=== PATIENT | female | born 1940 | race Caucasian/White ===

== ENCOUNTER 2016-06-29 11:00 | Inpatient (IN) | payer BC, MEDICARE ==
[2016-06-29] MEDS ORDERED: SODIUM CHLORIDE 0.9% 1,000 ML IV ONE (11:44)
[2016-06-29] MEDS ORDERED: ONDANSETRON 4 MG/2 ML VIAL IVP STA (11:45)
--- NOTE | 2016-06-29 11:49 | ED ---
Nausea/Vomiting/Diarrhea HPI <Kyler Edwards J - Last Filed: 06/29/16 15:20> - General Source: patient, EMS, RN notes reviewed Mode of arrival: EMS Limitations: no limitations <Juana Aburto - Last Filed: 06/29/16 19:55> - General Chief complaint: Nausea/Vomiting/Diarrhea Stated complaint: N/V/D Time Seen by Provider: 06/29/16 11:22 - History of Present Illness Initial comments: Patient is a 76-year-old female presents to the emergency room for evaluation of nausea, vomiting diarrhea. Patient states yesterday around 6 PM she began having lower abdominal pain. Patient states she has also been nauseous. Patient states throughout the night she is having on and off lower abdominal pain. Patient states this morning when she woke up, she had coffee and began experiencing lower abdominal pain. Patient states she went to the bathroom had an episode of diarrhea and vomited once. Patient states after the episode she felt very weak. Patient states her helped to the couch and EMS was called. Patient states she feels very shaky. Patient states she feels very cold. Patient's states that he took her temperature last night around 10 PM and it was 100.6F and Tylenol was given. Patient's denies any fever since. Patient states she has a history of cholecystectomy, appendectomy and total hysterectomy. Patient denies any history of bowel obstructions. Patient states she is no longer feeling nauseous or his abdominal pain but the nausea and pain are intermittent. Patient denies headache, dizziness, chest pain, shortness of breath. Patient denies any pain or burning during urination , blood in urine or trouble urinating. (uJana Aburto) - Related Data Home Medications Medication Instructions Recorded Confirmed Atorvastatin [Lipitor] 40 mg PO DAILY 09/18/14 06/29/16 Esomeprazole Magnesium [NexIUM] 40 mg PO DAILY 09/18/14 06/29/16 Ipratropium/Albuterol Sulfate 1 puff INHALATION RT-QID 09/18/14 06/29/16 [Combivent Respimat Inhaler] Pregabalin [Lyrica] 50 mg PO BID PRN 09/18/14 06/29/16 Sertraline [Zoloft] 100 mg PO DAILY 09/18/14 06/29/16 Albuterol Nebulized [Ventolin 2.5 mg INHALATION RT-QID 06/29/16 06/29/16 Nebulized] LORazepam [Ativan] 0.5 mg PO DAILY PRN 06/29/16 06/29/16 Allergies Allergy/AdvReac Type Severity Reaction Status Date / Time aspirin Allergy Nausea & Verified 06/29/16 11:39 Vomiting codeine Allergy Unknown Verified 06/29/16 11:39 meperidine HCl [From Demerol] AdvReac Rapid Verified 06/29/16 11:39 Heart Rate Review of Systems ROS Other: All systems not noted in ROS Statement are negative. <Kyler Edwards - Last Filed: 06/29/16 15:20> ROS Other: All systems not noted in ROS Statement are negative. <Juana Aburto - Last Filed: 06/29/16 19:55> ROS Statement: Those systems with pertinent positive or pertinent negative responses have been documented in the HPI. Past Medical History Past Medical History: Pneumonia Additional Past Medical History / Comment(s): high cholesterol History of Any Multi-Drug Resistant Organisms: None Reported Past Surgical History: Appendectomy, Cholecystectomy, Hysterectomy Additional Past Surgical History / Comment(s): emphesema Past Anesthesia/Blood Transfusion Reactions: No Reported Reaction Past Psychological History: Depression Smoking Status: Current every day smoker Past Alcohol Use History: None Reported Additional Past Alcohol Use History / Comment(s): quit 09/16/2014 Past Drug Use History: None Reported - Past Family History Sister(s) Family Medical History: Cancer Brother(s) Family Medical History: Cancer Mother Additional Family Medical History / Comment(s): " AFTER GALLBLADDER TONY" <Juana Aburto - Last Filed: 06/29/16 19:55> General Exam <Kyler Edwards - Last Filed: 06/29/16 15:20> Limitations: no limitations General appearance: alert, in no apparent distress Head exam: Present: atraumatic, normocephalic, normal inspection Eye exam: Present: normal appearance ENT exam: Present: normal exam Neck exam: Present: normal inspection Respiratory exam: Present: normal lung sounds bilaterally. Absent: respiratory distress Cardiovascular Exam: Present: regular rate, normal rhythm, normal heart sounds GI/Abdominal exam: Present: soft, normal bowel sounds. Absent: distended, tenderness, guarding, rebound, rigid Extremities exam: Present: normal inspection Back exam: Present: normal inspection Neurological exam: Present: alert, oriented X3, CN II-XII intact, normal gait Psychiatric exam: Present: normal affect, normal mood Skin exam: Present: warm, dry, intact, normal color. Absent: rash <Juana Aburto - Last Filed: 06/29/16 19:55> - General Exam Comments Initial Comments: Laying in exam room, no acute distress. (Juana Aburto) Medical Decision Making - Lab Data Result diagrams: 06/29/16 12:19 06/29/16 12:19 <Kyler Edwards - Last Filed: 06/29/16 15:20> - Lab Data Result diagrams: 06/29/16 12:19 06/29/16 12:19 - Radiology Data Radiology results: report reviewed, image reviewed <Juana Aburto - Last Filed: 06/29/16 19:55> - Medical Decision Making The patient was seen and examined. All diagnostics were reviewed. Case was discussed with Dr. Ryan and he is agreeable to admission with IV fluids, a.m. labs, Flagyl, Cipro, and symptomatic control. The patient is quite agreeable to this as well. The case is discussed with the PA and I agree with the findings as documented. (Kyler Edwards) Patient is a 76-year-old female presents to the emergency room for evaluation nausea, vomiting and diarrhea. Patient has an elevated white count. Abdomen/ pelvis CT significant for possible colitis versus gastroenteritis. Case discussed with Dr. Edwards. Dr. Edwards spoke with Dr. Ryan who agreed to admit patient. Patient will be admitted with IV fluids and Cipro/Flagyl. Plan discussed with patient. (Juana Aburto) - Lab Data Lab Results 06/29/16 06/29/16 06/29/16 Range/Units 12:19 12:19 12:19 WBC 16.9 H (3.8-10.6) k/uL RBC 4.37 (3.80-5.40) m/uL Hgb 12.9 (11.4-16.0) gm/dL Hct 39.2 (34.0-46.0) % MCV 89.6 (80.0-100.0) fL MCH 29.6 (25.0-35.0) pg MCHC 33.0 (31.0-37.0) g/dL RDW 13.5 (11.5-15.5) % Plt Count 211 (150-450) k/uL Neutrophils % 86 % Lymphocytes % 6 % Monocytes % 7 % Eosinophils % 1 % Basophils % 0 % Neutrophils # 14.5 H (1.3-7.7) k/uL Lymphocytes # 1.0 (1.0-4.8) k/uL Monocytes # 1.1 H (0-1.0) k/uL Eosinophils # 0.1 (0-0.7) k/uL Basophils # 0.0 (0-0.2) k/uL Sodium 142 (137-145) mmol/L Potassium 4.3 (3.5-5.1) mmol/L Chloride 108 H (98-107) mmol/L Carbon Dioxide 23 (22-30) mmol/L Anion Gap 11 mmol/L BUN 13 (7-17) mg/dL Creatinine 0.88 (0.52-1.04) mg/dL Est GFR (MDRD) Af Amer >60 (>60 ml/min/1.73 sqM) Est GFR (MDRD) Non-Af >60 (>60 ml/min/1.73 sqM) Glucose 100 H (74-99) mg/dL Calcium 9.2 (8.4-10.2) mg/dL Magnesium 1.8 (1.6-2.3) mg/dL Total Bilirubin 0.8 (0.2-1.3) mg/dL AST 19 (14-36) U/L ALT 25 (9-52) U/L Alkaline Phosphatase 80 (38-126) U/L Total Protein 6.7 (6.3-8.2) g/dL Albumin 4.0 (3.5-5.0) g/dL Amylase 45 (30-110) U/L Lipase 51 (23-300) U/L Urine Color Urine Appearance (Clear) Urine pH (5.0-8.0) Ur Specific [place] (1.001-1.035) Urine Protein (Negative) Urine Glucose (UA) (Negative) Urine Ketones (Negative) Urine Blood (Negative) Urine Nitrate (Negative) Urine Bilirubin (Negative) Urine Urobilinogen (<2.0) mg/dL Ur Leukocyte Esterase (Negative) Urine RBC (0-5) /hpf Ur Squamous Epith Cells (0-4) /hpf Hyaline Casts (0-2) /lpf Urine Mucus (None) /hpf 06/29/16 Range/Units 13:28 WBC (3.8-10.6) k/uL RBC (3.80-5.40) m/uL Hgb (11.4-16.0) gm/dL Hct (34.0-46.0) % MCV (80.0-100.0) fL MCH (25.0-35.0) pg MCHC (31.0-37.0) g/dL RDW (11.5-15.5) % Plt Count (150-450) k/uL Neutrophils % % Lymphocytes % % Monocytes % % Eosinophils % % Basophils % % Neutrophils # (1.3-7.7) k/uL Lymphocytes # (1.0-4.8) k/uL Monocytes # (0-1.0) k/uL Eosinophils # (0-0.7) k/uL Basophils # (0-0.2) k/uL Sodium (137-145) mmol/L Potassium (3.5-5.1) mmol/L Chloride (98-107) mmol/L Carbon Dioxide (22-30) mmol/L Anion Gap mmol/L BUN (7-17) mg/dL Creatinine (0.52-1.04) mg/dL Est GFR (MDRD) Af Amer (>60 ml/min/1.73 sqM) Est GFR (MDRD) Non-Af (>60 ml/min/1.73 sqM) Glucose (74-99) mg/dL Calcium (8.4-10.2) mg/dL Magnesium (1.6-2.3) mg/dL Total Bilirubin (0.2-1.3) mg/dL AST (14-36) U/L ALT (9-52) U/L Alkaline Phosphatase (38-126) U/L Total Protein (6.3-8.2) g/dL Albumin (3.5-5.0) g/dL Amylase (30-110) U/L Lipase (23-300) U/L Urine Color Yellow Urine Appearance Clear (Clear) Urine pH 5.5 (5.0-8.0) Ur Specific [place] 1.014 (1.001-1.035) Urine Protein Negative (Negative) Urine Glucose (UA) Negative (Negative) Urine Ketones Negative (Negative) Urine Blood Negative (Negative) Urine Nitrate Negative (Negative) Urine Bilirubin Negative (Negative) Urine Urobilinogen <2.0 (<2.0) mg/dL Ur Leukocyte Esterase Small H (Negative) Urine RBC 2 (0-5) /hpf Ur Squamous Epith Cells 5 H (0-4) /hpf Hyaline Casts 3 H (0-2) /lpf Urine Mucus Occasional H (None) /hpf Disposition <Kyler Edwards - Last Filed: 06/29/16 15:20> Decision Date: 06/29/16 <Juana Aburto - Last Filed: 06/29/16 19:55> Clinical Impression: Colitis Disposition: ADMITTED IP TO THIS [facility] Condition: Stable
--- NOTE | 2016-06-29 12:38 | XR ---
EXAMINATION TYPE: XR KUB DATE OF EXAM: 06/29/2016 12:35 PM COMPARISON: NONE HISTORY: Abdominal pain, vomiting and diarrhea FINDINGS: The osseous structures are intact. The bowel gas pattern is nonspecific. Surgical clips in right upp er quadrant seen. Subsegmental changes at the right lung base. Air-fluid level seen with prominent john wel loops in the mid abdomen. IMPRESSION: 1. Nonspecific abdomen. Air-fluid levels with prominent small bowel loops in the mid abdomen. Differ ential diagnosis would include an ileus, enteritis or partial obstruction.
[2016-06-29 12:51] LABS: Basophils % (A) 0 %; CH 29.2; CHCM 32.7; Eosinophils # (A) 0.1 k/uL (0-0.7); Eosinophils % (A) 1 %; HCT 39.2 % (34.0-46.0); HDW 2.35; HGB 12.9 gm/dL (11.4-16.0); Luc # (Auto) 0.12; Luc % (Auto) 1; Lymphocytes % (A) 6 %; MCH 29.6 pg (25.0-35.0); MCV 89.6 fL (80.0-100.0); Monocytes # (A) 1.1 k/uL (0-1.0); Monocytes % (A) 7 %; Neutrophils # (A) 14.5 k/uL (1.3-7.7); Neutrophils % (A) 86 %; RBC 4.37 m/uL (3.80-5.40); RDW 13.5 % (11.5-15.5); WBC 16.9 k/uL (3.8-10.6); WBC (Perox) 17.07
[2016-06-29 13:47] LABS: ALT 25 U/L (9-52); AST 19 U/L (14-36); Alkaline Phosphatase 80 U/L (38-126); Amylase 45 U/L (30-110); Anion Gap 11 mmol/L; Blood Urea Nitrogen 13 mg/dL (7-17); Calcium 9.2 mg/dL (8.4-10.2); Carbon Dioxide 23 mmol/L (22-30); Chloride 108 mmol/L (98-107); Glucose 100 mg/dL (74-99); Magnesium 1.8 mg/dL (1.6-2.3); Non-African American GFR(MDRD) >60 (>60 ml/min/1.73 sqM); Potassium 4.3 mmol/L (3.5-5.1); Sodium 142 mmol/L (137-145); Total Bilirubin 0.8 mg/dL (0.2-1.3); Total Protein 6.7 g/dL (6.3-8.2)
[2016-06-29] MEDS ORDERED: RX INFO: IV CONTRAST WAS GIVEN 1 EACH MISC MISCELLANE PRN (13:49)
[2016-06-29 14:01] LABS: Appearance,Urine Clear (Clear); Bilirubin,Urine Negative (Negative); Glucose,Urine (UA) Negative (Negative); Ketones,Urine Negative (Negative); Leukocyte Esterase,Urine Small (Negative); Mucus,Urine Occasional /hpf; Nitrite,Urine Negative (Negative); PH, Urine 5.5 (5.0-8.0); Particle Count 5915; Protein,Urine Negative (Negative); RBC,Urine 2 /hpf (0-5); Specific Gravity,Urine 1.014 (1.001-1.035); Squamous Epithelial Cell,Urine 5 /hpf (0-4); UA Billing (MACRO vs. MICRO) MICRO; Urobilinogen,Urine <2.0 mg/dL (<2.0)
--- NOTE | 2016-06-29 14:48 | CT ---
EXAMINATION TYPE: CT abdomen pelvis w con DATE OF EXAM: 06/29/2016 2:32 PM COMPARISON: Abdomen same date HISTORY: Generalized pain with nausea and vomiting CT DLP: 1169 mGycm Automated exposure control for dose reduction was used. TECHNIQUE: Helical acquisition of images from the lung bases through the pelvis have been completed. CONTRAST: Performed without Oral Contrast and with IV Contrast, patient injected with 100 mL of Omnipaque 300. FINDINGS: LUNG BASES: Bronchiectasis noted in the right middle lobe and lingula is noted, posterior diaphragmat ic hernias containing fat. No pleural or pericardial effusion. AORTA: No significant abnormality is appreciated. LIVER/GB: The liver shows low attenuation possibly due to fatty infiltration. Prominence of the intra hepatic biliary ducts is likely due to postcholecystectomy change. There is a small hiatal hernia. PANCREAS: No significant abnormality is seen. SPLEEN: No significant abnormality is seen. ADRENALS: No significant abnormality is seen. KIDNEYS: The left kidney is somewhat atrophic. Focal area of low attenuation, scarring with cortical thinning is present at the posterior midpole. Some caliectasis is present at this level. REPRODUCTIVE ORGANS: Uterus and adnexal structures is not seen. BOWEL: Diverticular changes associated with the sigmoid colon. There is retained fecal debris presen t, the occipital transverse colon shows wall thickening and possible edematous change. Fluid-filled l oops of small bowel are noted. No evident bowel obstruction. FREE AIR: No Free Air visible ASCITES: None visible. PELVIC ADENOPATHY: None visualized. RETROPERITONEAL ADENOPATHY: No Retroperitoneal Adenopathy visible. URINARY BLADDER: No significant abnormality is seen. OSSEOUS STRUCTURES: No significant abnormality is seen. IMPRESSION: CORRELATE TO EXCLUDE COLITIS, ENTERITIS. DIVERTICULOSIS. THERE MAY BE A COMPONENT OF FECAL STASIS. PO STOP CHANGES. BRONCHIECTASIS. HIATAL HERNIA. 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 Additional findings above.
[2016-06-29] MEDS ORDERED: NALOXONE 0.4 MG/ML 1 ML VIAL IV PRN (15:22)
[2016-06-29] MEDS ORDERED: ONDANSETRON 4 MG/2 ML VIAL IVP PRN (15:22)
[2016-06-29] MEDS ORDERED: metroNIDAZOLE-NS PMX 500 MG in SALINE 1 100ML.BAG IVPB STA (15:26)
[2016-06-29] MEDS ORDERED: LEVOFLOXACIN 500MG-D5W PMX 500 MG in DEXTROSE/WATER 1 100ML.BAG IVPB STA (15:26)
[2016-06-29 16:45] VITALS: RESP 16
[2016-06-29] MEDS: SODIUM CHLORIDE 0.9% 1,000 ML IV SCH (17:34)
[2016-06-29] MEDS ORDERED: LORazepam 0.5 MG TAB PO PRN (19:53)
[2016-06-29] MEDS ORDERED: PREGABALIN 50 MG CAP PO PRN (19:53)
[2016-06-29] MEDS: ALBUTEROL NEBULIZED 2.5 MG/3 ML INHALATION PRN (22:06)
[2016-06-29] MEDS: ATORVASTATIN 40 MG TAB PO SCH (22:29)
[2016-06-29] MEDS ORDERED: SODIUM CHLORIDE 0.9% 250 ML IV ONE (23:58)
[2016-06-30] MEDS: METOCLOPRAMIDE 5 MG/ML 2 ML VIAL IVP SCH ×3 (00:31→17:42)
[2016-06-30] MEDS: metroNIDAZOLE-NS PMX 500 MG in SALINE 1 100ML.BAG IVPB SCH ×3 (01:09→16:55)
[2016-06-30] MEDS: ALBUTEROL NEBULIZED 2.5 MG/3 ML INHALATION PRN ×3 (03:38→15:50)
[2016-06-30] MEDS: SODIUM CHLORIDE 0.9% 1,000 ML IV SCH ×3 (04:00→22:00)
[2016-06-30 07:33] LABS: Basophils % (A) 0 %; CH 29.4; Eosinophils % (A) 0 %; HCT 37.1 % (34.0-46.0); HDW 2.42; HGB 11.8 gm/dL (11.4-16.0); Luc # (Auto) 0.12; Luc % (Auto) 1; Lymphocytes # (A) 1.1 k/uL (1.0-4.8); Lymphocytes % (A) 12 %; MCH 28.5 pg (25.0-35.0); MCHC 31.8 g/dL (31.0-37.0); MCV 89.5 fL (80.0-100.0); Monocytes # (A) 0.6 k/uL (0-1.0); Monocytes % (A) 7 %; Neutrophils # (A) 7.4 k/uL (1.3-7.7); Neutrophils % (A) 80 %; RBC 4.14 m/uL (3.80-5.40); RDW 13.5 % (11.5-15.5); WBC 9.3 k/uL (3.8-10.6); WBC (Perox) 10.09
[2016-06-30 07:58] LABS: ALT 29 U/L (9-52); AST 18 U/L (14-36); Alkaline Phosphatase 69 U/L (38-126); Anion Gap 10 mmol/L; Blood Urea Nitrogen 8 mg/dL (7-17); Calcium 8.6 mg/dL (8.4-10.2); Carbon Dioxide 23 mmol/L (22-30); Chloride 109 mmol/L (98-107); Glucose 103 mg/dL (74-99); Non-African American GFR(MDRD) >60 (>60 ml/min/1.73 sqM); Potassium 3.7 mmol/L (3.5-5.1); Sodium 142 mmol/L (137-145); Total Bilirubin 0.5 mg/dL (0.2-1.3); Total Protein 6.1 g/dL (6.3-8.2)
[2016-06-30] MEDS: NICOTINE 21MG/24HR PATCH TRANSDERM SCH (09:06)
[2016-06-30] MEDS: ACETAMINOPHEN TAB 500 MG TAB PO PRN ×2 (09:06→16:54)
[2016-06-30] MEDS: PANTOPRAZOLE 40 MG TABLET PO SCH (09:08)
[2016-06-30 11:46] VITALS: BMI 21.7
[2016-06-30] MEDS ORDERED: LEVOFLOXACIN 500MG-D5W PMX 500 MG in DEXTROSE/WATER 1 100ML.BAG IVPB SCH (16:00)
--- NOTE | 2016-06-30 16:11 | P.HPIM ---
History of Present Illness H&P Date: 06/30/16 Chief Complaint: Abdominal pain Patient is a 76-year-old female with medical history significant for pneumonia, hyperlipidemia, emphysema, and GERD admitted to the hospital with complaints of left lower quadrant abdominal pain 2 days associated with nausea, vomiting, and diarrhea. CT of abdomen and pelvis with diverticular changes associated with the sigmoid colon; retained fecal debris is present; occipital transverse colon shows wall thickening and possible edematous changes; fluid-filled loops of small bowel are noted; no evident bowel obstruction; hiatal hernia; bronchiectasis. Admission labs: WBC 16.9. Patient was admitted to the medical floor for IV antibiotics, IV fluids, and pain management. Consult requested for surgical service. Upon examination, patient is feeling better. Denies nausea, vomiting, chills, fevers, shortness of breath, chest pain, or abdominal pain. Patient reports mild dysuria. Denies constipation or diarrhea. Patient is tolerating a clear liquid diet. T-max the last 24 hours 99.9. No evidence of leukocytosis. Past Medical History Past Medical History: GERD/Reflux, Hyperlipidemia, Pneumonia, Respiratory Disorder Additional Past Medical History / Comment(s): Emphysema, shingles in right ear History of Any Multi-Drug Resistant Organisms: None Reported Past Surgical History: Appendectomy, Cholecystectomy, Hysterectomy Additional Past Surgical History / Comment(s): emphesema Past Anesthesia/Blood Transfusion Reactions: No Reported Reaction Past Psychological History: Depression Additional Psychological History / Comment(s): AT TIME OF THIS ADMIT PT STATED NO FEELINGS OF DEPRESSION OR THOGUTHS OF WANTING TO HARM SELF. Smoking Status: Current every day smoker Past Alcohol Use History: None Reported Additional Past Alcohol Use History / Comment(s): quit 09/16/2014 Past Drug Use History: None Reported - Past Family History Mother Additional Family Medical History / Comment(s): " AFTER GALLBLADDER TONY" Sister(s) Family Medical History: Cancer Brother(s) Family Medical History: Cancer Medications and Allergies Home Medications Medication Instructions Recorded Confirmed Type Atorvastatin [Lipitor] 40 mg PO DAILY 09/18/14 06/29/16 History Esomeprazole Magnesium [NexIUM] 40 mg PO DAILY 09/18/14 06/29/16 History Ipratropium/Albuterol Sulfate 1 puff INHALATION RT-QID 09/18/14 06/29/16 History [Combivent Respimat Inhaler] Pregabalin [Lyrica] 50 mg PO BID PRN 09/18/14 06/29/16 History Sertraline [Zoloft] 100 mg PO DAILY 09/18/14 06/29/16 History Albuterol Nebulized [Ventolin 2.5 mg INHALATION RT-QID 06/29/16 06/29/16 History Nebulized] LORazepam [Ativan] 0.5 mg PO DAILY PRN 06/29/16 06/29/16 History Allergies Allergy/AdvReac Type Severity Reaction Status Date / Time aspirin Allergy Nausea & Verified 06/29/16 11:39 Vomiting codeine Allergy Unknown Verified 06/29/16 11:39 meperidine HCl [From Demerol] AdvReac Rapid Verified 06/29/16 11:39 Heart Rate Physical Exam Vitals: Vital Signs Temp Pulse Pulse Pulse Resp BP Pulse Ox 06/30/16 08:16 92 06/30/16 08:06 88 06/30/16 08:00 16 06/30/16 07:00 98.5 F 83 16 107/58 92 L 06/30/16 03:49 92 06/30/16 03:38 90 06/30/16 01:00 114/51 06/30/16 00:05 107/48 06/29/16 22:39 98.3 F 87 16 92/50 90 L 06/29/16 22:14 92 06/29/16 22:08 92 06/29/16 17:08 16 06/29/16 16:44 99.9 F H 86 16 109/64 93 L Intake and Output 06/30/16 06/30/16 06/30/16 06:59 14:59 22:59 Intake Total 800 Balance 800 Intake: IV 700 Sodium Chloride 0.9% 1, 700 000 ml @ 100 mls/hr IV . Q10H MARC Rx#:[id number] Intake, IV Titration 100 Amount Levofloxacin 500Mg-D5w 100 Pmx 500 mg In Dextrose/ Water 1 100ml.bag @ 100 mls/hr IVPB ONCE STA Rx#: [id number] Other: Voiding Method Toilet Toilet # Voids 2 2 Weight 61.235 kg Patient Weight 07/01/16 06:59 Weight 61.235 kg GENERAL: Pt awake and alert, well-appearing, well-nourished, and in no acute distress. HEAD: Atraumatic, normocephalic. EYES: Pupils equal, round, and reactive to light, extraocular movements intact, sclera anicteric, conjunctiva are normal. ENT: Moist mucous membranes. NECK:Normal range of motion, supple without lymphadenopathy or JVD. No carotid bruits. Thyroid midline, small and firm without palpable masses. LUNGS: Breath sounds diminished to auscultation bilaterally. No wheezes, rales , or rhonchi. HEART: Heart S1, S2, no S3 or S4. Regular rate and rhythm. No murmurs, rubs or gallops. ABDOMEN: Soft, nontender, nondistended, normoactive bowel sounds. No guarding, no rebound. No masses or organomegaly appreciated. EXTREMITIES: 2+ peripheral pulses. No edema. No calf tenderness. NEUROLOGICAL: Pt oriented x 3. Cranial nerves II through XII grossly intact. Strength and sensation grossly intact. PSYCH: Normal mood, normal affect. SKIN: Warm, dry, intact. Normal turgor. No rashes or lesions. Results CBC & Chem 7: 06/30/16 07:14 06/30/16 07:14 Labs: Abnormal Lab Results - Last 24 Hours (Table) 06/30/16 Range/Units 07:14 Chloride 109 H (98-107) mmol/L Glucose 103 H (74-99) mg/dL Total Protein 6.1 L (6.3-8.2) g/dL Abdominal x-ray: report reviewed CT scan - abdomen: report reviewed CT scan - pelvis: report reviewed Thrombosis Risk Factor Assmnt - DVT/VTE Prophylaxis DVT/VTE Prophylaxis: Pharmacologic Prophylaxis ordered, Mechanical Prophylaxis ordered - Choose All That Apply Any of the Below Risk Factors Present?: Yes Each Factor Represents 1 point: Hx of IBD Other Risk Factors: Yes Each Risk Factor Represents 3 Points: Age 75 years or older Other congenital or acquired thrombophilia - If yes, enter type in comment: No Thrombosis Risk Factor Assessment Total Risk Factor Score: 4 Thrombosis Risk Factor Assessment Level: Moderate Risk Assessment and Plan Plan: Impression and plan: 1. Left lower quadrant abdominal pain associated with nausea and vomiting, present on admission, suspect secondary to mild transverse colitis and enteritis. Surgical consult has been requested, recommendations pending. Continue IV antibiotics in the form of Levaquin and Flagyl. Continue supportive treatment and pain management. Continue diet per surgical management. 2. Diverticulosis. 3. Hiatal hernia. 4. Bronchiectasis. Continue albuterol Rawl updrafts as needed., 5. History of hyperlipidemia. Continue Lipitor. 6. History of depression, stable. 7. Nicotine dependence. Continue nicotine patch. Smoking cessation encouraged. 8. History of appendectomy. 9. History of cholecystectomy. 10. History of hysterectomy. 11. GERD. Continue Protonix. 12. History of shingles with neuropathy. Continue Lyrica. 13. GI prophylaxis. Continue Protonix. 14. DVT prophylaxis. Continue subcu heparin. 15. Repeat CBC and BMP in a.m. The above impression and plan have been discussed and directed by Dr. Ryan. Arya MICHEL acting as scribe for Dr. Ryan.
--- NOTE | 2016-06-30 16:53 | P.GSCN ---
History of Present Illness Consult date: 06/30/16 Reason for Consult: Abdominal pain Requesting physician: Matthieu Ryan History of present illness: Patient is a 76-year-old female with medical history significant for GERD, appendectomy, cholecystectomy, and hysterectomy admitted to the hospital with complaints of left lower quadrant abdominal pain 2 days associated with nausea , vomiting, and diarrhea. CT of abdomen and pelvis with diverticular changes associated with the sigmoid colon; retained fecal debris; occipital transverse colon shows wall thickening and possible edematous changes; fluid-filled loops of small bowel are noted; no evident bowel obstruction; hiatal hernia. Admission labs: WBC 16.9. No fevers. Upon examination, patient is feeling better. Denies nausea, vomiting, chills, fevers, shortness of breath, chest pain, or abdominal pain. Denies constipation or diarrhea. Patient is tolerating a clear liquid diet. T-max the last 24 hours 99.9. No evidence of leukocytosis. No history of hematemesis, melena, or hematochezia. Patient denies ever having having an EGD or colonoscopy. Past Medical History Past Medical History: GERD/Reflux, Hyperlipidemia, Pneumonia, Respiratory Disorder Additional Past Medical History / Comment(s): Emphysema, shingles in right ear History of Any Multi-Drug Resistant Organisms: None Reported Past Surgical History: Appendectomy, Cholecystectomy, Hysterectomy Additional Past Surgical History / Comment(s): emphesema Past Anesthesia/Blood Transfusion Reactions: No Reported Reaction Past Psychological History: Depression Additional Psychological History / Comment(s): AT TIME OF THIS ADMIT PT STATED NO FEELINGS OF DEPRESSION OR THOGUTHS OF WANTING TO HARM SELF. Smoking Status: Current every day smoker Past Alcohol Use History: None Reported Additional Past Alcohol Use History / Comment(s): quit 09/16/2014 Past Drug Use History: None Reported - Past Family History Mother Additional Family Medical History / Comment(s): " AFTER GALLBLADDER TONY" Sister(s) Family Medical History: Cancer Brother(s) Family Medical History: Cancer Medications and Allergies Home Medications Medication Instructions Recorded Confirmed Type Atorvastatin [Lipitor] 40 mg PO DAILY 09/18/14 06/29/16 History Esomeprazole Magnesium [NexIUM] 40 mg PO DAILY 09/18/14 06/29/16 History Ipratropium/Albuterol Sulfate 1 puff INHALATION RT-QID 09/18/14 06/29/16 History [Combivent Respimat Inhaler] Pregabalin [Lyrica] 50 mg PO BID PRN 09/18/14 06/29/16 History Sertraline [Zoloft] 100 mg PO DAILY 09/18/14 06/29/16 History Albuterol Nebulized [Ventolin 2.5 mg INHALATION RT-QID 06/29/16 06/29/16 History Nebulized] LORazepam [Ativan] 0.5 mg PO DAILY PRN 06/29/16 06/29/16 History Allergies Allergy/AdvReac Type Severity Reaction Status Date / Time aspirin Allergy Nausea & Verified 06/29/16 11:39 Vomiting codeine Allergy Unknown Verified 06/29/16 11:39 meperidine HCl [From Demerol] AdvReac Rapid Verified 06/29/16 11:39 Heart Rate Surgical - Exam Vital Signs Temp Pulse Resp BP Pulse Ox 96.3 F L 82 16 155/66 97 06/29/16 11:03 06/29/16 11:03 06/29/16 11:03 06/29/16 11:03 06/29/16 11:03 GENERAL: Pt awake and alert, well-appearing, well-nourished, and in no acute distress. HEAD: Atraumatic, normocephalic. EYES: Pupils equal, round, and reactive to light, extraocular movements intact, sclera anicteric, conjunctiva are normal. ENT: Moist mucous membranes. NECK:Normal range of motion, supple without lymphadenopathy or JVD. No carotid bruits. Thyroid midline, small and firm without palpable masses. LUNGS: Breath sounds diminished to auscultation bilaterally. No wheezes, rales , or rhonchi. HEART: Heart S1, S2, no S3 or S4. Regular rate and rhythm. No murmurs, rubs or gallops. ABDOMEN: Soft, nontender, nondistended, normoactive bowel sounds. No guarding, no rebound. No masses or organomegaly appreciated. EXTREMITIES: 2+ peripheral pulses. No edema. No calf tenderness. NEUROLOGICAL: Pt oriented x 3. Cranial nerves II through XII grossly intact. Strength and sensation grossly intact. PSYCH: Normal mood, normal affect. SKIN: Warm, dry, intact. Normal turgor. No rashes or lesions. Results - Labs 06/30/16 07:14 06/30/16 07:14 Abnormal Lab Results - Last 24 Hours (Table) 06/30/16 Range/Units 07:14 Chloride 109 H (98-107) mmol/L Glucose 103 H (74-99) mg/dL Total Protein 6.1 L (6.3-8.2) g/dL Diabetes panel 06/30/16 Range/Units 07:14 Sodium 142 (137-145) mmol/L Potassium 3.7 (3.5-5.1) mmol/L Chloride 109 H (98-107) mmol/L Carbon Dioxide 23 (22-30) mmol/L BUN 8 (7-17) mg/dL Creatinine 0.80 (0.52-1.04) mg/dL Glucose 103 H (74-99) mg/dL Calcium 8.6 (8.4-10.2) mg/dL AST 18 (14-36) U/L ALT 29 (9-52) U/L Alkaline Phosphatase 69 (38-126) U/L Total Protein 6.1 L (6.3-8.2) g/dL Albumin 3.6 (3.5-5.0) g/dL Calcium panel 06/30/16 Range/Units 07:14 Calcium 8.6 (8.4-10.2) mg/dL Albumin 3.6 (3.5-5.0) g/dL Pituitary panel 06/30/16 Range/Units 07:14 Sodium 142 (137-145) mmol/L Potassium 3.7 (3.5-5.1) mmol/L Chloride 109 H (98-107) mmol/L Carbon Dioxide 23 (22-30) mmol/L BUN 8 (7-17) mg/dL Creatinine 0.80 (0.52-1.04) mg/dL Glucose 103 H (74-99) mg/dL Calcium 8.6 (8.4-10.2) mg/dL Adrenal panel 06/30/16 Range/Units 07:14 Sodium 142 (137-145) mmol/L Potassium 3.7 (3.5-5.1) mmol/L Chloride 109 H (98-107) mmol/L Carbon Dioxide 23 (22-30) mmol/L BUN 8 (7-17) mg/dL Creatinine 0.80 (0.52-1.04) mg/dL Glucose 103 H (74-99) mg/dL Calcium 8.6 (8.4-10.2) mg/dL Total Bilirubin 0.5 (0.2-1.3) mg/dL AST 18 (14-36) U/L ALT 29 (9-52) U/L Alkaline Phosphatase 69 (38-126) U/L Total Protein 6.1 L (6.3-8.2) g/dL Albumin 3.6 (3.5-5.0) g/dL - Imaging Abdominal x-ray: report reviewed CT scan - abdomen: report reviewed CT scan - pelvis: report reviewed Assessment and Plan Plan: Impression and plan: 1. Left lower quadrant abdominal pain associated with nausea and vomiting, present on admission, suspect secondary to mild transverse colitis. Continue IV antibiotics in the form of Levaquin and Flagyl. Continue supportive treatment and pain management. Continue clear liquid diet. 2. Diverticulosis. 3. Hiatal hernia. 4. History of appendectomy. 5. History of cholecystectomy. 6. History of hysterectomy. 7. GERD. Continue Protonix. The above impression and plan have been discussed and directed by Dr. Reese. Arya MICHEL acting as scribe for Dr. Reese.
[2016-06-30] MEDS: ATORVASTATIN 40 MG TAB PO SCH (22:00)
[2016-06-30] MEDS: HEPARIN SODIUM,PORCINE 5,000 UNIT/ML 1 ML VIAL SQ SCH (22:00)
[2016-06-30 22:33] VITALS: TEMP 97.9
[2016-07-01] MEDS: ALBUTEROL NEBULIZED 2.5 MG/3 ML INHALATION PRN ×2 (07:42→11:40)
[2016-07-01] MEDS: ACETAMINOPHEN TAB 500 MG TAB PO PRN ×2 (07:43)
[2016-07-01] MEDS: PANTOPRAZOLE 40 MG TABLET PO SCH (07:44)
[2016-07-01] MEDS: SODIUM CHLORIDE 0.9% 1,000 ML IV SCH (07:44)
[2016-07-01] MEDS: HEPARIN SODIUM,PORCINE 5,000 UNIT/ML 1 ML VIAL SQ SCH (07:45)
[2016-07-01] MEDS: NICOTINE 21MG/24HR PATCH TRANSDERM SCH (07:45)
[2016-07-01 07:47] LABS: Basophils % (A) 0 %; CH 29.4; CHCM 32.6; Eosinophils # (A) 0.2 k/uL (0-0.7); Eosinophils % (A) 3 %; HCT 34.6 % (34.0-46.0); HDW 2.53; HGB 11.1 gm/dL (11.4-16.0); Luc # (Auto) 0.15; Luc % (Auto) 3; Lymphocytes # (A) 1.3 k/uL (1.0-4.8); Lymphocytes % (A) 22 %; MCH 28.9 pg (25.0-35.0); MCV 90.5 fL (80.0-100.0); Mean Platelet Volume 8.9; Monocytes # (A) 0.6 k/uL (0-1.0); Monocytes % (A) 10 %; Neutrophils # (A) 3.7 k/uL (1.3-7.7); Neutrophils % (A) 63 %; RBC 3.82 m/uL (3.80-5.40); RDW 13.6 % (11.5-15.5); WBC 5.9 k/uL (3.8-10.6); WBC (Perox) 6.57
[2016-07-01] MEDS: metroNIDAZOLE-NS PMX 500 MG in SALINE 1 100ML.BAG IVPB SCH ×2 (07:49)
[2016-07-01] MEDS: METOCLOPRAMIDE 5 MG/ML 2 ML VIAL IVP SCH ×2 (07:49)
[2016-07-01 07:59] LABS: Anion Gap 11 mmol/L; Blood Urea Nitrogen 7 mg/dL (7-17); Calcium 8.5 mg/dL (8.4-10.2); Carbon Dioxide 23 mmol/L (22-30); Chloride 111 mmol/L (98-107); Glucose 90 mg/dL (74-99); Non-African American GFR(MDRD) >60 (>60 ml/min/1.73 sqM); Potassium 3.4 mmol/L (3.5-5.1); Sodium 145 mmol/L (137-145)
[2016-07-01] MEDS ORDERED: Potassium Replacement Protocol 1 EACH MISC MISCELLANE PRN (09:02)
[2016-07-01 09:11] VITALS: BP 123/57
[2016-07-01] MEDS ORDERED: POTASSIUM CHLORIDE ER 20 MEQ TAB.ER PO SCH (10:00)
[2016-07-01 11:50] VITALS: PULSE 92
--- NOTE | 2016-07-01 13:58 | P.DS ---
Providers Date of admission: 06/29/16 15:26 Expected date of discharge: 07/01/16 Attending physician: Matthieu Ryan Consults: 06/30/16 09:48 Consult Physician Urgent Consulting Provider: Kashmir Reese Consult Reason/Comments: COLITIS Do you want consulting provider notified?: Already Contacted Primary care physician: Matthieu Ryan [facility] Course: Patient is a 76-year-old female with medical history significant for pneumonia, hyperlipidemia, emphysema, and GERD admitted to the hospital with complaints of left lower quadrant abdominal pain 2 days associated with nausea, vomiting, and diarrhea. CT of abdomen and pelvis with diverticular changes associated with the sigmoid colon; retained fecal debris is present; occipital transverse colon shows wall thickening and possible edematous changes; fluid-filled loops of small bowel are noted; no evident bowel obstruction; hiatal hernia; bronchiectasis. Admission labs: WBC 16.9. Patient was admitted to the medical floor for IV antibiotics, IV fluids, and pain management. Consult requested for surgical service. Patient improved significantly during her hospital stay and her abdominal pain resolved. Patient was deemed stable for discharge from both a surgical and medical standpoint. Patient to continue Levaquin and Flagyl for another week upon discharge. Discharge diagnoses: 1. Left lower quadrant abdominal pain associated with nausea and vomiting, present on admission, suspect secondary to mild transverse colitis and enteritis. 2. Diverticulosis. 3. Hiatal hernia. 4. Bronchiectasis. 5. History of hyperlipidemia. 6. History of depression, stable. 7. Nicotine dependence. 8. History of appendectomy. 9. History of cholecystectomy. 10. History of hysterectomy. 11. GERD. Continue Protonix. 12. History of shingles with neuropathy. The above impression and plan have been discussed and directed by Dr. Ryan. Arya GRIGGS-Anjelica acting as scribe for Dr. Ryan. Pertinent Studies: KUB x-ray; abdomen/pelvis CT Patient Condition at Discharge: Good Plan - Discharge Summary New Discharge Prescriptions: Levofloxacin [Levaquin] 500 mg PO DAILY #7 tab metroNIDAZOLE [Flagyl] 500 mg PO TID #21 tab Discharge Medication List Atorvastatin [Lipitor] 40 mg PO DAILY 09/18/14 [History] Esomeprazole Magnesium [NexIUM] 40 mg PO DAILY 09/18/14 [History] Ipratropium/Albuterol Sulfate [Combivent Respimat Inhaler] 1 puff INHALATION RT- QID 09/18/14 [History] Pregabalin [Lyrica] 50 mg PO BID PRN 09/18/14 [History] Sertraline [Zoloft] 100 mg PO DAILY 09/18/14 [History] Albuterol Nebulized [Ventolin Nebulized] 2.5 mg INHALATION RT-QID 06/29/16 [ History] LORazepam [Ativan] 0.5 mg PO DAILY PRN 06/29/16 [History] Levofloxacin [Levaquin] 500 mg PO DAILY #7 tab 07/01/16 [Rx] metroNIDAZOLE [Flagyl] 500 mg PO TID #21 tab 07/01/16 [Rx] Follow up Appointment(s)/Referral(s): Matthieu Ryan DO [Primary Care Provider] - 1-2 days Kashmir Reese MD [STAFF PHYSICIAN] - 1 Week Patient Instructions/Handouts: Soft Diet (DC), Infectious Colitis (GEN) Activity/Diet/Wound Care/Special Instructions: Full liquid diet, advance to soft diet as tolerated. Discharge Disposition: HOME SELF-CARE
--- NOTE | 2016-07-01 14:47 | P.PN ---
Subjective Principal diagnosis: Colitis Patient is a 76-year-old female admitted with nausea, vomiting, and diarrhea and evidence of transverse colitis. Upon examination, patient is feeling better. Denies nausea, vomiting, chills, fevers, shortness of breath, chest pain, or abdominal pain. Denies constipation or diarrhea. Patient is tolerating a clear liquid diet. Afebrile. Objective - Vital Signs Vital signs: Vital Signs Temp 97.9 F 07/01/16 07:00 Pulse 92 07/01/16 11:50 Resp 16 07/01/16 08:00 BP 123/57 07/01/16 07:00 Pulse Ox 99 07/01/16 07:00 Intake & Output 06/30/16 07/01/16 07/01/16 18:59 06:59 18:59 Intake Total 2150 Balance 2150 Weight 61.235 kg 61.235 kg Intake: IV 1000 Sodium Chloride 0.9% 1, 1000 000 ml @ 100 mls/hr IV . Q10H [facility] Rx#:[id number] Intake, IV Titration 100 Amount metroNIDAZOLE-NS PMX 500 100 mg In Saline 1 100ml.bag @ 100 mls/hr IVPB Q8HR M[facility] Rx#:[id number] Oral 1050 Other: Voiding Method Toilet Toilet Toilet # Voids 2 2 - Exam GENERAL: Pt awake and alert, well-appearing, well-nourished, and in no acute distress. HEAD: Atraumatic, normocephalic. EYES: Pupils equal, round, and reactive to light, extraocular movements intact, sclera anicteric, conjunctiva are normal. ENT: Moist mucous membranes. NECK:Normal range of motion, supple without lymphadenopathy or JVD. No carotid bruits. Thyroid midline, small and firm without palpable masses. LUNGS: Breath sounds diminished to auscultation bilaterally. No wheezes, rales , or rhonchi. HEART: Heart S1, S2, no S3 or S4. Regular rate and rhythm. No murmurs, rubs or gallops. ABDOMEN: Soft, nontender, nondistended, normoactive bowel sounds. No guarding, no rebound. No masses or organomegaly appreciated. EXTREMITIES: 2+ peripheral pulses. No edema. No calf tenderness. NEUROLOGICAL: Pt oriented x 3. Cranial nerves II through XII grossly intact. Strength and sensation grossly intact. PSYCH: Normal mood, normal affect. SKIN: Warm, dry, intact. Normal turgor. No rashes or lesions. - Labs CBC & Chem 7: 07/01/16 07:32 07/01/16 07:32 Labs: Abnormal Lab Results - Last 24 Hours (Table) 07/01/16 07/01/16 Range/Units 07:32 07:32 Hgb 11.1 L (11.4-16.0) gm/dL Potassium 3.4 L (3.5-5.1) mmol/L Chloride 111 H (98-107) mmol/L Assessment and Plan Plan: Impression and plan: 1. Left lower quadrant abdominal pain associated with nausea and vomiting, present on admission, suspect secondary to mild transverse colitis. Continue IV antibiotics in the form of Levaquin and Flagyl. Continue supportive treatment and pain management. Advance diet to full liquids. 2. Diverticulosis. 3. Hiatal hernia. 4. History of appendectomy. 5. History of cholecystectomy. 6. History of hysterectomy. 7. GERD. Continue Protonix. From a surgical standpoint, patient is stable for discharge to home with follow- up in office in 1 week. Continue follow medical service. The above impression and plan have been discussed and directed by Dr. Reese. Arya MICHEL acting as scribe for Dr. Reese.
== END 2016-07-01 15:20 | disposition home or self-care (01) | DRG 392 ==
LOC: EC 11:00 → 5MS5E 15:26
PROVIDERS: ADMIT Family Medicine; ATTEND Family Medicine
DX: K52.9 Noninfective gastroenteritis and colitis, unspecified (principal); B02.29 Other postherpetic nervous system involvement; J43.9 Emphysema, unspecified; F32.9 Major depressive disorder, single episode, unspecified; E78.5 Hyperlipidemia, unspecified; K44.9 Diaphragmatic hernia without obstruction or gangrene; K57.90 Diverticulosis of intestine, part unspecified, without perforation or abscess without bleeding; K21.9 Gastro-esophageal reflux disease without esophagitis; F17.200 Nicotine dependence, unspecified, uncomplicated; E78.00 Pure hypercholesterolemia, unspecified; Z86.19 Personal history of other infectious and parasitic diseases; J47.9 Bronchiectasis, uncomplicated; Z90.49 Acquired absence of other specified parts of digestive tract; Z90.710 Acquired absence of both cervix and uterus; Z79.899 Other long term (current) drug therapy
CPT/HCPCS: 36415; 74000; 74177; 80048; 80053; 81001; 82150; 83690; 83735; 85025; 94640; 96361; 96375; 99285

== ENCOUNTER 2016-08-24 13:07 | Emergency (ER) | payer BC, MEDICARE ==
[2016-08-24] MEDS ORDERED: SODIUM CHLORIDE 0.9% 500 ML IV STA (13:32)
[2016-08-24] MEDS ORDERED: SODIUM CHLORIDE 0.9% 1,000 ML IV STA (13:32)
--- NOTE | 2016-08-24 13:35 | ED ---
General Adult HPI - General Chief complaint: Weakness Stated complaint: Bowel problems Time Seen by Provider: 08/24/16 13:17 Source: patient, family, RN notes reviewed Mode of arrival: EMS Limitations: no limitations - History of Present Illness Initial comments: Patient is a pleasant 76-year-old female presenting to the emergency Department with fatigue. Symptoms have been mild for day or 2 however more significant today. Patient denies true weakness. No isolated area of weakness. Patient is able to ambulate. Patient was in the hospital several weeks ago and diagnosed with colitis. Patient had normalization of bowel movements. The past few days patient has had several small bowel is followed by mucus. No abdominal pain. Patient did have some cramping several days ago. No fevers. No nausea or vomiting. No history of chronic bowel problems. - Related Data Home Medications Medication Instructions Recorded Confirmed Atorvastatin [Lipitor] 40 mg PO DAILY 09/18/14 08/24/16 Esomeprazole Magnesium [NexIUM] 40 mg PO DAILY 09/18/14 08/24/16 Ipratropium/Albuterol Sulfate 1 puff INHALATION RT-QID 09/18/14 08/24/16 [Combivent Respimat Inhaler] LORazepam [Ativan] 0.5 mg PO DAILY PRN 06/29/16 08/24/16 Ipratropium-Albuterol Nebulize 3 ml INHALATION QID 08/24/16 08/24/16 [Duoneb 0.5 mg-3 mg/3 ml Soln] Previous Rx's Medication Instructions Recorded metroNIDAZOLE [Flagyl] 500 mg PO QID #56 tab 08/24/16 Allergies Allergy/AdvReac Type Severity Reaction Status Date / Time aspirin Allergy Nausea & Verified 08/24/16 14:05 Vomiting codeine Allergy Unknown Verified 08/24/16 14:05 meperidine HCl [From Demerol] AdvReac Rapid Verified 08/24/16 14:05 Heart Rate Review of Systems ROS Statement: Those systems with pertinent positive or pertinent negative responses have been documented in the HPI. ROS Other: All systems not noted in ROS Statement are negative. Constitutional: Denies: fever, chills Eyes: Denies: eye pain ENT: Denies: ear pain Respiratory: Denies: cough, dyspnea Cardiovascular: Denies: chest pain Endocrine: Reports: fatigue Gastrointestinal: Denies: abdominal pain Genitourinary: Denies: dysuria Musculoskeletal: Denies: back pain Skin: Denies: lesions Neurological: Denies: headache, paresthesias, confusion Past Medical History Past Medical History: GERD/Reflux, Hyperlipidemia, Pneumonia, Respiratory Disorder Additional Past Medical History / Comment(s): Emphysema, shingles in right ear History of Any Multi-Drug Resistant Organisms: None Reported Past Surgical History: Appendectomy, Cholecystectomy, Hysterectomy Additional Past Surgical History / Comment(s): emphesema Past Anesthesia/Blood Transfusion Reactions: No Reported Reaction Past Psychological History: Depression Additional Psychological History / Comment(s): AT TIME OF THIS ADMIT PT STATED NO FEELINGS OF DEPRESSION OR THOGUTHS OF WANTING TO HARM SELF. Smoking Status: Current every day smoker Past Alcohol Use History: None Reported Additional Past Alcohol Use History / Comment(s): quit 09/16/2014 Past Drug Use History: None Reported - Past Family History Mother Additional Family Medical History / Comment(s): " AFTER GALLBLADDER TONY" Sister(s) Family Medical History: Cancer Brother(s) Family Medical History: Cancer General Exam Limitations: no limitations General appearance: alert, in no apparent distress Head exam: Present: atraumatic Eye exam: Present: normal appearance, PERRL, EOMI. Absent: nystagmus ENT exam: Present: normal oropharynx Neck exam: Present: normal inspection Respiratory exam: Present: normal lung sounds bilaterally Cardiovascular Exam: Present: regular rate, normal rhythm GI/Abdominal exam: Present: soft, normal bowel sounds. Absent: distended, tenderness, guarding, rebound, rigid, pulsatile mass Extremities exam: Present: normal inspection. Absent: pedal edema, calf tenderness Neurological exam: Present: alert, CN II-XII intact. Absent: motor sensory deficit Expanded Speech: Present: fluid speech Cranial nerves: EOM's Intact: Normal, Facial Sensation: Normal Sensory exam: Upper Extremity Light Touch: Normal, Lower Extremity Light Touch: Normal Motor strength exam: RUE: 5, LUE: 5, RLE: 5, LLE: 5 Eye Response: (4) open spontaneously Motor Response: (6) obeys commands Verbal Response: (5) oriented Psychiatric exam: Present: normal affect, normal mood Skin exam: Absent: rash Course Vital Signs 08/24/16 08/24/16 08/24/16 13:16 14:04 15:42 Temperature 99.3 F Pulse Rate 81 69 70 Respiratory 18 18 16 Rate Blood Pressure 174/71 144/72 134/60 O2 Sat by Pulse 98 95 95 Oximetry Medical Decision Making - Medical Decision Making Patient reevaluated and updated. Patient is comfortable with discharge home. Case was discussed in detail with Dr. Ryan who is in agreement with plan. - Lab Data Result diagrams: 08/24/16 13:15 08/24/16 13:15 Lab Results 08/24/16 08/24/16 08/24/16 Range/Units 13:15 13:15 13:43 WBC 8.1 (3.8-10.6) k/uL RBC 4.33 (3.80-5.40) m/uL Hgb 13.1 (11.4-16.0) gm/dL Hct 38.3 (34.0-46.0) % MCV 88.5 (80.0-100.0) fL MCH 30.3 (25.0-35.0) pg MCHC 34.3 (31.0-37.0) g/dL RDW 13.8 (11.5-15.5) % Plt Count 224 (150-450) k/uL Neutrophils % 59 % Lymphocytes % 27 % Monocytes % 8 % Eosinophils % 3 % Basophils % 1 % Neutrophils # 4.8 (1.3-7.7) k/uL Lymphocytes # 2.2 (1.0-4.8) k/uL Monocytes # 0.6 (0-1.0) k/uL Eosinophils # 0.3 (0-0.7) k/uL Basophils # 0.1 (0-0.2) k/uL Sodium 145 (137-145) mmol/L Potassium 3.9 (3.5-5.1) mmol/L Chloride 110 H (98-107) mmol/L Carbon Dioxide 24 (22-30) mmol/L Anion Gap 11 mmol/L BUN 11 (7-17) mg/dL Creatinine 0.75 (0.52-1.04) mg/dL Est GFR (MDRD) Af Amer >60 (>60 ml/min/1.73 sqM) Est GFR (MDRD) Non-Af >60 (>60 ml/min/1.73 sqM) Glucose 111 H (74-99) mg/dL Calcium 9.8 (8.4-10.2) mg/dL Total Bilirubin 0.8 (0.2-1.3) mg/dL AST 19 (14-36) U/L ALT 19 (9-52) U/L Alkaline Phosphatase 76 (38-126) U/L Total Protein 7.2 (6.3-8.2) g/dL Albumin 4.4 (3.5-5.0) g/dL Amylase 48 (30-110) U/L Lipase 42 (23-300) U/L Urine Color Light Yellow Urine Appearance Clear (Clear) Urine pH 7.0 (5.0-8.0) Ur Specific Nerinx 1.004 (1.001-1.035) Urine Protein Negative (Negative) Urine Glucose (UA) Negative (Negative) Urine Ketones Negative (Negative) Urine Blood Negative (Negative) Urine Nitrate Negative (Negative) Urine Bilirubin Negative (Negative) Urine Urobilinogen <2.0 (<2.0) mg/dL Ur Leukocyte Esterase Negative (Negative) C. difficile Tox (PCR) (Not Detectd) 08/24/16 Range/Units 14:14 WBC (3.8-10.6) k/uL RBC (3.80-5.40) m/uL Hgb (11.4-16.0) gm/dL Hct (34.0-46.0) % MCV (80.0-100.0) fL MCH (25.0-35.0) pg MCHC (31.0-37.0) g/dL RDW (11.5-15.5) % Plt Count (150-450) k/uL Neutrophils % % Lymphocytes % % Monocytes % % Eosinophils % % Basophils % % Neutrophils # (1.3-7.7) k/uL Lymphocytes # (1.0-4.8) k/uL Monocytes # (0-1.0) k/uL Eosinophils # (0-0.7) k/uL Basophils # (0-0.2) k/uL Sodium (137-145) mmol/L Potassium (3.5-5.1) mmol/L Chloride (98-107) mmol/L Carbon Dioxide (22-30) mmol/L Anion Gap mmol/L BUN (7-17) mg/dL Creatinine (0.52-1.04) mg/dL Est GFR (MDRD) Af Amer (>60 ml/min/1.73 sqM) Est GFR (MDRD) Non-Af (>60 ml/min/1.73 sqM) Glucose (74-99) mg/dL Calcium (8.4-10.2) mg/dL Total Bilirubin (0.2-1.3) mg/dL AST (14-36) U/L ALT (9-52) U/L Alkaline Phosphatase (38-126) U/L Total Protein (6.3-8.2) g/dL Albumin (3.5-5.0) g/dL Amylase (30-110) U/L Lipase (23-300) U/L Urine Color Urine Appearance (Clear) Urine pH (5.0-8.0) Ur Specific Nerinx (1.001-1.035) Urine Protein (Negative) Urine Glucose (UA) (Negative) Urine Ketones (Negative) Urine Blood (Negative) Urine Nitrate (Negative) Urine Bilirubin (Negative) Urine Urobilinogen (<2.0) mg/dL Ur Leukocyte Esterase (Negative) C. difficile Tox (PCR) Detected (Not Detectd) - Radiology Data Radiology results: image reviewed (Abdominal x-ray shows nonobstructive bowel gas pattern.) Disposition Clinical Impression: Clostridium difficile diarrhea Disposition: HOME SELF-CARE Condition: Stable Instructions: Clostridium Difficile Infection (ED) Additional Instructions: Please follow-up with Dr. Ryan in the next few days for recheck. Return for fevers, not tolerating fluids, uncontrolled diarrhea, uncontrolled pain, worsening symptoms or other concerns. Prescriptions: metroNIDAZOLE [Flagyl] 500 mg PO QID #56 tab Referrals: Matthieu Ryan DO [Primary Care Provider] - 1-2 days
[2016-08-24 13:54] LABS: Basophils # (A) 0.1 k/uL (0-0.2); Basophils % (A) 1 %; CH 29.4; CHCM 33.4; Eosinophils # (A) 0.3 k/uL (0-0.7); Eosinophils % (A) 3 %; HCT 38.3 % (34.0-46.0); HDW 2.65; HGB 13.1 gm/dL (11.4-16.0); Luc # (Auto) 0.17; Luc % (Auto) 2; Lymphocytes # (A) 2.2 k/uL (1.0-4.8); Lymphocytes % (A) 27 %; MCH 30.3 pg (25.0-35.0); MCHC 34.3 g/dL (31.0-37.0); MCV 88.5 fL (80.0-100.0); Mean Platelet Volume 8.9; Monocytes # (A) 0.6 k/uL (0-1.0); Monocytes % (A) 8 %; Neutrophils # (A) 4.8 k/uL (1.3-7.7); Neutrophils % (A) 59 %; RBC 4.33 m/uL (3.80-5.40); RDW 13.8 % (11.5-15.5); WBC 8.1 k/uL (3.8-10.6); WBC (Perox) 8.02
[2016-08-24 13:56] LABS: Appearance,Urine Clear (Clear); Bilirubin,Urine Negative (Negative); Glucose,Urine (UA) Negative (Negative); Ketones,Urine Negative (Negative); Leukocyte Esterase,Urine Negative (Negative); Nitrite,Urine Negative (Negative); Protein,Urine Negative (Negative); Specific Gravity,Urine 1.004 (1.001-1.035); UA Billing (MACRO vs. MICRO) CHEM; Urobilinogen,Urine <2.0 mg/dL (<2.0)
--- NOTE | 2016-08-24 14:03 | XR ---
EXAMINATION TYPE: XR KUB DATE OF EXAM: 08/24/2016 1:52 PM CLINICAL HISTORY: Abdominal pain with mucous in stools for several days TECHNIQUE: 2 upright KUB images of the abdomen are obtained. COMPARISON: CT abdomen and pelvis June 29, 2016 FINDINGS: Scattered gas is seen in non-distended small bowel loops. Gas and fecal material is seen in non-distended colon. Cholecystectomy clips are redemonstrated. Lung bases are clear. No pneumoperi toneum is identified. No suspicious calcifications are seen. Occasional pelvic phlebolith is noted. O verlying soft tissue is unremarkable. IMPRESSION: Overall nonobstructive bowel gas pattern.
[2016-08-24 14:22] LABS: ALT 19 U/L (9-52); AST 19 U/L (14-36); Alkaline Phosphatase 76 U/L (38-126); Amylase 48 U/L (30-110); Anion Gap 11 mmol/L; Blood Urea Nitrogen 11 mg/dL (7-17); Calcium 9.8 mg/dL (8.4-10.2); Carbon Dioxide 24 mmol/L (22-30); Chloride 110 mmol/L (98-107); Glucose 111 mg/dL (74-99); Non-African American GFR(MDRD) >60 (>60 ml/min/1.73 sqM); Potassium 3.9 mmol/L (3.5-5.1); Sodium 145 mmol/L (137-145); Total Bilirubin 0.8 mg/dL (0.2-1.3); Total Protein 7.2 g/dL (6.3-8.2)
[2016-08-24 15:44] VITALS: RESP 16
[2016-08-24] MEDS ORDERED: metroNIDAZOLE 500 MG TAB PO STA (16:39)
[2016-08-24 17:04] VITALS: BP 150/68; PULSE 69; TEMP 96.8
== END 2016-08-24 17:10 | disposition home or self-care (01) ==
LOC: EC 13:07
DX: A04.7 Enterocolitis due to Clostridium difficile (principal); J43.9 Emphysema, unspecified; E78.5 Hyperlipidemia, unspecified; K21.9 Gastro-esophageal reflux disease without esophagitis; F17.200 Nicotine dependence, unspecified, uncomplicated; Z79.899 Other long term (current) drug therapy; Z88.5 Allergy status to narcotic agent; Z88.6 Allergy status to analgesic agent
CPT/HCPCS: 36415; 74000; 80053; 81003; 82150; 83690; 85025; 87045; 87046; 87493; 89055; 96360; 96361; 99285

== ENCOUNTER → 2016-09-14 | Outpatient (CLI) | payer MEDICARE, BC | END | disposition home or self-care (01) | LOC: LABWHC1 09:24 | PROVIDERS: ATTEND Family Medicine | DX: R19.7 Diarrhea, unspecified (principal) | CPT/HCPCS: 87324; 87328; 87329 ==

== ENCOUNTER 2019-03-28 08:25 | Inpatient (IN) | payer MEDICARE ==
[2019-03-28] MEDS ORDERED: IPRATROPIUM-ALBUTEROL 3 ML NEB INHALATION STA ×2 (09:01→11:08)
[2019-03-28] MEDS ORDERED: SODIUM CHLORIDE 0.9% 500 ML 500 ML IV STA (09:01)
--- NOTE | 2019-03-28 09:10 | ED ---
SOB HPI - General Chief Complaint: Shortness of Breath Stated Complaint: SOB Time Seen by Provider: 03/28/19 08:35 Source: patient, family Mode of arrival: wheelchair Limitations: no limitations - History of Present Illness Initial Comments: The patient is a 78-year-old female with past medical history of COPD who presents emergency room with reported shortness of breath. is at bedside and helps provide the story. He states that the patient has had worsening shortness of breath and productive cough over the past 2 days. They deny any sick contacts or recent travel. The patient has been using her nebulizer every 4 hours as needed however hasn't been helping her symptoms. She has had thick sputum production which is cream colored. Denies any fevers or chills. reports exertional shortness of breath. No lower extremity swelling. No history of CHF. No calf pain or swelling. No history of DVT or PE. She is denying any chest pain. Patient continues to smoke a pack a day. No ripping or tearing sensation to her back. Denies any additional symptoms include headache, nausea, vomiting, abdominal pain. There are no alleviating, precipitating or modifying factors - Related Data Home Medications Medication Instructions Recorded Confirmed Atorvastatin [Lipitor] 40 mg PO DAILY 09/18/14 03/28/19 Esomeprazole Magnesium [NexIUM] 40 mg PO DAILY 09/18/14 03/28/19 Ipratropium/Albuterol Sulfate 1 puff INHALATION RT-QID 09/18/14 03/28/19 [Combivent Respimat Inhaler] LORazepam [Ativan] 0.25 - 0.5 mg PO DAILY PRN 06/29/16 03/28/19 Ipratropium-Albuterol Nebulize 3 ml INHALATION RT-QID 08/24/16 03/28/19 [Duoneb 0.5 mg-3 mg/3 ml Soln] Allergies Allergy/AdvReac Type Severity Reaction Status Date / Time aspirin Allergy Nausea & Verified 03/28/19 08:41 Vomiting codeine Allergy Unknown Verified 03/28/19 08:41 meperidine HCl [From Demerol] AdvReac Rapid Verified 03/28/19 08:41 Heart Rate Review of Systems ROS Statement: Those systems with pertinent positive or pertinent negative responses have been documented in the HPI. ROS Other: All systems not noted in ROS Statement are negative. Past Medical History Past Medical History: GERD/Reflux, Hyperlipidemia, Pneumonia, Respiratory Disorder Additional Past Medical History / Comment(s): Emphysema, shingles in right ear History of Any Multi-Drug Resistant Organisms: None Reported Past Surgical History: Appendectomy, Cholecystectomy, Hysterectomy Additional Past Surgical History / Comment(s): emphesema Past Anesthesia/Blood Transfusion Reactions: No Reported Reaction Past Psychological History: Depression Smoking Status: Current every day smoker Past Alcohol Use History: None Reported Past Drug Use History: None Reported - Past Family History Mother Additional Family Medical History / Comment(s): " AFTER GALLBLADDER TONY" Sister(s) Family Medical History: Cancer Brother(s) Family Medical History: Cancer General Exam Limitations: no limitations General appearance: alert, in no apparent distress Head exam: Present: atraumatic, normocephalic, normal inspection Eye exam: Present: normal appearance, PERRL, EOMI. Absent: scleral icterus, conjunctival injection, periorbital swelling ENT exam: Present: normal exam, mucous membranes moist Neck exam: Present: normal inspection. Absent: tenderness, meningismus, lymphadenopathy Respiratory exam: Present: wheezes, accessory muscle use, decreased breath sounds, other (tripod positioning, tachypnia). Absent: respiratory distress, rales, rhonchi, stridor Cardiovascular Exam: Present: regular rate, normal rhythm, normal heart sounds. Absent: systolic murmur, diastolic murmur, rubs, gallop, clicks GI/Abdominal exam: Present: soft, normal bowel sounds. Absent: distended, tenderness, guarding, rebound, rigid Extremities exam: Present: normal inspection, full ROM, normal capillary refill. Absent: tenderness, pedal edema, joint swelling, calf tenderness Back exam: Present: normal inspection Neurological exam: Present: alert, oriented X3, CN II-XII intact Psychiatric exam: Present: normal affect, normal mood Skin exam: Present: warm, dry, intact, normal color. Absent: rash Course Vital Signs 03/28/19 03/28/19 03/28/19 08:32 08:36 09:13 Temperature 97.7 F Pulse Rate 86 Respiratory 24 28 H Rate Blood Pressure 141/84 O2 Sat by Pulse 90 L 97 Oximetry 03/28/19 03/28/19 03/28/19 09:32 09:42 09:56 Temperature Pulse Rate 80 80 Respiratory Rate Blood Pressure 153/66 O2 Sat by Pulse Oximetry 03/28/19 03/28/19 03/28/19 11:32 11:42 12:00 Temperature Pulse Rate 83 84 91 Respiratory 22 Rate Blood Pressure 127/66 O2 Sat by Pulse 95 Oximetry 03/28/19 12:57 Temperature Pulse Rate 81 Respiratory 20 Rate Blood Pressure 131/72 O2 Sat by Pulse 97 Oximetry Medical Decision Making - Medical Decision Making Upon arrival the patient is placed into room 4. A thorough history and physical exam was performed. The patient is diffusely wheezy and therefore she is provided with a DuoNeb breathing treatment. Peripheral IV is established. Patient was given 125 mg of Solu-Medrol and 1 g of magnesium. Laboratory studies were conducted the patient was sent for a chest x-ray. Laboratory studies are essentially unremarkable. Influenza A and B are negative. Chest x- ray demonstrates advanced COPD with peribronchial cuffing. I did discuss results with the patient. She continues to move minimal air. Because this I did recommend hospital admission. I did call discuss case with Dr. Ryan who accepted admission. He does request that I consult Dr. Pickens. The patient remained on steroids and breathing treatments. I will cover her with azithromycin because of her productive sputum. The patient remained in stable condition and was transported to the floor - Lab Data Result diagrams: 03/29/19 08:32 03/29/19 08:32 Lab Results 03/28/19 03/28/19 03/28/19 Range/Units 09:02 09:02 09:02 WBC 7.3 (3.8-10.6) k/uL RBC 4.43 (3.80-5.40) m/uL Hgb 13.5 (11.4-16.0) gm/dL Hct 43.0 (34.0-46.0) % MCV 97.0 (80.0-100.0) fL MCH 30.4 (25.0-35.0) pg MCHC 31.4 (31.0-37.0) g/dL RDW 12.6 (11.5-15.5) % Plt Count 223 (150-450) k/uL Neutrophils % 72 % Lymphocytes % 13 % Monocytes % 7 % Eosinophils % 6 % Basophils % 2 % Neutrophils # 5.2 (1.3-7.7) k/uL Lymphocytes # 0.9 L (1.0-4.8) k/uL Monocytes # 0.5 (0-1.0) k/uL Eosinophils # 0.4 (0-0.7) k/uL Basophils # 0.1 (0-0.2) k/uL PT 9.8 (9.0-12.0) sec INR 0.9 (<1.2) APTT 28.1 (22.0-30.0) sec Sodium 143 (137-145) mmol/L Potassium 4.4 (3.5-5.1) mmol/L Chloride 107 (98-107) mmol/L Carbon Dioxide 27 (22-30) mmol/L Anion Gap 9 mmol/L BUN 12 (7-17) mg/dL Creatinine 0.76 (0.52-1.04) mg/dL Est GFR (CKD-EPI)AfAm 88 (>60 ml/min/1.73 sqM) Est GFR (CKD-EPI)NonAf 76 (>60 ml/min/1.73 sqM) Glucose 93 (74-99) mg/dL Plasma Lactic Acid Fareed (0.7-2.0) mmol/L Calcium 9.9 (8.4-10.2) mg/dL Magnesium 1.9 (1.6-2.3) mg/dL Total Bilirubin 0.6 (0.2-1.3) mg/dL AST 22 (14-36) U/L ALT 16 (9-52) U/L Alkaline Phosphatase 63 (38-126) U/L NT-Pro-B Natriuret Pep pg/mL Total Protein 7.4 (6.3-8.2) g/dL Albumin 4.5 (3.5-5.0) g/dL Influenza Type A RNA (Not Detectd) Influenza Type B (PCR) (Not Detectd) 03/28/19 03/28/19 03/28/19 Range/Units 09:02 09:02 09:02 WBC (3.8-10.6) k/uL RBC (3.80-5.40) m/uL Hgb (11.4-16.0) gm/dL Hct (34.0-46.0) % MCV (80.0-100.0) fL MCH (25.0-35.0) pg MCHC (31.0-37.0) g/dL RDW (11.5-15.5) % Plt Count (150-450) k/uL Neutrophils % % Lymphocytes % % Monocytes % % Eosinophils % % Basophils % % Neutrophils # (1.3-7.7) k/uL Lymphocytes # (1.0-4.8) k/uL Monocytes # (0-1.0) k/uL Eosinophils # (0-0.7) k/uL Basophils # (0-0.2) k/uL PT (9.0-12.0) sec INR (<1.2) APTT (22.0-30.0) sec Sodium (137-145) mmol/L Potassium (3.5-5.1) mmol/L Chloride (98-107) mmol/L Carbon Dioxide (22-30) mmol/L Anion Gap mmol/L BUN (7-17) mg/dL Creatinine (0.52-1.04) mg/dL Est GFR (CKD-EPI)AfAm (>60 ml/min/1.73 sqM) Est GFR (CKD-EPI)NonAf (>60 ml/min/1.73 sqM) Glucose (74-99) mg/dL Plasma Lactic Acid Fareed 1.2 (0.7-2.0) mmol/L Calcium (8.4-10.2) mg/dL Magnesium (1.6-2.3) mg/dL Total Bilirubin (0.2-1.3) mg/dL AST (14-36) U/L ALT (9-52) U/L Alkaline Phosphatase (38-126) U/L NT-Pro-B Natriuret Pep 103 pg/mL Total Protein (6.3-8.2) g/dL Albumin (3.5-5.0) g/dL Influenza Type A RNA Not Detected (Not Detectd) Influenza Type B (PCR) Not Detected (Not Detectd) - EKG Data EKG Comments: EKG demonstrates a normal sinus rhythm with a ventricular rate of 74. CT interval 130. QRS 66. QTC 428. No acute ST segment elevations or depressions concerning for ischemic changes Disposition Clinical Impression: Cough, COPD with acute exacerbation, Acute tracheobronchitis Disposition: ADMITTED IP TO THIS HOSP Condition: Stable Is patient prescribed a controlled substance at d/c from ED?: No Decision to Admit Reason: Admit from EC Decision Date: 03/28/19 Decision Time: 12:29
[2019-03-28 09:26] LABS: Basophils # (A) 0.1 k/uL (0-0.2); Basophils % (A) 2 %; Eosinophils # (A) 0.4 k/uL (0-0.7); Eosinophils % (A) 6 %; HGB 13.5 gm/dL (11.4-16.0); Lymphocytes # (A) 0.9 k/uL (1.0-4.8); Lymphocytes % (A) 13 %; MCH 30.4 pg (25.0-35.0); MCHC 31.4 g/dL (31.0-37.0); Mean Platelet Volume 7.4; Monocytes # (A) 0.5 k/uL (0-1.0); Monocytes % (A) 7 %; Neutrophils # (A) 5.2 k/uL (1.3-7.7); Neutrophils % (A) 72 %; Platelet Count 223 k/uL (150-450); RBC 4.43 m/uL (3.80-5.40); RDW 12.6 % (11.5-15.5); WBC 7.3 k/uL (3.8-10.6)
[2019-03-28 09:34] LABS: Albumin 4.5 g/dL (3.5-5.0); Calcium 9.9 mg/dL (8.4-10.2); Magnesium 1.9 mg/dL (1.6-2.3); Potassium 4.4 mmol/L (3.5-5.1); Total Bilirubin 0.6 mg/dL (0.2-1.3); Total Protein 7.4 g/dL (6.3-8.2)
[2019-03-28 09:37] LABS: INR 0.9 (<1.2); Partial Thromboplastin Time 28.1 sec (22.0-30.0); Prothrombin Time 9.8 sec (9.0-12.0)
--- NOTE | 2019-03-28 10:10 | XR ---
EXAMINATION TYPE: XR chest 2V DATE OF EXAM: 03/28/2019 COMPARISON: 09/25/2014 HISTORY: Cough, congestion, and shortness of breath for one day TECHNIQUE: Frontal and lateral views of the chest are obtained. FINDINGS: COPD as seen with biapical pleural parenchymal scarring. Chronic peribronchial cuffing mos t pronounced on the lateral view. Chronic bibasilar opacities. COPD is advanced. Cardiomediastinal si lhouette is within normal limits. Minimal degenerative changes of the spine. Surgical clips in the up per abdomen. IMPRESSION: Advanced COPD with peribronchial cuffing. Although peribronchial cuffing is chronic acut e on chronic reactive or infectious airway disease is possible.
[2019-03-28] MEDS ORDERED: AZITHROMYCIN 500 MG in SODIUM CHLORIDE 0.9% 250 ML IVPB STA (11:07)
[2019-03-28] MEDS ORDERED: MAGNESIUM SULFATE-D5W PMX 1 GM in DEXTROSE/WATER 1 100ML.BAG IVPB ONE (11:07)
[2019-03-28] MEDS ORDERED: methylPREDNISolone SOD SUCCI 125 MG/2 ML VIAL IV STA (11:07)
[2019-03-28] MEDS ORDERED: NALOXONE 0.4 MG/ML 1 ML VIAL IV PRN (12:22)
[2019-03-28] MEDS ORDERED: cefTRIAXone IN SWFI 1,000 MG/10 ML SYRINGE IVP STA (12:25)
[2019-03-28] MEDS: methylPREDNISolone SOD SUCCI 40 MG/ML 1 ML VIAL IV SCH (15:38)
[2019-03-28] MEDS: IPRATROPIUM-ALBUTEROL 3 ML NEB INHALATION SCH ×3 (16:51→23:19)
[2019-03-28] MEDS: ACETAMINOPHEN TAB 325 MG TAB PO PRN (20:19)
[2019-03-29] MEDS: LORazepam 0.5 MG TAB PO PRN ×2 (00:19→21:40)
[2019-03-29] MEDS: methylPREDNISolone SOD SUCCI 40 MG/ML 1 ML VIAL IV SCH ×2 (00:19→08:55)
[2019-03-29] MEDS: IPRATROPIUM-ALBUTEROL 3 ML NEB INHALATION SCH ×5 (03:44→19:53)
[2019-03-29] MEDS ORDERED: IPRATROPIUM-ALBUTEROL 3 ML NEB INHALATION PRN (08:31)
[2019-03-29] MEDS: PANTOPRAZOLE 40 MG TABLET PO SCH (08:54)
[2019-03-29] MEDS: ATORVASTATIN 40 MG TAB PO SCH (08:54)
[2019-03-29] MEDS: AMOXIC-POT CLAV 875-125MG 1 EACH TAB PO SCH ×2 (08:54→21:40)
[2019-03-29 09:02] LABS: Basophils % (A) 0 %; Eosinophils % (A) 0 %; HCT 42.1 % (34.0-46.0); HGB 13.1 gm/dL (11.4-16.0); Lymphocytes # (A) 0.7 k/uL (1.0-4.8); Lymphocytes % (A) 9 %; MCH 29.8 pg (25.0-35.0); MCHC 31.1 g/dL (31.0-37.0); Mean Platelet Volume 7.5; Monocytes # (A) 0.2 k/uL (0-1.0); Monocytes % (A) 3 %; Neutrophils # (A) 6.7 k/uL (1.3-7.7); Neutrophils % (A) 87 %; Platelet Count 212 k/uL (150-450); RBC 4.39 m/uL (3.80-5.40); RDW 12.9 % (11.5-15.5); WBC 7.8 k/uL (3.8-10.6)
[2019-03-29 09:17] LABS: African American GFR (CKD) >90 (>60 ml/min/1.73 sqM); Anion Gap 9 mmol/L; Blood Urea Nitrogen 16 mg/dL (7-17); Calcium 9.8 mg/dL (8.4-10.2); Carbon Dioxide 26 mmol/L (22-30); Chloride 107 mmol/L (98-107); Glucose 139 mg/dL (74-99); Sodium 142 mmol/L (137-145)
[2019-03-29 09:20] LABS: Potassium 4.3 mmol/L (3.5-5.1)
[2019-03-29] MEDS: ONDANSETRON 4 MG/2 ML VIAL IVP PRN ×2 (11:04→21:40)
[2019-03-29] MEDS: ACETAMINOPHEN TAB 325 MG TAB PO PRN (11:05)
--- NOTE | 2019-03-29 11:20 | CONS ---
CONSULTATION This is a patient who typically sees Dr. Ryan. PULMONARY/CRITICAL CARE CONSULTATION: DATE OF CONSULTATION: March 29, 2019 REASON FOR CONSULTATION: COPD exacerbation. This is a 78-year-old female who has been smoking up until the time of her admission. She has probably smoked for 60 years. She apparently has a history of COPD, although has never seen a manager land recently. She may have seen somebody more than 5 years ago. Anyway, the patient comes in with increasing shortness of breath. It has been going on for more than 2 days. Over the last 24 hours, it has gotten much worse. In addition, she is coughing and producing phlegm. The phlegm is slightly yellow in color. There is no fever or chills. No chest pain or chest discomfort. The patient based on her chest x-ray, likely has pretty severe COPD. The patient denies a history of heart disease or heart failure. Denies DVT or pulmonary embolism. The patient does have a history of hyperlipidemia, acid reflux disease and COPD. She also suffers from some depression and anxiety. Again, she has not seen anybody recently and has not been to our office. She was smoking up until the time she came into the hospital. HOME MEDICATIONS: Her home medications include Lipitor, Nexium, Combivent inhaler, Ativan and DuoNeb. ALLERGIES: Allergies are ASPIRIN, MEPERIDINE and CODEINE. MEDICAL HISTORY: Her medical history includes gastroesophageal reflux disease, hyperlipidemia, previous episode of pneumonia and emphysema/COPD. She has also had shingles. SURGICAL HISTORY: Surgical history includes appendectomy, cholecystectomy, and hysterectomy. SOCIAL HISTORY: Social history is positive for ongoing tobacco use. She has smoked about a pack a day. She has been smoking for at 60 years, maybe longer. She was smoking up until the time she came into the hospital. Denies alcohol use or illicit drug use. FAMILY HISTORY: Family history is positive for a mother who from a ruptured gallbladder and a sister who has cancer. She has a brother with cancer as well. REVIEW OF SYSTEMS: CONSTITUTIONAL: Negative. NEUROLOGIC: Negative. HEENT: Negative. CARDIOVASCULAR: Negative. PULMONARY: Shortness of breath, cough, wheezing, phlegm production, chest tightness. GI: Negative. : Negative. RHEUMATOLOGIC: Negative. IMMUNOLOGIC: Negative. ENDOCRINOLOGIC: Negative. DERMATOLOGIC: Negative. PHYSICAL EXAMINATION: VITAL SIGNS: Current vital signs include a temperature 98.4, heart rate 80, respiratory rate 24, blood pressure 115/67, mean 83 and 2 L saturation 98%. GENERAL: She does feel better today than she did yesterday. She has mild conversational dyspnea. There is not use of any accessory muscles of breathing or any audible wheezing. HEENT: Examination is grossly unremarkable. Nasal O2 in place. NECK: Supple. Full range of motion. No adenopathy or thyromegaly. Neck veins are flat. CARDIOVASCULAR: Examination reveals regular rhythm and rate. Heart rate about 80 beats per minute. S1, S2 normal. No S3, S4, or murmur. LUNGS: Reveal some expiratory wheezes and rhonchi. Breath sounds are equal bilaterally but diminished throughout. There is prolongation on forced maneuver. Adventitious lung sounds are more prominent on forced maneuver. ABDOMEN: Soft. Bowel sounds are heard. EXTREMITIES: Are intact. No cyanosis, clubbing, or edema. SKIN: Without rash. NEUROLOGIC: Examination is brief but nonfocal. LABS: Labs are reviewed. White count 7.8, hemoglobin 13.1, hematocrit 42.1, platelet count 212,000. PT, INR, PTT all normal. Electrolytes look normal including the a comprehensive metabolic profile. Influenza studies are negative. Chest x-ray shows changes of COPD. MEDICATIONS: Medications are appropriately adjusted. We gave her some Augmentin. She had a dose of Zithromax and Rocephin in the emergency room. We will put her on Pulmicort 1 mg and Perforomist 20 mcg twice a day. She is getting Solu-Medrol 60 mg q.6 and albuterol and Atrovent updrafts q.4. I asked her whether not she is craving nicotine and she says no. ASSESSMENT: 1. Chronic obstructive pulmonary disease exacerbation complicated by purulent tracheobronchitis. 2. Ongoing tobacco use and nicotine addiction. 3. History of hyperlipidemia. 4. Gastroesophageal reflux disease. 5. History of anxiety/depression. 6. Previous history of pneumonia. PLAN: The patient's medications are adjusted accordingly. She is on appropriate doses of Solu-Medrol. She is getting albuterol and Atrovent updrafts q.i.d. and p.r.n. as well as Pulmicort and Perforomist twice a day. She is on Augmentin 875 twice a day. Additional recommendations and suggestions are forthcoming. I did litigation counsel her about the importance of smoking cessation. Once she is discharged, we will get her back in the office for complete pulmonary function testing. JUANITA / UNIQUEN: [id number] /
--- NOTE | 2019-03-29 11:46 | P.HPIM ---
History of Present Illness H&P Date: 03/29/19 Chief Complaint: Dyspnea This is a 78-year-old female who is history of gastroesophageal reflux disease, hyperlipidemia, COPD, emphysema, shingles, depression, ongoing extensive nicotine dependence of 1 pack per day and multiple other medical issues, presented to the ER with complaints of worsening shortness of breath with productive cough of palliative oralpale yellow sputum 2 days, unrelieved by nebulizer treatments every 4 hours prn. Denies any fever or chills. Denies any lightheadedness dizziness or focal deficits. Denies any chest pain, palpitations.Denies back pain. Denies nausea vomiting or diarrhea. Denies abdominal pain. Denies history of CHF. Afebrile,VSS, maintaining O2 sats of 90% on room air and high 90s on 2 L nasal cannula. Preliminary blood cultures reporting no growth at 24 hours. Chest x-ray reporting advanced COPD with peribronchial cuffing, possible acute on chronic reactive or infectious airway disease. EKG reporting normal sinus rhythm. Negative for influenza. Hemoglobin 13.1, platelets 212. PT INR within normal limits. A letter lites within normal limits. Review of Systems Constitutional: Denied any fatigue denied any fever. Cardio vascular: denied any chest pain, palpitations Gastrointestinal denied any nausea vomiting Pulmonary: Denied any shortness of breath, positive productive cough Neurologic denied any new focal deficits ROS Statement: Those systems with pertinent positive or pertinent negative responses have been documented in the HPI. ROS Other: All systems not noted in ROS Statement are negative. Past Medical History Past Medical History: GERD/Reflux, Hyperlipidemia, Pneumonia, Respiratory Disorder Additional Past Medical History / Comment(s): Emphysema, shingles in right ear History of Any Multi-Drug Resistant Organisms: None Reported Past Surgical History: Appendectomy, Cholecystectomy, Hysterectomy Additional Past Surgical History / Comment(s): emphesema Past Anesthesia/Blood Transfusion Reactions: No Reported Reaction Past Psychological History: Depression Smoking Status: Current every day smoker Past Alcohol Use History: None Reported Past Drug Use History: None Reported - Past Family History Mother Additional Family Medical History / Comment(s): " AFTER GALLBLADDER TONY" Sister(s) Family Medical History: Cancer Additional Family Medical History / Comment(s): One sister with brain cancer, another with throat cancer. Brother(s) Family Medical History: Cancer Additional Family Medical History / Comment(s): lung cancer Medications and Allergies Home Medications Medication Instructions Recorded Confirmed Type Atorvastatin [Lipitor] 40 mg PO DAILY 09/18/14 03/28/19 History Esomeprazole Magnesium [NexIUM] 40 mg PO DAILY 09/18/14 03/28/19 History Ipratropium/Albuterol Sulfate 1 puff INHALATION RT-QID 09/18/14 03/28/19 History [Combivent Respimat Inhaler] LORazepam [Ativan] 0.25 - 0.5 mg PO DAILY PRN 06/29/16 03/28/19 History Ipratropium-Albuterol Nebulize 3 ml INHALATION RT-QID 08/24/16 03/28/19 History [Duoneb 0.5 mg-3 mg/3 ml Soln] Allergies Allergy/AdvReac Type Severity Reaction Status Date / Time aspirin Allergy Nausea & Verified 03/28/19 08:41 Vomiting codeine Allergy Unknown Verified 03/28/19 08:41 meperidine HCl [From Demerol] AdvReac Rapid Verified 03/28/19 08:41 Heart Rate Physical Exam Vitals: Vital Signs Temp Pulse Pulse Resp BP BP Pulse Ox 03/29/19 11:11 88 03/29/19 10:59 84 03/29/19 07:05 80 03/29/19 06:50 84 03/29/19 05:05 98.4 F 78 26 H 115/67 98 03/28/19 23:29 80 03/28/19 23:20 78 03/28/19 21:00 97.7 F 83 18 115/63 94 L 03/28/19 19:48 80 03/28/19 19:40 76 03/28/19 17:04 78 03/28/19 16:51 80 97 03/28/19 16:00 22 03/28/19 15:00 98.0 F 84 16 128/71 98 03/28/19 12:57 81 20 131/72 97 03/28/19 12:00 91 22 127/66 95 03/28/19 11:42 84 03/28/19 11:32 83 Intake and Output 03/28/19 03/29/19 03/29/19 22:59 06:59 14:59 Intake Total 400 Balance 400 Intake: Oral 400 Other: Voiding Method Toilet # Voids 1 1 PHYSICAL EXAM: VITAL SIGNS: As above GENERAL: Sitting up in bed, respiratory effort mildly increased HEENT: Conjunctivae normal. eyes normal. NECK: No JVD. No thyroid enlargement. No LNs CARDIOVASCULAR: S1, S2 regular. No murmur RESPIRATION: Breath sounds diminished in the bases. Positive rhonchi, no crackles. Prolonged Expiratory wheezing. ABDOMEN: Soft, nontender . No guarding. no masses palpable. No ascites, No hepatosplenomegaly.Bowel sounds heard. LEGS: No edema. no swelling. No cyanosis, no clubbing. PSYCHIATRY: Alert and oriented X3, mood and affect normal. NERVOUS SYSTEM: Cranial N 2-12 grossly normal. Moves all 4 limbs. Diffuse weakness No focal deficits. Strength and sensation grossly intact.. Skin: no rash Lymphatic system. No LN neck axilla or groin. Results CBC & Chem 7: 03/29/19 08:32 03/29/19 08:32 Labs: Abnormal Lab Results - Last 24 Hours (Table) 03/29/19 03/29/19 Range/Units 08:32 08:32 Lymphocytes # 0.7 L (1.0-4.8) k/uL Glucose 139 H (74-99) mg/dL Microbiology - Last 24 Hours (Table) 03/28/19 09:02 Blood Culture - Preliminary Blood No Growth after 24 hours Thrombosis Risk Factor Assmnt - Choose All That Apply Any of the Below Risk Factors Present?: Yes Each Factor Represents 1 point: Abnormal pulmonary function (COPD) Other Risk Factors: Yes Each Risk Factor Represents 3 Points: Age 75 years or older Other congenital or acquired thrombophilia - If yes, enter type in comment: No Thrombosis Risk Factor Assessment Total Risk Factor Score: 4 Thrombosis Risk Factor Assessment Level: Moderate Risk Assessment and Plan Assessment: -Acute on chronic COPD exacerbation with purulent tracheobronchitis, and patient with history of emphysema -Ongoing nicotine dependence -Gastroesophageal reflux disease -History of pneumonia -History of shingles -Depression, anxiety Plan: Continue her medication regime ,monitoring and symptomatic treatment. Maintain nebulized bronchodilators, systemic steroids, antibiotics. Evaluated by pulmonary with recommendations noted and appreciated. Smoking cessation readdressed. Home meds have been reviewed and resumed accordingly. GI and DVT prophylaxis in place. The impression and plan of care has been dictated as directed. : I performed a history and examination of this patient, discussed the same with the dictator. I agree with the dictator's note ,documented as a scribe. Any additional findings or plans will be noted. Time taken: 35 minutes
[2019-03-29 11:57] LABS: Glucose,Whole Blood 114 mg/dL (75-99)
[2019-03-29] MEDS: INSULIN ASPART (NovoLOG) 100 UNIT/ML VIAL SQ SCH ×3 (12:15→21:40)
[2019-03-29] MEDS: methylPREDNISolone SOD SUCCI 125 MG/2 ML VIAL IV SCH ×2 (12:34→18:01)
[2019-03-29 17:05] LABS: Glucose,Whole Blood 134 mg/dL (75-99)
[2019-03-29] MEDS: BUDESONIDE 1 MG/2 ML NEBU INHALATION SCH (19:53)
[2019-03-29] MEDS: FORMOTEROL FUMARATE 20 MCG/2 ML NEBU INHALATION SCH (19:53)
[2019-03-29 21:27] LABS: Glucose,Whole Blood 167 mg/dL (75-99)
[2019-03-30] MEDS: methylPREDNISolone SOD SUCCI 125 MG/2 ML VIAL IV SCH ×4 (00:58→17:39)
[2019-03-30] MEDS: IPRATROPIUM-ALBUTEROL 3 ML NEB INHALATION SCH ×4 (07:03→19:32)
[2019-03-30] MEDS: FORMOTEROL FUMARATE 20 MCG/2 ML NEBU INHALATION SCH ×2 (07:03→19:32)
[2019-03-30] MEDS: BUDESONIDE 1 MG/2 ML NEBU INHALATION SCH ×2 (07:03→19:32)
[2019-03-30 07:15] LABS: Glucose,Whole Blood 131 mg/dL (75-99)
[2019-03-30] MEDS: AMOXIC-POT CLAV 875-125MG 1 EACH TAB PO SCH ×2 (07:53→22:07)
[2019-03-30] MEDS: ONDANSETRON 4 MG/2 ML VIAL IVP PRN ×2 (07:53→22:07)
[2019-03-30] MEDS: ATORVASTATIN 40 MG TAB PO SCH (07:53)
[2019-03-30] MEDS: PANTOPRAZOLE 40 MG TABLET PO SCH (07:54)
[2019-03-30] MEDS: INSULIN ASPART (NovoLOG) 100 UNIT/ML VIAL SQ SCH ×4 (07:54→22:07)
[2019-03-30 09:21] LABS: Basophils % (A) 0 %; Eosinophils % (A) 0 %; HCT 41.8 % (34.0-46.0); HGB 12.8 gm/dL (11.4-16.0); Lymphocytes # (A) 0.8 k/uL (1.0-4.8); Lymphocytes % (A) 7 %; MCH 29.7 pg (25.0-35.0); MCHC 30.7 g/dL (31.0-37.0); MCV 96.8 fL (80.0-100.0); Mean Platelet Volume 7.5; Monocytes # (A) 0.1 k/uL (0-1.0); Monocytes % (A) 1 %; Neutrophils # (A) 9.3 k/uL (1.3-7.7); Neutrophils % (A) 91 %; Platelet Count 226 k/uL (150-450); RBC 4.31 m/uL (3.80-5.40); RDW 13.1 % (11.5-15.5); WBC 10.2 k/uL (3.8-10.6)
[2019-03-30 09:34] LABS: Calcium 9.8 mg/dL (8.4-10.2); Potassium 4.3 mmol/L (3.5-5.1)
[2019-03-30 11:43] LABS: Glucose,Whole Blood 122 mg/dL (75-99)
--- NOTE | 2019-03-30 13:01 | P.PN ---
Subjective Progress Note Date: 03/30/19 This is a 78-year-old female who is history of gastroesophageal reflux disease, hyperlipidemia, COPD, emphysema, shingles, depression, ongoing extensive nicotine dependence of 1 pack per day and multiple other medical issues, presented to the ER with complaints of worsening shortness of breath with produc tive cough of palliative oralpale yellow sputum 2 days, unrelieved by nebulizer treatments every 4 hours prn. Denies any fever or chills. Denies any lightheadedness dizziness or focal deficits. Denies any chest pain, palpitations.Denies back pain. Denies nausea vomiting or diarrhea. Denies ab dominal pain. Denies history of CHF. Afebrile,VSS, maintaining O2 sats of 90% on room air and high 90s on 2 L nasal cannula. Preliminary blood cultures reporting no growth at 24 hours. Chest x-ray reporting advanced COPD with peribronchial cuffing, possible acute on chronic reactive or infectious airway disease. EKG reporting normal sinus rhythm. Negative for influenza. Hemoglobin 13.1, platelets 212. PT INR within normal limits. A letter lites within normal limits. Maintained on nebulized bronchodilators, Pulmicort, IV steroids, Augmentin with significant clinical improvement. Oxygen weaned down to 2 L nasal cannula. Afebrile, normal WBC. Productive cough, culture ordered. Objective - Vital Signs Vital signs: Vital Signs Temp 98.1 F 03/30/19 05:39 Pulse 80 03/30/19 07:03 Resp 22 03/30/19 05:39 BP 118/69 03/30/19 05:39 Pulse Ox 96 03/30/19 05:39 Intake & Output 03/29/19 03/30/19 03/30/19 18:59 06:59 18:59 Intake Total 200 Output Total 1800 Balance -1600 Intake: Oral 200 Output: Urine 1800 Other: Voiding Method Toilet Toilet # Voids 1 1 # Bowel Movements 1 - Exam VITAL SIGNS: As above GENERAL: Sitting up in bed, respiratory effort mildly increased HEENT: Conjunctivae normal. eyes normal. NECK: No JVD. No thyroid enlargement. No LNs CARDIOVASCULAR: S1, S2 regular. No murmur RESPIRATION: Breath sounds diminished in the bases. Air entry improving, no rhonchi, no crackles. Prolonged Expiratory wheezing R greater L ABDOMEN: Soft, nontender . No guarding. no masses palpable. No ascites, No hepatosplenomegaly.Positive Bowel sounds. LEGS: No edema. no swelling. No cyanosis, no clubbing. PSYCHIATRY: Alert and oriented X3, mood and affect normal. NERVOUS SYSTEM: Cranial N 2-12 grossly normal. Moves all 4 limbs. Diffuse weakness, No focal deficits. Strength and sensation grossly intact.. Skin: no rash - Labs CBC & Chem 7: 03/30/19 08:32 03/30/19 08:32 Labs: Abnormal Lab Results - Last 24 Hours (Table) 03/29/19 03/29/19 03/29/19 Range/Units 08:32 08:32 11:54 Lymphocytes # 0.7 L (1.0-4.8) k/uL Glucose 139 H (74-99) mg/dL POC Glucose (mg/dL) 114 H (75-99) mg/dL 03/29/19 03/29/19 03/30/19 Range/Units 17:03 21:25 07:13 Lymphocytes # (1.0-4.8) k/uL Glucose (74-99) mg/dL POC Glucose (mg/dL) 134 H 167 H 131 H (75-99) mg/dL Microbiology - Last 24 Hours (Table) 03/28/19 09:02 Blood Culture - Preliminary Blood No Growth after 24 hours Assessment and Plan Assessment: -Acute on chronic COPD exacerbation with purulent tracheobronchitis, and patient with history of emphysema -Ongoing nicotine dependence -Gastroesophageal reflux disease -History of pneumonia -History of shingles -Depression, anxiety Plan: Continue her medication regime ,monitoring and symptomatic treatment. Sputum culture ordered. Increase ambulation in hallway. Check O2 sat on room air after ambulation. Continue on nebulized bronchodilators, systemic steroids, antibiotics. Discussed addition of LABA at [facility]. Discharge planning in progress for this weekend, pending pulmonary clearance. The impression and plan of care has been dictated as directed. : I performed a history and examination of this patient, discussed the same with the dictator. I agree with the dictator's note ,documented as a scribe. Any additional findings or plans will be noted. Time taken: 35 minutes
[2019-03-30 17:20] LABS: Glucose,Whole Blood 142 mg/dL (75-99)
--- NOTE | 2019-03-30 17:32 | PN ---
PROGRESS NOTE PULMONARY/CRITICAL CARE PROGRESS NOTE: DATE OF SERVICE: 03/30/2019 This is a 78-year-old chronic smoker who was admitted with a diagnosis of COPD exacerbation/emphysema complicated by purulent tracheobronchitis. I spoke again today with her and her about the importance of smoking cessation. She has a history of hyperlipidemia, gastroesophageal reflux disease, anxiety/depression and prior history of pneumonia. She is on appropriate medications. She does feel better today. She is much less short of breath. She is coughing less. Much less phlegm production. Her promises me that he will go home and get rid of all her smoking paraphernalia, including cigarettes, matches, ashtrays, etc. PHYSICAL EXAMINATION: VITAL SIGNS: Current vital signs are reviewed. Temperature is 98.1, heart rate 80, respiratory rate 22. Blood pressure is 118/69 with a mean of 85. Two-liter saturation 96%. GENERAL: She appears in no acute distress. No conversational dyspnea. No use of accessory muscles. No audible wheezing. HEENT: HEENT examination is grossly unremarkable. Mucous membranes are moist. No oral lesions. NECK: Supple. Full range of motion. No adenopathy. Neck veins are flat. CARDIOVASCULAR: Cardiovascular examination reveals regular rhythm and rate. Heart rate 80. S1, S2 normal. No S3, S4 or murmur. LUNGS: Lungs reveal some residual wheezes and rhonchi. Breath sounds are improved. Breath sounds are diminished throughout. There is prolongation on forced maneuver. No crackles. ABDOMEN: Soft. Bowel sounds are heard. No masses or tenderness. EXTREMITIES: Intact. No cyanosis, clubbing or edema. SKIN: Without rash. NEUROLOGIC: Neurologic examination is brief but nonfocal. LABS/IMAGING: Reviewed. White count 10.2, hemoglobin 12.8, hematocrit 41.8, platelet count 226,000. Sodium 142, potassium 4.3, chloride 104, CO2 29. Anion gap was 9. BUN and creatinine were 24 and 0.75. No recent chest x-ray to report. Microbiology is thus far negative. Medications are reviewed. They were adjusted yesterday. ASSESSMENT: 1. Chronic obstructive pulmonary disease exacerbation complicated by purulent tracheobronchitis. 2. Ongoing tobacco use and nicotine addiction. 3. History of hyperlipidemia. 4. History of gastroesophageal reflux disease. 5. History of anxiety/depression. 6. Previous history of pneumonia. PLAN: It is absolutely imperative that the patient stop smoking. She has severe COPD. She will follow up in the office after hospital discharge for pulmonary function testing with 6-minute walk distance. Today I talked to her and her about the importance of smoking cessation. Her medications are reviewed. Hopeful discharge or discharge planning within the next couple of days. Additional recommendations and suggestions are forthcoming. JUANITA / UNIQUEN: [id number] / MTDD
[2019-03-30 21:45] LABS: Glucose,Whole Blood 141 mg/dL (75-99)
[2019-03-31] MEDS: methylPREDNISolone SOD SUCCI 125 MG/2 ML VIAL IV SCH ×4 (00:24→17:44)
[2019-03-31 07:04] LABS: Glucose,Whole Blood 127 mg/dL (75-99)
[2019-03-31] MEDS: IPRATROPIUM-ALBUTEROL 3 ML NEB INHALATION SCH ×4 (07:33→19:50)
[2019-03-31] MEDS: BUDESONIDE 1 MG/2 ML NEBU INHALATION SCH ×2 (07:34→19:50)
[2019-03-31] MEDS: FORMOTEROL FUMARATE 20 MCG/2 ML NEBU INHALATION SCH ×2 (07:34→19:50)
[2019-03-31] MEDS: INSULIN ASPART (NovoLOG) 100 UNIT/ML VIAL SQ SCH ×4 (07:49→21:08)
[2019-03-31] MEDS: AMOXIC-POT CLAV 875-125MG 1 EACH TAB PO SCH ×2 (08:08→21:09)
[2019-03-31] MEDS: ONDANSETRON 4 MG/2 ML VIAL IVP PRN ×2 (08:08→21:08)
[2019-03-31] MEDS: PANTOPRAZOLE 40 MG TABLET PO SCH (08:08)
[2019-03-31] MEDS: ATORVASTATIN 40 MG TAB PO SCH (08:08)
[2019-03-31 12:01] LABS: Glucose,Whole Blood 117 mg/dL (75-99)
--- NOTE | 2019-03-31 12:17 | P.PN ---
Subjective Progress Note Date: 03/31/19 Principal diagnosis: Acute COPD exacerbation Mrs. Bonds is a 78-year-old female with a past medical history of hypertension, COPD, depression, GERD, ongoing nicotine dependence coming in to the hospital with a chief complaint of difficulty in breathing. She is currently being treated for COPD exacerbation. On 03/31/2019- patient is trying to walk in the hallway. She complains of mild difficulty in breathing and cough. She still wheezing. Patient denies having any fevers chills or rigors. No chest pain or palpitations. No bowel pain nausea vomiting or diarrhea. No dysuria or hematuria. Patient's labs and medications have been reviewed. Objective - Vital Signs Vital signs: Vital Signs Temp 97.6 F 03/31/19 07:00 Pulse 77 03/31/19 11:29 Resp 20 03/31/19 07:00 BP 137/65 03/31/19 07:00 Pulse Ox 98 03/31/19 07:34 Intake & Output 03/30/19 03/31/19 03/31/19 18:59 06:59 18:59 Other: Voiding Method Toilet Toilet Toilet # Voids 3 2 - Exam GENERAL: Alert awake, no acute distress HEENT: Conjunctivae normal. eyes normal. NECK: No JVD. No thyroid enlargement. No LNs CARDIOVASCULAR: S1, S2 regular. No murmur RESPIRATION: Breath sounds diminished in the bases. Prolonged Expiratory wheezing bilaterally. ABDOMEN: Soft, nontender . No guarding. no masses palpable.Bowel sounds heard. LEGS: No edema. no swelling. No cyanosis, no clubbing. PSYCHIATRY: Alert and oriented X3, mood and affect normal. NERVOUS SYSTEM: No focal neurological deficits - Labs CBC & Chem 7: 03/30/19 08:32 03/30/19 08:32 Labs: Abnormal Lab Results - Last 24 Hours (Table) 03/30/19 03/30/19 03/31/19 Range/Units 17:18 21:44 07:01 POC Glucose (mg/dL) 142 H 141 H 127 H (75-99) mg/dL 03/31/19 Range/Units 11:59 POC Glucose (mg/dL) 117 H (75-99) mg/dL Microbiology - Last 24 Hours (Table) 03/28/19 09:02 Blood Culture - Preliminary Blood No Growth after 72 hours 03/30/19 17:20 Gram Stain - Preliminary Sputum Sputum Culture - Preliminary Assessment and Plan Assessment: Assessment: -Acute on chronic COPD exacerbation with purulent tracheobronchitis, and patient with history of emphysema -Ongoing nicotine dependence -Gastroesophageal reflux disease -History of pneumonia -History of shingles -Depression, anxiety PLAN: Continue the patient on antibiotics, breathing treatments and IV steroids. Pulmonary on board and following the patient. Continue the current medication regimen. Further recommendations to follow depending on the progress of the patient.
--- NOTE | 2019-03-31 13:04 | P.PN ---
Subjective Progress Note Date: 03/31/19 Principal diagnosis: Acute exacerbation chronic obstructive pulmonary disease, complicated by purulent tracheobronchitis. The patient is seen today 03/31/2019 in follow-up on the regular medical floor. She is currently sitting up at the bedside. Awake and alert in no acute dis tress. Breathing a bit easier today as compared to yesterday. Not quite back to her baseline. Still somewhat bronchospastic and wheezy. She is maintaining O2 saturations in the low 90s on 2 L/m per nasal cannula. She's afebrile. Hemodynamically stable. Sputum culture pending. Blood cultures reveal no growth to date. He is maintained on DuoNeb inhalations, Pulmicort and Perforomist inhalations, IV Solu-Medrol. Antibiotics in the form of Augmentin. Objective - Vital Signs Vital signs: Vital Signs Temp 97.8 F 03/31/19 12:14 Pulse 79 03/31/19 12:14 Resp 20 03/31/19 12:14 BP 111/57 03/31/19 12:14 Pulse Ox 92 L 03/31/19 12:14 Intake & Output 03/30/19 03/31/19 03/31/19 18:59 06:59 18:59 Other: Voiding Method Toilet Toilet Toilet # Voids 3 2 2 - Exam GENERAL EXAM: Alert, pleasant 78-year-old female patient, comfortable in no apparent distress. On 2 L nasal cannula. HEAD: Normocephalic. EYES: Normal reaction of pupils, equal size. NOSE: Clear with pink turbinates. THROAT: No erythema or exudates. NECK: No masses, no JVD. CHEST: No chest wall deformity. LUNGS: Equal air entry with bilateral end expiratory wheeze, diminished. CVS: S1 and S2 normal with no audible murmur, regular rhythm. ABDOMEN: No hepatosplenomegaly, normal bowel sounds, no guarding or rigidity. SPINE: No scoliosis or deformity SKIN: No rashes CENTRAL NERVOUS SYSTEM: No focal deficits, tone is normal in all 4 extremities. EXTREMITIES: There is no peripheral edema. No clubbing, no cyanosis. Peripheral pulses are intact. - Labs CBC & Chem 7: 03/30/19 08:32 03/30/19 08:32 Labs: Abnormal Lab Results - Last 24 Hours (Table) 03/30/19 03/30/19 03/31/19 Range/Units 17:18 21:44 07:01 POC Glucose (mg/dL) 142 H 141 H 127 H (75-99) mg/dL 03/31/19 Range/Units 11:59 POC Glucose (mg/dL) 117 H (75-99) mg/dL Microbiology - Last 24 Hours (Table) 03/28/19 09:02 Blood Culture - Preliminary Blood No Growth after 72 hours 03/30/19 17:20 Gram Stain - Preliminary Sputum Sputum Culture - Preliminary Assessment and Plan Assessment: Impression: #1 Acute exacerbation of chronic obstructive pulmonary sees completed complicated by paratracheal bronchitis. #2 Chronic and ongoing tobacco dependence. #3 Hyperlipidemia. #4 Esophageal reflux disease. #5 History of anxiety/depression. Plan: The patient was seen and evaluated by Dr. Davies. She is improved today as compared to yesterday. Not quite back to her baseline. Continue with the current treatment plan. Evaluate for possible home oxygen. Increase her activity as tolerated. She is again educated regarding importance of complete smoking cessation. We'll continue to follow. I, the cosigning physician, performed a history & physical examination of the patient. Lungs sounds with bilateral end expiratory wheeze, diminished. Maintaining good O2 saturations in the 90s on 2 L/m per nasal cannula. I di scussed the assessment and plan of care with my nurse practitioner, Sofía Ramos. I attest to the above note as dictated by her.
[2019-03-31 17:06] LABS: Glucose,Whole Blood 182 mg/dL (75-99)
[2019-03-31 21:05] LABS: Glucose,Whole Blood 164 mg/dL (75-99)
[2019-04-01] MEDS: methylPREDNISolone SOD SUCCI 125 MG/2 ML VIAL IV SCH ×2 (01:03→05:44)
[2019-04-01 07:10] LABS: Glucose,Whole Blood 129 mg/dL (75-99)
[2019-04-01] MEDS: INSULIN ASPART (NovoLOG) 100 UNIT/ML VIAL SQ SCH ×4 (07:13→21:25)
[2019-04-01] MEDS: ATORVASTATIN 40 MG TAB PO SCH (07:36)
[2019-04-01] MEDS: PANTOPRAZOLE 40 MG TABLET PO SCH (07:36)
[2019-04-01] MEDS: ENOXAPARIN 40 MG/0.4 ML SYRINGE SQ SCH (07:36)
[2019-04-01] MEDS: ONDANSETRON 4 MG/2 ML VIAL IVP PRN ×2 (07:36→21:25)
[2019-04-01] MEDS: AMOXIC-POT CLAV 875-125MG 1 EACH TAB PO SCH ×2 (07:36→21:25)
[2019-04-01 07:49] LABS: Basophils % (A) 0 %; Eosinophils % (A) 0 %; HCT 44.1 % (34.0-46.0); HGB 13.5 gm/dL (11.4-16.0); Lymphocytes # (A) 0.8 k/uL (1.0-4.8); Lymphocytes % (A) 8 %; MCH 29.9 pg (25.0-35.0); MCHC 30.6 g/dL (31.0-37.0); MCV 97.8 fL (80.0-100.0); Mean Platelet Volume 7.7; Monocytes # (A) 0.3 k/uL (0-1.0); Monocytes % (A) 3 %; Neutrophils # (A) 9.2 k/uL (1.3-7.7); Neutrophils % (A) 89 %; Platelet Count 247 k/uL (150-450); RBC 4.51 m/uL (3.80-5.40); RDW 12.9 % (11.5-15.5); WBC 10.3 k/uL (3.8-10.6)
[2019-04-01 07:57] LABS: Calcium 9.6 mg/dL (8.4-10.2); Potassium 4.4 mmol/L (3.5-5.1)
[2019-04-01] MEDS: BUDESONIDE 1 MG/2 ML NEBU INHALATION SCH ×2 (09:45→20:38)
[2019-04-01] MEDS: FORMOTEROL FUMARATE 20 MCG/2 ML NEBU INHALATION SCH ×2 (09:45→20:38)
[2019-04-01] MEDS: IPRATROPIUM-ALBUTEROL 3 ML NEB INHALATION SCH ×4 (09:45→20:38)
[2019-04-01] MEDS: predniSONE 20 MG TAB PO SCH (11:42)
[2019-04-01 11:57] LABS: Glucose,Whole Blood 134 mg/dL (75-99)
--- NOTE | 2019-04-01 12:10 | P.PN ---
Subjective Progress Note Date: 04/01/19 Principal diagnosis: Acute COPD exacerbation Mrs. Bonds is a 78-year-old female with a past medical history of hypertension, COPD, depression, GERD, ongoing nicotine dependence coming in to the hospital with a chief complaint of difficulty in breathing. She is currently being treated for COPD exacerbation. On 03/31/2019- patient is trying to walk in the hallway. She complains of mild difficulty in breathing and cough. She still wheezing. Patient denies having any fevers chills or rigors. No chest pain or palpitations. No bowel pain nausea vomiting or diarrhea. No dysuria or hematuria. On 04/01/2019 - patient is lying in the bed comfortably. Her is at the bedside. No acute events reported by the nursing staff overnight . Patient states her difficulty in breathing is much better and her cough as well. She denies having any chest pain or palpitations. No abdominal pain, nausea, vomiting or diarrhea. No dysuria or hematuria. Patient's labs and medications have been reviewed. Active Medications Acetaminophen (Tylenol Tab) 650 mg PO Q6HR PRN PRN Reason: Fever and/ or Pain Last Admin: 03/29/19 11:05 Dose: 650 mg Documented by: Albuterol/Ipratropium (Duoneb 0.5 Mg-3 Mg/3 Ml Soln) 3 ml INHALATION RT-Q2H PRN PRN Reason: Shortness Of Breath Or Wheezing Albuterol/Ipratropium (Duoneb 0.5 Mg-3 Mg/3 Ml Soln) 3 ml INHALATION RT-QID [facility] Last Admin: 04/01/19 12:05 Dose: 3 ml Documented by: Amoxicillin/Clavulanate Potassium (Augmentin [id number]) 1 each PO Q12HR [facility] Last Admin: 04/01/19 07:36 Dose: 1 each Documented by: Atorvastatin Calcium (Lipitor) 40 mg PO DAILY [facility] Last Admin: 04/01/19 07:36 Dose: 40 mg Documented by: Budesonide (Pulmicort) 1 mg INHALATION RT-BID [facility] Last Admin: 04/01/19 09:45 Dose: 1 mg Documented by: Enoxaparin Sodium (Lovenox) 40 mg SQ DAILY [facility] Last Admin: 04/01/19 07:36 Dose: 40 mg Documented by: Formoterol Fumarate (Perforomist) 20 mcg INHALATION RT-BID [facility] Last Admin: 04/01/19 09:45 Dose: 20 mcg Documented by: Insulin Aspart (Novolog) 0 unit SQ ACHS [facility]; Protocol Last Admin: 04/01/19 07:13 Dose: Not Given Documented by: Lorazepam (Ativan) 0.25 mg PO DAILY PRN PRN Reason: Anxiety Last Admin: 03/29/19 21:40 Dose: 0.25 mg Documented by: Naloxone HCl (Narcan) 0.2 mg IV Q2M PRN PRN Reason: Opioid Reversal Ondansetron HCl (Zofran) 4 mg IVP Q6HR PRN PRN Reason: Nausea And Vomiting Last Admin: 04/01/19 07:36 Dose: 4 mg Documented by: Pantoprazole Sodium (Protonix) 40 mg PO AC-BRKFST [facility] Last Admin: 04/01/19 07:36 Dose: 40 mg Documented by: Prednisone () 60 mg PO DAILY [facility] Last Admin: 04/01/19 11:42 Dose: 60 mg Documented by: Objective - Vital Signs Vital signs: Vital Signs Temp 97.3 F L 04/01/19 07:12 Pulse 78 04/01/19 10:10 Resp 22 04/01/19 07:12 BP 147/91 04/01/19 07:12 Pulse Ox 91 L 04/01/19 10:54 Intake & Output 03/31/19 04/01/19 04/01/19 18:59 06:59 18:59 Intake Total 500 300 Output Total 900 Balance -400 300 Intake: Oral 500 300 Output: Urine 900 Other: Voiding Method Toilet Toilet Toilet # Voids 1 1 1 # Bowel Movements 1 - Exam GENERAL: Alert awake, no acute distress HEENT: Conjunctivae normal. eyes normal. NECK: No JVD. No thyroid enlargement. No LNs CARDIOVASCULAR: S1, S2 regular. No murmur RESPIRATION: Breath sounds diminished in the bases. Less wheezing bilaterally compared to yesterday. ABDOMEN: Soft, nontender . No guarding. no masses palpable.Bowel sounds heard. LEGS: No edema. no swelling. No cyanosis, no clubbing. PSYCHIATRY: Alert and oriented X3, mood and affect normal. NERVOUS SYSTEM: No focal neurological deficits - Labs CBC & Chem 7: 04/01/19 07:15 04/01/19 07:15 Labs: Abnormal Lab Results - Last 24 Hours (Table) 03/31/19 03/31/19 04/01/19 Range/Units 17:03 21:01 06:57 MCHC (31.0-37.0) g/dL Neutrophils # (1.3-7.7) k/uL Lymphocytes # (1.0-4.8) k/uL BUN (7-17) mg/dL Glucose (74-99) mg/dL POC Glucose (mg/dL) 182 H 164 H 129 H (75-99) mg/dL 04/01/19 04/01/19 04/01/19 Range/Units 07:15 07:15 11:55 MCHC 30.6 L (31.0-37.0) g/dL Neutrophils # 9.2 H (1.3-7.7) k/uL Lymphocytes # 0.8 L (1.0-4.8) k/uL BUN 31 H (7-17) mg/dL Glucose 134 H (74-99) mg/dL POC Glucose (mg/dL) 134 H (75-99) mg/dL Microbiology - Last 24 Hours (Table) 03/28/19 09:02 Blood Culture - Preliminary Blood No Growth after 96 hours 03/30/19 17:20 Gram Stain - Final Sputum Sputum Culture - Final Assessment and Plan Assessment: Assessment: -Acute on chronic COPD exacerbation with purulent tracheobronchitis, and patient with history of emphysema -Ongoing nicotine dependence -Gastroesophageal reflux disease -History of pneumonia -History of shingles -Depression, anxiety PLAN: Patient has been getting IV Solu-Medrol, will change it to by mouth prednisone. Continue with breathing treatments and antibiotic therapy. Patient might need home oxygen therapy, 6 minute walk test to be done tomorrow. Continue with the current medication regimen. Anticipate discharge in the next 24-48 hours.
[2019-04-01] MEDS: ACETAMINOPHEN TAB 325 MG TAB PO PRN (12:21)
--- NOTE | 2019-04-01 13:23 | PN ---
PROGRESS NOTE DATE OF SERVICE: 04/01/2019 This is a very nice 78-year-old female who was admitted on March 30. She came into the emergency room with a COPD exacerbation complicated by purulent tracheobronchitis, without lanie pneumonia. Unfortunately, she was smoking up until the time she came into the hospital. In addition, she has a history of hyperlipidemia, GERD, anxiety/depression. She is sitting at the bedside with her . They promised me that they are going to stop smoking. The patient has smoked for nearly 60 years. The patient is feeling much improved. Still a bit short of breath. She may have to be discharged home on oxygen therapy. We will follow up with her in the office with a 6 minute walk distance and a PFT. PHYSICAL EXAMINATION: Current vital signs are reviewed. Temperature is 97.3, heart rate is 80, respiratory rate is 22, blood pressure 147/91, mean 109 and a 2 L saturation 93%. She appears in no acute distress. There is no audible wheezing, use of accessory muscles or conversational dyspnea. She looks much improved. HEENT examination is grossly unremarkable. Mucous membranes are moist. No oral lesions. NECK: Supple. Full range of motion. No adenopathy or thyromegaly. Neck veins are flat. CARDIOVASCULAR examination reveals regular rhythm and rate. S1/S2 normal. No S3, S4, or murmur. LUNGS: Reasonably clear. Breath sounds are diminished. Slight prolongation on forced maneuver. Breath sounds are improved. ABDOMEN: Soft. Bowel sounds are heard. There is no masses or tenderness. EXTREMITIES are intact. No cyanosis, clubbing, or edema. SKIN is without rash. NEUROLOGIC examination is brief but nonfocal. White count 10.3, hemoglobin 13.5, hematocrit 44.1, platelet count 347,000. Sodium, potassium, chloride normal. CO2 is 27. Anion gap 12. BUN and creatinine were 31 and 0.77. Blood and sputum sampling are negative. No recent chest x-rays to report. Medications are reviewed. ASSESSMENT: 1. Chronic obstructive pulmonary disease exacerbation complicated by purulent tracheobronchitis. 2. Ongoing tobacco use with nicotine addiction. 3. Hyperlipidemia. 4. Gastroesophageal reflux disease. 5. History of anxiety/depression. 6. Prior history of pneumonia. PLAN: The patient is counseled each day about the importance of smoking cessation. From our perspective, she could be discharged home. Will leave that up to the primary. The patient should be discharged home on prednisone at 40 mg a day for 4 days, 30 mg a day for 4 days, 20 mg a day for 4 days, 10 mg a day for 4 days and then stop. The patient could also be discharged home on a very short course of antibiotics. In addition, she should be on the DuoNeb q.i.d. and p.r.n. or Combivent, one puff 4 times a day. In addition, she needs a combination of inhaled corticosteroids/long-acting beta agonist inhaler such as Advair Diskus 500/50 one puff twice a day, Advair HFA 230/21, 2 puffs twice a day, Breo 200/25, one puff a day, Symbicort 160/4.5, 2 puffs twice a day or Dulera 200/5 mg, 2 puffs twice a day. Again, she should follow with me in the office. She will need a 6 minute walk distance and a PFTs. I did ask the nurses to check her resting room air saturation as well as her ambulatory room air saturation. Additional recommendations and suggestions are forthcoming. Prognosis is guarded. Hopefully she will not smoke again. MMODL / IJN: [id number] /
[2019-04-01 17:15] LABS: Glucose,Whole Blood 144 mg/dL (75-99)
[2019-04-01 20:50] LABS: Glucose,Whole Blood 147 mg/dL (75-99)
[2019-04-02 01:34] VITALS: RESP 18
[2019-04-02 06:41] VITALS: BP 145/76; TEMP 98
[2019-04-02 07:11] LABS: Glucose,Whole Blood 96 mg/dL (75-99)
[2019-04-02] MEDS: INSULIN ASPART (NovoLOG) 100 UNIT/ML VIAL SQ SCH (07:21)
[2019-04-02] MEDS: ENOXAPARIN 40 MG/0.4 ML SYRINGE SQ SCH (07:32)
[2019-04-02] MEDS: predniSONE 20 MG TAB PO SCH (07:32)
[2019-04-02] MEDS: PANTOPRAZOLE 40 MG TABLET PO SCH (07:32)
[2019-04-02] MEDS: ONDANSETRON 4 MG/2 ML VIAL IVP PRN (07:32)
[2019-04-02] MEDS: ATORVASTATIN 40 MG TAB PO SCH (07:32)
[2019-04-02] MEDS: AMOXIC-POT CLAV 875-125MG 1 EACH TAB PO SCH (07:33)
[2019-04-02] MEDS: BUDESONIDE 1 MG/2 ML NEBU INHALATION SCH (09:16)
[2019-04-02] MEDS: FORMOTEROL FUMARATE 20 MCG/2 ML NEBU INHALATION SCH (09:16)
[2019-04-02] MEDS: IPRATROPIUM-ALBUTEROL 3 ML NEB INHALATION SCH (09:16)
[2019-04-02 09:32] VITALS: PULSE 80
--- NOTE | 2019-04-02 10:44 | P.DS ---
Providers Date of admission: 03/30/19 14:53 Expected date of discharge: 04/02/19 Attending physician: Matthieu Ryan Consults: 03/28/19 12:23 Consult Physician Urgent Consulting Provider: Stephanie Pickens Consult Reason/Comments: AECOPD Do you want consulting provider notified?: Yes Primary care physician: Matthieu Ryan Hospital Course: Final Diagnoses: -Acute on chronic COPD exacerbation with purulent tracheobronchitis, and patient with history of emphysema -Ongoing nicotine dependence -Gastroesophageal reflux disease -History of pneumonia -History of shingles -Depression, anxiety Hospital course:This is a 78-year-old female who is history of gastroesophageal reflux disease, hyperlipidemia, COPD, emphysema, shingles, depression, ongoing extensive nicotine dependence of 1 pack per day and multiple other medical issues, presented to the ER with complaints of worsening shortness of breath with productive cough of palliative oralpale yellow sputum 2 days, unrelieved by nebulizer treatments every 4 hours prn. Denies any fever or chills. Denies any lightheadedness dizziness or focal deficits. Denies any chest pain, palpitations.Denies back pain. Denies nausea vomiting or diarrhea. Denies abdominal pain. Denies history of CHF. Afebrile,VSS, maintaining O2 sats of 90% on room air and high 90s on 2 L nasal cannula. Preliminary blood cultures reporting no growth at 24 hours. Chest x-ray reporting advanced COPD with peribronchial cuffing, possible acute on chronic reactive or infectious airway disease. EKG reporting normal sinus rhythm. Negative for influenza. Hemoglobin 13.1, platelets 212. PT INR within normal limits. A letter lites within normal limits. Maintained on nebulized bronchodilators, Pulmicort, IV steroids, Augmentin with significant clinical improvement. Oxygen weaned down to 2 L nasal cannula. Afebrile, normal WBC. Productive cough, culture ordered. Significant clinical improvement. Cleared by pulmonary for discharge. Patient is being discharged home in a stable condition with guarded prognosis. Patient will require 2 L nasal cannula, O2 sat on room air after ambulation 85-87%. - Exam GENERAL: Alert and oriented 3, no acute distress CARDIOVASCULAR: S1, S2 regular. No murmur RESPIRATION: Breath sounds diminished in the bases. Air entry improving, occasional mild expiratory wheezing ABDOMEN: Soft, nontender . No guarding. no masses palpable. Positive Bowel sounds. NERVOUS SYSTEM: No focal deficits. The impression and plan of care has been dictated as directed. : I performed a history and examination of this patient, discussed the same with the dictator. I agree with the dictator's note ,documented as a scribe. Any additional findings or plans will be noted. Patient Condition at Discharge: Stable Plan - Discharge Summary Discharge Rx Participant: No New Discharge Prescriptions: New Amoxic-Pot Clav 875-125Mg [Augmentin 875-125] 1 each PO Q12HR #8 tab predniSONE 10 mg PO DIRECTED #40 tab Budesonide-Formot 160-4.5 Mcg [Symbicort 160-4.5 Mcg Inhaler] 2 puff INHALATION BID #1 inhaler Continue Esomeprazole Magnesium [NexIUM] 40 mg PO DAILY Atorvastatin [Lipitor] 40 mg PO DAILY LORazepam [Ativan] 0.25 - 0.5 mg PO DAILY PRN PRN Reason: Anxiety Ipratropium/Albuterol Sulfate [Combivent Respimat Inhaler] 1 puff INHALATION RT-QID #0 Ipratropium-Albuterol Nebulize [Duoneb 0.5 mg-3 mg/3 ml Soln] 3 ml INHALATION RT-QID #1 Discharge Medication List Atorvastatin [Lipitor] 40 mg PO DAILY 09/18/14 [History] Esomeprazole Magnesium [NexIUM] 40 mg PO DAILY 09/18/14 [History] LORazepam [Ativan] 0.25 - 0.5 mg PO DAILY PRN 06/29/16 [History] Amoxic-Pot Clav 875-125Mg [Augmentin 875-125] 1 each PO Q12HR #8 tab 04/02/19 [Rx] Budesonide-Formot 160-4.5 Mcg [Symbicort 160-4.5 Mcg Inhaler] 2 puff INHALATION BID #1 inhaler 04/02/19 [Rx] Ipratropium-Albuterol Nebulize [Duoneb 0.5 mg-3 mg/3 ml Soln] 3 ml INHALATION RT-QID #1 04/02/19 [Rx] Ipratropium/Albuterol Sulfate [Combivent Respimat Inhaler] 1 puff INHALATION RT- QID #0 04/02/19 [Rx] predniSONE 10 mg PO DIRECTED #40 tab 04/02/19 [Rx] Follow up Appointment(s)/Referral(s): Matthieu Ryan DO [Primary Care Provider] - 1 Week Kyler Davies DO [Doctor of Osteopathic Medicine] - 04/11/19 2:45 pm (Outpatient pulmonary function test. ) Ambulatory/Diagnostic Orders: Complete Blood Count w/diff [LAB.AMB] Time Frame: 3 Days, Location: None Selected Patient Instructions/Handouts: COPD (Chronic Obstructive Pulmonary Disease) (DC) Activity/Diet/Wound Care/Special Instructions: Give patient a coupon for Symbicort . 2 L nasal cannula O2 being arranged as per case management Cardiac diet. Activity as tolerated. NO smoking, cessation information provided.
--- NOTE | 2019-04-02 18:00 | P.PN ---
Subjective Progress Note Date: 04/02/19 Principal diagnosis: Acute exacerbation of chronic obstructive pulmonary disease The patient is seen today 03/31/2019 in follow-up on the regular medical floor. She is currently sitting up at the bedside. Awake and alert in no acute distress. Breathing a bit easier today as compared to yesterday. Not quite back to her baseline. Still somewhat bronchospastic and wheezy. She is maintaining O2 saturations in the low 90s on 2 L/m per nasal cannula. She's afebrile. Hemodynamically stable. Sputum culture pending. Blood cultures reveal no growth to date. He is maintained on DuoNeb inhalations, Pulmicort and Perforomist inhalations, IV Solu-Medrol. Antibiotics in the form of Augmentin. On 04/02/2019 patient seen in follow-up on medical surgical floor. She is feel ing better, breathing easier, vital signs are stable, she is on 2 L of oxygen her pulse ox is 94-97%. Home oxygen assessment revealed desaturation with ambulation down to 85%, and on the basis of this patient qualifies for home oxygen, overall patient is feeling better, less bronchospastic, however there is still some expiratory wheezes, patient has been treated with the IV steroids, denies bronchodilators, she states she is right to quit smoking once and for all. It events overnight patient has been tolerating ambulation, she is going home today. Objective - Vital Signs Vital signs: Vital Signs Temp 98.0 F 04/02/19 06:40 Pulse 80 04/02/19 09:42 Resp 18 04/02/19 06:40 BP 145/76 04/02/19 06:40 Pulse Ox 97 04/02/19 06:40 Intake & Output 04/01/19 04/02/19 04/02/19 18:59 06:59 18:59 Intake Total 900 600 250 Output Total 900 Balance 0 600 250 Intake: Oral 900 600 250 Output: Urine 900 Other: Voiding Method Toilet Toilet Toilet # Voids 4 2 # Bowel Movements 1 - Exam GENERAL EXAM: Alert, pleasant, 78-year-old white female, on 2 L of oxygen, comfortable in no apparent distress. HEAD: Normocephalic/atraumatic. EYES: Normal reaction of pupils, equal size. Conjunctiva pink, sclera white. NOSE: Clear with pink turbinates. THROAT: No erythema or exudates. NECK: No masses, no JVD, no thyroid enlargement, no adenopathy. CHEST: No chest wall deformity. Symmetrical expansion. LUNGS: Equal air entry with diffuse wheezes and rhonchi CVS: Regular rate and rhythm, normal S1 and S2, no gallops, no murmurs, no rubs ABDOMEN: Soft, nontender. No hepatosplenomegaly, normal bowel sounds, no guarding or rigidity. EXTREMITIES: No clubbing, no edema, no cyanosis, 2+ pulses and upper and lower extremities. MUSCULOSKELETAL: Muscle strength and tone normal. SPINE: No scoliosis or deformity SKIN: No rashes CENTRAL NERVOUS SYSTEM: Alert and oriented -3. No focal deficits, tone is normal in all 4 extremities. PSYCHIATRIC: Alert and oriented -3. Appropriate affect. Intact judgment and insight. - Labs CBC & Chem 7: 04/01/19 07:15 04/01/19 07:15 Labs: Abnormal Lab Results - Last 24 Hours (Table) 04/01/19 Range/Units 20:47 POC Glucose (mg/dL) 147 H (75-99) mg/dL Microbiology - Last 24 Hours (Table) 03/28/19 09:02 Blood Culture - Preliminary Blood No Growth after 120 hours Assessment and Plan Plan: Assessment: #1 Acute exacerbation of chronic obstructive pulmonary sees completed complicated by paratracheal bronchitis. #2 Chronic and ongoing tobacco dependence. #3 Hyperlipidemia. #4 Esophageal reflux disease. #5 History of anxiety/depression. Plan: Patient is doing well, improving, breathing easier, she did qualify for home o xygen, she desaturated to 85% with ambulation, she is going home with home oxygen at 2 L, no acute events overnight, less bronchospastic, less congested, she wants to quit smoking once and for all, she will need outpatient follow-up with Dr. Dr. Davies in one or 2 weeks. I performed a history & physical examination of the patient and discussed their management with my nurse practitioner, Dolores King. I reviewed the nurse practitioner's note and agree with the documented findings and plan of care. Lung sounds are positive for diffuse wheezes throughout the lung guerrero. The findings and the impression was discussed with the patient. I attest to the documentation by the nurse practitioner. Time with Patient: Less than 30
== END 2019-04-02 13:11 | disposition home or self-care (01) | DRG 190 ==
LOC: EC 08:25 → 4MS4W 12:23 → OBSVTOIN 03-30 14:53
PROVIDERS: ADMIT Family Medicine; ATTEND Family Medicine
DX: J43.9 Emphysema, unspecified (principal); J96.01 Acute respiratory failure with hypoxia; J20.9 Acute bronchitis, unspecified; E78.5 Hyperlipidemia, unspecified; Z71.6 Tobacco abuse counseling; F17.210 Nicotine dependence, cigarettes, uncomplicated; F32.9 Major depressive disorder, single episode, unspecified; F41.9 Anxiety disorder, unspecified; K21.9 Gastro-esophageal reflux disease without esophagitis; Z79.899 Other long term (current) drug therapy; Z80.1 Family history of malignant neoplasm of trachea, bronchus and lung; Z80.8 Family history of malignant neoplasm of other organs or systems; Z86.19 Personal history of other infectious and parasitic diseases; Z87.01 Personal history of pneumonia (recurrent); Z90.49 Acquired absence of other specified parts of digestive tract; Z90.710 Acquired absence of both cervix and uterus; Z88.6 Allergy status to analgesic agent; Z88.5 Allergy status to narcotic agent
CPT/HCPCS: 36415; 71046; 80048; 80053; 83605; 83735; 83880; 85025; 85610; 85730; 87040; 87070; 87205; 87502; 93005; 94640; 94760; 96361; 96365; 96375; 99285

== ENCOUNTER → 2019-04-16 | Outpatient (CLI) | payer MEDICARE | END | disposition home or self-care (01) | LOC: CPPFTMAIN 14:06 | PROVIDERS: ATTEND Internal Medicine Critical Care Medicine | DX: J44.9 Chronic obstructive pulmonary disease, unspecified (principal); J98.8 Other specified respiratory disorders | CPT/HCPCS: 94060; 94726; 94729 ==

== ENCOUNTER → 2020-01-03 | Outpatient (CLI) | payer MEDICARE | END | disposition home or self-care (01) | LOC: LABWHC1 12:59 | PROVIDERS: ATTEND Family Medicine | DX: R05 Cough (principal); R06.02 Shortness of breath ==

== ENCOUNTER → 2022-01-19 | Outpatient (CLI) | payer MEDICARE ==
--- NOTE | 2022-01-19 18:55 | CT ---
EXAMINATION TYPE: CT abdomen pelvis w con CT DLP: 624.50 mGycm, Automated exposure control for dose reduction was used. DATE OF EXAM: 01/19/2022 5:17 PM COMPARISON: CT abdomen pelvis most recent from 06/29/2016 CLINICAL INDICATION:Female, 81 years old with history of K57.90 Diverticulitis; nausea, pain and cons tipation. TECHNIQUE: Axial CT of the abdomen and pelvis. Sagittal and coronal reformats were created on a [employer] workstation. Contrast used:100 mL of Isovue 300 with IV Contrast, Oral contrast used: with Oral Contrast FINDINGS: LOWER CHEST: Unremarkable ABDOMEN LIVER: Unremarkable GALLBLADDER AND BILE DUCTS: The gallbladder is surgically absent. PANCREAS: Unremarkable. SPLEEN: Unremarkable. ADRENAL GLANDS: Unremarkable. KIDNEYS AND URETERS: No evidence of hydronephrosis or renal calculus. The ureters are unremarkable. PELVIS BLADDER: Unremarkable REPRODUCTIVE: Unremarkable. ABDOMEN & PELVIS STOMACH AND BOWEL: No evidence of bowel obstruction. Circumferential wall thickening is seen within the sigmoid colon measuring up to 6 mm. There is scattered clonic diverticula present. There is mild inflammation changes around the sigmoid colon. PERITONEUM: No evidence of pneumoperitoneum or free fluid. VASCULATURE: Moderate atherosclerotic calcifications are present throughout the abdominal aorta and i ts branches. No evidence of aortic aneurysm. MUSCULOSKELETAL: No acute osseous abnormalities. Moderate disc degeneration changes are present throu ghout the thoracolumbar spine. Multilevel lumbar spine disc bulging present. LYMPH NODES: No gross evidence for lymphadenopathy. SOFT TISSUE/ABDOMINAL WALL: Unremarkable IMPRESSION: Mild sigmoid colon colitis/diverticulitis without evidence of abscess or free air.
== END | disposition home or self-care (01) ==
LOC: RADCTMAIN 14:47
PROVIDERS: ATTEND Family Medicine
DX: K57.30 Diverticulosis of large intestine without perforation or abscess without bleeding (principal)
CPT/HCPCS: 82565; 84520; 74177; 36415; Q9967

== ENCOUNTER 2023-11-23 13:08 | Inpatient (IN) | payer MEDICARE ==
[2023-11-23] MEDS: ONDANSETRON 4 MG/2 ML VIAL IVP STA ×2 (14:01→15:51)
[2023-11-23] MEDS: MORPHINE SULFATE 4 MG/ML SYRINGE IV STA (14:01)
[2023-11-23] MEDS: SODIUM CHLORIDE 0.9% 1,000 ML IV STA (14:01)
--- NOTE | 2023-11-23 14:06 | ED ---
Fall HPI - General Chief Complaint: Fall Stated Complaint: Fall, pain in R groin Time Seen by Provider: 11/23/23 13:50 Source: patient, EMS, RN notes reviewed, old records reviewed, Caregiver Mode of arrival: EMS Limitations: no limitations - History of Present Illness Initial Comments: This is a 83-year-old female to ER for evaluation of hip pain severe right-sided hip pain after a fall while gardening today. No blood thinners. 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 Fall Witnessed: yes, by family Place Fall Occurred: home Loss of Consciousness: none Prolonged Down Time?: no Symptoms Prior to Fall: none Location - Extremities: Right: Thigh Severity: severe Severity scale (1-10): 9 Context: tripped/slipped Associated Symptoms: denies - Related Data Home Medications Medication Instructions Recorded Confirmed Atorvastatin [Lipitor] 40 mg PO DAILY 09/18/14 11/23/23 Esomeprazole Magnesium [NexIUM] 40 mg PO DAILY 09/18/14 11/23/23 Fluticasone/Umeclidin/Vilanter 1 puff INHALATION RT-DAILY 11/23/23 11/23/23 [Trelegy Ellipta 200-62.5-25] Furosemide [Lasix] 20 mg PO DAILY 11/23/23 11/23/23 Ipratropium/Albuterol Sulfate 1 puff INHALATION RT-QID PRN 11/23/23 11/23/23 [Combivent Respimat Inhaler] Sertraline [Zoloft] 50 mg PO DAILY 11/23/23 11/23/23 Previous Rx's Medication Instructions Recorded Ipratropium-Albuterol Nebulize 3 ml INHALATION RT-QID #1 04/02/19 [Duoneb 0.5 mg-3 mg/3 ml Soln] Apixaban [Eliquis] 2.5 mg PO BID #60 tab 11/27/23 Docusate [Colace] 100 mg PO BID #60 capsule 11/27/23 Doxycycline Monohydrate 100 mg PO BID #28 cap 11/27/23 HYDROcodone/APAP 5-325MG [[place] 1 - 2 tab PO Q6HR PRN #32 tab 11/27/23 5-325] Omeprazole 40 mg PO DAILY #30 cap 11/27/23 Ipratropium-Albuterol Nebulize 3 ml INHALATION Q4H PRN each 11/28/23 [Duoneb 0.5 mg-3 mg/3 ml Soln] LORazepam [Ativan] 0.5 mg PO DAILY #3 tab 11/28/23 LORazepam [Ativan] 0.5 mg PO HS PRN #3 tab 11/28/23 Magnesium Hydroxide [Milk of 2,400 mg PO DAILY PRN ml 11/28/23 Magnesia] Nicotine 21Mg/24Hr Patch [Habitrol] 1 patch TRANSDERM DAILY patch 11/28/23 Sennosides-Docusate Sodium 2 each PO HS tab 11/28/23 [Senokot-S] Tamsulosin [Flomax] 0.4 mg PO HS cap 11/28/23 polyethylene glycoL 3350 [Miralax] 17 gm PO DAILY packet 11/29/23 Allergies Allergy/AdvReac Type Severity Reaction Status Date / Time aspirin Allergy Nausea & Verified 11/23/23 17:55 Vomiting codeine Allergy Unknown Verified 11/23/23 17:55 meperidine HCl [From Demerol] AdvReac Rapid Verified 11/23/23 17:55 Heart Rate Review of Systems ROS Statement: Those systems with pertinent positive or pertinent negative responses have been documented in the HPI. ROS Other: All systems not noted in ROS Statement are negative. Past Medical History Past Medical History: GERD/Reflux, Hyperlipidemia, Pneumonia, Respiratory Disorder Additional Past Medical History / Comment(s): Emphysema, shingles in right ear History of Any Multi-Drug Resistant Organisms: None Reported Past Surgical History: Appendectomy, Cholecystectomy, Hysterectomy Additional Past Surgical History / Comment(s): emphesema Past Anesthesia/Blood Transfusion Reactions: No Reported Reaction Past Psychological History: Depression Smoking Status: Current every day smoker Past Alcohol Use History: None Reported Past Drug Use History: None Reported - Past Family History Mother Additional Family Medical History / Comment(s): " AFTER GALLBLADDER TONY" Sister(s) Family Medical History: Cancer Additional Family Medical History / Comment(s): One sister with brain cancer, another with throat cancer. Brother(s) Family Medical History: Cancer Additional Family Medical History / Comment(s): lung cancer General Exam General appearance: alert, in no apparent distress Head exam: Present: atraumatic, normocephalic, normal inspection Eye exam: Present: normal appearance, PERRL, EOMI. Absent: scleral icterus, conjunctival injection, periorbital swelling ENT exam: Present: normal exam, mucous membranes moist Neck exam: Present: normal inspection. Absent: tenderness, meningismus, lymphad enopathy Respiratory exam: Present: normal lung sounds bilaterally. Absent: respiratory distress, wheezes, rales, rhonchi, stridor Cardiovascular Exam: Present: regular rate, normal rhythm, normal heart sounds. Absent: systolic murmur, diastolic murmur, rubs, gallop, clicks GI/Abdominal exam: Present: soft, normal bowel sounds. Absent: distended, tenderness, guarding, rebound, rigid Extremities exam: Present: normal inspection, full ROM, normal capillary refill. Absent: tenderness, pedal edema, joint swelling, calf tenderness Back exam: Present: normal inspection Neurological exam: Present: alert, oriented X3, CN II-XII intact Psychiatric exam: Present: normal affect, normal mood Skin exam: Present: warm, dry, intact, normal color. Absent: rash Course Vital Signs 11/23/23 11/23/23 11/23/23 13:24 14:12 14:14 Temperature 97.7 F Pulse Rate 73 Respiratory 20 Rate Blood Pressure 141/64 O2 Sat by Pulse 94 L 85 L 94 L Oximetry 11/23/23 11/23/23 11/23/23 16:49 17:00 17:46 Temperature Pulse Rate 82 89 89 Respiratory 20 16 18 Rate Blood Pressure 141/69 138/77 139/85 O2 Sat by Pulse 94 L 93 L 93 L Oximetry - Reevaluation(s) Reevaluation #1: 11/23/23 16:34 Records reviewed Reevaluation #2: 11/23/23 16:35 This pain is uncontrolled here in the ER but improving Reevaluation #3: 11/23/23 16:35 Informed of results and questions answered Reevaluation #4: Was pt. sent in by a medical professional or institution (, PA, RESEARCH COMPUTING SPECIALIST, urgent care, hospital, or penitentiary...) When possible be specific @ -no Did you speak to anyone other than the patient for history (EMS, parent, family, police, friend...)? What history was obtained from this source @ -no Did you review nursing and triage notes (agree or disagree)? Why? @ -agree Are old charts reviewed (outside hosp., previous admission, EMS record, old EKG, old radiological studies, urgent care reports/EKG's, penitentiary records)? Report findings @ -yes Differential Diagnosis (chest pain, altered mental status, abdominal pain women, abdominal pain men, vaginal bleeding, weakness, fever, dyspnea, syncope, headache, dizziness, GI bleed, back pain, seizure, CVA, palpatations, mental health, musculoskeletal)? @ -prior EKG interpreted by me (3pts min.). @ -yes X-rays interpreted by me (1pt min.). @ -yes positive hip fracture CT interpreted by me (1pt min.). @ -no U/S interpreted by me (1pt. min.). @ -no What testing was considered but not performed or refused? (CT, X-rays, U/S, labs)? Why? @ -none What meds were considered but not given or refused? Why? @ -none Did you discuss the management of the patient with other professionals (professionals i.e. , PA, RESEARCH COMPUTING SPECIALIST, lab, RT, psych nurse, social service coordinator, general medical practitioner, teacher, loan officer assistant, adult protective caseworker)? Give summary @ -no Was smoking cessation discussed for >3mins.? @ -no Were there social determinants of health that impacted care today? How? (Homelessness, low income, unemployed, alcoholism, drug addiction, transportation, low edu. Level, literacy, decrease access to med. care, residential, rehab)? @ -none Was there de-escalation of care discussed even if they declined (Discuss DNR or withdrawal of care, Hospice)? DNR status @ -no What co-morbidities impacted this encounter? (DM, HTN, Smoking, COPD, CAD, Cancer, CVA, ARF, Chemo, Hep., AIDS, mental health diagnosis, sleep apnea, morbid obesity)? @ -none Was patient admitted / discharged? Hospital course, mention meds given and route, prescriptions, significant lab abnormalities, going to OR and other pertinent info. @ - 83 female to the ER after a fall fall with hip fracture. Severe pain throughout ER stay. Patient will be admitted for surgical evaluation and treatment Discharge Was critical care preformed (if so, how long)? @ -no Undiagnosed new problem with uncertain prognosis? @ -no Drug Therapy requiring intensive monitoring for toxicity (Heparin, Nitro, Insul in, Cardizem)? @ -no Were any procedures done? @ -no Diagnosis/symptom? @ -Fall with hip fracture Acute, or Chronic, or Acute on Chronic? @ -Acute Uncomplicated (without systemic symptoms) or Complicated (systemic symptoms)? @ -Complicated Side effects of treatment? @ -no Exacerbation, Progression, or Severe Exacerbation? @ -exacerbation Poses a threat to life or bodily function? How? (Chest pain, [place], [place], pneumonia, PE, COPD, DKA, ARF, appy, cholecystitis, CVA, Diverticulitis, Homicidal, Suicidal, threat to staff... and all critical care pts) @ -yes with extremes of age - Consultations Consultation #1: spoke missy messer for admision Medical Decision Making - Medical Decision Making 83 female to the ER after a fall fall with hip fracture. Severe pain throughout ER stay. Patient will be admitted for surgical evaluation and treatment - Lab Data Result diagrams: 11/28/23 04:19 11/29/23 03:17 Lab Results 11/23/23 11/23/23 11/23/23 Range/Units 13:54 13:54 13:54 WBC 12.1 H (3.8-10.6) k/uL RBC 4.05 (3.80-5.40) m/uL Hgb 12.4 (11.4-16.0) gm/dL Hct 38.0 (34.0-46.0) % MCV 93.8 (80.0-100.0) fL MCH 30.6 (25.0-35.0) pg MCHC 32.6 (31.0-37.0) g/dL RDW 13.1 (11.5-15.5) % Plt Count 256 (150-450) k/uL MPV 8.8 Neutrophils % 78 % Lymphocytes % 12 % Monocytes % 7 % Eosinophils % 2 % Basophils % 0 % Neutrophils # 9.4 H (1.3-7.7) k/uL Lymphocytes # 1.4 (1.0-4.8) k/uL Monocytes # 0.8 (0-1.0) k/uL Eosinophils # 0.3 (0-0.7) k/uL Basophils # 0.0 (0-0.2) k/uL PT 10.3 (10.0-12.5) sec INR 0.9 (<1.2) APTT 23.1 (22.0-30.0) sec Sodium 140 (137-145) mmol/L Potassium 3.5 (3.5-5.1) mmol/L Chloride 106 (98-107) mmol/L Carbon Dioxide 29 (22-30) mmol/L Anion Gap 5 mmol/L BUN 15 (7-17) mg/dL Creatinine 0.61 (0.52-1.04) mg/dL Est GFR (CKD-EPI)AfAm >90 (>60 ml/min/1.73 sqM) Est GFR (CKD-EPI)NonAf 85 (>60 ml/min/1.73 sqM) Glucose 98 (74-99) mg/dL Calcium 9.2 (8.4-10.2) mg/dL Phosphorus 2.7 (2.5-4.5) mg/dL Magnesium 1.6 (1.6-2.3) mg/dL Total Bilirubin 0.8 (0.2-1.3) mg/dL AST 26 (14-36) U/L ALT 15 (4-34) U/L Alkaline Phosphatase 85 (38-126) U/L Troponin I (0.000-0.034) ng/mL Total Protein 6.8 (6.3-8.2) g/dL Albumin 4.2 (3.5-5.0) g/dL /11/10 Range/Units 13:54 WBC (3.8-10.6) k/uL RBC (3.80-5.40) m/uL Hgb (11.4-16.0) gm/dL Hct (34.0-46.0) % MCV (80.0-100.0) fL MCH (25.0-35.0) pg MCHC (31.0-37.0) g/dL RDW (11.5-15.5) % Plt Count (150-450) k/uL MPV Neutrophils % % Lymphocytes % % Monocytes % % Eosinophils % % Basophils % % Neutrophils # (1.3-7.7) k/uL Lymphocytes # (1.0-4.8) k/uL Monocytes # (0-1.0) k/uL Eosinophils # (0-0.7) k/uL Basophils # (0-0.2) k/uL PT (10.0-12.5) sec INR (<1.2) APTT (22.0-30.0) sec Sodium (137-145) mmol/L Potassium (3.5-5.1) mmol/L Chloride (98-107) mmol/L Carbon Dioxide (22-30) mmol/L Anion Gap mmol/L BUN (7-17) mg/dL Creatinine (0.52-1.04) mg/dL Est GFR (CKD-EPI)AfAm (>60 ml/min/1.73 sqM) Est GFR (CKD-EPI)NonAf (>60 ml/min/1.73 sqM) Glucose (74-99) mg/dL Calcium (8.4-10.2) mg/dL Phosphorus (2.5-4.5) mg/dL Magnesium (1.6-2.3) mg/dL Total Bilirubin (0.2-1.3) mg/dL AST (14-36) U/L ALT (4-34) U/L Alkaline Phosphatase (38-126) U/L Troponin I <0.012 (0.000-0.034) ng/mL Total Protein (6.3-8.2) g/dL Albumin (3.5-5.0) g/dL - EKG Data -: EKG Interpreted by Me (EKG is sinus 77 MA 145 QRS 76 QTc 356) - Radiology Data Radiology results: report reviewed (X-ray x-ray right hip and pelvis positive for right hip fracture), image reviewed Disposition Clinical Impression: Fall, Closed right hip fracture Disposition: ADMITTED IP TO THIS [facility] Condition: Fair Is patient prescribed a controlled substance at d/c from ED?: No Time of Disposition: 16:30
[2023-11-23 14:10] LABS: Basophils % (A) 0 %; Eosinophils # (A) 0.3 k/uL (0-0.7); Eosinophils % (A) 2 %; HGB 12.4 gm/dL (11.4-16.0); Lymphocytes # (A) 1.4 k/uL (1.0-4.8); Lymphocytes % (A) 12 %; MCH 30.6 pg (25.0-35.0); MCHC 32.6 g/dL (31.0-37.0); MCV 93.8 fL (80.0-100.0); Mean Platelet Volume 8.8; Monocytes # (A) 0.8 k/uL (0-1.0); Monocytes % (A) 7 %; Neutrophils # (A) 9.4 k/uL (1.3-7.7); Neutrophils % (A) 78 %; Platelet Count 256 k/uL (150-450); RBC 4.05 m/uL (3.80-5.40); RDW 13.1 % (11.5-15.5); WBC 12.1 k/uL (3.8-10.6)
[2023-11-23] MEDS: SODIUM CHLORIDE 0.9% 500 ML 500 ML IV STA (14:11)
[2023-11-23 14:25] LABS: INR 0.9 (<1.2); Partial Thromboplastin Time 23.1 sec (22.0-30.0); Prothrombin Time 10.3 sec (10.0-12.5)
[2023-11-23 14:26] LABS: Potassium 3.5 mmol/L (3.5-5.1)
[2023-11-23 14:27] LABS: ALT 15 U/L (4-34); AST 26 U/L (14-36); African American GFR (CKD) >90 (>60 ml/min/1.73 sqM); Albumin 4.2 g/dL (3.5-5.0); Alkaline Phosphatase 85 U/L (38-126); Anion Gap 5 mmol/L; Blood Urea Nitrogen 15 mg/dL (7-17); Calcium 9.2 mg/dL (8.4-10.2); Carbon Dioxide 29 mmol/L (22-30); Chloride 106 mmol/L (98-107); Glucose 98 mg/dL (74-99); Magnesium 1.6 mg/dL (1.6-2.3); Non-African American GFR(CKD) 85 (>60 ml/min/1.73 sqM); Phosphorus 2.7 mg/dL (2.5-4.5); Sodium 140 mmol/L (137-145); Total Bilirubin 0.8 mg/dL (0.2-1.3); Total Protein 6.8 g/dL (6.3-8.2)
[2023-11-23] MEDS: HYDROmorphone 0.5 MG/0.5 ML SYRINGE IVP STA (15:52)
--- NOTE | 2023-11-23 16:10 | XR ---
EXAMINATION TYPE: XR chest 1V DATE OF EXAM: 11/23/2023 2:50 PM CLINICAL INDICATION:Female, 83 years old with history of fall; [facility] COMPARISON: Chest radiographs from 03/28/2019 TECHNIQUE: XR chest 1V Frontal view of the chest. FINDINGS: Lungs/Pleura: Prominent interstitial lung markings are seen scattered throughout the lungs. No eviden ce of focal consolidation, pneumothorax or pleural effusion. Pulmonary vascularity: Unremarkable. Heart/mediastinum: Cardiomediastinal silhouette is unremarkable. Musculoskeletal: No acute osseous pathology. IMPRESSION: Chronic changes without acute pulmonary process. No significant change from prior.
--- NOTE | 2023-11-23 16:11 | XR ---
EXAMINATION TYPE: XR Hip RT and AP Pelvis DATE OF EXAM: 11/23/2023 2:50 PM CLINICAL INDICATION:Female, 83 years old with history of fall; [facility] COMPARISON: None. TECHNIQUE: XR Hip RT and AP Pelvis; hip was examined in the frontal and lateral projections and a AP pelvis. FINDINGS/IMPRESSION: Right Proximal femur subcapital femoral neck fracture with valgus impaction.
[2023-11-23] MEDS ORDERED: NALOXONE 0.4 MG/ML 1 ML VIAL IV PRN (16:32)
[2023-11-23] MEDS: ONDANSETRON 4 MG/2 ML VIAL IVP PRN (17:33)
[2023-11-23] MEDS: MORPHINE SULFATE 4 MG/ML SYRINGE IV PRN (18:44)
[2023-11-23] MEDS: HYDROmorphone 0.5 MG/0.5 ML SYRINGE IVP PRN (22:06)
[2023-11-23] MEDS: SODIUM CHLORIDE 0.9% 1,000 ML IV SCH (22:09)
[2023-11-24] MEDS: PANTOPRAZOLE 40 MG/10 ML VIAL IV SCH (08:13)
[2023-11-24] MEDS ORDERED: IPRATROPIUM-ALBUTEROL 3 ML NEB INHALATION PRN (08:17)
[2023-11-24] MEDS ORDERED: LORazepam 0.5 MG TAB PO PRN (08:40)
[2023-11-24] MEDS: IPRATROPIUM-ALBUTEROL 3 ML NEB INHALATION SCH (08:44)
[2023-11-24] MEDS: SYMBICORT 80-4.5 MCG INHALER INHALATION SCH (08:44)
[2023-11-24 09:42] LABS: ALT 17 U/L (8-44); AST 26 U/L (13-35); Albumin 4.1 g/dL (3.8-4.9); Albumin/Globulin Ratio 1.86 Ratio (1.60-3.17); Alkaline Phosphatase 68 U/L (41-126); BUN/Creat Ratio 15.86 Ratio (12.00-20.00); Blood Urea Nitrogen 11.1 mg/dL (9.0-27.0); Calcium 8.9 mg/dL (8.7-10.3); Carbon Dioxide 26.7 mmol/L (21.6-31.8); Chloride 106 mmol/L (96-109); Globulin 2.2 g/dL (1.6-3.3); Glucose 103 mg/dL (70-110); Magnesium 1.7 mg/dL (1.5-2.4); Phosphorus 3.1 mg/dL (2.4-5.1); Potassium 3.5 mmol/L (3.5-5.5); Sodium 144 mmol/L (135-145); Total Bilirubin 0.7 mg/dL (0.3-1.2); Total Protein 6.3 g/dL (6.2-8.2)
[2023-11-24 09:47] LABS: Basophils # (A) 0.06 X 10*3/uL (0.00-0.10); Basophils % (A) 0.6 %; Eosinophils # (A) 0.27 X 10*3/uL (0.04-0.35); Eosinophils % (A) 2.7 %; HCT 35.8 % (37.2-46.3); HGB 11.5 g/dL (12.0-15.0); Lymphocytes # (A) 1.39 X 10*3/uL (0.90-5.00); Lymphocytes % (A) 13.8 %; MCH 30.2 pg (27.0-32.0); MCHC 32.1 g/dL (32.0-37.0); Mean Platelet Volume 11.6 FL (9.5-12.2); Monocytes # (A) 1.19 X 10*3/uL (0.20-1.00); Monocytes % (A) 11.8 %; NRBC Per 100 WBC 0 X 10*3/uL (0.00-0.01); Neutrophils # (A) 7.13 X 10*3/uL (1.80-7.70); Neutrophils % (A) 70.8 %; Platelet Count 246 X 10*3/uL (140-440); RBC 3.81 X 10*6/uL (4.10-5.20); RDW 13.2 % (11.5-14.5); WBC 10.07 X 10*3/uL (4.50-10.00)
--- NOTE | 2023-11-24 10:16 | P.HPOR ---
History of Present Illness H&P Date: 11/24/23 Chief Complaint: right hip pain This is a 83-year-old female patient, who presented to the emergency department for a fall with subsequent right hip pain on 11/23/2023. The patient states she went outside to cut her roses and lost her balance and fell on her right hip. After the fall she had right hip pain and was unable to ambulate. She presented to the emergency department where x-rays of the right hip were obtained. The x- ray demonstrated a right displaced femoral neck fracture. Orthopedics was consulted and she was admitted. Past Medical History Past Medical History: GERD/Reflux, Hyperlipidemia, Pneumonia, Respiratory D isorder Additional Past Medical History / Comment(s): Emphysema, shingles in right ear History of Any Multi-Drug Resistant Organisms: None Reported Past Surgical History: Appendectomy, Cholecystectomy, Hysterectomy Additional Past Surgical History / Comment(s): emphesema Past Anesthesia/Blood Transfusion Reactions: No Reported Reaction Past Psychological History: Depression Additional Psychological History / Comment(s): Pt resides with her spouse. She has never been able to drive, her spouse drives. Smoking Status: Current every day smoker Past Alcohol Use History: None Reported Additional Past Alcohol Use History / Comment(s): Pt started smoking in 1959 and is a ppd smoker. Past Drug Use History: None Reported - Past Family History Mother Additional Family Medical History / Comment(s): " AFTER GALLBLADDER TONY" Sister(s) Family Medical History: Cancer Additional Family Medical History / Comment(s): One sister with brain cancer, another with throat cancer. Brother(s) Family Medical History: Cancer Additional Family Medical History / Comment(s): lung cancer Medications and Allergies Home Medications Medication Instructions Recorded Confirmed Type Atorvastatin [Lipitor] 40 mg PO DAILY 09/18/14 11/23/23 History Esomeprazole Magnesium [NexIUM] 40 mg PO DAILY 09/18/14 11/23/23 History LORazepam [Ativan] 0.5 mg PO DAILY 06/29/16 11/23/23 History Ipratropium-Albuterol Nebulize 3 ml INHALATION RT-QID #1 04/02/19 11/23/23 Rx [Duoneb 0.5 mg-3 mg/3 ml Soln] Fluticasone/Umeclidin/Vilanter 1 puff INHALATION RT-DAILY 11/23/23 11/23/23 History [Treletali Ellipta 200-62.5-25] Furosemide [Lasix] 20 mg PO DAILY 11/23/23 11/23/23 History Ipratropium/Albuterol Sulfate 1 puff INHALATION RT-QID PRN 11/23/23 11/23/23 History [Combivent Respimat Inhaler] LORazepam [Ativan] 0.5 mg PO HS PRN 11/23/23 11/23/23 History Sertraline [Zoloft] 50 mg PO DAILY 11/23/23 11/23/23 History Allergies Allergy/AdvReac Type Severity Reaction Status Date / Time aspirin Allergy Nausea & Verified 11/23/23 17:55 Vomiting codeine Allergy Unknown Verified 11/23/23 17:55 meperidine HCl [From Demerol] AdvReac Rapid Verified 11/23/23 17:55 Heart Rate Physical Examination On exam today patient was lying comfortably in the bed with no acute distress. Skin over the right anterior hip is free of scars, lesions or deformity. Right lower extremity is shortened and externally rotated. No pain on palpation of cervical spine, bilateral clavicles, bilateral shoulder joints, bilateral elbows, bilateral wrists, bilateral hands or either upper extremity. No pain with palpation of the left hip, thigh, knee, leg, ankle or foot. Pain with right log roll, pain with palpation over the right greater trochanter. No pain with palpation of right knee, leg ankle or foot. Neurovascular status to bilateral lower extremities is intact. Able to plantar flex and dorsiflex the right ankle. Able to move toes of right foot. Results AP pelvis x-ray obtained on 11/23/2023 demonstrated right displaced femoral neck fracture. 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 Visualized jonny mbar vertebrae with age-related degenerative changes. - Labs Labs: Abnormal Lab Results - Last 24 Hours (Table) 11/23/23 Range/Units 13:54 WBC 12.1 H (3.8-10.6) k/uL Neutrophils # 9.4 H (1.3-7.7) k/uL H & H 11/23/23 Range/Units 13:54 Hgb 12.4 (11.4-16.0) gm/dL Hct 38.0 (34.0-46.0) % Coagulation 11/23/23 Range/Units 13:54 INR 0.9 (<1.2) Result Diagrams: 11/23/23 13:54 11/23/23 13:54 Assessment and Plan (1) Closed displaced fracture of right femoral neck Current Visit: Yes Status: Acute Code(s): S72.001A - FRACTURE OF UNSP PART OF NECK OF RIGHT FEMUR, INIT SNOMED Code(s): 627005761 (2) Closed right hip fracture Current Visit: Yes Status: Acute Code(s): S72.001A - FRACTURE OF UNSP PART OF NECK OF RIGHT FEMUR, INIT SNOMED Code(s): 731612506 (3) Smoker Current Visit: No Status: Acute Code(s): F17.200 - NICOTINE DEPENDENCE, UNSPECIFIED, UNCOMPLICATED SNOMED Code(s): 04765010 Plan: Clinical and xray findings were discussed with the patient at length. It was recommended patient have a hemiarthroplasty of the right hip. The details of the proposed surgery were explained at length and all questions answered. The risks of surgery including infection, intraoperative fracture, blood loss, delayed wound healing, scarring, complications secondary to anesthesia including blood clots, MS, CVA, and . After discussion and consideration the patient and family decided to proceed with the surgery.
[2023-11-24] MEDS: ONDANSETRON 4 MG/2 ML VIAL IVP PRN (10:45)
[2023-11-24] MEDS: NICOTINE 21MG/24HR PATCH TRANSDERM SCH (10:47)
[2023-11-24] MEDS: SERTRALINE 50 MG TAB PO SCH (10:47)
[2023-11-24] MEDS: ATORVASTATIN 40 MG TAB PO SCH (10:47)
[2023-11-24] MEDS: FUROSEMIDE 20 MG TAB PO SCH (10:47)
[2023-11-24] MEDS: LORazepam 0.5 MG TAB PO SCH (10:47)
--- NOTE | 2023-11-24 12:03 | P.HPIM ---
Past Medical History Past Medical History: GERD/Reflux, Hyperlipidemia, Pneumonia, Respiratory Disorder Additional Past Medical History / Comment(s): Emphysema, shingles in right ear History of Any Multi-Drug Resistant Organisms: None Reported Past Surgical History: Appendectomy, Cholecystectomy, Hysterectomy Additional Past Surgical History / Comment(s): emphesema Past Anesthesia/Blood Transfusion Reactions: No Reported Reaction Past Psychological History: Depression Additional Psychological History / Comment(s): Pt resides with her spouse. She has never been able to drive, her spouse drives. Smoking Status: Current every day smoker Past Alcohol Use History: None Reported Additional Past Alcohol Use History / Comment(s): Pt started smoking in 1959 and is a ppd smoker. Past Drug Use History: None Reported - Past Family History Mother Additional Family Medical History / Comment(s): " AFTER GALLBLADDER TONY" Sister(s) Family Medical History: Cancer Additional Family Medical History / Comment(s): One sister with brain cancer, another with throat cancer. Brother(s) Family Medical History: Cancer Additional Family Medical History / Comment(s): lung cancer Medications and Allergies Home Medications Medication Instructions Recorded Confirmed Type Atorvastatin [Lipitor] 40 mg PO DAILY 09/18/14 11/23/23 History Esomeprazole Magnesium [NexIUM] 40 mg PO DAILY 09/18/14 11/23/23 History LORazepam [Ativan] 0.5 mg PO DAILY 06/29/16 11/23/23 History Ipratropium-Albuterol Nebulize 3 ml INHALATION RT-QID #1 04/02/19 11/23/23 Rx [Duoneb 0.5 mg-3 mg/3 ml Soln] Fluticasone/Umeclidin/Vilanter 1 puff INHALATION RT-DAILY 11/23/23 11/23/23 History [Trelegy Ellipta 200-62.5-25] Furosemide [Lasix] 20 mg PO DAILY 11/23/23 11/23/23 History Ipratropium/Albuterol Sulfate 1 puff INHALATION RT-QID PRN 11/23/23 11/23/23 History [Combivent Respimat Inhaler] LORazepam [Ativan] 0.5 mg PO HS PRN 11/23/23 11/23/23 History Sertraline [Zoloft] 50 mg PO DAILY 11/23/23 11/23/23 History Allergies Allergy/AdvReac Type Severity Reaction Status Date / Time aspirin Allergy Nausea & Verified 11/23/23 17:55 Vomiting codeine Allergy Unknown Verified 11/23/23 17:55 meperidine HCl [From Demerol] AdvReac Rapid Verified 11/23/23 17:55 Heart Rate Physical Exam Vitals: Vital Signs Temp Pulse Pulse Resp BP BP BP 11/24/23 10:52 98.0 F 83 18 119/63 11/24/23 08:56 89 11/24/23 08:48 11/24/23 08:45 85 11/24/23 07:28 98.2 F 83 18 131/66 11/24/23 01:46 98.3 F 86 15 148/75 11/23/23 19:55 98.3 F 93 16 148/67 11/23/23 17:46 89 18 139/85 11/23/23 17:00 89 16 138/77 11/23/23 16:49 82 20 141/69 11/23/23 14:14 11/23/23 14:12 11/23/23 13:24 97.7 F 73 20 141/64 Pulse Ox 11/24/23 10:52 92 L 11/24/23 08:56 11/24/23 08:48 95 11/24/23 08:45 11/24/23 07:28 94 L 11/24/23 01:46 94 L 11/23/23 19:55 93 L 11/23/23 17:46 93 L 11/23/23 17:00 93 L 11/23/23 16:49 94 L 11/23/23 14:14 94 L 11/23/23 14:12 85 L 11/23/23 13:24 94 L Intake and Output 11/23/23 11/24/23 11/24/23 22:59 06:59 14:59 Other: Voiding Method Bedpan External Catheter # Voids 4 Weight 63.503 kg Results CBC & Chem 7: 11/24/23 05:32 11/24/23 05:32 Labs: Abnormal Lab Results - Last 24 Hours (Table) 11/23/23 11/24/23 Range/Units 13:54 05:32 WBC 12.1 H 10.07 H (3.8-10.6) k/uL RBC 3.81 L (4.10-5.20) X 10*6/uL Hgb 11.5 L (12.0-15.0) g/dL Hct 35.8 L (37.2-46.3) % Neutrophils # 9.4 H (1.3-7.7) k/uL Monocytes # 1.19 H (0.20-1.00) X 10*3/uL Thrombosis Risk Factor Assmnt - Choose All That Apply Any of the Below Risk Factors Present?: No Each Risk Factor Represents 3 Points: Age 75 years or older Thrombosis Risk Factor Assessment Total Risk Factor Score: 3 Thrombosis Risk Factor Assessment Level: Moderate Risk Assessment and Plan Assessment: -Emphysema, COPD -Ongoing nicotine dependence -Gastroesophageal reflux disease -History of pneumonia -History of shingles -Depression, anxiety Plan: Continue on current medication regimen ,monitoring and symptomatic treatment. Pain management, DVT prophylaxis as per orthopedic surgery. Orthopedic surgery pending. Although patient is high risk given her age, emphysema/COPD and multiple other medical issues the benefits of the surgery outweigh the risks and patient is medically cleared for this surgery. The impression and plan of care has been dictated as directed. : I performed a history and examination of this patient, discussed the same with the dictator. I agree with the dictator's note ,documented as a scribe. Any additional findings or plans will be noted.
--- NOTE | 2023-11-24 12:14 | P.CONS ---
History of Present Illness - Reason for Consult Consult date: 11/24/23 Medical management Requesting physician: Ketan Washington - Chief Complaint Status post fall, right hip pain - History of Present Illness This is an 83-year-old female with past medical history significant for ongoing nicotine dependence of 1 pack/day, emphysema, COPD, gastroesophageal reflux disease, hyperlipidemia, shingles, depression and multiple other medical issues, presented to the ER status post fall, significant right-sided hip pain with subsequent inability to ambulate. at bedside ,reported patient was trimming her roses, ground was unlevel, she fell onto her right hip, developed tremendous pain and was unable to ambulate .hip/pelvis x-ray reported -Right proximal femur subcapital femoral neck fracture with valgus impaction. Evaluated by orthopedic surgery, right hip hemiarthroplasty pending. Denies chest pain, palpitations or shortness of breath. Troponin negative x 1, EKG reporting sinu,maintaining O2 sats in the mid 90s on 2 L nasal cannula. Afebrile, WBC 10.07, hemoglobin 11.5, platelets 246, sodium 144, potassium 3.5, bicarb 26.7, BUN 11.1, creatinine 0.7, magnesium 1.7. Chest x-ray reported chronic changes without acute pulmonary process, no significant change from prior. Review of Systems ROS Statement: Those systems with pertinent positive or pertinent negative responses have been documented in the HPI. ROS Other: All systems not noted in ROS Statement are negative. Past Medical History Past Medical History: GERD/Reflux, Hyperlipidemia, Pneumonia, Respiratory Disorder Additional Past Medical History / Comment(s): Emphysema, shingles in right ear History of Any Multi-Drug Resistant Organisms: None Reported Past Surgical History: Appendectomy, Cholecystectomy, Hysterectomy Additional Past Surgical History / Comment(s): emphesema Past Anesthesia/Blood Transfusion Reactions: No Reported Reaction Past Psychological History: Depression Additional Psychological History / Comment(s): Pt resides with her spouse. She has never been able to drive, her spouse drives. Smoking Status: Current every day smoker Past Alcohol Use History: None Reported Additional Past Alcohol Use History / Comment(s): Pt started smoking in 1959 and is a ppd smoker. Past Drug Use History: None Reported - Past Family History Mother Additional Family Medical History / Comment(s): " AFTER GALLBLADDER TONY" Sister(s) Family Medical History: Cancer Additional Family Medical History / Comment(s): One sister with brain cancer, another with throat cancer. Brother(s) Family Medical History: Cancer Additional Family Medical History / Comment(s): lung cancer Medications and Allergies Home Medications Medication Instructions Recorded Confirmed Type Atorvastatin [Lipitor] 40 mg PO DAILY 09/18/14 11/23/23 History Esomeprazole Magnesium [NexIUM] 40 mg PO DAILY 09/18/14 11/23/23 History LORazepam [Ativan] 0.5 mg PO DAILY 06/29/16 11/23/23 History Ipratropium-Albuterol Nebulize 3 ml INHALATION RT-QID #1 04/02/19 11/23/23 Rx [Duoneb 0.5 mg-3 mg/3 ml Soln] Fluticasone/Umeclidin/Vilanter 1 puff INHALATION RT-DAILY 11/23/23 11/23/23 History [Trelegy Ellipta 200-62.5-25] Furosemide [Lasix] 20 mg PO DAILY 11/23/23 11/23/23 History Ipratropium/Albuterol Sulfate 1 puff INHALATION RT-QID PRN 11/23/23 11/23/23 History [Combivent Respimat Inhaler] LORazepam [Ativan] 0.5 mg PO HS PRN 11/23/23 11/23/23 History Sertraline [Zoloft] 50 mg PO DAILY 11/23/23 11/23/23 History Allergies Allergy/AdvReac Type Severity Reaction Status Date / Time aspirin Allergy Nausea & Verified 11/23/23 17:55 Vomiting codeine Allergy Unknown Verified 11/23/23 17:55 meperidine HCl [From Demerol] AdvReac Rapid Verified 11/23/23 17:55 Heart Rate Physical Exam Vitals: Vital Signs Temp Pulse Pulse Resp BP BP BP 11/24/23 10:52 98.0 F 83 18 119/63 11/24/23 08:56 89 11/24/23 08:48 11/24/23 08:45 85 11/24/23 07:28 98.2 F 83 18 131/66 11/24/23 01:46 98.3 F 86 15 148/75 11/23/23 19:55 98.3 F 93 16 148/67 11/23/23 17:46 89 18 139/85 11/23/23 17:00 89 16 138/77 11/23/23 16:49 82 20 141/69 11/23/23 14:14 11/23/23 14:12 11/23/23 13:24 97.7 F 73 20 141/64 Pulse Ox 11/24/23 10:52 92 L 11/24/23 08:56 11/24/23 08:48 95 11/24/23 08:45 11/24/23 07:28 94 L 11/24/23 01:46 94 L 11/23/23 19:55 93 L 11/23/23 17:46 93 L 11/23/23 17:00 93 L 11/23/23 16:49 94 L 11/23/23 14:14 94 L 11/23/23 14:12 85 L 11/23/23 13:24 94 L Intake and Output 11/23/23 11/24/23 11/24/23 22:59 06:59 14:59 Other: Voiding Method Bedpan External Catheter # Voids 4 Weight 63.503 kg VITAL SIGNS: As above GENERAL: Elderly female, alert and oriented x 2, sitting up in bed, no acute distress HEENT: Normal cephalic, atraumatic ,conjunctivae normal. eyes normal. NECK: Supple, no JVD. No thyroid enlargement. No LNs CARDIOVASCULAR: S1, S2 regular. No murmur RESPIRATION: Unlabored, equal air entry breath sounds diminished in the bases, occasional fine expiratory wheeze. ABDOMEN: Soft, nontender . No guarding. no masses palpable. No ascites, No hepatosplenomegaly.Positive Bowel sounds. LEGS: Right lower extremity shortened , externally rotated ,no cyanosis, no clubbing, positive DP pulse NERVOUS SYSTEM: Cranial N 2-12 grossly normal. No focal deficits Skin: Warm and dry, no rash Results CBC & Chem 7: 11/24/23 05:32 11/24/23 05:32 Labs: Abnormal Lab Results - Last 24 Hours (Table) 11/23/23 11/24/23 Range/Units 13:54 05:32 WBC 12.1 H 10.07 H (3.8-10.6) k/uL RBC 3.81 L (4.10-5.20) X 10*6/uL Hgb 11.5 L (12.0-15.0) g/dL Hct 35.8 L (37.2-46.3) % Neutrophils # 9.4 H (1.3-7.7) k/uL Monocytes # 1.19 H (0.20-1.00) X 10*3/uL Assessment and Plan Assessment: -Right proximal femur subcapital femoral neck fracture with valgus impaction, surgical repair pending -Emphysema, COPD -Ongoing nicotine dependence -Gastroesophageal reflux disease -History of pneumonia -History of shingles -Depression, anxiety -Hypokalemia -Hypomagnesemia Plan: Continue on current medication regimen ,monitoring and symptomatic treatment. Potassium and magnesium supplements ordered. Antiemetics. Pain management, DVT prophylaxis as per orthopedic surgery. Orthopedic surgery pending. Although patient is high risk given her age, emphysema/COPD and multiple other medical issues the benefits of the surgery outweigh the risks and patient is medically cleared for this surgery. prognosis guarded given multiple complex medical issues. The impression and plan of care has been dictated as directed. : I performed a history and examination of this patient, discussed the same with the dictator. I agree with the dictator's note ,documented as a scribe. Any additional findings or plans will be noted.
[2023-11-24 13:28] LABS: Appearance,Urine Clear (Clear); Bilirubin,Urine Negative (Negative); Blood,Urine Negative (Negative); Color,Urine Light Yellow; Glucose,Urine (UA) Negative (Negative); Ketones,Urine 1+ (Negative); Leukocyte Esterase,Urine Negative (Negative); Nitrite,Urine Negative (Negative); PH, Urine 6.5 (5.0-8.0); Protein,Urine Negative (Negative); Specific Gravity,Urine 1.018 (1.001-1.035); Urobilinogen,Urine <2.0 mg/dL (<2.0)
[2023-11-24] MEDS: POTASSIUM CHLORIDE ER 20 MEQ TAB.ER PO STA (14:23)
[2023-11-24] MEDS: MAGNESIUM SULFATE-D5W PMX 1 GM in DEXTROSE/WATER 1 100ML.BAG IVPB ONE (14:23)
[2023-11-24] MEDS: ENOXAPARIN 40 MG/0.4 ML SYRINGE SQ SCH (14:36)
[2023-11-24] MEDS: SYMBICORT 160-4.5 MCG INHALER INHALATION SCH (21:17)
[2023-11-24] MEDS ORDERED: LIDOCAINE 1% (10MG/ML) FOR IV START INTRADERMA PRN (21:56)
[2023-11-25] MEDS: LACTATED RINGERS 1,000 ML IV SCH (00:05)
[2023-11-25] MEDS: PHENAZOPYRIDINE 200 MG TAB PO SCH (03:22)
[2023-11-25] MEDS ORDERED: HYDROmorphone 0.5 MG/0.5 ML SYRINGE IVP PRN ×3 (07:00→16:35)
[2023-11-25] MEDS ORDERED: MIDAZOLAM 2 MG/2 ML VIAL IV PRN (07:00)
[2023-11-25] MEDS ORDERED: fentaNYL (PF) 50 MCG/ML 2 ML AMP IV PRN (07:00)
[2023-11-25] MEDS ORDERED: PHENAZOPYRIDINE 200 MG TAB PO SCH (09:00)
[2023-11-25] MEDS: IV FLUID CONTINUATION 1,000 ML IV ONE (12:37)
[2023-11-25] MEDS: MIDAZOLAM 2 MG/2 ML VIAL IVP ONE (14:04)
[2023-11-25] MEDS ORDERED: ROPIVACAINE 5 MG/ML 30 ML VIAL ONE (14:17)
[2023-11-25] MEDS ORDERED: PROPOFOL 10 MG/ML 20 ML VIAL IV ONE (14:17)
[2023-11-25] MEDS ORDERED: fentaNYL (PF) 50 MCG/ML 2 ML AMP ONE (14:17)
[2023-11-25] MEDS ORDERED: SUCCINYLCHOLINE CHLORIDE 200 MG/10 ML VIAL IV ONE (14:17)
[2023-11-25] MEDS ORDERED: SODIUM CHLORIDE 0.9% (PF) 10 ML VIAL ONE (14:17)
[2023-11-25] MEDS ORDERED: NEOSTIGMINE 1 MG/ML 10 ML VIAL ONE (14:17)
[2023-11-25] MEDS ORDERED: GLYCOPYRROLATE 0.2 MG/ML 2 ML VIAL ONE (14:17)
[2023-11-25] MEDS ORDERED: DEXAMETHASONE SOD PHOSPHATE 4 MG/ML 1 ML VIAL ONE (14:17)
[2023-11-25] MEDS ORDERED: PHENYLEPHRINE 10 MG/ML VIAL ONE (14:17)
[2023-11-25] MEDS ORDERED: ROCURONIUM 10 MG/ML (5 ML VIAL) IV ONE (14:17)
[2023-11-25] MEDS ORDERED: TRANEXAMIC 1,000 MG/100ML-NACL PREMIX BAG ONE (14:17)
[2023-11-25] MEDS ORDERED: LIDOCAINE 1% INJ 10MG/ML (20 ML MDV) ONE (14:17)
--- NOTE | 2023-11-25 14:29 | P.PN ---
Subjective Progress Note Date: 11/25/23 11/24/2023 This is an 83-year-old female with past medical history significant for ongoing nicotine dependence of 1 pack/day, emphysema, COPD, gastroesophageal reflux disease, hyperlipidemia, shingles, depression and multiple other medical issues, presented to the ER status post fall, significant right-sided hip pain with subsequent inability to ambulate. at bedside ,reported patient was trimming her roses, ground was unlevel, she fell onto her right hip, developed tremendous pain and was unable to ambulate .hip/pelvis x-ray reported -Right proximal femur subcapital femoral neck fracture with valgus impaction. Evaluated by orthopedic surgery, right hip hemiarthroplasty pending. Denies sveta st pain, palpitations or shortness of breath. Troponin negative x 1, EKG reporting sinu,maintaining O2 sats in the mid 90s on 2 L nasal cannula. Afebrile, WBC 10.07, hemoglobin 11.5, platelets 246, sodium 144, potassium 3.5, bicarb 26.7, BUN 11.1, creatinine 0.7, magnesium 1.7. Chest x-ray reported chronic changes without acute pulmonary process, no significant change from prior. 11/25/2023 afebrile, positive pain -recently medicated for pain,right hip hemiarthroplasty pending. Denies chest pain, palpitations or increase shortness of breath. Objective - Vital Signs Vital signs: Vital Signs Temp 98.0 F 11/25/23 12:45 Pulse 84 11/25/23 12:45 Resp 16 11/25/23 12:45 BP 142/64 11/25/23 12:45 Pulse Ox 96 11/25/23 12:45 FiO2 Intake & Output 11/24/23 11/25/23 11/25/23 18:59 06:59 18:59 Intake Total 300 Output Total 300 825 Balance -300 -525 Intake: IV 300 Output: Urine 300 825 Other: Voiding Method External Catheter External Catheter External Catheter - Exam VITAL SIGNS: As above GENERAL: Elderly female, alert and oriented x 3, sitting up in bed, no acute distress HEENT: Normal cephalic, atraumatic ,conjunctivae normal. eyes normal. NECK: Supple, no JVD. No thyroid enlargement. No LNs CARDIOVASCULAR: S1, S2 regular. No murmur RESPIRATION: Unlabored, equal air entry breath sounds diminished in the bases. ABDOMEN: Soft, nontender . No guarding. no masses palpable. No ascites, No hepatosplenomegaly.Positive Bowel sounds. LEGS: Right lower extremity shortened , externally rotated ,no cyanosis, no c lubbing, positive DP pulse NERVOUS SYSTEM: Cranial N 2-12 grossly normal. No focal deficits Skin: Warm and dry, no rash - Labs CBC & Chem 7: 11/24/23 05:32 11/24/23 05:32 Assessment and Plan Assessment: -Right proximal femur subcapital femoral neck fracture with valgus impaction, surgical repair pending -Emphysema, COPD -Ongoing nicotine dependence -Gastroesophageal reflux disease -History of pneumonia -History of shingles -Depression, anxiety -Hypokalemia -Hypomagnesemia Plan: Continue on current medication regimen ,monitoring and symptomatic treatment.NPO, Right hip hemiarthroplasty scheduled for early this afternoon. Pain management, DVT prophylaxis as per orthopedic surgery. Close monitoring of electrolytes, hemoglobin with repeat labs ordered for a.m. discussed potential subacute rehab at discharge, both patient and requesting [facility] subacute rehab. Maintain supportive care. The impression and plan of care has been dictated as directed. : I performed a history and examination of this patient, discussed the same with the dictator. I agree with the dictator's note ,documented as a scribe. Any additional findings or plans will be noted.
--- NOTE | 2023-11-25 14:51 | P.ANPRN ---
Procedure Note - Anesthesia - Nerve Block Performed Right Yazan Single Time Out Performed: Yes Date of Procedure: 11/25/23 Procedure Start Time: 14:04 Procedure Stop Time: 14:10 Location of Patient: PreOp Indication: Acute Post-Operative Pain, Requested by Surgeon Sedation Type: Sedate with meaningful contact maintained Preparation: Sterile Prep Position: Supine Needle Types: Pajunk Needle Gauge: 21 Ultrasound used to visualize needle placement: Yes Ultrasound used to observe medication spread: Yes Injectate: 0.5% Ropivacaine (see comment for volume) (20 ml + 10 ml NS + 4 mg Dexamethasone) Blood Aspirated: No Pain Paresthesia on Injection Noted: No Resistance on Injection: Normal Image Stored and Saved: Yes Events: Uneventful and Well Tolerated
[2023-11-25] MEDS: LACTATED RINGERS 1,000 ML IV ONE (14:56)
[2023-11-25] MEDS: EPINEPHRINE IV ONE (15:10)
[2023-11-25] MEDS: SODIUM CHLORIDE 0.9% IV ONE (15:10)
[2023-11-25] MEDS ORDERED: NALOXONE 0.4 MG/ML 1 ML VIAL IV PRN (16:35)
--- NOTE | 2023-11-25 16:36 | P.OP ---
Date of Procedure: 11/25/23 Preoperative Diagnosis: 1. Displaced right subcapital femoral neck fracture 2. Current every day cigarette smoker 3. COPD Postoperative Diagnosis: same Procedure(s) Performed: right direct anterior hip hemiarthroplasty Implants: [employer]tner Accolade C #4 Standard Offset Bipolar 45 mm OD, 28 mm ID head, -4mm neck Anesthesia: zaynab COHEN Surgeon: Florentino Waters Piccolo Mechanic #1: Israel Murry Estimated Blood Loss (ml): 200 IV fluids (ml): 800 Pathology: none sent Condition: stable Disposition: PACU Indications for Procedure: the patient is a very pleasant 83-year-old female with multiple medical problems including being a current every day cigarette smoker and having COPD who fell and sustained a displaced right subcapital femoral neck fracture. She was admitted under the care of my partner Dr. Washington who asked that I assist in her care. I met with the patient and recommended a hip hemiarthroplasty given her age, poor bone quality, and history of cigarette smoking. The patient understan ds she has no elevated risk of having a complication due to her smoking and I strongly encouraged her to quit. I met with the patient and their family to discuss treatment options. The patient has a displaced femoral neck fracture and based on their age, activity level, and medical comorbidities I recommended a hip hemiarthroplasty to facilitate early mobilization. My recommendation was to perform the hemiarthroplasty through a direct anterior approach to help lower the risk of dislocation and improve postoperative recovery and use cemented fixation of the femoral component to reduce the risk of fracture and postoperative thigh pain. We discussed the potential risks and complications of a hemiarthroplasty for displaced femoral neck fracture at length. Risks discussed include are certa inly not limited to risks from anesthesia, superficial infection requiring local wound care and possibly surgical debridement, deep periprosthetic joint infection and the treatment for this, damage to local blood vessels or nerves particularly the lateral femoral cutaneous nerve, intraoperative fracture, postoperative periprosthetic fracture, leg length discrepancy, hip dislocation, aseptic loosening, groin pain, thigh pain, progression of arthritis requiring conversion to total hip arthroplasty, complications related to cementing the component, an inability to regain preinjury level of function, DVT, PE, acute coronary event, stroke, pneumonia, urinary tract infection, failure to thrive, and possibly . The patient and their family understand that while these are the most common complications other less common complications are possible. They provided their verbal and written consent to go forward with surgery. Operative Findings: Displaced subcapital femoral neck fracture with large hemarthrosis Description of Procedure: The patient was identified in the preoperative holding area and the correct hip was marked with my initials. I reviewed the procedure and consent with the patient. All of their questions were answered. The patient was then brought back into the operating room by anesthesia. While on the [facility] anesthesia was administered by the anesthesia team. Preoperative antibiotics and tranexamic acid were also given. After the patient was under anesthesia I examined their ankles to determine their preoperative leg length discrepancy. The skin over the anterior aspect of the hip was shaved to remove hair over the site of planned incision. Both feet and ankles were padded with webril and boots for the Mabel were applied. The patient was then carefully transferred onto the Mabel table. A perineal post was immediately placed. The arms were placed on arm holders and were well-padded. Both boots were secured to the spars on the Mabel table. The patient was positioned so that the pelvis was centered over the post. Nonsterile drapes were applied. A timeout was performed identifying the correct patient, operative extremity, and procedure. At this point fluoroscopy was brought in to take preoperative images of the pelvis and operative hip. A metallic bar was used to create a bi-ischial line for use as a reference to leg length adjustments during the procedure. Global offset was also measured on both the operative and nonoperative leg. Fluoroscopy was then brought out and a pre-scrub using a chlorhexidine scrub brush was performed. The operative limb was then prepped and draped in the standard sterile fashion. An anterior longitudinal incision was made lateral and distal to the ASIS. The skin and subcutaneous tissues were incised sharply. The underlying tensor fascia was identified and incised in its midportion. The fascia was dissected free from the underlying muscle and the muscle belly was retracted. A blunt tipped cobra retractor was placed over the superior neck under the muscle fibers of the gluteus minimus. The deep enveloping fascia of the tensor was incised. The anterior leash of vessels were then identified and cauterized. The fascia between the rectus and the capsule was then incised and the pre-capsular fat was excised. A second Cobra was placed inferior to the neck. The interval between the rectus and iliocapsularis and the hip capsule was developed and a retractor was placed carefully over the anterior rim of the acetabulum. A T-shaped an terior capsulotomy was performed. A hemarthrosis consistent with a femoral neck fracture was identified. The superior capsular leaflet was left in place in the inferior capsular flap was excised. The Cobra retractors were placed intracapsularly. A displaced femoral neck fracture was then identified. We then made a femoral neck osteotomy according to preoperative and intraoperative templating and confirmed the level of the osteotomy using fluoroscopic imaging. The femoral head was removed, passed off to the back table, and sized. The superior capsular flap was excised. On inspection of the acetabulum there were minimal degenerative changes with intact cartilage. Attention was then turned to the femur. The remnant dorsal lateral capsule was excised. The short external rotators were visible and protected. A bone hook was used to confirm appropriate translation of the trochanter away from the acetabulum. The leg was then extended and adducted and the bone hook was used to elevate the femur for broaching. A box osteotome and blunt tipped canal sound was then utilized to gain access to the femoral canal. We then sequentially broached the femur in appropriate anteversion until torsional stability was achieved and the implant was felt to have reached the appropriate size to allow trialing. The neck cut was brought flush to the trial broach with a calcar planar. A trial neck and head were then placed onto the broach and the hip was atraumatically reduced under direct visualization. External rotation to 90 was performed to assess stability. Fluoroscopy was brought in. An AP and lateral fluoroscopic image of the proximal femur was obtained to assess position and fill of the trial broach. An AP of the pelvis was then obtained and matched to the preoperative image taken. A bi-ischial bar was then placed and measurements were taken to assess changes in length and offset. The hip was then carefully dislocated, the proximal femur was exposed, and the trial i mplants were removed. The proximal femur was then prepared for cementing. The canal was thoroughly irrigated with pulsatile lavage to remove blood and marrow contents. A cement restrictor was placed to a depth just distal to the tip of the final implant. Epinephrine-soaked gauze was then packed into the proximal femur. 2 bags of cement with antibiotics were then mixed using a centrifuge and placed into a cement gun. Anesthesia was notified that cementing was about to commence to make sure the patient was appropriately ventilated and hydrated. Once the cement had reached appropriate consistency, the cement gun was used to fill the canal in a retrograde fashion starting at the restrictor. Cement was then pressurized into the canal with a blue tipped branch service leader. The stem was then carefully introduced into the cement taking care to guide the implant into appropriate version. The stem was held in position until the cement had fully set. All extra cement was removed while the cement was hardening. The trunnion was cleansed and the final head was tapped into place to engage the Machuca taper. The acetabulum was irrigated and visualized to be free of debris. The hip was carefully reduced. Stability was checked clinically with external rotation to 90 and there was no evidence of instability. Final fluoroscopic images were taken. The wound was then thoroughly irrigated with Irrisept. 3 L of sterile saline was irrigated through the wound using pulsatile lavage. Local anesthetic cocktail was injected into the soft tissues around the surgical field. A deep drain was placed. The wound was then closed in layers. A sterile dressing was placed over the surgical incision and drain site. The drapes were taken down and the patient was carefully transferred off of the Mabel table. Following removal of the boots the leg lengths felt acceptable. The patient was then taken to recovery room having tolerated the procedure well. Israel Murry PA-C was required as a skilled botany laboratory assistant due to the complexity of surgery for patient positioning, draping, exposure, retraction, closure of wound and application of dressing. PLAN: The patient can weight-bear as tolerated on the operative extremity. 2 doses of postoperative antibiotics. DVT prophylaxis with Eliquis 5 mg twice a day based on preoperative risk stratification and her history of aspirin allergy. Physical therapy for gait training. Discontinue drain postoperative day #1 if output is less than 100 mL per shift.
--- NOTE | 2023-11-25 16:46 | XR ---
EXAMINATION TYPE: XR Hip Complete RT, FL guidance operating room Intraoperative/procedural fluoroscop ic services were provided. Total fluoroscopy time is 14 seconds with a total of 5 submitted images to PACS. Please see the operative/procedural note for further details. DAP: 0.7816. [email or web address]
[2023-11-25] MEDS: DEXAMETHASONE SOD PHOSPHATE 4 MG/ML 1 ML VIAL IV ONE (17:59)
[2023-11-25] MEDS: ONDANSETRON 4 MG/2 ML VIAL IVP ONE (17:59)
[2023-11-25] MEDS: SODIUM CHLORIDE 0.9% 1,000 ML IV SCH (18:00)
[2023-11-25] MEDS: ROPIVACAINE/EPI/CLONIDINE/KET 50 ML SYRINGE MISCELLANE ONE (18:30)
[2023-11-25 19:32] LABS: Basophils % (A) 0 %; Eosinophils # (A) 0.1 k/uL (0-0.7); Eosinophils % (A) 1 %; HCT 34.8 % (34.0-46.0); HGB 11.3 gm/dL (11.4-16.0); Lymphocytes # (A) 0.6 k/uL (1.0-4.8); Lymphocytes % (A) 5 %; MCH 30.3 pg (25.0-35.0); MCHC 32.3 g/dL (31.0-37.0); MCV 93.6 fL (80.0-100.0); Mean Platelet Volume 8.9; Monocytes # (A) 0.3 k/uL (0-1.0); Monocytes % (A) 3 %; Neutrophils # (A) 10.7 k/uL (1.3-7.7); Neutrophils % (A) 91 %; Platelet Count 200 k/uL (150-450); RBC 3.72 m/uL (3.80-5.40); RDW 12.9 % (11.5-15.5); WBC 11.7 k/uL (3.8-10.6)
[2023-11-25] MEDS: SENNOSIDES-DOCUSATE SODIUM 1 EACH TAB PO SCH (21:38)
[2023-11-26] MEDS: ONDANSETRON 4 MG/2 ML VIAL IVP PRN (06:45)
--- NOTE | 2023-11-26 06:57 | P.PN ---
Subjective Progress Note Date: 11/26/23 Patient is doing well this morning. Her pain is controlled. She denies chest pain or shortness of breath. Only issue per nursing is urinary retention. Objective - Vital Signs Vital signs: Vital Signs Temp 97.7 F 11/26/23 01:33 Pulse 69 11/26/23 01:33 Resp 18 11/26/23 01:33 BP 113/65 11/26/23 01:33 Pulse Ox 97 11/26/23 01:33 FiO2 Intake & Output 11/25/23 11/25/23 11/26/23 06:59 18:59 06:59 Intake Total 1401 Output Total 1025 Balance 376 Intake: IV 1401 Output: Urine 825 Estimated Blood Loss 200 Other: Voiding Method External Catheter External Catheter Bedside Commode External Catheter # Voids 2 - Exam Resting comfortably in bed. Alert and able to answer questions. On inspection of the right hip there is a clean dressing over the anterior aspect of the hip. There is no drainage or strike through. Mild swelling. Thigh and calf are soft. Femoral nerve function is intact. She is able to actively dorsiflex and plantarflex her ankle and her toes. - Labs CBC & Chem 7: 11/25/23 19:22 11/24/23 05:32 Labs: Abnormal Lab Results - Last 24 Hours (Table) 11/25/23 Range/Units 19:22 WBC 11.7 H (3.8-10.6) k/uL RBC 3.72 L (3.80-5.40) m/uL Hgb 11.3 L (11.4-16.0) gm/dL Neutrophils # 10.7 H (1.3-7.7) k/uL Lymphocytes # 0.6 L (1.0-4.8) k/uL Assessment and Plan Assessment: Postoperative day #1 status post right direct anterior hip hemiarthroplasty, doing well COPD History of smoking Plan: 1. Weight bear as tolerated on the operative extremity, up with assistance and a walker 2. DVT prophylaxis with Eliquis 2.5 mg BID 3. 2 doses of post operative antibiotics, followed by doxycycline 100 mg bid until her incision heals due to her cigarette smoking 4. Leave surgical dressing in place 5. Internal medicine for antonella-operative medical management 6. Physical therapy for gait training and mobilization 7. Dispo: Likely d/c to SNF/Rehab. Planning in process.
[2023-11-26 07:57] LABS: Basophils % (A) 0 %; Eosinophils % (A) 0 %; HCT 32.5 % (34.0-46.0); HGB 10.5 gm/dL (11.4-16.0); Lymphocytes # (A) 0.8 k/uL (1.0-4.8); Lymphocytes % (A) 6 %; MCH 30.7 pg (25.0-35.0); MCHC 32.5 g/dL (31.0-37.0); MCV 94.5 fL (80.0-100.0); Mean Platelet Volume 8.8; Monocytes # (A) 0.9 k/uL (0-1.0); Monocytes % (A) 8 %; Neutrophils # (A) 10.5 k/uL (1.3-7.7); Neutrophils % (A) 85 %; Platelet Count 200 k/uL (150-450); RBC 3.43 m/uL (3.80-5.40); RDW 12.9 % (11.5-15.5); WBC 12.4 k/uL (3.8-10.6)
[2023-11-26 08:25] LABS: African American GFR (CKD) >90 (>60 ml/min/1.73 sqM); Anion Gap 3 mmol/L; Blood Urea Nitrogen 18 mg/dL (7-17); Calcium 8.5 mg/dL (8.4-10.2); Carbon Dioxide 30 mmol/L (22-30); Chloride 104 mmol/L (98-107); Glucose 96 mg/dL (74-99); Magnesium 1.9 mg/dL (1.6-2.3); Non-African American GFR(CKD) 86 (>60 ml/min/1.73 sqM); Potassium 3.6 mmol/L (3.5-5.1); Sodium 137 mmol/L (137-145)
[2023-11-26] MEDS: APIXABAN 2.5 MG TABLET PO SCH (08:33)
[2023-11-26] MEDS: hydrOXYzine pamoate 25 MG CAP PO PRN (08:35)
[2023-11-26] MEDS: HYDROcodone/APAP 5-325MG 1 EACH TAB PO PRN (08:35)
[2023-11-26] MEDS: TAMSULOSIN 0.4 MG CAP.ER.24H PO SCH (16:52)
--- NOTE | 2023-11-26 17:58 | P.PN ---
Subjective Progress Note Date: 11/26/23 11/24/2023 This is an 83-year-old female with past medical history significant for ongoing nicotine dependence of 1 pack/day, emphysema, COPD, gastroesophageal reflux disease, hyperlipidemia, shingles, depression and multiple other medical issues, presented to the ER status post fall, significant right-sided hip pain with subsequent inability to ambulate. at bedside ,reported patient was trimming her roses, ground was unlevel, she fell onto her right hip, developed tremendous pain and was unable to ambulate .hip/pelvis x-ray reported -Right proximal femur subcapital femoral neck fracture with valgus impaction. Evaluated by orthopedic surgery, right hip hemiarthroplasty pending. Denies chest pain, palpitations or shortness of breath. Troponin negative x 1, EKG reporting sinu,maintaining O2 sats in the mid 90s on 2 L nasal cannula. Afebrile, WBC 10.07, hemoglobin 11.5, platelets 246, sodium 144, potassium 3.5, bicarb 26.7, BUN 11.1, creatinine 0.7, magnesium 1.7. Chest x-ray reported chronic changes without acute pulmonary process, no significant change from prior. 11/25/2023 afebrile, positive pain -recently medicated for pain,right hip hemiarthroplasty pending. Denies chest pain, palpitations or increase shortness of breath. 11/26/2023 Patient is evaluated in follow up today on the medical floor. Assumed care of the patient today from primary doctor. Patient is postoperative day #1 right hip hemiarthroplasty. Patient reports having minimal pain while at rest. Shes has so me bruising at the lower aspect of the incisional site. Patient is pending evaluation by physical therapy. Currently having urinary retention requiring strait cath postoperatively. Labs today reveal white blood cell count of 12.4. Hemoglobin 10.5. Sodium 137, BUN 18, creatinine 0.58. Magnesium 1.9. Patient is continued on nasal cannula. Does wear 2L of oxygen at HS and as needed at home. Review of Systems Constitutional: Denied any fatigue denied any fever. Cardio vascular: denied any chest pain, palpitations Gastrointestinal: denied any nausea, vomiting, diarrhea Pulmonary: Denied any shortness of breath cough Neurologic denied any new focal deficits All inpatient medications were reviewed and appropriate changes in these medications as dictated in the interval history and assessment and plan. PHYSICAL EXAMINATION: GENERAL: The patient is alert and oriented x3, not in any acute distress. Well developed, well nourished. HEENT: Pupils are round and equally reacting to light. EOMI. No scleral icterus. No conjunctival pallor. Normocephalic, atraumatic. No pharyngeal erythema. No thyromegaly. CARDIOVASCULAR: S1 and S2 present. No murmurs, rubs, or gallops. PULMONARY: Chest is clear to auscultation, no wheezing or crackles. ABDOMEN: Soft, nontender, nondistended, normoactive bowel sounds. No palpable organomegaly. MUSCULOSKELETAL: No joint swelling or deformity. EXTREMITIES: No cyanosis, clubbing, or pedal edema. Post surgical right hip dressing intact. NEUROLOGICAL: Gross neurological examination did not reveal any focal deficits. SKIN: No rashes. Assessment and Plan -Right proximal femur subcapital femoral neck fracture with valgus impaction, postoperative day #1 surgical repair -Postoperative urinary retention requiring strait catheterization started on f mary ellen and will monitor patient may needed indwelling catheter. -Leukocytosis reactive repeat CBC. -Emphysema, COPD oxygen dependent outpatient. No acute exacerbation. Maintained on symbicort which is continued. -Ongoing nicotine dependence nicotinue patch in place. -Gastroesophageal reflux disease -History of pneumonia -History of shingles -Depression, anxiety -Hypokalemia -Hypomagnesemia supplemented and levels have normalized. GI prophylaxis DVT prophylaxis Eliquis 2.5 mg BID per primary for 30 days post surgical Full Code Pending physical therapy evaluation. Continue to monitor post void residuals for urinary retention. Flomax added. Monitor CBC. Encourage incentive spirometer. Doxycycline 100 mg BID postsurgical due to continued nicotine use this is per orthopedics. On DVT prophylaxis. Plan of care discussed with family at the bedside. We will continue to follow this hospital stay. The impression and plan of care has been dictated by Saniya Jarquin, Nurse Practitioner as directed. Dr. Winter MD I have performed a history and physical examination and medical decision making of this patient, discussed the same with the dictator, and agree with the dictators assessment and plan as written, documented as a scribe. Based on total visit time, I have performed more than 50% of this visit. Objective - Vital Signs Vital signs: Vital Signs Temp 98.2 F 11/26/23 07:10 Pulse 80 11/26/23 16:30 Resp 17 11/26/23 08:34 BP 133/67 11/26/23 07:10 Pulse Ox 99 11/26/23 09:22 FiO2 Intake & Output 11/25/23 11/26/23 11/26/23 18:59 06:59 18:59 Intake Total 1401 Output Total 1025 500 530 Balance 376 -500 -530 Intake: IV 1401 Output: Urine 825 500 530 Straight 500 530 Estimated Blood Loss 200 Other: Voiding Method External Catheter Bedside Commode External Catheter # Voids 2 - Labs CBC & Chem 7: 11/26/23 07:13 11/26/23 07:13 Labs: Abnormal Lab Results - Last 24 Hours (Table) 11/25/23 11/26/23 11/26/23 Range/Units 19:22 07:13 07:13 WBC 11.7 H 12.4 H (3.8-10.6) k/uL RBC 3.72 L 3.43 L (3.80-5.40) m/uL Hgb 11.3 L 10.5 L (11.4-16.0) gm/dL Hct 32.5 L (34.0-46.0) % Neutrophils # 10.7 H 10.5 H (1.3-7.7) k/uL Lymphocytes # 0.6 L 0.8 L (1.0-4.8) k/uL BUN 18 H (7-17) mg/dL Assessment and Plan Time with Patient: Less than 30
[2023-11-26] MEDS: SODIUM CHLORIDE 0.9% 1,000 ML IV SCH (22:24)
[2023-11-26] MEDS: DOXYCYCLINE 100 MG CAP PO SCH (22:57)
--- NOTE | 2023-11-27 09:20 | P.PN ---
Subjective Patient is doing well this morning. Her pain is controlled. Her only issue is urinary retention for which a Estrella catheter is placed. Objective - Vital Signs Vital signs: Vital Signs Temp 98.6 F 11/27/23 06:55 Pulse 79 11/27/23 06:55 Resp 19 11/27/23 06:55 BP 136/62 11/27/23 06:55 Pulse Ox 95 11/27/23 06:55 FiO2 Intake & Output 11/26/23 11/27/23 11/27/23 18:59 06:59 18:59 Output Total 530 500 Balance -530 -500 Output: Urine 530 500 Straight 530 - Exam Resting comfortably in bed. Alert and able to answer questions. The dressing over the anterior aspect of her right hip is intact. There is mild bruising around her dressing but otherwise minimal swelling. Femoral nerve function is intact. She is able to actively plantarflex and dorsiflex her ankle and her toes. - Labs CBC & Chem 7: 11/26/23 07:13 11/26/23 07:13 Assessment and Plan Assessment: Postoperative day #2 status post right hip hemiarthroplasty for displaced femoral neck fracture COPD Current every day cigarette smoker Post-operative urinary retention Plan: Treatment as outlined yesterday. The patient can weight-bear as tolerated with assistance of a walker. DVT prophylaxis with Eliquis 2.5 mg BID x 4 weeks. Due to her history of cigarette smoking I would like to treat her with doxycycline until her incision heals. Discharge planning is in process.
[2023-11-27] MEDS: traMADol 50 MG TAB PO PRN (12:39)
--- NOTE | 2023-11-27 13:32 | XR ---
EXAMINATION TYPE: XR chest 1V portable DATE OF EXAM: 11/27/2023 1:17 PM CLINICAL INDICATION:Female, 83 years old with history of SOB; COMPARISON: Chest radiographs from 11/23/2023 TECHNIQUE: XR chest 1V portable Frontal view of the chest. FINDINGS: Lungs/Pleura: Prominent interstitial lung markings are seen scattered throughout the lungs with pete ening of the diaphragm and increased lucency of the lung apices. No evidence of focal consolidation, pneumothorax There is blunting of the costophrenic angles. Pulmonary vascularity: Pulmonary vascular congestion. Heart/mediastinum: Cardiomediastinal silhouette is enlarged and stable. Musculoskeletal: No acute osseous pathology. IMPRESSION: COPD with bilateral pleural effusions. Correlate for underlying congestive heart failure with serum B DEAF INTERPRETER.
[2023-11-27 16:39] LABS: Basophils % (A) 1 %; Eosinophils # (A) 0.4 k/uL (0-0.7); Eosinophils % (A) 4 %; HCT 29.3 % (34.0-46.0); HGB 9.6 gm/dL (11.4-16.0); Lymphocytes # (A) 1.5 k/uL (1.0-4.8); Lymphocytes % (A) 15 %; MCH 30.3 pg (25.0-35.0); MCHC 32.9 g/dL (31.0-37.0); MCV 92.3 fL (80.0-100.0); Monocytes # (A) 0.9 k/uL (0-1.0); Monocytes % (A) 9 %; Neutrophils # (A) 6.7 k/uL (1.3-7.7); Neutrophils % (A) 70 %; Platelet Count 208 k/uL (150-450); RBC 3.18 m/uL (3.80-5.40); RDW 13.2 % (11.5-15.5); WBC 9.6 k/uL (3.8-10.6)
--- NOTE | 2023-11-27 22:04 | P.PN ---
Subjective Progress Note Date: 11/27/23 11/24/2023 This is an 83-year-old female with past medical history significant for ongoing nicotine dependence of 1 pack/day, emphysema, COPD, gastroesophageal reflux disease, hyperlipidemia, shingles, depression and multiple other medical issues, presented to the ER status post fall, significant right-sided hip pain with subsequent inability to ambulate. at bedside ,reported patient was trimming her roses, ground was unlevel, she fell onto her right hip, developed tremendous pain and was unable to ambulate .hip/pelvis x-ray reported -Right proximal femur subcapital femoral neck fracture with valgus impaction. Evaluated by orthopedic surgery, right hip hemiarthroplasty pending. Denies chest pain, palpitations or shortness of breath. Troponin negative x 1, EKG reporting sinu,maintaining O2 sats in the mid 90s on 2 L nasal cannula. Afebrile, WBC 10.07, hemoglobin 11.5, platelets 246, sodium 144, potassium 3.5, bicarb 26.7, BUN 11.1, creatinine 0.7, magnesium 1.7. Chest x-ray reported chronic changes without acute pulmonary process, no significant change from prior. 11/25/2023 afebrile, positive pain -recently medicated for pain,right hip hemiarthroplasty pending. Denies chest pain, palpitations or increase shortness of breath. 11/26/2023 Patient is evaluated in follow up today on the medical floor. Assumed care of the patient today from primary doctor. Patient is postoperative day #1 right hip hemiarthroplasty. Patient reports having minimal pain while at rest. Shes has so me bruising at the lower aspect of the incisional site. Patient is pending evaluation by physical therapy. Currently having urinary retention requiring strait cath postoperatively. Labs today reveal white blood cell count of 12.4. Hemoglobin 10.5. Sodium 137, BUN 18, creatinine 0.58. Magnesium 1.9. Patient is continued on nasal cannula. Does wear 2L of oxygen at HS and as needed at home. 11/27/2023 Patient evaluated today resting in bed, family at the bedside. Reports improvement in the right sided hip pain. Patient has been mostly bedrest and will need physical therapy evaluation. Patient was noted to have increasing shortness of breath today, chest xray was done and shows underlying COPD with bilateral pleural effusion concern for underlying CHF. Serum BNP mildly elevated at 1610. Patients IV fluids will be stopped. Will give a dose of IV lasix. Review of Systems Constitutional: Denied any fatigue denied any fever. Cardio vascular: denied any chest pain, palpitations Gastrointestinal: denied any nausea, vomiting, diarrhea Pulmonary: Denied any shortness of breath cough Neurologic denied any new focal deficits All inpatient medications were reviewed and appropriate changes in these medications as dictated in the interval history and assessment and plan. PHYSICAL EXAMINATION: GENERAL: The patient is alert and oriented x3, not in any acute distress. Well developed, well nourished. HEENT: Pupils are round and equally reacting to light. EOMI. No scleral icterus. No conjunctival pallor. Normocephalic, atraumatic. No pharyngeal erythema. No thyromegaly. CARDIOVASCULAR: S1 and S2 present. No murmurs, rubs, or gallops. PULMONARY: Chest is clear to auscultation, no wheezing or crackles. ABDOMEN: Soft, nontender, nondistended, normoactive bowel sounds. No palpable o rganomegaly. MUSCULOSKELETAL: No joint swelling or deformity. EXTREMITIES: No cyanosis, clubbing, or pedal edema. Post surgical right hip dressing intact. NEUROLOGICAL: Gross neurological examination did not reveal any focal deficits. SKIN: No rashes. Assessment and Plan -Right proximal femur subcapital femoral neck fracture with valgus impaction, postoperative day #2 surgical repair -Postoperative urinary retention requiring strait catheterization started on flomax and will monitor patient has indwelling catheter. -Leukocytosis reactive repeat CBC. -Hx heart failure unsure whether diastolic or systolic dysfunction, with mild exacerbation. IV fluids stopped. Will be given a dose of IV lasix. -Emphysema, COPD oxygen dependent outpatient. No acute exacerbation. Maintained on symbicort which is continued. -Ongoing nicotine dependence nicotinue patch in place. -Gastroesophageal reflux disease -History of pneumonia -History of shingles -Depression, anxiety -Hypokalemia -Hypomagnesemia supplemented and levels have normalized. GI prophylaxis DVT prophylaxis Eliquis 2.5 mg BID per primary for 30 days post surgical Full Code Pending physical therapy evaluation. Continue with indwelling catheter can be removed for voiding trial when patient is more ambulatory. Flomax added. IV lasix ordered 20 mg Q12h and repeat CBC and BMP in the AM. Encourage incentive spirometer. Doxycycline 100 mg BID postsurgical due to continued nicotine use this is per orthopedics. On DVT prophylaxis. Plan of care discussed with family at the bedside. We will continue to follow this hospital stay. The impression and plan of care has been dictated by Saniya Jarquin, Nurse Practitioner as directed. Dr. Winter MD I have performed a history and physical examination and medical decision making of this patient, discussed the same with the dictator, and agree with the dictators assessment and plan as written, documented as a scribe. Based on total visit time, I have performed more than 50% of this visit. Objective - Vital Signs Vital signs: Vital Signs Temp 98.4 F 11/27/23 18:00 Pulse 80 11/27/23 21:22 Resp 17 11/27/23 18:00 BP 122/69 11/27/23 18:00 Pulse Ox 94 L 11/27/23 18:00 FiO2 Intake & Output 11/27/23 11/27/23 11/28/23 06:59 18:59 06:59 Output Total 500 1100 Balance -500 -1100 Output: Urine 500 1100 Other: Voiding Method Indwelling Catheter - Labs CBC & Chem 7: 11/27/23 16:05 11/26/23 07:13 Labs: Abnormal Lab Results - Last 24 Hours (Table) 11/27/23 Range/Units 16:05 RBC 3.18 L (3.80-5.40) m/uL Hgb 9.6 L (11.4-16.0) gm/dL Hct 29.3 L (34.0-46.0) % Assessment and Plan Time with Patient: Less than 30
[2023-11-27] MEDS: FUROSEMIDE 10 MG/ML 2 ML VIAL IV SCH (22:48)
[2023-11-28 09:42] LABS: Basophils # (A) 0.04 X 10*3/uL (0.00-0.10); Basophils % (A) 0.5 %; Eosinophils # (A) 0.46 X 10*3/uL (0.04-0.35); Eosinophils % (A) 5.3 %; HCT 30.6 % (37.2-46.3); HGB 9.7 g/dL (12.0-15.0); Lymphocytes # (A) 1.39 X 10*3/uL (0.90-5.00); MCHC 31.7 g/dL (32.0-37.0); MCV 94.7 FL (80.0-97.0); Mean Platelet Volume 11.3 FL (9.5-12.2); Monocytes # (A) 1.13 X 10*3/uL (0.20-1.00); NRBC Per 100 WBC 0 X 10*3/uL (0.00-0.01); Neutrophils # (A) 5.63 X 10*3/uL (1.80-7.70); Platelet Count 253 X 10*3/uL (140-440); RBC 3.23 X 10*6/uL (4.10-5.20); RDW 13.1 % (11.5-14.5); WBC 8.67 X 10*3/uL (4.50-10.00)
--- NOTE | 2023-11-28 10:59 | P.PN ---
Subjective Progress Note Date: 11/28/23 11/24/2023 This is an 83-year-old female with past medical history significant for ongoing nicotine dependence of 1 pack/day, emphysema, COPD, gastroesophageal reflux disease, hyperlipidemia, shingles, depression and multiple other medical issues, presented to the ER status post fall, significant right-sided hip pain with subsequent inability to ambulate. at bedside ,reported patient was trimming her roses, ground was unlevel, she fell onto her right hip, developed tremendous pain and was unable to ambulate .hip/pelvis x-ray reported -Right proximal femur subcapital femoral neck fracture with valgus impaction. Evaluated by orthopedic surgery, right hip hemiarthroplasty pending. Denies sveta st pain, palpitations or shortness of breath. Troponin negative x 1, EKG reporting sinu,maintaining O2 sats in the mid 90s on 2 L nasal cannula. Afebrile, WBC 10.07, hemoglobin 11.5, platelets 246, sodium 144, potassium 3.5, bicarb 26.7, BUN 11.1, creatinine 0.7, magnesium 1.7. Chest x-ray reported chronic changes without acute pulmonary process, no significant change from prior. 11/25/2023 afebrile, positive pain -recently medicated for pain,right hip hemiarthroplasty pending. Denies chest pain, palpitations or increase shortness of breath. 11/28/2023 maintained on low-dose IV push Lasix, continues to require 2 L nasal cannula O2 to maintain O2 sats in the low 90s. Denies chest pain, palpitations or increased shortness of breath. Requires 2 person assist with walker. Continues on Flomax for urinary retention, Estrella catheter in place. Pain controlled. Passing flatus, no bowel movement. Afebrile, normal WBC, hemoglobin 9.7, platelets 253. Potassium 3, supplements ordered. Creatinine 0.6. Objective - Vital Signs Vital signs: Vital Signs Temp 98.2 F 11/28/23 07:56 Pulse 88 11/28/23 09:50 Resp 18 11/28/23 09:50 BP 125/67 11/28/23 07:56 Pulse Ox 94 L 11/28/23 09:37 FiO2 Intake & Output 11/27/23 11/28/23 11/28/23 18:59 06:59 18:59 Output Total 1100 1700 Balance -1100 -1700 Output: Urine 1100 1700 Other: Voiding Method Indwelling Catheter Indwelling Catheter Indwelling Catheter - Exam VITAL SIGNS: As above GENERAL: Elderly female, alert and oriented x 3, sitting up in bed, no acute distress HEENT: Normal cephalic, atraumatic ,conjunctivae normal. eyes normal. NECK: Supple, no JVD. CARDIOVASCULAR: S1, S2 regular. No murmur RESPIRATION: Unlabored, equal air entry breath sounds diminished in the bases. ABDOMEN: Soft, nontender . No guarding. no masses palpable. +BS. LEGS: Right lower extremity dressing clean dry and intact,no cyanosis, no clubbing, positive DP pulse NERVOUS SYSTEM: Cranial N 2-12 grossly normal. No focal deficits Skin: Warm and dry, no rash - Labs CBC & Chem 7: 11/28/23 04:19 11/28/23 04:19 Labs: Abnormal Lab Results - Last 24 Hours (Table) 11/27/23 11/28/23 Range/Units 16:05 04:19 RBC 3.18 L 3.23 L (3.80-5.40) m/uL Hgb 9.6 L 9.7 L (11.4-16.0) gm/dL Hct 29.3 L 30.6 L (34.0-46.0) % MCHC 31.7 L (32.0-37.0) g/dL Monocytes # 1.13 H (0.20-1.00) X 10*3/uL Eosinophils # 0.46 H (0.04-0.35) X 10*3/uL Assessment and Plan Assessment: -Right proximal femur subcapital femoral neck fracture with valgus impaction, status post right hip hemiarthroplasty -Acute postoperative urinary retention, requiring Estrella catheter -Acute postoperative hypoxic respiratory failure secondary to acute mild CHF exacerbation,echo echo pending. -Emphysema, COPD -Ongoing nicotine dependence -Gastroesophageal reflux disease -History of pneumonia -History of shingles -Depression, anxiety -Hypokalemia -Hypomagnesemia Plan: Continue on current medication regimen ,monitoring and symptomatic treatment.Repeat CXR , echo ordered/pending. Pulmonary consult initiated as patient continues to require O2. potassium supplemented with repeat levels later this afternoon. MiraLAX ordered, patient has not had a bowel movement. Accepted at [facility]. , recommending DC in a.m. pain management, DVT prophylaxis as per orthopedic surgery. Maintain aggressive pulmonary care with incentive spirometer. Smoking cessation reinforced. Currently has Estrella secondary to urinary retention, continue on Flomax, voiding trial at subacute rehab. follow-up with PCP 1 week after DC from subacute rehab. The impression and plan of care has been dictated as directed. : I performed a history and examination of this patient, discussed the same with the dictator. I agree with the dictator's note ,documented as a scribe. Any additional findings or plans will be noted.
[2023-11-28 11:52] LABS: Blood Urea Nitrogen 9.9 mg/dL (9.0-27.0); Calcium 8.5 mg/dL (8.7-10.3); Carbon Dioxide 28.9 mmol/L (21.6-31.8); Chloride 100 mmol/L (96-109); Glucose 104 mg/dL (70-110); Sodium 144 mmol/L (135-145)
--- NOTE | 2023-11-28 12:44 | XR ---
EXAMINATION TYPE: XR chest 1V portable DATE OF EXAM: 11/28/2023 COMPARISON: 12/07/2023 HISTORY: Pleural effusion TECHNIQUE: Single frontal view of the chest is obtained. FINDINGS: Tiny bilateral pleural effusion with basilar consolidation stable. Underlying COPD. Diffus e osteopenia, degenerative changes spine. Density adjacent to the left humeral head stable. Right per ihilar area of nodularity or consolidation stable. Question hilar or mediastinal calcifications. Biap ical pleural thickening. IMPRESSION: 1. COPD with small bilateral pleural effusion and basilar consolidation. 2. Right hilar and midlung area of consolidation, nodule or mass stable.
[2023-11-28] MEDS: MAGNESIUM HYDROXIDE 2,400 MG/30 ML CUP PO PRN (13:28)
[2023-11-28] MEDS: polyethylene glycoL 3350 17 GM POWD.PACK PO SCH (14:02)
[2023-11-28] MEDS: POTASSIUM CHLORIDE ER 20 MEQ TAB.ER PO SCH (14:02)
--- NOTE | 2023-11-28 15:36 | P.PN ---
Subjective Pain controlled in right hip. Objective - Vital Signs Vital signs: Vital Signs Temp 98.2 F 11/28/23 07:56 Pulse 88 11/28/23 09:50 Resp 18 11/28/23 09:50 BP 125/67 11/28/23 07:56 Pulse Ox 94 L 11/28/23 09:37 FiO2 Intake & Output 11/27/23 11/28/23 11/28/23 18:59 06:59 18:59 Output Total 1100 1700 Balance -1100 -1700 Output: Urine 1100 1700 Other: Voiding Method Indwelling Catheter Indwelling Catheter Indwelling Catheter - Exam Alert and able to answer questions. RIGHT LE: dressing over hip intact. Mild swelling. Femoral nerve function intact. Moves foot/ankle up and down. - Labs CBC & Chem 7: 11/28/23 04:19 11/28/23 04:19 Labs: Abnormal Lab Results - Last 24 Hours (Table) 11/27/23 11/28/23 11/28/23 Range/Units 16:05 04:19 04:19 RBC 3.18 L 3.23 L (3.80-5.40) m/uL Hgb 9.6 L 9.7 L (11.4-16.0) gm/dL Hct 29.3 L 30.6 L (34.0-46.0) % MCHC 31.7 L (32.0-37.0) g/dL Monocytes # 1.13 H (0.20-1.00) X 10*3/uL Eosinophils # 0.46 H (0.04-0.35) X 10*3/uL Potassium 3.0 L (3.5-5.5) mmol/L Anion Gap 15.10 H (4.00-12.00) mmol/L Calcium 8.5 L (8.7-10.3) mg/dL Assessment and Plan Assessment: POD#3 s/p Right DA Hip Hemiarthroplasty for displaced femoral neck Multiple medical problems. Plan: Continue WBAT with assistance and a walker. Leave surgical dressing in place. Doxycycline until incision heals given smoking history. Appreciate IM assistance with medical management. Patient is clear for d/c from orthopaedic standpoint to SNF when medically stable.
--- NOTE | 2023-11-28 20:34 | CA ---
Transthoracic Echo Report Name: Evelin Bonds Age: 83 Gender: F : 1940 Exam Date: 11/28/2023 15:07 Exam Location: [facility] Ht (in): 66 Wt (lb): 140 Ordering Physician: Leigh Ann Cardozo Attending/Referring Phys: [employer] Professor Bree Dillon RDCS Procedure CPT: Indications: LV function Cardiac Hx: Technical Quality: Fair Contrast 1: Total Dose (mL): Contrast 2: Total Dose (mL): MEASUREMENTS (Male / Female) Normal Values 2D ECHO LV Diastolic Diameter PLAX 3.2 cm 4.2 - 5.9 / 3.9 - 5.3 cm LV Systolic Diameter PLAX 2.1 cm IVS Diastolic Thickness 1.6 cm 0.6 - 1.0 / 0.6 - 0.9 cm LVPW Diastolic Thickness 1.3 cm 0.6 - 1.0 / 0.6 - 0.9 cm LV Relative Wall Thickness 0.9 RV Internal Dim ED PLAX 3.2 cm LA Volume 39.9 cm??? 18 - 58 / 22 - 52 cm??? LA Volume Index 23.1 cm???/m??? 16 - 28 cm???/m??? M-MODE Aortic Root Diameter MM 3.1 cm LA Systolic Diameter MM 2.6 cm LA Ao Ratio MM 0.8 DOPPLER AV Peak Velocity 199.2 cm/s AV Peak Gradient 15.9 mmHg AV Mean Velocity 112.0 cm/s AV Mean Gradient 6.0 mmHg AV Velocity Time Integral 30.3 cm LVOT Peak Velocity 137.5 cm/s LVOT Peak Gradient 7.6 mmHg LVOT Velocity Time Integral 25.7 cm MV Area PHT 2.5 cm??? Mitral E Point Velocity 70.5 cm/s Mitral A Point Velocity 123.4 cm/s Mitral E to A Ratio 0.6 MV Deceleration Time 304.5 ms TR Peak Velocity 235.2 cm/s TR Peak Gradient 22.1 mmHg Right Ventricular Systolic Press 27.1 mmHg FINDINGS Left Ventricle Moderately increased left ventricular wall thickness. Left ventricular cavity size normal. Normal left ventricular systolic function with no obvious regional wall motion abnormalities. Left ventricular ejection fraction is estimated at 55-60 %. Grade 1 diastolic dysfunction. Right Ventricle Normal right ventricular size and function. Right ventricular systolic pressure within normal limits. Right Atrium Normal right atrial size. Left Atrium Mild left atrial dilatation. Mitral Valve Structurally normal mitral valve. Mitral valve thickened. Mild mitral annular calcification. Mild mitral regurgitation. Aortic Valve Trileaflet aortic valve. No aortic valve stenosis or regurgitation. Tricuspid Valve Structurally normal tricuspid valve. Mild tricuspid regurgitation. Pulmonic Valve Structurally normal pulmonic valve. Pericardium No pericardial effusion. Aorta Normal size aortic root and proximal ascending aorta. CONCLUSIONS LVH with preserved systolic function Mitral annular calcification Previewed by: Dr. Xander Vega MD (Electronically Signed) Final Date: 28 November 2023 20:33
--- NOTE | 2023-11-29 07:43 | P.CNPUL ---
History of Present Illness Consult date: 11/29/23 Requesting physician: Leigh Ann Cardozo Reason for consult: COPD, pleural effusion Chief complaint: Fall, right-sided hip pain History of present illness: Patient is an 83-year-old female with past medical history significant for COPD, current everyday 1 pack/day smoker, GERD, hyperlipidemia. Back on 11/23/2023, patient had a fall while gardening. She landed on her right side and was experiencing severe right-sided hip pain. She was brought to the [facility] emergency department. Right hip and pelvis x-ray demonstrated right proximal femur subcapital femoral neck fracture with valgus impaction. On 11/25/2023 she did undergo right direct anterior hip hemiarthroplasty. No perio perative complications reported. We were consulted for increased oxygen demands. Patient is currently resting comfortably on 3 L/min nasal cannula. She is known to have severe COPD/emphysema with an FEV1 30% of predicted. She utilizes a combination of Trelegy inhaler, DuoNebs [id number], and as needed Combivent inhaler. She continues to smoke approximately 1 pack/day. She chronically utilizes 2 L of oxygen, mostly at night. Most recent chest x-ray from yesterday demonstrates stable right hilar and midlung area of consolidation or nodularity. There were minimal bilateral pleural effusions. No pneumothoraces. The patient herself denies any change in her pulmonary status. No particular reproducible thoracic pain or crepitus. Denies cough, sputum production, fevers, chest pain, hemoptysis. No cancer history. No unexplained recent weight loss. Most recent CBC from yesterday: WBC count 8.7, hemoglobin 9.7, hematocrit 30.6, platelets 253. CMP from yesterday: Sodium 144, potassium 3, chloride 100, serum bicarb 29, BUN 9.9, creatinine 0.6, glucose 104. NT proBNP only mildly elevated at 1610. Echocardiogram done this admission estimates a preserved left ventricular ejection fraction of 55 to 60%, with LVH, and grade 1 diastolic dysfunction. She is currently receiving Lasix 20 mg twice daily. She has a indwelling urinary catheter. Reportedly had issues with urinary retention earlier requiring multiple straight catheterizations and finally an indwelling urinary catheter was placed. Postoperative hip pain is well-managed with current regiment of as needed Dilaudid and [place]'s. She has been up walking with a walker. Vital signs are stable. Review of Systems REVIEW OF SYSTEMS: CONSTITUTIONAL: Denies any recent significant weight loss or weight gain. EYES: Denies change in vision. EARS, NOSE, MOUTH, THROAT: Denies headaches, denies sore throat. CARDIOVASCULAR: Denies chest pain, palpitations or syncopal episodes. RESPIRATORY: Denies shortness of breath, cough, congestion or hemoptysis. GASTROINTESTINAL: Denies change in appetite, abdominal pain, nausea and vomiting, or diarrhea GENITOURINARY: Denies hematuria. Admits some issues with voiding and dysuria after surgery. MUSKULOSKELETAL: Admits postoperative right hip pain. INTEGUMENTARY: Denies rash, denies eczema. NEUROLOGICAL: Denies recent memory loss, no recent seizure activity. PSYCHIATRIC: Denies anxiety, denies depression. HEMATOLOGIC/LYMPHATIC: Denies anemia, denies enlarged lymph node Past Medical History Past Medical History: GERD/Reflux, Hyperlipidemia, Pneumonia, Respiratory Disorder Additional Past Medical History / Comment(s): Emphysema, shingles in right ear History of Any Multi-Drug Resistant Organisms: None Reported Past Surgical History: Appendectomy, Cholecystectomy, Hysterectomy Additional Past Surgical History / Comment(s): emphesema Past Anesthesia/Blood Transfusion Reactions: No Reported Reaction Past Psychological History: Depression Additional Psychological History / Comment(s): Pt resides with her spouse. She has never been able to drive, her spouse drives. Smoking Status: Current every day smoker Past Alcohol Use History: None Reported Additional Past Alcohol Use History / Comment(s): Pt started smoking in 1960 and is a ppd smoker. Past Drug Use History: None Reported - Past Family History Mother Additional Family Medical History / Comment(s): " AFTER GALLBLADDER TONY" Sister(s) Family Medical History: Cancer Additional Family Medical History / Comment(s): One sister with brain cancer, an other with throat cancer. Brother(s) Family Medical History: Cancer Additional Family Medical History / Comment(s): lung cancer Medications and Allergies Home Medications Medication Instructions Recorded Confirmed Type Atorvastatin [Lipitor] 40 mg PO DAILY 09/18/14 11/23/23 History Esomeprazole Magnesium [NexIUM] 40 mg PO DAILY 09/18/14 11/23/23 History Ipratropium-Albuterol Nebulize 3 ml INHALATION RT-QID #1 04/02/19 11/23/23 Rx [Duoneb 0.5 mg-3 mg/3 ml Soln] Fluticasone/Umeclidin/Vilanter 1 puff INHALATION RT-DAILY 11/23/23 11/23/23 History [Britt Ellipta 200-62.5-25] Furosemide [Lasix] 20 mg PO DAILY 11/23/23 11/23/23 History Ipratropium/Albuterol Sulfate 1 puff INHALATION RT-QID PRN 11/23/23 11/23/23 History [Combivent Respimat Inhaler] Sertraline [Zoloft] 50 mg PO DAILY 11/23/23 11/23/23 History Apixaban [Eliquis] 2.5 mg PO BID #60 tab 11/27/23 Rx Docusate [Colace] 100 mg PO BID #60 capsule 11/27/23 Rx Doxycycline Monohydrate 100 mg PO BID #28 cap 11/27/23 Rx HYDROcodone/APAP 5-325MG [[place] 1 - 2 tab PO Q6HR PRN #32 tab 11/27/23 Rx 5-325] Omeprazole 40 mg PO DAILY #30 cap 11/27/23 Rx Ipratropium-Albuterol Nebulize 3 ml INHALATION Q4H PRN each 11/28/23 Rx [Duoneb 0.5 mg-3 mg/3 ml Soln] LORazepam [Ativan] 0.5 mg PO DAILY #3 tab 11/28/23 Rx LORazepam [Ativan] 0.5 mg PO HS PRN #3 tab 11/28/23 Rx Magnesium Hydroxide [Milk of 2,400 mg PO DAILY PRN ml 11/28/23 Rx Magnesia] Nicotine 21Mg/24Hr Patch [Habitrol] 1 patch TRANSDERM DAILY patch 11/28/23 Rx Sennosides-Docusate Sodium 2 each PO HS tab 11/28/23 Rx [Senokot-S] Tamsulosin [Flomax] 0.4 mg PO HS cap 11/28/23 Rx polyethylene glycoL 3350 [Miralax] 17 gm PO DAILY packet 11/29/23 Rx Allergies Allergy/AdvReac Type Severity Reaction Status Date / Time aspirin Allergy Nausea & Verified 11/23/23 17:55 Vomiting codeine Allergy Unknown Verified 11/23/23 17:55 meperidine HCl [From Demerol] AdvReac Rapid Verified 11/23/23 17:55 Heart Rate Physical Exam Vitals: Vital Signs Temp Pulse Pulse Resp BP Pulse Ox 11/28/23 21:02 88 11/28/23 20:46 94 11/28/23 20:00 98.3 F 110 H 14 131/77 95 11/28/23 16:06 90 18 11/28/23 15:55 91 18 11/28/23 14:10 97.8 F 85 19 127/68 93 L 11/28/23 09:50 88 18 11/28/23 09:37 84 18 94 L 11/28/23 08:00 19 11/28/23 07:56 98.2 F 85 19 125/67 93 L 11/28/23 02:00 98.4 F 80 20 112/67 95 Intake and Output 11/28/23 11/28/23 11/29/23 14:59 22:59 06:59 Output Total 600 Balance -600 Output: Urine 600 Other: Voiding Method Indwelling Catheter Indwelling Catheter GENERAL EXAM: Alert, 83-year-old white female, lying comfortable in bed, in no apparent distress. HEAD: Normocephalic and atraumatic EYES: Normal reaction of pupils, equal size. NOSE: Clear with pink turbinates. THROAT: No erythema or exudates. NECK: No masses, no JVD. CHEST: No chest wall deformity. LUNGS: Equal air entry with right lower lobe inspiratory crackles. No wheezes, rhonchi, focal dullness. On 3 L/min nasal cannula. No conversational dyspnea or accessory muscle use.. CVS: S1 and S2 normal with no audible murmur, regular rhythm. No extra heart sounds ABDOMEN: No hepatosplenomegaly, active bowel sounds, no guarding or rigidity. SPINE: No scoliosis or deformity SKIN: No rashes CENTRAL NERVOUS SYSTEM: No focal deficits, tone is normal in all 4 extremities. EXTREMITIES: Postoperative incisional dressing clean and dry. There is no peripheral edema, clubbing, or cyanosis. Peripheral pulses are intact. Results - Laboratory Findings CBC and BMP: 11/28/23 04:19 11/29/23 03:17 PT/INR, D-dimer PT 10.3 sec (10.0-12.5) 11/23/23 13:54 INR 0.9 (<1.2) 11/23/23 13:54 Abnormal lab findings: Abnormal Labs 11/23/23 11/24/23 11/24/23 13:54 05:32 11:13 WBC 12.1 H 10.07 H RBC 3.81 L Hgb 11.5 L Hct 35.8 L MCHC Neutrophils # 9.4 H Lymphocytes # Monocytes # 1.19 H Eosinophils # Potassium Anion Gap BUN Calcium Urine Ketones 1+ H 11/25/23 11/26/23 11/26/23 19:22 07:13 07:13 WBC 11.7 H 12.4 H RBC 3.72 L 3.43 L Hgb 11.3 L 10.5 L Hct 32.5 L MCHC Neutrophils # 10.7 H 10.5 H Lymphocytes # 0.6 L 0.8 L Monocytes # Eosinophils # Potassium Anion Gap BUN 18 H Calcium Urine Ketones 11/27/23 11/28/23 11/28/23 16:05 04:19 04:19 WBC RBC 3.18 L 3.23 L Hgb 9.6 L 9.7 L Hct 29.3 L 30.6 L MCHC 31.7 L Neutrophils # Lymphocytes # Monocytes # 1.13 H Eosinophils # 0.46 H Potassium 3.0 L Anion Gap 15.10 H BUN Calcium 8.5 L Urine Ketones 11/28/23 17:25 WBC RBC Hgb Hct MCHC Neutrophils # Lymphocytes # Monocytes # Eosinophils # Potassium 3.1 L Anion Gap BUN Calcium Urine Ketones - Diagnostic Findings Chest x-ray: image reviewed Assessment and Plan Assessment: Right proximal femur subcapital femoral neck fracture with valgus impaction, status post right direct anterior hip hemiarthroplasty on 11/25/2023 Acute on chronic hypoxemic respiratory failure, Most recent chest x-ray from yesterday demonstrates stable right hilar and midlung area of consolidation or questionable nodularity. There were minimal bilateral pleural effusions. There is hyperinflation compatible with COPD. Severe chronic obstructive pulmonary disease, with a baseline FEV1 30% of pred icted, normally maintained on a combination of Trelegy inhaler, DuoNebs [id number], and as needed Combivent inhaler. Chronic hypoxemic respiratory failure, normally utilizes 2 L/min nasal cannula at bedtime. Chronic ongoing nicotine dependence, normally smokes around 1 pack/day Postoperative urinary retention, with indwelling catheter, started on Flomax Acute blood loss anemia, expected outcome of surgery Hypokalemia, being replaced History of GERD History of hyperlipidemia Plan: Patient's medications, labs, chest x-ray reviewed Continue supplemental oxygen to maintain oxygen saturation of 88% or greater COPD does not seem to be in exacerbation at this time Continue combination of DuoNebs [id number] and Symbicort inhaler Encourage incentive spirometer Consider follow up chest CT if no resolution in cxr findings Currently receiving Lasix 20 mg twice daily Ambulation is being encouraged We will continue to follow I have personally seen and examined the patient, performed the documentation and the assessment and plan as written. Number of minutes spent on the visit:20 This is a joint evaluation that was done along with the nurse practitioner. The patient is post right hip hemiarthroplasty that was done on 11/25/2023. The patient has advanced COPD and she has developed an acute on top of chronic hypoxic respiratory failure. The patient's most recent chest x-ray was noted and there is volume loss in the right lung with some nodular changes involving the right lung that needs further investigation. Her COPD is severe and the patient's baseline FEV1 is around 30% predicted and the patient is currently on liters of oxygen with a pulse ox of 96%. The patient remains on bronchodilators. The patient is on DuoNeb updrafts. The patient is on Symbi karma as maintenance and the patient is on long-term anticoagulation with Eliquis 2.5 mg twice a day. Rest of the blood work was noted and the patient was secondary 0.6 with a hemoglobin of 9.7 and a platelet count of 253. BUN is 11 with a creatinine of 0.6. proBNP level is 1610. The echocardiogram that was done during this current admission from yesterday showed a preserved LV function with an ejection fraction of 55 to 60%. Grade 1 diastolic failure. Based on the x-ray findings, the patient will need a CAT scan of the chest of concern is underlying malignancy. Will continue to follow. Rest of the recommendations as mentioned above. Time with Patient: Greater than 30
--- NOTE | 2023-11-29 07:47 | P.PN ---
Subjective 11/24/2023 This is an 83-year-old female with past medical history significant for ongoing nicotine dependence of 1 pack/day, emphysema, COPD, gastroesophageal reflux disease, hyperlipidemia, shingles, depression and multiple other medical issues, presented to the ER status post fall, significant right-sided hip pain with subsequent inability to ambulate. at bedside ,reported patient was trimming her roses, ground was unlevel, she fell onto her right hip, developed tremendous pain and was unable to ambulate .hip/pelvis x-ray reported -Right proximal femur subcapital femoral neck fracture with valgus impaction. Evaluated by orthopedic surgery, right hip hemiarthroplasty pending. Denies chest pain, palpitations or shortness of breath. Troponin negative x 1, EKG reporting sinu,maintaining O2 sats in the mid 90s on 2 L nasal cannula. Afebrile, WBC 10.07, hemoglobin 11.5, platelets 246, sodium 144, potassium 3.5, bicarb 26.7, BUN 11.1, creatinine 0.7, magnesium 1.7. Chest x-ray reported chronic changes without acute pulmonary process, no significant change from prior. 11/25/2023 afebrile, positive pain -recently medicated for pain,right hip hemiarthroplasty pending. Denies chest pain, palpitations or increase shortness of breath. 11/28/2023 maintained on low-dose IV push Lasix, continues to require 2 L nasal cannula O2 to maintain O2 sats in the low 90s. Denies chest pain, palpitations or increased shortness of breath. Requires 2 person assist with walker. Continues on Flomax for urinary retention, Estrella catheter in place. Pain controlled. Passing flatus, no bowel movement. Afebrile, normal WBC, hemoglobi n 9.7, platelets 253. Potassium 3, supplements ordered. Creatinine 0.6. 11/29/2023 echo reported normal LV function.chest x-ray performed yesterday reporting COPD with small bilateral pleural effusions and basilar consolidation right hilar midlung area of consolidation nodule or mass stable. Chest x-ray evaluated by pulmonary with recommendations noted .potential chest CT outpatient if no resolution and chest x-ray findings. maintaining O2 sats 93 to 96% on 2 to 3 L nasal cannula O2. Denies chest pain, palpitations or increase in shortness of breath. Afebrile, labs pending.Discharge planning in progress for today to subacute rehab as per orthopedic surgery. Objective - Vital Signs Vital signs: Vital Signs Temp 98.5 F 11/29/23 02:00 Pulse 80 11/29/23 02:00 Resp 19 11/29/23 02:00 BP 111/57 11/29/23 02:00 Pulse Ox 93 L 11/29/23 02:00 FiO2 Intake & Output 11/28/23 11/29/23 11/29/23 18:59 06:59 18:59 Output Total 600 1000 Balance -600 -1000 Output: Urine 600 1000 Other: Voiding Method Indwelling Catheter Indwelling Catheter - Exam VITAL SIGNS: As above GENERAL: Pleasant, alert and oriented x 3, sitting up in bed, no acute distress HEENT: Normal cephalic, atraumatic ,conjunctivae normal. eyes normal. MMM. NECK: Supple, no JVD. CARDIOVASCULAR: S1, S2 regular. No murmur RESPIRATION: Unlabored, equal air entry. Diminished with fine bibasilar crackles. ABDOMEN: Soft, nontender . No guarding. no masses palpable. +BS. LEGS: Right lower extremity anterior dressing clean dry and intact,no cyanosis, no clubbing, positive DP pulse NERVOUS SYSTEM: Cranial N 2-12 grossly normal. No focal deficits Skin: Warm and dry, no rash - Labs CBC & Chem 7: 11/28/23 04:19 11/29/23 03:17 Labs: Abnormal Lab Results - Last 24 Hours (Table) 11/28/23 11/28/23 11/28/23 Range/Units 04:19 04:19 17:25 RBC 3.23 L (4.10-5.20) X 10*6/uL Hgb 9.7 L (12.0-15.0) g/dL Hct 30.6 L (37.2-46.3) % MCHC 31.7 L (32.0-37.0) g/dL Monocytes # 1.13 H (0.20-1.00) X 10*3/uL Eosinophils # 0.46 H (0.04-0.35) X 10*3/uL Potassium 3.0 L 3.1 L (3.5-5.5) mmol/L Anion Gap 15.10 H (4.00-12.00) mmol/L Calcium 8.5 L (8.7-10.3) mg/dL Assessment and Plan Assessment: -Right proximal femur subcapital femoral neck fracture with valgus impaction, status post right anterior hip hemiarthroplasty -Acute postoperative urinary retention, requiring Estrella catheter -Acute postoperative hypoxic respiratory failure secondary to acute mild CHF exacerbation,echo reported normal LV function. Recent chest x-ray reported right hilar and midlung area of consolidation or questionable nodularity, minimal bilateral pleural effusions and hyperinflation compatible with COPD.Potential chest CT outpatient if no resolution in chest x-ray findings. -Emphysema, severe COPD -Ongoing nicotine dependence -Gastroesophageal reflux disease -History of pneumonia -History of shingles -Depression, anxiety -Hypokalemia -Hypomagnesemia Plan: Continue on current medication regimen ,monitoring and symptomatic treatment.Labs pending, supplement lytes accoordingly prior to dc today.E valuated by pulmonary with recommendations noted and appreciated. Potential chest CT outpatient if no resolution in chest x-ray findings. Continue aggressive pulmonary care with incentive spirometer as previously ordered every hour x 10 while awake. No bowel movement, can maintain MiraLAX daily unless diarrhea . Medically cleared for discharge to [facility] subacute rehab. Pain management, DVT prophylaxis as per orthopedic surgery. Smoking cessation reinforced. Currently has Estrella secondary to urinary retention, continue on Flomax, voiding trial at subacute rehab. follow-up with PCP 1 week after DC from subacute rehab. The impression and plan of care has been dictated as directed. : I performed a history and examination of this patient, discussed the same with the dictator. I agree with the dictator's note ,documented as a scribe. Any additional findings or plans will be noted.
[2023-11-29 09:03] LABS: BUN/Creat Ratio 18.83 Ratio (12.00-20.00); Blood Urea Nitrogen 11.3 mg/dL (9.0-27.0); Calcium 8.8 mg/dL (8.7-10.3); Carbon Dioxide 34.1 mmol/L (21.6-31.8); Chloride 99 mmol/L (96-109); Glucose 120 mg/dL (70-110); Potassium 3.7 mmol/L (3.5-5.5); Sodium 143 mmol/L (135-145)
[2023-11-29] MEDS: MAGNESIUM SULFATE-D5W PMX 1 GM in DEXTROSE/WATER 1 100ML.BAG IVPB ONE (09:28)
[2023-11-29] MEDS: POTASSIUM CHLORIDE ER 20 MEQ TAB.ER PO STA (09:29)
--- NOTE | 2023-11-29 12:53 | P.PN ---
Subjective Progress Note Date: 11/29/23 Patient did well over night. Right hip pain is well controlled. She has been up today. Pulmonology was consulted and plans to get CT chest today due to patient's respiratory conditions. Objective - Vital Signs Vital signs: Vital Signs Temp 98.2 F 11/29/23 07:58 Pulse 82 11/29/23 11:20 Resp 18 11/29/23 11:20 BP 118/67 11/29/23 07:58 Pulse Ox 96 11/29/23 08:18 FiO2 Intake & Output 11/28/23 11/29/23 11/29/23 18:59 06:59 18:59 Output Total 600 1000 Balance -600 -1000 Output: Urine 600 1000 Other: Voiding Method Indwelling Catheter Indwelling Catheter Indwelling Catheter - Exam Patient is resting comfortably in bed. They are alert and able to answer questions. On inspection of the right hip dressing is intact. There is mild swelling. There is no drainage or strikethrough. Femoral nerve function is intact. The patient is able to actively plantarflex and dorsiflex her ankle and toes. - Labs CBC & Chem 7: 11/28/23 04:19 11/29/23 03:17 Labs: Abnormal Lab Results - Last 24 Hours (Table) 11/28/23 11/29/23 Range/Units 17:25 03:17 Potassium 3.1 L (3.5-5.1) mmol/L Carbon Dioxide 34.1 H (21.6-31.8) mmol/L Glucose 120 H (70-110) mg/dL Assessment and Plan Assessment: Postoperative day 4 status post right hip hemiarthroplasty for fracture of right femoral neck. (1) Closed displaced fracture of right femoral neck Current Visit: Yes Status: Acute Code(s): S72.001A - FRACTURE OF UNSP PART OF NECK OF RIGHT FEMUR, INIT SNOMED Code(s): 698157870 (2) Closed right hip fracture Current Visit: Yes Status: Acute Code(s): S72.001A - FRACTURE OF UNSP PART OF NECK OF RIGHT FEMUR, INIT SNOMED Code(s): 431568459 (3) Smoker Current Visit: No Status: Acute Code(s): F17.200 - NICOTINE DEPENDENCE, UNSPECIFIED, UNCOMPLICATED SNOMED Code(s): 58392046 Plan: Weight-bear as tolerated on the operative extremity, up with assistance and a walker. Leave surgical dressing in place. Plan to stay tonight while pulmonology is managing respiratory conditions. Plan to discharge to rehab tomorrow if cleared.
[2023-11-29] MEDS ORDERED: RX INFO: IV CONTRAST WAS GIVEN 1 EACH MISC MISCELLANE PRN (13:25)
--- NOTE | 2023-11-30 10:34 | P.PN ---
Subjective Progress Note Date: 11/30/23 11/24/2023 This is an 83-year-old female with past medical history significant for ongoing nicotine dependence of 1 pack/day, emphysema, COPD, gastroesophageal reflux disease, hyperlipidemia, shingles, depression and multiple other medical issues, presented to the ER status post fall, significant right-sided hip pain with subsequent inability to ambulate. at bedside ,reported patient was trimming her roses, ground was unlevel, she fell onto her right hip, developed tremendous pain and was unable to ambulate .hip/pelvis x-ray reported -Right proximal femur subcapital femoral neck fracture with valgus impaction. Evaluated by orthopedic surgery, right hip hemiarthroplasty pending. Denies sveta st pain, palpitations or shortness of breath. Troponin negative x 1, EKG reporting sinu,maintaining O2 sats in the mid 90s on 2 L nasal cannula. Afebrile, WBC 10.07, hemoglobin 11.5, platelets 246, sodium 144, potassium 3.5, bicarb 26.7, BUN 11.1, creatinine 0.7, magnesium 1.7. Chest x-ray reported chronic changes without acute pulmonary process, no significant change from prior. 11/25/2023 afebrile, positive pain -recently medicated for pain,right hip hemiarthroplasty pending. Denies chest pain, palpitations or increase shortness of breath. 11/28/2023 maintained on low-dose IV push Lasix, continues to require 2 L nasal cannula O2 to maintain O2 sats in the low 90s. Denies chest pain, palpitations or increased shortness of breath. Requires 2 person assist with walker. Continues on Flomax for urinary retention, Estrella catheter in place. Pain controlled. Passing flatus, no bowel movement. Afebrile, normal WBC, hemoglobin 9.7, platelets 253. Potassium 3, supplements ordered. Creatinine 0.6. 11/29/2023 echo reported normal LV function.chest x-ray performed yesterday reporting COPD with small bilateral pleural effusions and basilar consolidation right hilar midlung area of consolidation nodule or mass stable. Chest x-ray evaluated by pulmonary with recommendations noted .potential chest CT outpatient if no resolution and chest x-ray findings. maintaining O2 sats 93 to 96% on 2 to 3 L nasal cannula O2. Denies chest pain, palpitations or increase in shortness of breath. Afebrile, labs pending.Discharge planning in progress for today to subacute rehab as per orthopedic surgery. 11/30/23 no overnight events. Reports no bowel movement on current regimen. Denies abdominal pain. Diet intake fair in a patient with baseline of minimal appetite. Protein shakes between meals will be added. denies chest pain, palpitations or shortness of breath. Maintaining O2 sats of 95% on 2 L nasal cannula. Chest CT ordered as per pulmonary and completed yesterday, results pending. Discharge planning to subacute rehab in progress. Objective - Vital Signs Vital signs: Vital Signs Temp 98.5 F 11/30/23 07:06 Pulse 92 11/30/23 08:58 Resp 16 11/30/23 07:06 BP 121/61 11/30/23 07:06 Pulse Ox 95 11/30/23 08:44 FiO2 Intake & Output 11/29/23 11/30/23 11/30/23 18:59 06:59 18:59 Output Total 2100 200 Balance -2100 -200 Output: Urine 2100 200 Other: Voiding Method Indwelling Catheter Indwelling Catheter - Exam VITAL SIGNS: As above GENERAL: Pleasant, alert and oriented x 3, sitting up in bed, no acute distress HEENT: Normal cephalic, atraumatic ,conjunctivae normal. eyes normal. MMM. NECK: Supple, no JVD. CARDIOVASCULAR: S1, S2 regular. No murmur RESPIRATION: Unlabored, equal air entry. Diminished with fine bibasilar crackles. ABDOMEN: Soft, nontender . No guarding. no masses palpable. +BS. LEGS: Right lower extremity anterior dressing clean dry and intact,no cyanosis, no clubbing, positive DP pulse NERVOUS SYSTEM: Cranial N 2-12 grossly normal. No focal deficits Skin: Warm and dry, no rash - Labs CBC & Chem 7: 11/28/23 04:19 11/29/23 03:17 Assessment and Plan Assessment: -Right proximal femur subcapital femoral neck fracture with valgus impaction, status post right anterior hip hemiarthroplasty -Acute postoperative urinary retention, requiring Estrella catheter -Acute postoperative hypoxic respiratory failure secondary to acute mild CHF exacerbation,echo reported normal LV function. Recent chest x-ray reported right hilar and midlung area of consolidation or questionable nodularity, minimal bilateral pleural effusions and hyperinflation compatible with COPD.Potential chest CT outpatient if no resolution in chest x-ray findings. -Emphysema, severe COPD -Ongoing nicotine dependence -Gastroesophageal reflux disease -History of pneumonia -History of shingles -Depression, anxiety -Hypokalemia -Hypomagnesemia Plan: Continue on current medication regimen ,monitoring and symptomatic treatment. CT pending .DC Estrella catheter now with postvoid bladder scan ordered .no bowel movement, Dulcolax and fleets enema ordered in addition to MiraLAX and Senokot .protein shakes ordered between meals as patient's diet intake minimal. Maintain aggressive pulmonary care with incentive spirometer as previously ordered every hour x 10 while awake. Medically cleared for discharge to [facility] subacute rehab.,pending CT results and pulmonary clearance. Pain management, DVT prophylaxis as per orthopedic surgery. Smoking cessation reinforced. Follow-up with PCP 1 week after DC from subacute rehab. The impression and plan of care has been dictated as directed. : I performed a history and examination of this patient, discussed the same with the dictator. I agree with the dictator's note ,documented as a scribe. Any additional findings or plans will be noted.
[2023-11-30] MEDS: NA PHOS,M-B/NA PHOS,DI-BA 133 ML ENEMA RECTAL STA (10:53)
[2023-11-30] MEDS: bisacodyL 10 MG SUPP RECTAL SCH (10:53)
[2023-11-30 12:25] VITALS: BMI 22.6
[2023-11-30 14:19] VITALS: BP 94/51; RESP 17; TEMP 98
--- NOTE | 2023-11-30 15:36 | P.PN ---
Subjective Progress Note Date: 11/30/23 Patient is an 83-year-old female with past medical history significant for COPD, current everyday 1 pack/day smoker, GERD, hyperlipidemia. Back on 11/23/2023, patient had a fall while gardening. She landed on her right side and was experiencing severe right-sided hip pain. She was brought to the [facility] emergency department. Right hip and pelvis x-ray demonstrated right proximal femur subcapital femoral neck fracture with valgus impaction. On 11/25/2023 she did undergo right direct anterior hip hemiarthroplasty. No perioperative complications reported. We were consulted for increased oxygen demands. Patient is currently resting comfortably on 3 L/min nasal cannula. She is known to have severe COPD/emphysema with an FEV1 30% of predicted. She utilizes a combination of Trelegy inhaler, DuoNebs [id number], and as needed Combivent inhaler. She continues to smoke approximately 1 pack/day. She chronically utilizes 2 L of oxygen, mostly at night. Most recent chest x-ray from yesterday demonstrates stable right hilar and midlung area of consolidation or nodularity. There were minimal bilateral pleural effusions. No pneumothoraces. The patient herself denies any change in her pulmonary status. No particular reproducible thoracic pain or crepitus. Denies cough, sputum production, fevers, chest pain, hemoptysis. No cancer history. No unexplained recent weight loss. Most recent CBC from yesterday: WBC count 8.7, hemoglobin 9.7, hematocrit 30.6, platelets 253. CMP from yesterday: Sodium 144, potassium 3, chloride 100, serum bicarb 29, BUN 9.9, creatinine 0.6, glucose 104. NT proBNP only mildly elevated at 1610. Echocardiogram done this admission estimates a preserved left ventricular ejection fraction of 55 to 60%, with LVH, and grade 1 diastolic dysfunction. She is currently receiving Lasix 20 mg twice daily. She has a indwelling urinary catheter. Reportedly had issues with urinary retention earlier requiring multiple straight catheterizations and finally an indwelling urinary catheter was placed. Postoperative hip pain is well-managed with current regiment of as needed Dilaudid and [place]'s. She has been up walking with a walker. Vital signs are stable. On 11/30/2023, the patient is doing well. No specific complaints. No respiratory difficulties. The patient remains clinically and hemodynamically stable. She is currently on 2 L of oxygen by nasal cannula with a pulse ox of 93%. CAT scan of the chest was done yesterday and showed no evidence of any airspace disease. Some patchy groundglass changes seen bilaterally mainly in the lung apices that needs to be monitored on outpatient basis. No mediastinal lymphadenopathy. There is no evidence of an acute acute pneumonia at this point in time. Awaiting final radiology report. Meanwhile, the patient's BUN is 11 with a creatinine of 0.6 and a sodium levels at 143. The patient is calm and comfortable. She remains on DuoNeb updrafts. She remains on Eliquis 2.5 mg p.o. twice a day. Pain is under adequate control. IV fluids are currently at KVO. I I Objective - Vital Signs Vital signs: Vital Signs Temp 98.5 F 11/30/23 07:06 Pulse 92 11/30/23 08:58 Resp 16 11/30/23 07:06 BP 121/61 11/30/23 07:06 Pulse Ox 95 11/30/23 08:44 FiO2 Intake & Output 11/29/23 11/30/23 11/30/23 18:59 06:59 18:59 Output Total 2100 200 Balance -2100 -200 Output: Urine 2100 200 Other: Voiding Method Indwelling Catheter Indwelling Catheter - Exam GENERAL EXAM: Alert, 83-year-old white female, lying comfortable in bed, in no apparent distress. HEAD: Normocephalic and atraumatic EYES: Normal reaction of pupils, equal size. NOSE: Clear with pink turbinates. THROAT: No erythema or exudates. NECK: No masses, no JVD. CHEST: No chest wall deformity. LUNGS: Equal air entry with right lower lobe inspiratory crackles. No wheezes, rhonchi, focal dullness. On 3 L/min nasal cannula. No conversational dyspnea or accessory muscle use.. CVS: S1 and S2 normal with no audible murmur, regular rhythm. No extra heart sounds ABDOMEN: No hepatosplenomegaly, active bowel sounds, no guarding or rigidity. SPINE: No scoliosis or deformity SKIN: No rashes CENTRAL NERVOUS SYSTEM: No focal deficits, tone is normal in all 4 extremities. EXTREMITIES: Postoperative incisional dressing clean and dry. There is no peripheral edema, clubbing, or cyanosis. Peripheral pulses are intact. - Labs CBC & Chem 7: 11/28/23 04:19 11/29/23 03:17 Assessment and Plan Assessment: Right proximal femur subcapital femoral neck fracture with valgus impaction, maureen briggs post right direct anterior hip hemiarthroplasty on 11/25/2023 Acute on chronic hypoxemic respiratory failure, Most recent chest x-ray from yesterday demonstrates stable right hilar and midlung area of consolidation or questionable nodularity. There were minimal bilateral pleural effusions. There is hyperinflation compatible with COPD. Severe chronic obstructive pulmonary disease, with a baseline FEV1 30% of predicted, normally maintained on a combination of Trelegy inhaler, DuoNebs arou [id number], and as needed Combivent inhaler. Chronic hypoxemic respiratory failure, normally utilizes 2 L/min nasal cannula at bedtime. Chronic ongoing nicotine dependence, normally smokes around 1 pack/day Postoperative urinary retention, with indwelling catheter, started on Flomax Acute blood loss anemia, expected outcome of surgery Hypokalemia, being replaced History of GERD History of hyperlipidemia Plan: COPD is currently inactive and stable CAT scan of the chest was from yesterday, awaiting final radiographic report. Findings are consistent with some nonspecific patchy opacities and a groundglass opacity in the right upper lobe that needs to be monitored in outpatient basis. No evidence of any malignancy at this point in time. No evidence of any acute pneumonia. The patient does not seem to be in acute COPD exacerbation. She continues to be on DuoNeb updrafts and she also has an incentive spirometer. The patient is on Symbicort as maintenance and the patient is on long-term anticoagulation with Eliquis 2.5 mg twice a day. Rest of the blood work was noted and the patient was secondary 0.6 with a hemoglobin of 9.7 and a platelet count of 253. BUN is 11 with a creatinine of 0.6. proBNP level is 1610. The echocardiogram that was done during this current admission from yesterday showed a preserved LV function with an ejection fraction of 55 to 60%. Grade 1 diastolic failure. Will continue to follow.
--- NOTE | 2023-11-30 15:49 | P.DS ---
Providers Date of admission: 11/23/23 16:34 Attending physician: Florentino Waters Consults: 11/23/23 16:32 Consult Physician Routine Consulting Provider: Matthieu Ryan Consult Reason/Comments: known Do you want consulting provider notified?: Yes 11/28/23 13:27 Consult Physician Routine Consulting Provider: Stephanie Pickens Consult Reason/Comments: Hypoxia, bilateral pleural effusions,COPD Do you want consulting provider notified?: Yes Primary care physician: Matthieu Ryan [facility] Course: The patient is a very pleasant 83-year-old female with multiple medical problems including COPD and being a current everyday cigarette smoker who sustained a ground-level fall resulting in a displaced femoral neck fracture. He was admitted to my partner Dr. Washington and I ultimately took the patient to surgery. Following surgery she was transferred to the orthopedic floor. She received 2 doses of postoperative antibiotics and was started on doxycycline due to her smoking history. She did well from an orthopedic standpoint. She was cleared for discharge to rehab. She was seen by internal medicine and pulmonology who medicalfollowing surgery she was transferred to the orthopedic floor. She received 2 doses of postoperative antibiotics was started on doxycycline due to her smoking history. She did well from orthopedic standpoint. She was cleared for discharge to rehab. She was seen by internal medicine and pulmonology managed her medical issues.and his medical issues. She was ultimately cleared for discharge. She was ultimately cleared for discharge. Patient Condition at Discharge: Fair Plan - Discharge Summary New Discharge Prescriptions: New HYDROcodone/APAP 5-325MG [[place] 5-325] 1 - 2 tab PO Q6HR PRN #32 tab PRN Reason: Pain Docusate [Colace] 100 mg PO BID #60 capsule Doxycycline Monohydrate 100 mg PO BID #28 cap Omeprazole 40 mg PO DAILY #30 cap Tamsulosin [Flomax] 0.4 mg PO HS cap Sennosides-Docusate Sodium [Senokot-S] 2 each PO HS tab Apixaban [Eliquis] 2.5 mg PO BID #60 tab Ipratropium-Albuterol Nebulize [Duoneb 0.5 mg-3 mg/3 ml Soln] 3 ml INHALATION Q4H PRN each PRN Reason: Shortness Of Breath Or Wheezing Nicotine 21Mg/24Hr Patch [Habitrol] 1 patch TRANSDERM DAILY patch Magnesium Hydroxide [Milk of Magnesia] 2,400 mg PO DAILY PRN ml PRN Reason: Constipation polyethylene glycoL 3350 [Miralax] 17 gm PO DAILY packet Continue Esomeprazole Magnesium [NexIUM] 40 mg PO DAILY Atorvastatin [Lipitor] 40 mg PO DAILY Ipratropium-Albuterol Nebulize [Duoneb 0.5 mg-3 mg/3 ml Soln] 3 ml INHALATION RT-QID #1 Sertraline [Zoloft] 50 mg PO DAILY Furosemide [Lasix] 20 mg PO DAILY Fluticasone/Umeclidin/Vilanter [Trelegy Ellipta 200-62.5-25] 1 puff INHALATION RT-DAILY LORazepam [Ativan] 0.5 mg PO DAILY #3 tab LORazepam [Ativan] 0.5 mg PO HS PRN #3 tab PRN Reason: Anxiety No Action Ipratropium/Albuterol Sulfate [Combivent Respimat Inhaler] 1 puff INHALATION RT-QID PRN PRN Reason: Shortness Of Breath Discharge Medication List Atorvastatin [Lipitor] 40 mg PO DAILY 09/18/14 [History] Esomeprazole Magnesium [NexIUM] 40 mg PO DAILY 09/18/14 [History] Ipratropium-Albuterol Nebulize [Duoneb 0.5 mg-3 mg/3 ml Soln] 3 ml INHALATION RT-QID #1 04/02/19 [Rx] Fluticasone/Umeclidin/Vilanter [Trelegy Ellipta 200-62.5-25] 1 puff INHALATION RT-DAILY 11/23/23 [History] Furosemide [Lasix] 20 mg PO DAILY 11/23/23 [History] Ipratropium/Albuterol Sulfate [Combivent Respimat Inhaler] 1 puff INHALATION RT- QID PRN 11/23/23 [History] Sertraline [Zoloft] 50 mg PO DAILY 11/23/23 [History] Apixaban [Eliquis] 2.5 mg PO BID #60 tab 11/27/23 [Rx] Docusate [Colace] 100 mg PO BID #60 capsule 11/27/23 [Rx] Doxycycline Monohydrate 100 mg PO BID #28 cap 11/27/23 [Rx] HYDROcodone/APAP 5-325MG [[place] 5-325] 1 - 2 tab PO Q6HR PRN #32 tab 11/27/23 [Rx] Omeprazole 40 mg PO DAILY #30 cap 11/27/23 [Rx] Ipratropium-Albuterol Nebulize [Duoneb 0.5 mg-3 mg/3 ml Soln] 3 ml INHALATION Q4H PRN each 11/28/23 [Rx] LORazepam [Ativan] 0.5 mg PO DAILY #3 tab 11/28/23 [Rx] LORazepam [Ativan] 0.5 mg PO HS PRN #3 tab 11/28/23 [Rx] Magnesium Hydroxide [Milk of Magnesia] 2,400 mg PO DAILY PRN ml 11/28/23 [Rx] Nicotine 21Mg/24Hr Patch [Habitrol] 1 patch TRANSDERM DAILY patch 11/28/23 [Rx] Sennosides-Docusate Sodium [Senokot-S] 2 each PO HS tab 11/28/23 [Rx] Tamsulosin [Flomax] 0.4 mg PO HS cap 11/28/23 [Rx] polyethylene glycoL 3350 [Miralax] 17 gm PO DAILY packet 11/29/23 [Rx] Follow up Appointment(s)/Referral(s): Matthieu Ryan DO [Primary Care Provider] - 1 Week (Follow-up 1 week after DC from subacute rehab) Mitali Bell, [NON-STAFF] - As Needed Stephanie Pickens MD [STAFF PHYSICIAN] - 2 Weeks Florentino Waters MD [Medical Doctor] - 2 Weeks Activity/Diet/Wound Care/Special Instructions: 1. Weight-bear as tolerated on your operative extremity unless instructed otherwise. Use a walker or other assistive device to ambulate. 2. Leave surgical dressing in place. If your dressing becomes saturated with blood, there is drainage, or the dressing becomes loose please contact the office. 3. It is okay to shower with your surgical dressing, but do not submerge in water (no hot tubs, bath's, swimming etc.) 4. Make sure to take her blood clot prevention medication as prescribed (aspirin, Eliquis, Xarelto, and Plavix are commonly prescribed medications for blood clot prevention) 5. While taking [place] or Percocet for pain make sure you're taking a stool softener (Colace) and drink lots of water. 6. Keep all follow-up appointments as scheduled. You will usually be seen in 1-2 weeks following surgery. 7. Please contact the office with any questions or concerns [phone] Mitali NAN: Ensure live protein supplement between meals 2 L nasal cannula O2 IS every hour x 10 while awake. CBC, BMP in 3 days Discharge Disposition: TRANSFER TO SNF/ECF
[2023-11-30 16:18] VITALS: PULSE 84
--- NOTE | 2023-11-30 17:53 | CDI ---
Documentation Clarification Form Date: 11/30/2023 03:26:00 PM From: Mindi Kraft RN, CCDS Phone: [phone] Admit Date: 11/23/2023 04:34:00 PM Patient Name: Evelin Bonds Visit Number: [id number] Discharge Date: ATTENTION: The Clinical Documentation Specialists (CDI) and [facility] Coding Staff appreciate your assistance in clarifying documentation. Please respond to the clarification below the line at the bottom and electronically sign. The CDI & [facility] Coding staff will review the response and follow-up if needed. Please note: Queries are made part of the Legal Health Record. If you have any questions, please contact the author of this message via ITS. Dr. Florentino Waters Postoperative urinary retention, requiring Estrella catheter is documented in the medicine progress notes starting on 11/26/23 and patient had right direct anterior hip hemiarthroplasty. Additional clarification is requested regarding the relationship, if any, that exists between the diagnosis and the procedure. Patients Admitting Diagnosis: Displaced right subcapital femoral neck fracture Post-Operative Diagnosis: Same Procedure performed: right direct anterior hip hemiarthroplasty History/Risk Factors: GERD/Reflux, Hyperlipidemia, Pneumonia, Respiratory Disorder, Current every day smoker Clinical Indicators: 83-year-old female patient to ED for a fall with subsequent right hip pain on 11/23/2023. The x-ray demonstrated a right displaced femoral neck fracture. Treatment: Strait catheterization with Estrella catheter placed Flomax 0.4 MG PO HS 11/25-11/28 11/29 DC Estrella with post void bladder scan What relationship, if any, exists between the diagnosis of Postoperative urinary retention and the procedure? [ ] Postoperative urinary retention is a complication of surgical procedure [ ] Postoperative urinary retention is an expected outcome of the surgical procedure [ ] Postoperative urinary retention is related to patients co-morbid condition(s) of [insert co-morbid dxs] & not a complication of the procedure [ ] Postoperative urinary retention has been ruled out [ ] Other please specify ____ [ ] Unable to determine (Template Last Revised: August 2020) Documented in internal medicine's note, please ask the provider that documented for clarification. I did not manage urinary retention.. WB MTDD
--- NOTE | 2023-11-30 18:47 | CT ---
EXAMINATION TYPE: CT chest w con DATE OF EXAM: 11/29/2023 COMPARISON: Chest x-ray one day earlier HISTORY: nodules in lungs shown on chest xray CT DLP: 233.4 mGycm. Automated Exposure Control for Dose Reduction was Utilized. TECHNIQUE: CT scan of the thorax is performed following with IV Contrast, patient injected with 100 mL of Isovue 300. FINDINGS: LUNGS: Right middle lobe bronchiectasis and peribronchial wall thickening with areas of nodular thick ening is identified. Some areas of groundglass opacity are present. There is irregular nodular thicke funmilayo in the periphery of the right upper lobe with similar findings noted in right lung apex. Similar findings in the left upper lobe and apex but less prominent. No pleural effusion or pneumothorax see n bilaterally. MEDIASTINUM: There are no greater than 1 cm hilar or mediastinal lymph nodes. No cardiomegaly or pe ricardial effusion is seen. Moderate three-vessel coronary artery calcification. There is moderate wa ll thickening in the mid to distal esophagus. Proximal to this esophagus is dilated and air-filled. OTHER: Levoconvex scoliosis centered in the upper thoracic spine. Cholecystectomy clips are present. IMPRESSION: 1. Parenchymal fibrotic changes bilaterally greater in the right lung and most prominent in the right middle lobe are noted as detailed above. Because of underlying nodularity neoplasm not entirely excl uded though thought much less likely. 2. Moderate wall thickening in the mid to distal esophagus with proximal gas-filled dilatation. Canno t exclude obstructing mass or neoplasm. Advise endoscopy follow-up to further evaluate.
--- NOTE | 2023-12-08 16:03 | CDI ---
Documentation Clarification Form Date: 12/08/2023 03:56:57 PM From: Mindi Kraft RN, CCDS Phone: [phone] Admit Date: 11/23/2023 04:34:00 PM Patient Name: Evelin Bonds Visit Number: [id number] Discharge Date: 11/30/2023 06:39:00 PM ATTENTION: The Clinical Documentation Specialists (CDI) and [facility] Coding Staff appreciate your assistance in clarifying documentation. Please respond to the clarification below the line at the bottom and electronically sign. The CDI & [facility] Coding staff will review the response and follow-up if needed. Please note: Queries are made part of the Legal Health Record. If you have any questions, please contact the author of this message via ITS. Dr. Leigh Ann Cardozo Postoperative urinary retention, requiring Estrella catheter is documented in the medicine progress notes starting on 11/26/23 and patient had right direct anterior hip hemiarthroplasty. Additional clarification is requested regarding the relationship, if any, that exists between the diagnosis and the procedure. Patients Admitting Diagnosis: Displaced right subcapital femoral neck fracture Post-Operative Diagnosis: Same Procedure performed: right direct anterior hip hemiarthroplasty History/Risk Factors: GERD/Reflux, Hyperlipidemia, Pneumonia, Respiratory Disorder, Current every day smoker Clinical Indicators: 83-year-old female patient to ED for a fall with subsequent right hip pain on 11/23/2023. The x-ray demonstrated a right displaced femoral neck fracture. Treatment: strait catheterization with Estrella catheter placed Flomax 0.4 MG PO HS 11/25-11/28 11/29 DC Estrella with postvoid bladder scan What relationship, if any, exists between the diagnosis of Postoperative urinary retention and the procedure: [ ] Postoperative urinary retention is a complication of surgical procedure [ ] Postoperative urinary retention is an expected outcome of the surgical procedure [ ] Postoperative urinary retention is related to patients co-morbid condition(s) of [insert co-morbid dxs] & not a complication of the procedure. [ ] Other please specify ____ [ ] Unable to determine (Template Last Revised: August 2020) MTDD
== END 2023-11-30 18:39 | DRG 521 ==
LOC: EC 13:08 → 4SSUR 16:34
PROVIDERS: ADMIT Orthopaedic Surgery; ATTEND Orthopaedic Surgery
PROC: 3E0T3BZ Introduction of Anesthetic Agent into Peripheral Nerves and Plexi, Percutaneous Approach (ICD-10-PCS; 2023-11-25)
PROC: 0SRR0J9 Replacement of Right Hip Joint, Femoral Surface with Synthetic Substitute, Cemented, Open Approach (ICD-10-PCS; principal; 2023-11-25 13:05)
DX: S72.001A Fracture of unspecified part of neck of right femur, initial encounter for closed fracture (principal); I50.33 Acute on chronic diastolic (congestive) heart failure; J96.01 Acute respiratory failure with hypoxia; J96.02 Acute respiratory failure with hypercapnia; D62 Acute posthemorrhagic anemia; W01.0XXA Fall on same level from slipping, tripping and stumbling without subsequent striking against object, initial encounter; J43.9 Emphysema, unspecified; R33.8 Other retention of urine; F17.210 Nicotine dependence, cigarettes, uncomplicated; J44.9 Chronic obstructive pulmonary disease, unspecified; E78.5 Hyperlipidemia, unspecified; E83.42 Hypomagnesemia; F32.A Depression, unspecified; F41.9 Anxiety disorder, unspecified; E87.6 Hypokalemia; K21.9 Gastro-esophageal reflux disease without esophagitis; D72.829 Elevated white blood cell count, unspecified; Z79.01 Long term (current) use of anticoagulants; Z79.899 Other long term (current) drug therapy; Z87.01 Personal history of pneumonia (recurrent); Z86.19 Personal history of other infectious and parasitic diseases; Z80.8 Family history of malignant neoplasm of other organs or systems; Z90.710 Acquired absence of both cervix and uterus; Z99.81 Dependence on supplemental oxygen; Z88.6 Allergy status to analgesic agent; Z88.5 Allergy status to narcotic agent; Z90.49 Acquired absence of other specified parts of digestive tract
CPT/HCPCS: 36415; 64447; 71045; 71260; 73502; 80048; 80053; 81003; 83735; 83880; 84100; 84132; 84484; 85025; 85610; 85730; 93005; 93306; 94640; 94760; 96361; 96374; 96375; 96376; 99285

== ENCOUNTER 2024-03-10 22:06 | Inpatient (IN) | payer MEDICARE ==
--- NOTE | 2024-03-10 22:31 | ED ---
Chest Pain HPI - General Chief Complaint: Chest Pain Stated Complaint: CP Time Seen by Provider: 03/10/24 22:24 Source: patient, EMS Mode of arrival: EMS Limitations: no limitations - History of Present Illness Initial Comments: Patient is an 83-year-old female past medical history HLD, current smoker, presenting today for chest pain. This morning patient began having jaw pain that radiated down the front of her neck. Later this afternoon she also began experiencing chest pain radiating down from her jaw. She describes it as a pressure. She has never had pain like this before. She also notes 2 episodes of nonbloody nonbilious emesis and nausea. Denies diaphoresis or shortness of breath. Endorses cough. Denies fevers or chills. Denies abdominal pain, diarrhea. Denies lightheadedness or dizziness. Denies numbness. Denies history of prior NE. She does not have any first-degree relatives of prior NE or CVA. Is a lifetime smoker. Patient has an allergy to ASA. No additional medications given via EMS as patient's blood pressure was noted to be low. - Related Data Home Medications Medication Instructions Recorded Confirmed Esomeprazole Magnesium [NexIUM] 40 mg PO DAILY 09/18/14 03/11/24 Fluticasone/Umeclidin/Vilanter 1 puff INHALATION RT-DAILY 11/23/23 03/11/24 [Trelegy Ellipta 200-62.5-25] Ipratropium/Albuterol Sulfate 1 puff INHALATION RT-QID PRN 11/23/23 03/11/24 [Combivent Respimat Inhaler] Sertraline [Zoloft] 50 mg PO DAILY 11/23/23 03/11/24 LORazepam [Ativan] 0.5 mg PO BID PRN 03/11/24 03/11/24 Previous Rx's Medication Instructions Recorded Ipratropium-Albuterol Nebulize 3 ml INHALATION RT-QID #1 04/02/19 [Duoneb 0.5 mg-3 mg/3 ml Soln] Apixaban [Eliquis] 2.5 mg PO BID #60 tab 03/15/24 Atorvastatin [Lipitor] 80 mg PO DAILY #0 03/15/24 Metoprolol Tartrate [Lopressor] 25 mg PO BID #60 tab 03/15/24 Nicotine 21Mg/24Hr Patch [Habitrol] 1 patch TRANSDERM DAILY patch 03/15/24 cefUROXime axetiL [Ceftin] 500 mg PO BID 3 Days #6 tab 03/15/24 predniSONE 10 mg PO DIRECTED #18 tab 03/15/24 Allergies Allergy/AdvReac Type Severity Reaction Status Date / Time aspirin Allergy Nausea & Verified 11/23/23 17:55 Vomiting codeine Allergy Unknown Verified 11/23/23 17:55 meperidine HCl [From Demerol] AdvReac Rapid Verified 11/23/23 17:55 Heart Rate Review of Systems ROS Statement: Those systems with pertinent positive or pertinent negative responses have been documented in the HPI. ROS Other: All systems not noted in ROS Statement are negative. EKG Findings - EKG Comments: EKG Findings:: Sinus rhythm, rate 70 bpm, AK interval 131 ms, QRS duration 80 ms, QT/QTc 424/457 ms, normal axis, T wave inversion noted in V2, otherwise no ST elevations or depressions Past Medical History Past Medical History: GERD/Reflux, Hyperlipidemia, Pneumonia, Respiratory Disorder Additional Past Medical History / Comment(s): Emphysema, shingles in right ear History of Any Multi-Drug Resistant Organisms: None Reported Past Surgical History: Appendectomy, Cholecystectomy, Hysterectomy Additional Past Surgical History / Comment(s): emphesema Past Anesthesia/Blood Transfusion Reactions: No Reported Reaction Past Psychological History: Depression Smoking Status: Current every day smoker Past Alcohol Use History: None Reported Past Drug Use History: None Reported - Past Family History Mother Additional Family Medical History / Comment(s): " AFTER GALLBLADDER TONY" Sister(s) Family Medical History: Cancer Additional Family Medical History / Comment(s): One sister with brain cancer, another with throat cancer. Brother(s) Family Medical History: Cancer Additional Family Medical History / Comment(s): lung cancer General Exam - General Exam Comments Initial Comments: PE: CONSTITUTIONAL: No apparent distress, chronically ill appearing, nontoxic, painful appearing SKIN: Warm, dry, no jaundice, hives or petechiae EYES: Pupils are equally round, extraocular movements intact without nystagmus, clear conjunctiva, non-icteric sclera HENT: Normocephalic, atraumatic, moist mucus membranes, oropharynx clear without exudates NECK: , Full range of motion, normal appearance PULMONARY: Rales present throughout all lung guerrero, worse on right then left, no wheezes or crackles, normal excursion, no accessory muscle use and no stridor CARDIOVASCULAR: Regular rate, rhythm, normal S1 and S2. No appreciated murmurs, rubs or gallops. Strong radial pulses with intact distal perfusion. No lower extremity edema GASTROINTESTINAL: Soft, non-tender, non-distended, no palpable masses, no rebound or guarding. No hepatosplenomegaly MUSCULOSKELETAL: Extremities have no gross deformity, no edema, redness, or swelling. NEUROLOGIC:_a/o x 3, GCS 15, normal mentation and speech. Moves all extremities x 4 without motor or sensory deficit PSYCHIATRIC:_normal mood and affect, thought process is clear and linear Limitations: no limitations Course Vital Signs 03/10/24 03/10/24 03/10/24 22:07 23:20 23:26 Temperature 97.0 F L Pulse Rate 78 74 75 Respiratory 18 20 20 Rate Blood Pressure 108/47 O2 Sat by Pulse 93 L Oximetry 03/11/24 03/11/24 03/11/24 00:36 01:14 04:00 Temperature Pulse Rate 85 96 85 Respiratory 18 20 20 Rate Blood Pressure 104/58 114/61 116/61 O2 Sat by Pulse 97 97 96 Oximetry 03/11/24 03/11/24 03/11/24 06:00 08:00 09:32 Temperature Pulse Rate 81 86 86 Respiratory 18 18 Rate Blood Pressure 119/63 119/86 O2 Sat by Pulse 96 98 Oximetry 03/11/24 03/11/24 03/11/24 09:43 10:22 12:05 Temperature Pulse Rate 86 88 86 Respiratory 22 Rate Blood Pressure 106/54 O2 Sat by Pulse 99 Oximetry 03/11/24 03/11/24 03/11/24 12:16 15:52 16:01 Temperature Pulse Rate 88 81 80 Respiratory Rate Blood Pressure O2 Sat by Pulse Oximetry 03/11/24 17:01 Temperature Pulse Rate 83 Respiratory 20 Rate Blood Pressure 125/45 O2 Sat by Pulse 96 Oximetry Chest Pain MDM - MDM Was pt. sent in by a medical professional or institution (, PA, CIRCUIT BOARD ASSEMBLER, urgent care, hospital, or detention...) When possible be specific @ -No Spoke w/ pt's Did you review nursing and triage notes (agree or disagree)? Why? @ -I reviewed and agree with nursing and triage notes Were old charts reviewed (outside hosp., previous admission, EMS record, old EKG, old radiological studies, urgent care reports/EKG's, detention records)? Report findings @ -Reviewed discharge summary from 11/26/2023 when patient was admitted to the hospital for a femoral neck fracture Differential Diagnosis (chest pain, altered mental status, abdominal pain women, abdominal pain men, vaginal bleeding, weakness, fever, dyspnea, syncope, headache, dizziness, GI bleed, back pain, seizure, CVA, palpatations, mental health, musculoskeletal)? @ -Differential Chest Pain: Stable Angina, Unstable Angina, STEMI, NSTEMI pericarditis, pleurisy, chostochondirits, Pneumothorax, Musculoskeletal, Esophageal Spasm GERD, Cholecystitis, Pancreatitis, Zoster, this is not meant to be an all-inclusive list. EKG interpreted by me (3pts min.). @ -As above X-rays interpreted by me (1pt min.). @ -No acute process CT interpreted by me (1pt min.). @ -None done U/S interpreted by me (1pt. min.). @ -None done What testing was considered but not performed or refused? (CT, X-rays, U/S, labs)? Why? @ -None What meds were considered but not given or refused? Why? @ -Considered administering aspirin however patient has allergy to aspirin so Plavix was ordered instead, additionally considered sublingual nitroglycerin however patient on borderline blood pressures so this was deferred Did you discuss the management of the patient with other professionals (professionals i.e. , PA, CIRCUIT BOARD ASSEMBLER, lab, RT, psych nurse, social services coordinator, cooling pipe inspector, teacher, military source operations officer, case management coordinator)? Give summary @ -I did discuss patient with Dr. Thompson, seat mender, who kindly reviewed case and EKG with myself. Suspects some of pt's EKG findings 2/2 EKG machine malfunction, not consistent with STEMI, agrees with plan for plavix, ASA, order high dose statin, heparin and admit. Was smoking cessation discussed for >3mins.? @ -No Was critical care preformed (if so, how long)? @ Yes 45 minutes Were there social determinants of health that impacted care today? How? (Homelessness, low income, unemployed, alcoholism, drug addiction, transportation, low edu. Level, literacy, decrease access to med. care, detention, rehab)? @ -No Was there de-escalation of care discussed even if they declined (Discuss DNR or withdrawal of care, Hospice)? @ -No What co-morbidities impacted this encounter? (DM, HTN, Smoking, COPD, CAD, Cancer, CVA, ARF, Chemo, Hep., AIDS, mental health diagnosis, sleep apnea, morbid obesity)? @ -Smoking, HLD Was patient admitted / discharged? Hospital course, mention meds given and route, prescriptions, significant lab abnormalities, going to OR and other pertinent info. @ -Hospital course Patient is an 83-year-old female the past medical history of current smoking, hyperlipidemia presenting today for chest pain. No prior history of NE. On my assessment patient is chronically ill-appearing and painful appearing but in no acute distress. Rales throughout lung guerrero, R>L , no wheezes, no LE edema. Plan for ACS workup in addition we will provide with 2 mg morphine, plavix, IV fluids. Lab significant for leukocytosis with white blood cell count 14.5, otherwise troponin within normal limits. Remaining labs and imaging reviewed. Grossly within normal limits. Abnormal values not concerning for acute pathology related to presenting complaint. On my reassessment patient remained painful status post 2 mg morphine, will order additional morphine as well as Tylenol. I did consider giving sublingual nitroglycerin however patient has had consistently lower blood pressures with systolic pressures between 100 and 110.. Ordered repeat EKG to assess for any dynamic changes due continued chest pain. I anticipate admission for chest pain. Repeat EKG did appear to show some possible changes from original though no clear STEMI. Discussed with Dr. Thompson, discussion as above. Updated pateint and to results and plan of care. Patient agreeable with admission. Discussed with PEGGY Lubin with [facility]. Accepts for admission. Patient admitted in stable condition. Undiagnosed new problem with uncertain prognosis? @ -Yes Drug Therapy requiring intensive monitoring for toxicity (Heparin, Nitro, Insulin, Cardizem)? @ -heparin Were any procedures done? @ -No Diagnosis/symptom? @ NSTEMI Acute, or Chronic, or Acute on Chronic? @ Acute Uncomplicated (without systemic symptoms) or Complicated (systemic symptoms)? @ -Complicated Side effects of treatment? @ -No Exacerbation, Progression, or Severe Exacerbation? @ -No Poses a threat to life or bodily function? How? (Chest pain, [place], NE, pneumonia, PE, COPD, DKA, ARF, appy, cholecystitis, CVA, Diverticulitis, Homicidal, Suicidal, threat to staff... and all critical care pts) @ -Yes Disposition Clinical Impression: Acute non-ST elevation myocardial infarction (NSTEMI) Disposition: ADMITTED IP TO THIS HOSP Condition: Stable
--- NOTE | 2024-03-10 22:44 | XR ---
EXAMINATION TYPE: XR chest 2V DATE OF EXAM: 03/10/2024 COMPARISON: Chest CT November 29, 2023 HISTORY: Chest pain TECHNIQUE: Frontal and lateral views of the chest are obtained. FINDINGS: There is chronic parenchymal fibrosis redemonstrated with right-sided volume loss. No new suspicious focal airspace opacity. The cardiac silhouette size remains within normal limits. The os seous structures are intact. IMPRESSION: Chronic parenchymal fibrosis without acute pulmonary process. [facility], , 03/10/2024 10:42 PM
[2024-03-10 22:54] LABS: Basophils # (A) 0.1 k/uL (0-0.2); Basophils % (A) 0 %; Eosinophils # (A) 0.5 k/uL (0-0.7); Eosinophils % (A) 3 %; HCT 38.8 % (34.0-46.0); HGB 12.2 gm/dL (11.4-16.0); Hypochromasia Moderate; Lymphocytes # (A) 1.4 k/uL (1.0-4.8); Lymphocytes % (A) 10 %; MCH 28.6 pg (25.0-35.0); MCHC 31.4 g/dL (31.0-37.0); MCV 91.1 fL (80.0-100.0); Mean Platelet Volume 8.2; Monocytes # (A) 0.8 k/uL (0-1.0); Monocytes % (A) 5 %; Neutrophils # (A) 11.7 k/uL (1.3-7.7); Neutrophils % (A) 81 %; Platelet Count 295 k/uL (150-450); RBC 4.26 m/uL (3.80-5.40); RDW 13.2 % (11.5-15.5); WBC 14.5 k/uL (3.8-10.6)
[2024-03-10] MEDS: ONDANSETRON 4 MG/2 ML VIAL IVP STA (22:54)
[2024-03-10] MEDS: MORPHINE SULFATE 2 MG/ML SYRINGE IVP STA (22:58)
[2024-03-10] MEDS: SODIUM CHLORIDE 0.9% 500 ML 500 ML IV STA (23:02)
[2024-03-10 23:09] LABS: ALT 14 U/L (4-34); AST 27 U/L (14-36); African American GFR (CKD) >90 (>60 ml/min/1.73 sqM); Alkaline Phosphatase 107 U/L (38-126); Anion Gap 4 mmol/L; Blood Urea Nitrogen 16 mg/dL (7-17); Calcium 9.4 mg/dL (8.4-10.2); Carbon Dioxide 27 mmol/L (22-30); Chloride 105 mmol/L (98-107); Glucose 115 mg/dL (74-99); INR 0.9 (<1.2); Lipase 69 U/L (23-300); Magnesium 1.8 mg/dL (1.6-2.3); Non-African American GFR(CKD) >90 (>60 ml/min/1.73 sqM); Partial Thromboplastin Time 23.9 sec (22.0-30.0); Prothrombin Time 10.2 sec (10.0-12.5); Sodium 136 mmol/L (137-145); Total Bilirubin 0.6 mg/dL (0.2-1.3)
[2024-03-10 23:17] LABS: NT-Pro-B-Type Natriuretic Pept 219 pg/mL
[2024-03-10] MEDS: IPRATROPIUM-ALBUTEROL 3 ML NEB INHALATION STA (23:20)
[2024-03-11] MEDS ORDERED: ACETAMINOPHEN TAB 325 MG TAB PO PRN (00:15)
[2024-03-11] MEDS ORDERED: MORPHINE SULFATE 4 MG/ML SYRINGE IV PRN (00:15)
[2024-03-11] MEDS: MORPHINE SULFATE 2 MG/ML SYRINGE IVP STA ×2 (00:17→00:20)
[2024-03-11] MEDS: ONDANSETRON 4 MG/2 ML VIAL IVP STA (00:18)
[2024-03-11] MEDS: HEPARIN SOD,PORK IN 0.45% NACL 25,000 UNIT in 0.45% NACL 1 250ML.BAG IV SCH (00:28)
[2024-03-11] MEDS: HEPARIN SODIUM 1,000 UN/ML (10ML VL) IV ONE (00:28)
[2024-03-11] MEDS: CLOPIDOGREL 75 MG TAB PO STA (01:12)
[2024-03-11] MEDS: ACETAMINOPHEN TAB 500 MG TAB PO STA (01:12)
[2024-03-11] MEDS: MAGNESIUM SULFATE-D5W PMX 1 GM in DEXTROSE/WATER 1 100ML.BAG IVPB SCH (02:02)
[2024-03-11] MEDS: ONDANSETRON 4 MG TAB PO STA (04:07)
[2024-03-11] MEDS: IPRATROPIUM-ALBUTEROL 3 ML NEB INHALATION SCH (09:32)
[2024-03-11] MEDS: ONDANSETRON 4 MG/2 ML VIAL IVP PRN (10:19)
[2024-03-11] MEDS: ATORVASTATIN 80 MG TAB PO SCH (10:20)
[2024-03-11] MEDS: CLOPIDOGREL 75 MG TAB PO SCH (10:20)
[2024-03-11] MEDS: guaiFENesin 600 MG TABLET.ER PO SCH (10:20)
--- NOTE | 2024-03-11 13:12 | P.CRDCN ---
History of Present Illness Consult date: 03/11/24 Consult reason: chest pain History of present illness: The patient is an 83-year-old female who presented to the emergency department with new onset chest pressure. The patient states she started with a headache yesterday and this pain radiated down her neck and into her chest. She states this pain is worse with inspiration. Cardiology has been consulted for abnormal EKG as she was noted to have T wave inversions in V2. Unfortunately due to computer malfunction, no baseline EKGs are available for reference. DIAGNOSTICS: EKG shows sinus rhythm with T wave inversions in lead V2 Chest x-ray shows chronic pulmonary fibrosis without acute process Echocardiogram from November 2023 showed preserved LV function Lab data: WBC 14.5, hemoglobin 12.2, hematocrit 38.8, platelet 295, sodium 136, potassium 4.0, BUN 16, creatinine 0.51, troponins negative x 3, AST 27, ALT 14, BNP 219 REVIEW OF SYSTEMS: No fever or chills. No cough or expectoration. No diaphoresis. Patient denies dizziness, blurred vision, double vision. Patient denies any stomach discomfort. No nausea, vomiting. No hematochezia. No hematemesis. Denies any black stools or blood in his stools. Denies dysuria or hematuria. No muscle weakness or numbness. Positive for chest discomfort with deep inspiration. Positive for headache. PHYSICAL EXAMINATION: This is a 89-year-old female in no apparent distress at the time of my examination. HEENT: Head is atraumatic, normocephalic. Pupils are equal, round. There is no jugular venous distention. No carotid bruit is heard. CHEST EXAMINATION: Lungs are coarse to auscultation. No chest wall tenderness is noted on palpation. Bilateral rhonchi, worse on the right HEART EXAMINATION: Heart regular rate and rhythm. S1, S2 heard. No murmurs, gallops or rub. ABDOMEN: Soft, nontender. Bowel sounds are heard. No organomegaly noted. EXTREMITIES: 2+ peripheral pulses with no evidence of peripheral edema and no calf tenderness noted. NEUROLOGIC EXAMINATION: Patient is awake, alert and oriented x3. FINAL ASSESSMENT AND PLAN: Chest discomfort Abnormal EKG History of advanced COPD on home oxygen PLAN: Check D-dimer, TSH, and lipid profile Repeat echocardiogram with abnormal EKG Recommend CT scan of the chest if D-dimer is abnormal Further recommendations to be based upon clinical course I am dictating on behalf of Dr Xander Vega's history/physical and assessment/plan. Past Medical History Past Medical History: GERD/Reflux, Hyperlipidemia, Pneumonia, Respiratory Disorder Additional Past Medical History / Comment(s): Emphysema, shingles in right ear History of Any Multi-Drug Resistant Organisms: None Reported Past Surgical History: Appendectomy, Cholecystectomy, Hysterectomy Additional Past Surgical History / Comment(s): emphesema Past Anesthesia/Blood Transfusion Reactions: No Reported Reaction Past Psychological History: Depression Smoking Status: Current every day smoker Past Alcohol Use History: None Reported Past Drug Use History: None Reported - Past Family History Mother Additional Family Medical History / Comment(s): " AFTER GALLBLADDER TONY" Sister(s) Family Medical History: Cancer Additional Family Medical History / Comment(s): One sister with brain cancer, another with throat cancer. Brother(s) Family Medical History: Cancer Additional Family Medical History / Comment(s): lung cancer Medications and Allergies Home Medications Medication Instructions Recorded Confirmed Type Atorvastatin [Lipitor] 40 mg PO DAILY 09/18/14 03/11/24 History Esomeprazole Magnesium [NexIUM] 40 mg PO DAILY 09/18/14 03/11/24 History Ipratropium-Albuterol Nebulize 3 ml INHALATION RT-QID #1 04/02/19 03/11/24 Rx [Duoneb 0.5 mg-3 mg/3 ml Soln] Fluticasone/Umeclidin/Vilanter 1 puff INHALATION RT-DAILY 11/23/23 03/11/24 History [Britt Ellipta 200-62.5-25] Ipratropium/Albuterol Sulfate 1 puff INHALATION RT-QID PRN 11/23/23 03/11/24 History [Combivent Respimat Inhaler] Sertraline [Zoloft] 50 mg PO DAILY 11/23/23 03/11/24 History LORazepam [Ativan] 0.5 mg PO BID PRN 03/11/24 03/11/24 History Allergies Allergy/AdvReac Type Severity Reaction Status Date / Time aspirin Allergy Nausea & Verified 11/23/23 17:55 Vomiting codeine Allergy Unknown Verified 11/23/23 17:55 meperidine HCl [From Demerol] AdvReac Rapid Verified 11/23/23 17:55 Heart Rate Physical Exam Vitals: Vital Signs Temp Pulse Resp BP Pulse Ox 03/11/24 08:00 86 18 119/86 98 03/11/24 06:00 81 18 119/63 96 03/11/24 04:00 85 20 116/61 96 03/11/24 01:14 96 20 114/61 97 03/11/24 00:36 85 18 104/58 97 03/10/24 23:26 75 20 03/10/24 23:20 74 20 03/10/24 22:07 97.0 F L 78 18 108/47 93 L Intake and Output 03/10/24 03/11/24 03/11/24 22:59 06:59 14:59 Other: Weight 47.627 kg Results 03/10/24 22:13 03/10/24 22:13 Cardiac Enzymes 03/10/24 03/10/24 03/11/24 Range/Units 22:13 22:13 00:15 AST 27 (14-36) U/L Troponin I <0.012 <0.012 (0.000-0.034) ng/mL 03/11/24 Range/Units 05:43 AST (14-36) U/L Troponin I <0.012 (0.000-0.034) ng/mL Coagulation 03/10/24 03/11/24 Range/Units 22:13 07:30 PT 10.2 (10.0-12.5) sec APTT 23.9 31.7 H (22.0-30.0) sec CBC 03/10/24 Range/Units 22:13 WBC 14.5 H (3.8-10.6) k/uL RBC 4.26 (3.80-5.40) m/uL Hgb 12.2 (11.4-16.0) gm/dL Hct 38.8 (34.0-46.0) % Plt Count 295 (150-450) k/uL Comprehensive Metabolic Panel 03/10/24 Range/Units 22:13 Sodium 136 L (137-145) mmol/L Potassium 4.0 (3.5-5.1) mmol/L Chloride 105 (98-107) mmol/L Carbon Dioxide 27 (22-30) mmol/L BUN 16 (7-17) mg/dL Creatinine 0.51 L (0.52-1.04) mg/dL Glucose 115 H (74-99) mg/dL Calcium 9.4 (8.4-10.2) mg/dL AST 27 (14-36) U/L ALT 14 (4-34) U/L Alkaline Phosphatase 107 (38-126) U/L Total Protein 7.0 (6.3-8.2) g/dL Albumin 4.0 (3.5-5.0) g/dL Current Medications Generic Name Dose Route Start Last Admin Trade Name Freq PRN Reason Stop Dose Admin Acetaminophen 650 mg 03/11/24 00:15 Acetaminophen Tab 325 Mg Tab PO Q4HR PRN Pain Atorvastatin Calcium 80 mg 03/11/24 09:00 Atorvastatin 80 Mg Tab PO DAILY MARC Clopidogrel Bisulfate 75 mg 03/11/24 09:00 Clopidogrel 75 Mg Tab PO DAILY MARC Heparin Sodium/Sodium Chloride 250 mls @ 5.715 mls/hr 03/11/24 00:15 03/11/24 00:28 25,000 unit/ Sodium Chloride IV 12 units/kg/hr .Q24H MARC 5.715 mls/hr Administration Protocol 12 UNITS/KG/HR Morphine Sulfate 4 mg 03/11/24 00:15 Morphine Sulfate 4 Mg/Ml Syringe IV Q5M PRN Chest Pain Nitroglycerin 0.4 mg 03/11/24 00:15 Nitroglycerin Sl Tabs 0.4 Mg Tab SUBLINGUAL Q5M PRN Chest Pain Intake and Output 03/10/24 03/11/24 03/11/24 22:59 06:59 14:59 Other: Weight 47.627 kg 03/10/24 22:13 03/10/24 22:13
[2024-03-11 13:32] LABS: Mean Platelet Volume 8.2; Platelet Count 283 k/uL (150-450)
--- NOTE | 2024-03-11 13:38 | CT ---
CTA CHEST EXAMINATION TYPE: CT angio chest DATE OF EXAM: 03/11/2024 INDICATION: CT DLP: mGycm, Automated exposure control for dose reduction was used. CONTRAST: Patient injected with mL of . COMPARISON: TECHNIQUE: CT of the chest is performed on a spiral scan at 2 mm thick sections. Study is performed with intravenous contrast timed for evaluation for pulmonary embolism. This will limit additional po rtions of the evaluation. 3-D MIP images reconstructed by the technologist are reviewed on the compu ter in the coronal and sagittal planes. FINDINGS: No persistent filling defects are evident to suggest an acute pulmonary embolism. No mediastinal or hilar adenopathy enlarged by CT criteria is evident. The ascending aorta diameter at the level of the main pulmonary artery is 2.8 cm. The main pulmonary artery diameter at the bifurcation is 2.7 cm. Small pericardial effusion. Coronary artery calcifica tions likely present. Bilateral apical thickening is present. There is consolidation in the right upper lobe and underlying neoplasm is not excluded. Follow-up is recommended. Additional infiltrate is no soft tissue recess, right hilar region, right middle lobe. There may be some bronchiectasis within the right middle lobe. Limited CT sections were through the upper abdomen. Upper abdomen appears unremarkable. IMPRESSION: 1. No acute pulmonary was. 2. Consolidation and density within the right apex with milder infiltrate in the right middle lobe an d Azygoesophageal recess. Correlate for pneumonia. Underlying mass is not excluded and follow-up is recommended [facility], , 03/11/2024 1:35 PM
--- NOTE | 2024-03-11 13:52 | P.HPIM ---
History of Present Illness H&P Date: 03/11/24 History of present illness: This is a 83-year-old female who presented to ER with a complaint of chest pressure. Patient stated that she had a headache yesterday, then started to have upper chest pressure, radiating to neck and head. Patient reported that chest pain was worse with inspiration, no change with movements, complain of shortness of breath. Complained of chronic cough now more productive and worse., denied any fever, reported chills. Patient is afebrile, heart rate 78, respiratory rate 18, saturating 96% on 2 L, blood pressure 119/86. WBCs 14.5, hemoglobin 12.2, platelet 295. INR 0.9. D- dimer 1.18. Sodium 136, potassium 4.0, BUN 16, creatinine 0.51. Troponin negative X.3. EKG showed T wave inversion in lead V2. Chest x-ray showed COPD without acute process Previous echocardiogram November 2023 showed preserved LV function. REVIEW OF SYSTEMS: CONSTITUTIONAL: No fever, complains of malaise and fatigue. HEENT: No recent visual problems or hearing problems. Denied any sore throat. CARDIOVASCULAR: No chest pain, orthopnea, PND, no palpitatio complaints of chest pain, declined any palpitation. PULMONARY: Planes of shortness of breath, productive cough GASTROINTESTINAL: No diarrhea, no nausea, no vomiting, no abdominal pain. NEUROLOGICAL: No headaches, no weakness, no numbness. HEMATOLOGICAL: Denies any bleeding or petechiae. GENITOURINARY: Denies any burning micturition, frequency, or urgency. MUSCULOSKELETAL/RHEUMATOLOGICAL: Denies any joint pain, swelling, or any muscle pain. ENDOCRINE: Denies any polyuria or polydipsia. The rest of the 14-point review of systems is negative. PHYSICAL EXAMINATION: GENERAL: The patient is A&O x3, NAD HEENT: EOMI, Sclerae anicteric, Moist Mucous membranes Neck: Supple, Non tender, No JVD PULMONARY: Decreased breath sound bilaterally, positive crackles. CARDIOVASCULAR: S1, S2 present. No murmurs, rubs, or gallops. ABDOMEN: Soft, nontender, nondistended, normoactive bowel sounds. No guarding or rebound tenderness. MUSCULOSKELETAL: No edema, No cyanosis. No clubbing. Normal ROM. Intact peripheral pulses. EXTREMITIES: No cyanosis, clubbing, or pedal edema. NEUROLOGICAL: CN 2-12 grossly intact. No FND Assessment and plan: Chest pain: Abnormal EKG: Presented with chest pressure Troponin negative. EKG showed T wave inversion lead V2. Repeat echocardiogram Continue Plavix, allergic to aspirin, continue statin As needed sublingual nitroglycerin, as needed morphine Heparin drip Cardiology consulted. Acute COPD exacerbation: Advanced COPD: On 2 L oxygen at baseline, patient reported using only nightly. Patient has history of COPD, complaining of increased productive cough Continue inhaler/bronchodilator protocol Solu-Medrol Mucinex Doxycycline Pulmonary consult elevated D-dimer, CT chest PE protocol ordered. Current smoker: Counseling to quit smoking DVT prophylaxis On heparin drip. Monitor vital signs and labs Labs and medication were reviewed. Continue same treatment. Further recommendations as per clinical course of the patient Dictation was produced using [employer] dictation software. please excuse any grammatical, word or spelling errors. Past Medical History Past Medical History: GERD/Reflux, Hyperlipidemia, Pneumonia, Respiratory Disorder Additional Past Medical History / Comment(s): Emphysema, shingles in right ear History of Any Multi-Drug Resistant Organisms: None Reported Past Surgical History: Appendectomy, Cholecystectomy, Hysterectomy Additional Past Surgical History / Comment(s): emphesema Past Anesthesia/Blood Transfusion Reactions: No Reported Reaction Past Psychological History: Depression Smoking Status: Current every day smoker Past Alcohol Use History: None Reported Past Drug Use History: None Reported - Past Family History Mother Additional Family Medical History / Comment(s): " AFTER GALLBLADDER TONY" Sister(s) Family Medical History: Cancer Additional Family Medical History / Comment(s): One sister with brain cancer, another with throat cancer. Brother(s) Family Medical History: Cancer Additional Family Medical History / Comment(s): lung cancer Medications and Allergies Home Medications Medication Instructions Recorded Confirmed Type Atorvastatin [Lipitor] 40 mg PO DAILY 09/18/14 03/11/24 History Esomeprazole Magnesium [NexIUM] 40 mg PO DAILY 09/18/14 03/11/24 History Ipratropium-Albuterol Nebulize 3 ml INHALATION RT-QID #1 04/02/19 03/11/24 Rx [Duoneb 0.5 mg-3 mg/3 ml Soln] Fluticasone/Umeclidin/Vilanter 1 puff INHALATION RT-DAILY 11/23/23 03/11/24 History [Trelegy Ellipta 200-62.5-25] Ipratropium/Albuterol Sulfate 1 puff INHALATION RT-QID PRN 11/23/23 03/11/24 History [Combivent Respimat Inhaler] Sertraline [Zoloft] 50 mg PO DAILY 11/23/23 03/11/24 History LORazepam [Ativan] 0.5 mg PO BID PRN 03/11/24 03/11/24 History Allergies Allergy/AdvReac Type Severity Reaction Status Date / Time aspirin Allergy Nausea & Verified 11/23/23 17:55 Vomiting codeine Allergy Unknown Verified 11/23/23 17:55 meperidine HCl [From Demerol] AdvReac Rapid Verified 11/23/23 17:55 Heart Rate Physical Exam Vitals: Vital Signs Temp Pulse Resp BP Pulse Ox 03/11/24 12:16 88 03/11/24 12:05 86 03/11/24 10:22 88 22 106/54 99 03/11/24 09:43 86 03/11/24 09:32 86 03/11/24 08:00 86 18 119/86 98 03/11/24 06:00 81 18 119/63 96 03/11/24 04:00 85 20 116/61 96 03/11/24 01:14 96 20 114/61 97 03/11/24 00:36 85 18 104/58 97 03/10/24 23:26 75 20 03/10/24 23:20 74 20 03/10/24 22:07 97.0 F L 78 18 108/47 93 L Intake and Output 03/10/24 03/11/24 03/11/24 22:59 06:59 14:59 Other: Weight 47.627 kg Results CBC & Chem 7: 03/11/24 13:20 03/10/24 22:13 Labs: Abnormal Lab Results - Last 24 Hours (Table) 03/10/24 03/10/24 03/11/24 Range/Units 22:13 22:13 07:30 WBC 14.5 H (3.8-10.6) k/uL Neutrophils # 11.7 H (1.3-7.7) k/uL APTT 31.7 H (22.0-30.0) sec D-Dimer (<0.60) mg/L FEU Sodium 136 L (137-145) mmol/L Creatinine 0.51 L (0.52-1.04) mg/dL Glucose 115 H (74-99) mg/dL 03/11/24 Range/Units 07:30 WBC (3.8-10.6) k/uL Neutrophils # (1.3-7.7) k/uL APTT (22.0-30.0) sec D-Dimer 1.18 H (<0.60) mg/L FEU Sodium (137-145) mmol/L Creatinine (0.52-1.04) mg/dL Glucose (74-99) mg/dL
[2024-03-11] MEDS: methylPREDNISolone SOD SUCCI 40 MG/ML 1 ML VIAL IV SCH (14:13)
[2024-03-11] MEDS: DOXYCYCLINE 100 MG CAP PO SCH (14:13)
[2024-03-11 20:13] LABS: Glucose,Whole Blood 116 mg/dL (70-110)
[2024-03-11] MEDS: SYMBICORT 80-4.5 MCG INHALER INHALATION SCH (20:15)
[2024-03-11 23:52] LABS: Chol/HDL Ratio 2.04 Ratio; LDL Cholesterol,Calculated 50.8 mg/dL (0.0-131.0); VLDL Calculation 12.92 mg/dL (5.00-40.00)
[2024-03-12 02:41] LABS: Basophils % (A) 0 %; Eosinophils % (A) 0 %; HCT 35.4 % (34.0-46.0); HGB 10.8 gm/dL (11.4-16.0); Hypochromasia Moderate; Lymphocytes # (A) 0.9 k/uL (1.0-4.8); Lymphocytes % (A) 8 %; MCHC 30.5 g/dL (31.0-37.0); Monocytes # (A) 0.5 k/uL (0-1.0); Monocytes % (A) 5 %; Neutrophils # (A) 9.8 k/uL (1.3-7.7); Neutrophils % (A) 86 %; Platelet Count 263 k/uL (150-450); RBC 3.85 m/uL (3.80-5.40); RDW 13.3 % (11.5-15.5); WBC 11.4 k/uL (3.8-10.6)
[2024-03-12 03:35] LABS: African American GFR (CKD) >90 (>60 ml/min/1.73 sqM); Anion Gap 5 mmol/L; Blood Urea Nitrogen 16 mg/dL (7-17); Calcium 9.3 mg/dL (8.4-10.2); Carbon Dioxide 28 mmol/L (22-30); Chloride 105 mmol/L (98-107); Glucose 138 mg/dL (74-99); Non-African American GFR(CKD) 87 (>60 ml/min/1.73 sqM); Potassium 4.5 mmol/L (3.5-5.1); Sodium 138 mmol/L (137-145)
[2024-03-12] MEDS: NITROGLYCERIN SL TABS 0.4 MG TAB SUBLINGUAL PRN (05:16)
[2024-03-12 06:12] LABS: Glucose,Whole Blood 117 mg/dL (70-110)
[2024-03-12] MEDS: INSULIN ASPART (NovoLOG) 100 UNIT/ML VIAL SQ SCH (06:20)
[2024-03-12] MEDS: NITROGLYCERIN OINT 1 INCH/GM PACKET TOPICAL SCH (06:21)
[2024-03-12 09:03] LABS: LDL Cholesterol,Calculated 46.8 mg/dL (0.0-131.0); VLDL Calculation 12.84 mg/dL (5.00-40.00)
[2024-03-12] MEDS: AZITHROMYCIN 500 MG in SODIUM CHLORIDE 0.9% 250 ML IVPB SCH (09:32)
[2024-03-12 11:38] LABS: Glucose,Whole Blood 129 mg/dL (70-110)
[2024-03-12] MEDS: ISOSORBIDE MONONITRATE ER 30 MG TAB.ER.24H PO SCH (11:46)
--- NOTE | 2024-03-12 12:52 | CA ---
Transthoracic Echo Report Name: Evelin Bonds Age: 83 Gender: F : 1940 Exam Date: 03/12/2024 08:54 Exam Location: [facility] Ht (in): 66 Wt (lb): 105 Ordering Physician: Kecia Urrutia Attending/Referring Phys: [id number], Renan [employer]adiene Converter Operator Harika Kingston RDCS Procedure CPT: Indications: abnormal ekg, chest pain Cardiac Hx: Technical Quality: Fair Contrast 1: Total Dose (mL): Contrast 2: Total Dose (mL): MEASUREMENTS (Male / Female) Normal Values 2D ECHO LV Diastolic Diameter PLAX 4.1 cm 4.2 - 5.9 / 3.9 - 5.3 cm LV Systolic Diameter PLAX 2.7 cm IVS Diastolic Thickness 1.0 cm 0.6 - 1.0 / 0.6 - 0.9 cm LVPW Diastolic Thickness 0.9 cm 0.6 - 1.0 / 0.6 - 0.9 cm LV Relative Wall Thickness 0.5 RV Internal Dim ED PLAX 2.3 cm LA Systolic Diameter LX 3.3 cm 3.0 - 4.0 / 2.7 - 3.8 cm LV Diastolic Volume MOD 4C 69.5 cm??? LV Systolic Volume MOD 4C 25.8 cm??? LV Ejection Fraction MOD 4C 62.9 % LV Cardiac Index MOD 4C 2549.1 cm???/min???m??? LV Diastolic Length 4C 8.0 cm LV Systolic Length 4C 6.6 cm LV Diastolic Volume MOD 2C 83.4 cm??? LV Systolic Volume MOD 2C 27.3 cm??? LV Ejection Fraction MOD 2C 67.3 % LV Cardiac Index MOD 2C 3273.4 cm???/min???m??? LV Diastolic Length 2C 7.8 cm LV Systolic Length 2C 6.5 cm M-MODE Aortic Root Diameter MM 3.0 cm AV Cusp Separation MM 1.5 cm DOPPLER AV Peak Velocity 179.9 cm/s AV Peak Gradient 12.9 mmHg Mitral E Point Velocity 100.4 cm/s Mitral A Point Velocity 134.4 cm/s Mitral E to A Ratio 0.7 MV Deceleration Time 344.5 ms MV E' Velocity 5.4 cm/s Mitral E to MV E' Ratio 18.4 TR Peak Velocity 332.9 cm/s TR Peak Gradient 44.3 mmHg Right Ventricular Systolic Press 54.3 mmHg FINDINGS Left Ventricle Left ventricular ejection fraction is estimated at 55-60 %. Left ventricular cavity size normal. Mildly increased septal wall thickness. No obvious regional wall motion abnormalities. Right Ventricle Normal right ventricular size and function. Moderate to severe pulmonary hypertension. Right ventricular systolic pressure estimated at 54 mm hg. Right Atrium Normal right atrial size. No right atrial thrombus or mass seen. Left Atrium Normal left atrial size. No left atrial thrombus or mass present. Mitral Valve Structurally normal mitral valve. No mitral stenosis, regurgitation or prolapse. Aortic Valve Trileaflet aortic valve. No aortic valve stenosis or regurgitation. Tricuspid Valve Structurally normal tricuspid valve. Ibil-[id number] tricuspid regurgitation. Pulmonic Valve Pulmonic valve not well visualized. No pulmonic regurgitation. Pericardium No pericardial or pleural effusion. Aorta Normal size aortic root and proximal ascending aorta. CONCLUSIONS Normal biventricular systolic function. Mild LVH Severe pulmonary hypertension Mild to moderate mitral regurgitation Previewed by: Dr. Reji Encinas MD (Electronically Signed) Final Date: 12 March 2024 12:51
--- NOTE | 2024-03-12 13:49 | P.PN ---
Subjective Progress Note Date: 03/12/24 This is an 83-year-old female, who recently completed a Z-Jose and Medrol Dosepak in first week of February outpatient, presented with teeth pain initially radiating down to her anterior neck with further radiation down to the mid chest. Troponins were negative x 3., Evaluated by cardiology, echo ordered. D-dimer elevated, CTA reported no acute pulmonary embolism, consolidation and density within right apex with milder infiltrate in the right middle lobe and is a ago esophageal recess, underlying mass not excluded. No mediastinal or hilar adenopathy. Continues on ceftriaxone, WBC decreased to 11.4, afebrile. Denies chest pain, palpitations or increase in shortness of breath. Denies cough but reports spitting up increased phlegm. maintaining O2 sats in the low 90s on 2 L nasal cannula. Objective - Vital Signs Vital signs: Vital Signs Temp 98.3 F 03/12/24 09:25 Pulse 88 03/12/24 11:56 Resp 17 03/12/24 11:56 BP 113/53 03/12/24 11:56 Pulse Ox 100 03/12/24 11:56 FiO2 Intake & Output 03/11/24 03/12/24 03/12/24 18:59 06:59 18:59 Intake Total 88.392 54.505 Output Total 150 300 Balance -61.608 -245.495 Weight 47.627 kg 50.3 kg Intake: IV 10 0.9 10 Intake, IV Titration 88.392 44.505 Amount Heparin Sod,Pork in 0.45% 88.392 44.505 NaCl 25,000 unit In 0.45 % NaCl 1 250ml.bag @ 12 UNITS/KG/HR 5.715 mls/hr IV .Q24H [facility] Rx#: [id number] Output: Urine 150 300 Other: Voiding Method External Catheter External Catheter External Catheter # Voids 1 1 - Exam VITAL SIGNS: As above GENERAL: Pleasant, alert and oriented x 3, sitting up in bed, no acute distress HEENT: Normal cephalic, atraumatic ,conjunctivae normal. eyes normal. MMM. NECK: Supple, no JVD. CARDIOVASCULAR: S1, S2 regular. No murmur RESPIRATION: Unlabored, equal air entry. Diminished, fine scattered crackles ABDOMEN: Soft, nontender . No guarding. no masses palpable. +BS. EXTR: no edema, cyanosis, no clubbing, positive DP pulse NERVOUS SYSTEM: Cranial N 2-12 grossly normal. No focal deficits Skin: Warm and dry, no rash - Labs CBC & Chem 7: 03/12/24 02:26 03/12/24 02:26 Labs: Abnormal Lab Results - Last 24 Hours (Table) 03/11/24 03/11/24 03/11/24 Range/Units 13:20 14:30 20:11 WBC (3.8-10.6) k/uL Hgb (11.4-16.0) gm/dL MCHC (31.0-37.0) g/dL Neutrophils # (1.3-7.7) k/uL Lymphocytes # (1.0-4.8) k/uL APTT >200.0 H* (22.0-30.0) sec Glucose (74-99) mg/dL POC Glucose (mg/dL) 116 H (70-110) mg/dL HDL Cholesterol 61.30 H (40.00-60.00) mg/dL 03/11/24 03/12/24 03/12/24 Range/Units 20:18 02:26 02:26 WBC 11.4 H (3.8-10.6) k/uL Hgb 10.8 L (11.4-16.0) gm/dL MCHC 30.5 L (31.0-37.0) g/dL Neutrophils # 9.8 H (1.3-7.7) k/uL Lymphocytes # 0.9 L (1.0-4.8) k/uL APTT 32.8 H (22.0-30.0) sec Glucose 138 H (74-99) mg/dL POC Glucose (mg/dL) (70-110) mg/dL HDL Cholesterol 66.40 H (40.00-60.00) mg/dL 03/12/24 03/12/24 03/12/24 Range/Units 02:26 06:11 11:12 WBC (3.8-10.6) k/uL Hgb (11.4-16.0) gm/dL MCHC (31.0-37.0) g/dL Neutrophils # (1.3-7.7) k/uL Lymphocytes # (1.0-4.8) k/uL APTT 35.9 H 30.8 H (22.0-30.0) sec Glucose (74-99) mg/dL POC Glucose (mg/dL) 117 H (70-110) mg/dL HDL Cholesterol (40.00-60.00) mg/dL 03/12/24 Range/Units 11:36 WBC (3.8-10.6) k/uL Hgb (11.4-16.0) gm/dL MCHC (31.0-37.0) g/dL Neutrophils # (1.3-7.7) k/uL Lymphocytes # (1.0-4.8) k/uL APTT (22.0-30.0) sec Glucose (74-99) mg/dL POC Glucose (mg/dL) 129 H (70-110) mg/dL HDL Cholesterol (40.00-60.00) mg/dL Assessment and Plan Assessment: -Teeth pain radiating down anterior neck to midsternal chest, abnormal EKG, ca rdiology following -Mid lobe right-sided pneumonia suggested per CTA -PE ruled out -Chronic hypoxic respiratory failure, wears O2 at home -Emphysema, severe COPD -Ongoing nicotine dependence -Chronic diastolic CHF -Gastroesophageal reflux disease -History of pneumonia -History of shingles -Depression, anxiety -Hypokalemia -Hypomagnesemia Plan: Continue on current medication regimen ,monitoring and symptomatic treatment. Maintain IV antibiotics. Imdur ordered, echo pending. PT/OT consulted. The impression and plan of care has been dictated as directed. : I performed a history and examination of this patient, discussed the same with the dictator. I agree with the dictator's note ,documented as a scribe. Any additional findings or plans will be noted.
--- NOTE | 2024-03-12 14:10 | P.PN ---
Subjective Progress Note Date: 03/12/24 History of present illness: The patient is an 83-year-old female who presented to the emergency department with new onset chest pressure. The patient states she started with a headache yesterday and this pain radiated down her neck and into her chest. She states this pain is worse with inspiration. Cardiology has been consulted for abnormal EKG as she was noted to have T wave inversions in V2. Unfortunately due to computer malfunction, no baseline EKGs are available for reference. DIAGNOSTICS: EKG shows sinus rhythm with T wave inversions in lead V2 Chest x-ray shows chronic pulmonary fibrosis without acute process Echocardiogram from November 2023 showed preserved LV function Lab data: WBC 14.5, hemoglobin 12.2, hematocrit 38.8, platelet 295, sodium 136, potassium 4.0, BUN 16, creatinine 0.51, troponins negative x 3, AST 27, ALT 14, BNP 219 03/12 Patient states that she has chest pain with deep breathing but none at this time. Her breathing is stable. She does have sputum production. She is on IV antibiotics for pneumonia. Patient is an active smoker and has home oxygen therapy. Blood pressure 118/57, heart rate 94, pulse ox 91% on 2 L nasal cannula. Repeat blood work reveals normal electrolytes, creatinine 0.57. Triglycerides 64, cholesterol 126, LDL 46, HDL 66. D-dimer 1.18. TSH 1.18 Echocardiogram reveals EF of 55 to 60%, mild LVH, severe pulmonary hypertension, mild to moderate mitral regurgitation. PHYSICAL EXAMINATION: This is a 89-year-old female in no apparent distress at the time of my examination. HEENT: Head is atraumatic, normocephalic. Pupils are equal, round. There is no jugular venous distention. No carotid bruit is heard. CHEST EXAMINATION: Lungs are coarse to auscultation. No chest wall tenderness is noted on palpation. Bilateral rhonchi, worse on the right HEART EXAMINATION: Heart regular rate and rhythm. S1, S2 heard. No murmurs, gallops or rub. ABDOMEN: Soft, nontender. Bowel sounds are heard. No organomegaly noted. EXTREMITIES: 2+ peripheral pulses with no evidence of peripheral edema and no calf tenderness noted. NEUROLOGIC EXAMINATION: Patient is awake, alert and oriented x3. FINAL ASSESSMENT AND PLAN: Chest discomfort Abnormal EKG History of advanced COPD on home oxygen Tobacco use and dependence Severe pulmonary hypertension Mild to moderate mitral regurgitation PLAN: Discontinue heparin drip Discontinue nitroglycerin Current cardiac medications: Lipitor 80 mg daily, Plavix 75 mg daily, Imdur 30 mg daily Smoking cessation. Patient will be provided the [place] quit line information at discharge. Further recommendations to be based upon clinical course Nurse practitioner note has been reviewed, I agree with documented findings and plan of care. Patient was seen and examined. Objective - Vital Signs Vital signs: Vital Signs Temp 97.8 F 03/12/24 04:00 Pulse 80 03/12/24 08:14 Resp 18 03/12/24 05:37 BP 100/50 03/12/24 06:22 Pulse Ox 95 03/12/24 08:01 FiO2 Intake & Output 03/11/24 03/12/24 03/12/24 18:59 06:59 18:59 Intake Total 88.392 54.505 Output Total 150 300 Balance -61.608 -245.495 Weight 47.627 kg 50.3 kg Intake: IV 10 0.9 10 Intake, IV Titration 88.392 44.505 Amount Heparin Sod,Pork in 0.45% 88.392 44.505 NaCl 25,000 unit In 0.45 % NaCl 1 250ml.bag @ 12 UNITS/KG/HR 5.715 mls/hr IV .Q24H [facility] Rx#: [id number] Output: Urine 150 300 Other: Voiding Method External Catheter External Catheter # Voids 1 1 - Labs CBC & Chem 7: 03/12/24 02:26 03/12/24 02:26 Labs: Abnormal Lab Results - Last 24 Hours (Table) 03/11/24 03/11/24 03/11/24 Range/Units 07:30 13:20 14:30 WBC (3.8-10.6) k/uL Hgb (11.4-16.0) gm/dL MCHC (31.0-37.0) g/dL Neutrophils # (1.3-7.7) k/uL Lymphocytes # (1.0-4.8) k/uL APTT >200.0 H* (22.0-30.0) sec D-Dimer 1.18 H (<0.60) mg/L FEU Glucose (74-99) mg/dL POC Glucose (mg/dL) (70-110) mg/dL HDL Cholesterol 61.30 H (40.00-60.00) mg/dL 03/11/24 03/11/24 03/12/24 Range/Units 20:11 20:18 02:26 WBC 11.4 H (3.8-10.6) k/uL Hgb 10.8 L (11.4-16.0) gm/dL MCHC 30.5 L (31.0-37.0) g/dL Neutrophils # 9.8 H (1.3-7.7) k/uL Lymphocytes # 0.9 L (1.0-4.8) k/uL APTT 32.8 H (22.0-30.0) sec D-Dimer (<0.60) mg/L FEU Glucose (74-99) mg/dL POC Glucose (mg/dL) 116 H (70-110) mg/dL HDL Cholesterol (40.00-60.00) mg/dL 03/12/24 03/12/24 03/12/24 Range/Units 02:26 02:26 06:11 WBC (3.8-10.6) k/uL Hgb (11.4-16.0) gm/dL MCHC (31.0-37.0) g/dL Neutrophils # (1.3-7.7) k/uL Lymphocytes # (1.0-4.8) k/uL APTT 35.9 H (22.0-30.0) sec D-Dimer (<0.60) mg/L FEU Glucose 138 H (74-99) mg/dL POC Glucose (mg/dL) 117 H (70-110) mg/dL HDL Cholesterol 66.40 H (40.00-60.00) mg/dL
[2024-03-12 15:21] VITALS: BMI 17.9
[2024-03-12] MEDS: DILTIAZEM 125 MG in SODIUM CHLORIDE 0.9% 100 ML IV SCH (16:19)
[2024-03-12] MEDS: DILTIAZEM DRIP BOLUS FROM BAG 1 MG SOLN IV ONE (16:19)
[2024-03-12] MEDS: HEPARIN SOD,PORK IN 0.45% NACL 25,000 UNIT in 0.45% NACL 1 250ML.BAG IV SCH (16:20)
[2024-03-12] MEDS: HEPARIN SODIUM 1,000 UN/ML (10ML VL) IV ONE (16:24)
[2024-03-12 16:37] LABS: Glucose,Whole Blood 141 mg/dL (70-110)
[2024-03-12 16:47] LABS: Basophils % (A) 0 %; Eosinophils % (A) 0 %; HCT 35.8 % (34.0-46.0); HGB 11.2 gm/dL (11.4-16.0); Hypochromasia Slight; Lymphocytes # (A) 0.6 k/uL (1.0-4.8); Lymphocytes % (A) 5 %; MCH 28.2 pg (25.0-35.0); MCHC 31.4 g/dL (31.0-37.0); Mean Platelet Volume 8.2; Monocytes # (A) 0.3 k/uL (0-1.0); Monocytes % (A) 2 %; Neutrophils # (A) 11.7 k/uL (1.3-7.7); Neutrophils % (A) 93 %; Platelet Count 298 k/uL (150-450); RBC 3.97 m/uL (3.80-5.40); RDW 13.3 % (11.5-15.5); WBC 12.6 k/uL (3.8-10.6)
[2024-03-12 16:54] LABS: INR 0.9 (<1.2); Partial Thromboplastin Time 27.6 sec (22.0-30.0); Prothrombin Time 10.5 sec (10.0-12.5)
--- NOTE | 2024-03-12 17:33 | P.CNPUL ---
History of Present Illness Consult date: 03/12/24 Reason for consult: dyspnea, chest pain, COPD History of present illness: Patient is a 83-year-old female patient is being seen for COPD and episode of chest pain that brought in this patient to the hospital. The patient is a chronic smoker patient is known to have COPD. She came into the ED complaining of chest pain which was a new onset and the pain was radiating to her neck. She is a poor historian. No significant relation to exertion or breathing. However, she was concerned) and she ended up coming into the hospital. For now, the patient's blood work shows a WBC count of 11.4 with a hemoglobin 10.8 and a platelet count of 263. Normal coagulation profile. Normal renal function. Normal electrolytes. Normal glucose. Her troponin I was negative. Her proBNP level was 219. The chest x-ray that was done in the emergency showed no acute cardiopulmonary process. Based on that, the patient was given a CT of the chest which I had a chance to review. There is no evidence of any pulmonary embolism. There is consolidation and density within the right apex and infiltration along the right middle lobe there is also some chronic bronchiectatic changes noted and there is evidence of subpleural nodularity bilaterally. No hemoptysis. No weight loss. Denies having any previous recurrent pneumonias. No history of tuberculosis. No history of any asbestos exposure. Echocardiogram that was done on this patient showed a preserved LV function with an ejection fraction of 55 to 60%. There is evidence of severe pulm hypertension and mild to moderate mitral regurgitation. The patient has been utilizing Trelegy Ellipta on outpatient basis regarding her COPD. She also has a DuoNeb nebulizer but [id number]. She also uses Combivent on 828 basis. Looking back to old CAT scan of the chest that was done on 11/30/2023, there are similar findings with parenchymal fibrotic changes right more than left more prominent along the right midlung area in addition to chronic nodular opacities more so the subpleural distribution. Background emphysema is also noted along with some bronchiectatic changes and some limited area of groundglass pulmonary infiltrates. As such, those findings are essentially chronic. Review of Systems Constitutional: Denies chills, Denies fever Eyes: denies as per HPI, denies blurred vision, denies bulging eye, denies decre ased vision, denies diplopia, denies discharge, denies dry eye, denies irritation, denies itching, denies pain, denies photophobia, denies loss of peripheral vision, denies loss of vision, denies tunnel vision/blind spots Ears: deny: decreased hearing, ear discharge, earache, tinnitus Ears, nose, mouth and throat: Reports as per HPI Breasts: absent: as per HPI, change in shape, gynecomastia, masses, nipple discharge, pain, skin changes, swelling Cardiovascular: Reports chest pain Respiratory: Reports cough, Reports home oxygen Gastrointestinal: Reports as per HPI, Reports nausea Genitourinary: Reports as per HPI Menstruation: Reports as per HPI Musculoskeletal: Reports as per HPI Musculoskeletal: absent: ankle pain, ankle stiffness, ankle swelling, as per HPI, elbow pain, elbow stiffness, elbow swelling, foot pain, foot stiffness, foot swelling, hand pain, hand stiffness, hand swelling, hip pain, hip stiffness, hip swelling, knee pain, knee stiffness, knee swelling, shoulder pain, shoulder stiffness, shoulder swelling, wrist pain, wrist stiffness, wrist swelling Integumentary: Reports as per HPI Neurological: Reports as per HPI Psychiatric: Reports as per HPI Endocrine: Reports as per HPI Hematologic/Lymphatic: Reports as per HPI Allergic/Immunologic: Reports as per HPI Past Medical History Past Medical History: COPD, GERD/Reflux, Hyperlipidemia, Pneumonia, Respiratory Disorder Additional Past Medical History / Comment(s): Emphysema she has home 02 and she has a home nebulizer, shingles in right ear History of Any Multi-Drug Resistant Organisms: None Reported Past Surgical History: Appendectomy, Cholecystectomy, Hysterectomy, Joint Replacement Additional Past Surgical History / Comment(s): right hib Past Anesthesia/Blood Transfusion Reactions: No Reported Reaction Past Psychological History: Depression Smoking Status: Current every day smoker Past Alcohol Use History: None Reported Additional Past Alcohol Use History / Comment(s): Pt started smoking in 1960 and is a ppd smoker. Past Drug Use History: None Reported - Past Family History Mother Additional Family Medical History / Comment(s): " AFTER GALLBLADDER TONY" Sister(s) Family Medical History: Cancer Additional Family Medical History / Comment(s): One sister with brain cancer, another with throat cancer. Brother(s) Family Medical History: Cancer Additional Family Medical History / Comment(s): lung cancer Medications and Allergies Home Medications Medication Instructions Recorded Confirmed Type Atorvastatin [Lipitor] 40 mg PO DAILY 09/18/14 03/11/24 History Esomeprazole Magnesium [NexIUM] 40 mg PO DAILY 09/18/14 03/11/24 History Ipratropium-Albuterol Nebulize 3 ml INHALATION RT-QID #1 04/02/19 03/11/24 Rx [Duoneb 0.5 mg-3 mg/3 ml Soln] Fluticasone/Umeclidin/Vilanter 1 puff INHALATION RT-DAILY 11/23/23 03/11/24 History [Trelegy Ellipta 200-62.5-25] Ipratropium/Albuterol Sulfate 1 puff INHALATION RT-QID PRN 11/23/23 03/11/24 History [Combivent Respimat Inhaler] Sertraline [Zoloft] 50 mg PO DAILY 11/23/23 03/11/24 History LORazepam [Ativan] 0.5 mg PO BID PRN 03/11/24 03/11/24 History Allergies Allergy/AdvReac Type Severity Reaction Status Date / Time aspirin Allergy Nausea & Verified 11/23/23 17:55 Vomiting codeine Allergy Unknown Verified 11/23/23 17:55 meperidine HCl [From Demerol] AdvReac Rapid Verified 11/23/23 17:55 Heart Rate Physical Exam Vitals: Vital Signs Temp Pulse Pulse Resp BP BP Pulse Ox 03/12/24 08:14 80 03/12/24 08:01 76 95 03/12/24 06:22 72 100/50 03/12/24 05:37 73 18 102/55 99 03/12/24 05:24 76 18 100/53 98 03/12/24 05:21 77 18 101/55 99 03/12/24 05:14 74 18 114/54 97 03/12/24 05:03 75 18 134/64 97 03/12/24 04:00 97.8 F 72 18 113/66 98 03/12/24 01:54 72 18 03/11/24 23:24 97.7 F 72 18 92/53 98 03/11/24 20:32 84 03/11/24 20:15 80 03/11/24 20:00 97.6 F 78 18 104/59 96 03/11/24 17:47 98.4 F 84 14 124/57 96 03/11/24 17:01 83 20 125/45 96 03/11/24 16:01 80 03/11/24 15:52 81 03/11/24 12:16 88 03/11/24 12:05 86 Intake and Output 03/11/24 03/12/24 03/12/24 22:59 06:59 14:59 Intake Total 98.607 44.29 Output Total 150 300 Balance -51.393 -255.71 Intake: IV 10 0.9 10 Intake, IV Titration 98.607 34.29 Amount Heparin Sod,Pork in 0.45% 98.607 34.29 NaCl 25,000 unit In 0.45 % NaCl 1 250ml.bag @ 12 UNITS/KG/HR 5.715 mls/hr IV .Q24H [facility] Rx#: [id number] Output: Urine 150 300 Other: Voiding Method External Catheter External Catheter # Voids 1 1 Weight 47.627 kg 50.3 kg GENERAL EXAM: Alert, pleasant 83-year-old female patient, comfortable in no apparent distress. On 2 L nasal cannula. HEAD: Normocephalic. EYES: Normal reaction of pupils, equal size. NOSE: Clear with pink turbinates. THROAT: No erythema or exudates. NECK: No masses, no JVD. CHEST: No chest wall deformity. LUNGS: Equal air entry with bilateral end expiratory wheeze, diminished. CVS: S1 and S2 normal with no audible murmur, regular rhythm. ABDOMEN: No hepatosplenomegaly, normal bowel sounds, no guarding or rigidity. SPINE: No scoliosis or deformity SKIN: No rashes CENTRAL NERVOUS SYSTEM: No focal deficits, tone is normal in all 4 extremities. EXTREMITIES: There is no peripheral edema. No clubbing, no cyanosis. Peripheral pulses are intact. Results - Laboratory Findings CBC and BMP: 03/12/24 16:20 03/12/24 02:26 PT/INR, D-dimer PT 10.2 sec (10.0-12.5) 03/10/24 22:13 INR 0.9 (<1.2) 03/10/24 22:13 D-Dimer 1.18 mg/L FEU (<0.60) H 03/11/24 07:30 Abnormal lab findings: Abnormal Labs 03/10/24 03/10/24 03/11/24 22:13 22:13 07:30 WBC 14.5 H Hgb MCHC Neutrophils # 11.7 H Lymphocytes # APTT 31.7 H D-Dimer Sodium 136 L Creatinine 0.51 L Glucose 115 H POC Glucose (mg/dL) HDL Cholesterol 03/11/24 03/11/24 03/11/24 07:30 13:20 14:30 WBC Hgb MCHC Neutrophils # Lymphocytes # APTT >200.0 H* D-Dimer 1.18 H Sodium Creatinine Glucose POC Glucose (mg/dL) HDL Cholesterol 61.30 H 03/11/24 03/11/24 03/12/24 20:11 20:18 02:26 WBC 11.4 H Hgb 10.8 L MCHC 30.5 L Neutrophils # 9.8 H Lymphocytes # 0.9 L APTT 32.8 H D-Dimer Sodium Creatinine Glucose POC Glucose (mg/dL) 116 H HDL Cholesterol 03/12/24 03/12/24 03/12/24 02:26 02:26 06:11 WBC Hgb MCHC Neutrophils # Lymphocytes # APTT 35.9 H D-Dimer Sodium Creatinine Glucose 138 H POC Glucose (mg/dL) 117 H HDL Cholesterol 66.40 H - Diagnostic Findings Chest x-ray: image reviewed CT scan - chest: image reviewed Assessment and Plan Plan: Chronic hypoxic respiratory failure and the patient remains on 2 L of oxygen by nasal cannula COPD, chronic and stable. Severe chronic obstructive pulmonary disease, with a baseline FEV1 30% of predicted, normally maintained on a combination of Trelegy inhaler, DuoNebs [id number], and as needed Combivent inhaler. Chest pain, nonspecific. Troponins are negative. proBNP level is not elevated. Echocardiogram shows a preserved LV function with severe pulm hypertension Severe pulm hypertension, likely group 3 Chronic bronchiectatic changes more send right midlung and the lower lobes bilaterally in addition to chronic fibronodular opacities some of the within the subpleural distribution more extensive in the right upper lobe, somewhat progressed compared to the earlier CAT scan of the chest from November 2023. Rule out possibility of atypical mycobacterial infection. Rule out malignancy. She is a chronic smoker. Chronic smoker Mild to moderate mitral regurgitation Right proximal femur subcapital femoral neck fracture with valgus impaction, status post right direct anterior hip hemiarthroplasty on 11/25/2023 Chronic ongoing nicotine dependence, normally smokes around 1 pack/day History of GERD History of hyperlipidemia Plan Management of chest pain per cardiology I reviewed the CAT scan images and there is a concern for malignancy versus chr onic infection including the possibility of a chronic atypical mycobacterial infection. This can be worked up at the later stage on outpatient basis and there is value to a bronchoscopy endobronchial lavage on this patient to rule out any ongoing microbial growth. Noted the current antibiotic coverage essentially empiric in nature. The pulm hypertension is chronic, likely secondary to chronic hypoxic respiratory failure Will discuss the case with cardiology will continue to follow. Smoking cessation counseling was done Continue Britt Webb on outpatient basis in combination with albuterol updrafts and O2.
[2024-03-12 20:03] LABS: Glucose,Whole Blood 128 mg/dL (70-110)
[2024-03-12] MEDS: METOPROLOL TARTRATE 25 MG TAB PO SCH (20:10)
[2024-03-12] MEDS: HEPARIN SODIUM 1,000 UN/ML (10ML VL) IV PRN (23:32)
[2024-03-13 06:00] LABS: Glucose,Whole Blood 97 mg/dL (70-110)
[2024-03-13 07:27] LABS: Basophils % (A) 0 %; Eosinophils % (A) 0 %; HGB 9.8 gm/dL (11.4-16.0); Hypochromasia Slight; Lymphocytes # (A) 0.9 k/uL (1.0-4.8); Lymphocytes % (A) 8 %; MCH 28.6 pg (25.0-35.0); MCHC 31.5 g/dL (31.0-37.0); MCV 90.7 fL (80.0-100.0); Mean Platelet Volume 8.3; Monocytes # (A) 0.7 k/uL (0-1.0); Monocytes % (A) 7 %; Neutrophils # (A) 8.6 k/uL (1.3-7.7); Neutrophils % (A) 83 %; Platelet Count 301 k/uL (150-450); RBC 3.41 m/uL (3.80-5.40); RDW 13.4 % (11.5-15.5); WBC 10.4 k/uL (3.8-10.6)
[2024-03-13 07:32] LABS: INR 0.9 (<1.2); Partial Thromboplastin Time 35.4 sec (22.0-30.0); Prothrombin Time 9.8 sec (10.0-12.5)
[2024-03-13 07:37] LABS: African American GFR (CKD) >90 (>60 ml/min/1.73 sqM); Anion Gap 8 mmol/L; Blood Urea Nitrogen 21 mg/dL (7-17); Calcium 9.5 mg/dL (8.4-10.2); Carbon Dioxide 27 mmol/L (22-30); Chloride 104 mmol/L (98-107); Glucose 90 mg/dL (74-99); Non-African American GFR(CKD) 86 (>60 ml/min/1.73 sqM); Potassium 4.1 mmol/L (3.5-5.1); Sodium 139 mmol/L (137-145)
[2024-03-13 11:29] LABS: Glucose,Whole Blood 108 mg/dL (70-110)
--- NOTE | 2024-03-13 13:39 | P.PN ---
Subjective Progress Note Date: 03/13/24 Patient is a 83-year-old female patient is being seen for COPD and episode of chest pain that brought in this patient to the hospital. The patient is a chronic smoker patient is known to have COPD. She came into the ED complaining of chest pain which was a new onset and the pain was radiating to her neck. She is a poor historian. No significant relation to exertion or breathing. However, she was concerned) and she ended up coming into the hospital. For now, the patient's blood work shows a WBC count of 11.4 with a hemoglobin 10.8 and a platelet count of 263. Normal coagulation profile. Normal renal function. Normal electrolytes. Normal glucose. Her troponin I was negative. Her proBNP level was 219. The chest x-ray that was done in the emergency showed no acute cardiopulmonary process. Based on that, the patient was given a CT of the chest which I had a chance to review. There is no evidence of any pulmonary embolism. There is consolidation and density within the right apex and infiltration along the right middle lobe there is also some chronic bronchiectatic changes noted and there is evidence of subpleural nodularity bilaterally. No hemoptysis. No weight loss. Denies having any previous recurrent pneumonias. No history of tuberculosis. No history of any asbestos exposure. Echocardiogram that was done on this patient showed a preserved LV function with an ejection fraction of 55 to 60%. There is evidence of severe pulm hypertension and mild to moderate mitral regurgitation. The patient has been utilizing Trelegy Ellipta on outpatient basis regarding her COPD. She also has a DuoNeb nebulizer but [id number]. She also uses Combivent on 828 basis. Looking back to old CAT scan of the chest that was done on 11/30/2023, there are similar findings wit h parenchymal fibrotic changes right more than left more prominent along the right midlung area in addition to chronic nodular opacities more so the subpleural distribution. Background emphysema is also noted along with some bronchiectatic changes and some limited area of groundglass pulmonary infi ltrates. As such, those findings are essentially chronic. On 03/13/2024, the patient is stable. Nonspecific complaints. Discussed the need for a bronchoscopy at a later stage and the patient became quite upset. This made her slightly more tachycardic. Otherwise, she is still on DuoNeb nebulized treatments [id number]. She is on Symbicort. She remains on IV Solu-Medrol 40 mg every 24 hours. Her white cell count of 10.4 with hemoglobin 9.8. Electrolytes are all within normal limits. The patient is being followed up by cardiology regarding her cardiac tachyarrhythmia. No clear indication for atrial fibrillation. Ejection fraction is 55 to 60%. The patient has mild to moderate mitral regurgitation and severe pulm hypertension in addition. Objective - Vital Signs Vital signs: Vital Signs Temp 98.2 F 03/13/24 08:00 Pulse 78 03/13/24 08:19 Resp 17 03/13/24 08:00 BP 102/51 03/13/24 08:00 Pulse Ox 99 03/13/24 08:00 FiO2 Intake & Output 03/12/24 03/13/24 03/13/24 18:59 06:59 18:59 Intake Total 118 161.493 Output Total 150 200 Balance -32 -38.507 Weight 50.3 kg 50 kg Intake: Intake, IV Titration 161.493 Amount Diltiazem 125 mg In 117.833 Sodium Chloride 0.9% 100 ml @ 10 MG/HR 10 mls/hr IV .[id number] [facility] Rx#: [id number] Heparin Sod,Pork in 0.45% 43.66 NaCl 25,000 unit In 0.45 % NaCl 1 250ml.bag @ 12 UNITS/KG/HR 6.036 mls/hr IV .Q24H [facility] Rx#: [id number] Oral 118 Output: Urine 150 200 Other: Voiding Method External Catheter External Catheter - Exam GENERAL EXAM: Alert, pleasant 83-year-old female patient, comfortable in no apparent distress. On 2 L nasal cannula. HEAD: Normocephalic. EYES: Normal reaction of pupils, equal size. NOSE: Clear with pink turbinates. THROAT: No erythema or exudates. NECK: No masses, no JVD. CHEST: No chest wall deformity. LUNGS: Equal air entry with bilateral end expiratory wheeze, diminished. CVS: S1 and S2 normal with no audible murmur, regular rhythm. ABDOMEN: No hepatosplenomegaly, normal bowel sounds, no guarding or rigidity. SPINE: No scoliosis or deformity SKIN: No rashes CENTRAL NERVOUS SYSTEM: No focal deficits, tone is normal in all 4 extremities. EXTREMITIES: There is no peripheral edema. No clubbing, no cyanosis. Peripheral pulses are intact. - Labs CBC & Chem 7: 03/13/24 06:54 03/13/24 06:54 Labs: Abnormal Lab Results - Last 24 Hours (Table) 03/12/24 03/12/24 03/12/24 Range/Units 11:12 11:36 16:20 WBC 12.6 H (3.8-10.6) k/uL RBC (3.80-5.40) m/uL Hgb 11.2 L (11.4-16.0) gm/dL Hct (34.0-46.0) % Neutrophils # 11.7 H (1.3-7.7) k/uL Lymphocytes # 0.6 L (1.0-4.8) k/uL PT (10.0-12.5) sec APTT 30.8 H (22.0-30.0) sec BUN (7-17) mg/dL POC Glucose (mg/dL) 129 H (70-110) mg/dL 03/12/24 03/12/24 03/12/24 Range/Units 16:28 20:01 22:09 WBC (3.8-10.6) k/uL RBC (3.80-5.40) m/uL Hgb (11.4-16.0) gm/dL Hct (34.0-46.0) % Neutrophils # (1.3-7.7) k/uL Lymphocytes # (1.0-4.8) k/uL PT (10.0-12.5) sec APTT 34.6 H (22.0-30.0) sec BUN (7-17) mg/dL POC Glucose (mg/dL) 141 H 128 H (70-110) mg/dL 03/13/24 03/13/24 03/13/24 Range/Units 06:54 06:54 06:54 WBC (3.8-10.6) k/uL RBC 3.41 L (3.80-5.40) m/uL Hgb 9.8 L (11.4-16.0) gm/dL Hct 31.0 L (34.0-46.0) % Neutrophils # 8.6 H (1.3-7.7) k/uL Lymphocytes # 0.9 L (1.0-4.8) k/uL PT 9.8 L (10.0-12.5) sec APTT 35.4 H (22.0-30.0) sec BUN 21 H (7-17) mg/dL POC Glucose (mg/dL) (70-110) mg/dL Assessment and Plan Plan: Chronic hypoxic respiratory failure and the patient remains on 2 L of oxygen by nasal cannula COPD, chronic and stable. Severe chronic obstructive pulmonary disease, with a baseline FEV1 30% of predicted, normally maintained on a combination of Trelegy inhaler, DuoNebs [id number], and as needed Combivent inhaler. Chest pain, nonspecific. Troponins are negative. proBNP level is not elevated. Echocardiogram shows a preserved LV function with severe pulm hypertension Severe pulm hypertension, likely group 3 Chronic bronchiectatic changes more send right midlung and the lower lobes bilaterally in addition to chronic fibronodular opacities some of the within the subpleural distribution more extensive in the right upper lobe, somewhat progressed compared to the earlier CAT scan of the chest from November 2023. Rule out possibility of atypical mycobacterial infection. Rule out malignancy. She is a chronic smoker. Chronic smoker Mild to moderate mitral regurgitation Right proximal femur subcapital femoral neck fracture with valgus impaction, status post right direct anterior hip hemiarthroplasty on 11/25/2023 Chronic ongoing nicotine dependence, normally smokes around 1 pack/day History of GERD History of hyperlipidemia Plan Will defer the management of tachyarrhythmia to cardiology Management of chest pain per cardiology I reviewed the CAT scan images and there is a concern for malignancy versus chronic infection including the possibility of a chronic atypical mycobacterial infection. This can be worked up at the later stage on outpatient basis and there is value to a bronchoscopy endobronchial lavage on this patient to rule out any ongoing microbial growth. Noted the current antibiotic coverage essentially empiric in nature. The pulm hypertension is chronic, likely secondary to chronic hypoxic respiratory failure No interest in undergoing a bronchoscopy at any point in time. Will monitor the pulm abnormalities by another CAT scan in 3 to 4 months time. Smoking cessation counseling was done Continue Trelegy Ellipta on outpatient basis in combination with albuterol updrafts and O2.
--- NOTE | 2024-03-13 13:49 | P.PN ---
Subjective Progress Note Date: 03/13/24 History of present illness: The patient is an 83-year-old female who presented to the emergency department with new onset chest pressure. The patient states she started with a headache yesterday and this pain radiated down her neck and into her chest. She states this pain is worse with inspiration. Cardiology has been consulted for abnormal EKG as she was noted to have T wave inversions in V2. Unfortunately due to computer malfunction, no baseline EKGs are available for reference. DIAGNOSTICS: EKG shows sinus rhythm with T wave inversions in lead V2 Chest x-ray shows chronic pulmonary fibrosis without acute process Echocardiogram from November 2023 showed preserved LV function Lab data: WBC 14.5, hemoglobin 12.2, hematocrit 38.8, platelet 295, sodium 136, potassium 4.0, BUN 16, creatinine 0.51, troponins negative x 3, AST 27, ALT 14, BNP 219 03/12 Patient states that she has chest pain with deep breathing but none at this time. Her breathing is stable. She does have sputum production. She is on IV antibiotics for pneumonia. Patient is an active smoker and has home oxygen therapy. Blood pressure 118/57, heart rate 94, pulse ox 91% on 2 L nasal cannula. Repeat blood work reveals normal electrolytes, creatinine 0.57. Triglycerides 64, cholesterol 126, LDL 46, HDL 66. D-dimer 1.18. TSH 1.18 Echocardiogram reveals EF of 55 to 60%, mild LVH, severe pulmonary hypertension, mild to moderate mitral regurgitation. 03/13 Patient is seen today in follow-up. She did have episode of atrial fibrillation last night was resumed on Cardizem and started on Lopressor. She is now in a sinus rhythm and Cardizem discontinued. Patient is very adamant that she does not want to be seen by cardiology and we will sign off her case Echocardiogram revealed EF of 55 to 60%, mild LVH, severe pulmonary hypertension, mild to moderate mitral regurgitation. Results of the echocardiogram were not discussed with the patient as she refused to hear any information from us. PHYSICAL EXAMINATION: This is a 89-year-old female in no apparent distress at the time of my examination. HEENT: Head is atraumatic, normocephalic. Pupils are equal, round. There is no jugular venous distention. No carotid bruit is heard. CHEST EXAMINATION: Lungs are coarse to auscultation. No chest wall tenderness is noted on palpation. Bilateral rhonchi, worse on the right HEART EXAMINATION: Heart regular rate and rhythm. S1, S2 heard. No murmurs, gallops or rub. ABDOMEN: Soft, nontender. Bowel sounds are heard. No organomegaly noted. EXTREMITIES: 2+ peripheral pulses with no evidence of peripheral edema and no calf tenderness noted. FINAL ASSESSMENT AND PLAN: Chest discomfort Abnormal EKG History of advanced COPD on home oxygen Tobacco use and dependence Severe pulmonary hypertension Mild to moderate mitral regurgitation Paroxysmal atrial fibrillation, new onset, converted to sinus rhythm PLAN: Current cardiac medications: Lipitor 80 mg daily, Plavix 75 mg daily, Imdur 30 mg daily Patient was started on Lopressor 25 mg twice daily Discontinue Cardizem drip as patient has converted to sinus rhythm Primary will need to discuss anticoagulation with the patient Smoking cessation. Patient will be provided the ticckle quit line information at discharge. Cardiology will sign off this case per patient's request. Nurse practitioner note has been reviewed, I agree with documented findings and plan of care. Patient was seen and examined. Objective - Vital Signs Vital signs: Vital Signs Temp 98.2 F 03/13/24 08:00 Pulse 145 H 03/13/24 09:55 Resp 17 03/13/24 08:20 BP 102/51 03/13/24 08:00 Pulse Ox 99 03/13/24 08:00 FiO2 Intake & Output 03/12/24 03/13/24 03/13/24 18:59 06:59 18:59 Intake Total 118 161.493 Output Total 150 200 Balance -32 -38.507 Weight 50.3 kg 50 kg Intake: Intake, IV Titration 161.493 Amount Diltiazem 125 mg In 117.833 Sodium Chloride 0.9% 100 ml @ 10 MG/HR 10 mls/hr IV .[id number] [facility] Rx#: [id number] Heparin Sod,Pork in 0.45% 43.66 NaCl 25,000 unit In 0.45 % NaCl 1 250ml.bag @ 12 UNITS/KG/HR 6.036 mls/hr IV .Q24H [facility] Rx#: [id number] Oral 118 Output: Urine 150 200 Other: Voiding Method External Catheter External Catheter External Catheter - Labs CBC & Chem 7: 03/13/24 06:54 03/13/24 06:54 Labs: Abnormal Lab Results - Last 24 Hours (Table) 03/12/24 03/12/24 03/12/24 Range/Units 11:12 11:36 16:20 WBC 12.6 H (3.8-10.6) k/uL RBC (3.80-5.40) m/uL Hgb 11.2 L (11.4-16.0) gm/dL Hct (34.0-46.0) % Neutrophils # 11.7 H (1.3-7.7) k/uL Lymphocytes # 0.6 L (1.0-4.8) k/uL PT (10.0-12.5) sec APTT 30.8 H (22.0-30.0) sec BUN (7-17) mg/dL POC Glucose (mg/dL) 129 H (70-110) mg/dL 03/12/24 03/12/24 03/12/24 Range/Units 16:28 20:01 22:09 WBC (3.8-10.6) k/uL RBC (3.80-5.40) m/uL Hgb (11.4-16.0) gm/dL Hct (34.0-46.0) % Neutrophils # (1.3-7.7) k/uL Lymphocytes # (1.0-4.8) k/uL PT (10.0-12.5) sec APTT 34.6 H (22.0-30.0) sec BUN (7-17) mg/dL POC Glucose (mg/dL) 141 H 128 H (70-110) mg/dL 03/13/24 03/13/24 03/13/24 Range/Units 06:54 06:54 06:54 WBC (3.8-10.6) k/uL RBC 3.41 L (3.80-5.40) m/uL Hgb 9.8 L (11.4-16.0) gm/dL Hct 31.0 L (34.0-46.0) % Neutrophils # 8.6 H (1.3-7.7) k/uL Lymphocytes # 0.9 L (1.0-4.8) k/uL PT 9.8 L (10.0-12.5) sec APTT 35.4 H (22.0-30.0) sec BUN 21 H (7-17) mg/dL POC Glucose (mg/dL) (70-110) mg/dL
[2024-03-13 16:38] LABS: Glucose,Whole Blood 133 mg/dL (70-110)
[2024-03-13 20:17] LABS: Glucose,Whole Blood 149 mg/dL (70-110)
[2024-03-14 05:54] LABS: Glucose,Whole Blood 98 mg/dL (70-110)
[2024-03-14] MEDS ORDERED: IPRATROPIUM-ALBUTEROL 3 ML NEB INHALATION PRN (08:41)
[2024-03-14] MEDS ORDERED: NON FORMULARY DRUG (Ipratropium/Albuterol Sulfate [Combivent Respimat Inhaler] 1 INHALER E INHALATION PRN (08:41)
--- NOTE | 2024-03-14 08:45 | P.PN ---
Subjective Progress Note Date: 03/13/24 This is an 83-year-old female, who recently completed a Z-Jose and Medrol Dosepak in first week of February outpatient, presented with teeth pain initially radiating down to her anterior neck with further radiation down to the mid chest. Troponins were negative x 3., Evaluated by cardiology, echo ordered. D-dimer elevated, CTA reported no acute pulmonary embolism, consolidation and density within right apex with milder infiltrate in the right middle lobe and is a ago esophageal recess, underlying mass not excluded. No mediastinal or hilar adenopathy. Continues on ceftriaxone, WBC decreased to 11.4, afebrile. Denies chest pain, palpitations or increase in shortness of breath. Denies cough but reports spitting up increased phlegm. maintaining O2 sats in the low 90s on 2 L nasal cannula. 03/13/2024 Echo reported EF 55 to 60%, mild LVH, severe pulmonary hypertension, mild to moderate mitral regurgitation. Cardizem drip resumed last night for atrial fibrillation as well as beta-stephan initiated.Telemetry sinus rhythm, fluctuates with atrial fibrillation with rapid ventricular rate when patient becomes agitated, excited, anxious. Patient became upset with other specialist s, earlier today, staff reports kicking them out of the room. maintained on empiric antibiotics, nebulized bronchodilators, IV steroids and Symbicort. evaluated by pulmonary, CAT scan reviewed-reporting concern for malignancy versus chronic infection including possible chronic atypical mycobacterial infection recommending further workup outpatient as well as a bronchoscopy. Afebrile, normal WBC, hemoglobin 9.8, electrolytes and renal function within normal limits. Blood sugar stable. Continues on nebulized bronchodilators ATC, IV steroids and Symbicort. Objective - Vital Signs Vital signs: Vital Signs Temp 98.2 F 03/13/24 08:00 Pulse 73 03/13/24 08:20 Resp 17 03/13/24 08:20 BP 102/51 03/13/24 08:00 Pulse Ox 99 03/13/24 08:00 FiO2 Intake & Output 03/12/24 03/13/24 03/13/24 18:59 06:59 18:59 Intake Total 118 161.493 Output Total 150 200 Balance -32 -38.507 Weight 50.3 kg 50 kg Intake: Intake, IV Titration 161.493 Amount Diltiazem 125 mg In 117.833 Sodium Chloride 0.9% 100 ml @ 10 MG/HR 10 mls/hr IV .[id number] [facility] Rx#: [id number] Heparin Sod,Pork in 0.45% 43.66 NaCl 25,000 unit In 0.45 % NaCl 1 250ml.bag @ 12 UNITS/KG/HR 6.036 mls/hr IV .Q24H [facility] Rx#: [id number] Oral 118 Output: Urine 150 200 Other: Voiding Method External Catheter External Catheter External Catheter - Exam VITAL SIGNS: As above GENERAL: Pleasant, alert and oriented x 3, sitting up at side of bed, no acute distress, HEENT: Normal cephalic, atraumatic ,conjunctivae normal. eyes normal. MMM. NECK: Supple, no JVD. CARDIOVASCULAR: S1, S2 regular. No murmur RESPIRATION: Unlabored, equal air entry. Diminished, fine scattered expiratory wheeze ABDOMEN: Soft, nontender . No guarding. no masses palpable. +BS. EXTR: no edema, cyanosis, no clubbing, positive DP pulse NERVOUS SYSTEM: Cranial N 2-12 grossly normal. No focal deficits Skin: Warm and dry, no rash - Labs CBC & Chem 7: 03/13/24 06:54 03/13/24 06:54 Labs: Abnormal Lab Results - Last 24 Hours (Table) 03/12/24 03/12/24 03/12/24 Range/Units 11:12 11:36 16:20 WBC 12.6 H (3.8-10.6) k/uL RBC (3.80-5.40) m/uL Hgb 11.2 L (11.4-16.0) gm/dL Hct (34.0-46.0) % Neutrophils # 11.7 H (1.3-7.7) k/uL Lymphocytes # 0.6 L (1.0-4.8) k/uL PT (10.0-12.5) sec APTT 30.8 H (22.0-30.0) sec BUN (7-17) mg/dL POC Glucose (mg/dL) 129 H (70-110) mg/dL 03/12/24 03/12/24 03/12/24 Range/Units 16:28 20:01 22:09 WBC (3.8-10.6) k/uL RBC (3.80-5.40) m/uL Hgb (11.4-16.0) gm/dL Hct (34.0-46.0) % Neutrophils # (1.3-7.7) k/uL Lymphocytes # (1.0-4.8) k/uL PT (10.0-12.5) sec APTT 34.6 H (22.0-30.0) sec BUN (7-17) mg/dL POC Glucose (mg/dL) 141 H 128 H (70-110) mg/dL 03/13/24 03/13/24 03/13/24 Range/Units 06:54 06:54 06:54 WBC (3.8-10.6) k/uL RBC 3.41 L (3.80-5.40) m/uL Hgb 9.8 L (11.4-16.0) gm/dL Hct 31.0 L (34.0-46.0) % Neutrophils # 8.6 H (1.3-7.7) k/uL Lymphocytes # 0.9 L (1.0-4.8) k/uL PT 9.8 L (10.0-12.5) sec APTT 35.4 H (22.0-30.0) sec BUN 21 H (7-17) mg/dL POC Glucose (mg/dL) (70-110) mg/dL Assessment and Plan Assessment: -Teeth pain radiating down anterior neck to midsternal chest, abnormal EKG -Mid lobe right-sided pneumonia suggested per CTA. Per pulmonary review, concern for malignancy versus chronic infection, possible chronic atypical mycobacterial infection. Recommending further workup outpatient including potential bronchoscopy. Repeat CT in 3 months. -PE ruled out -Chronic hypoxic respiratory failure, wears O2 at home -Emphysema, severe COPD -Ongoing nicotine dependence -Chronic diastolic CHF -Gastroesophageal reflux disease -History of pneumonia -History of shingles -Depression, anxiety -Hypokalemia -Hypomagnesemia -Paroxysmal atrial fibrillation, new onset, fluctuating in and out of atrial fibrillation Plan: Continue on current medication regimen ,monitoring and symptomatic treatment. Maintain IV antibiotics. Pulmonary recommending outpatient bronchoscopy for further workup regarding review of CT. PT/OT consulted. Smoking sensation reinforced. Cardiology has signed off the case as patient refusing to see them. Prognosis guarded given multiple complex medical issues. The impression and plan of care has been dictated as directed. : I performed a history and examination of this patient, discussed the same with the dictator. I agree with the dictator's note ,documented as a scribe. Any additional findings or plans will be noted.
[2024-03-14] MEDS: NICOTINE 21MG/24HR PATCH TRANSDERM SCH (10:33)
[2024-03-14 11:24] LABS: Glucose,Whole Blood 128 mg/dL (70-110)
[2024-03-14] MEDS: APIXABAN 2.5 MG TABLET PO SCH (12:26)
[2024-03-14] MEDS: predniSONE 20 MG TAB PO SCH (12:26)
[2024-03-14] MEDS: PANTOPRAZOLE 40 MG TABLET PO SCH (12:26)
--- NOTE | 2024-03-14 12:56 | XR ---
EXAMINATION TYPE: XR chest 1V portable DATE OF EXAM: 03/14/2024 COMPARISON: 03/10/2024 HISTORY: Abnormal x-ray TECHNIQUE: Single frontal view of the chest is obtained. FINDINGS: Emphysematous change with cardiomegaly and pleural thickening or tiny pleural effusions. N o pneumothorax. Right hilar, upper lobe and lower lobe areas of consolidation are stable. Could be re lated atelectasis, scarring or pneumonia. Underlying mass not excluded. Left apical nodular thickenin g is also stable IMPRESSION: 1. Areas of consolidation involving the right upper lobe, right perihilum and lower lobe. Findings ar e stable sequela of postinflammatory or postinfectious etiology. Underlying neoplasm not entirely exc luded would recommend follow-up to resolution. 2. COPD. [facility], , 03/14/2024 12:53 PM
--- NOTE | 2024-03-14 13:26 | P.PN ---
Subjective Progress Note Date: 03/14/24 Patient is a 83-year-old female patient is being seen for COPD and episode of chest pain that brought in this patient to the hospital. The patient is a chronic smoker patient is known to have COPD. She came into the ED complaining of chest pain which was a new onset and the pain was radiating to her neck. She is a poor historian. No significant relation to exertion or breathing. However, she was concerned) and she ended up coming into the hospital. For now, the patient's blood work shows a WBC count of 11.4 with a hemoglobin 10.8 and a platelet count of 263. Normal coagulation profile. Normal renal function. Normal electrolytes. Normal glucose. Her troponin I was negative. Her proBNP level was 219. The chest x-ray that was done in the emergency showed no acute cardiopulmonary process. Based on that, the patient was given a CT of the chest which I had a chance to review. There is no evidence of any pulmonary embolism. There is consolidation and density within the right apex and infiltration along the right middle lobe there is also some chronic bronchiectatic changes noted and there is evidence of subpleural nodularity bilaterally. No hemoptysis. No weight loss. Denies having any previous recurrent pneumonias. No history of tuberculosis. No history of any asbestos exposure. Echocardiogram that was done on this patient showed a preserved LV function with an ejection fraction of 55 to 60%. There is evidence of severe pulm hypertension and mild to moderate mitral regurgitation. The patient has been utilizing Trelegy Ellipta on outpatient basis regarding her COPD. She also has a DuoNeb nebulizer but [id number]. She also uses Combivent on 828 basis. Looking back to old CAT scan of the chest that was done on 11/30/2023, there are similar findings wit h parenchymal fibrotic changes right more than left more prominent along the right midlung area in addition to chronic nodular opacities more so the subpleural distribution. Background emphysema is also noted along with some bronchiectatic changes and some limited area of groundglass pulmonary infi ltrates. As such, those findings are essentially chronic. On 03/13/2024, the patient is stable. Nonspecific complaints. Discussed the need for a bronchoscopy at a later stage and the patient became quite upset. This made her slightly more tachycardic. Otherwise, she is still on DuoNeb nebulized treatments [id number]. She is on Symbicort. She remains on IV Solu-Medrol 40 mg every 24 hours. Her white cell count of 10.4 with hemoglobin 9.8. Electrolytes are all within normal limits. The patient is being followed up by cardiology regarding her cardiac tachyarrhythmia. No clear indication for atrial fibrillation. Ejection fraction is 55 to 60%. The patient has mild to moderate mitral regurgitation and severe pulm hypertension in addition. 03/14/2024, clinically slightly improved. No new complaints. The patient did encountered an episode of atrial fibrillation with rapid ventricular response this morning and her heart rate was around 105. Based on that, the patient was started on anticoagulation and the patient is currently on Eliquis 2.5 mg twice a day. The patient is also on metoprolol 25 mg p.o. twice daily. Had an echocardiogram done on 03/12/2024 showed preserved LV function. She has severe pulm hypertension with mild to moderate mitral regurgitation.Cough and congestion of the chest is still present. Less bronchospastic and wheezy. Remains on DuoNeb nebulized treatments [id number]. Started on prednisone burst taper starting dose is 40 mg p.o. daily. Remains on IV Rocephin. Remains on Symbicort. O2 requirements remain unchanged and the patient is currently on 3 L of oxygen nasal cannula. Objective - Vital Signs Vital signs: Vital Signs Temp 97.8 F 03/14/24 08:15 Pulse 78 03/14/24 08:15 Resp 18 03/14/24 08:15 BP 113/64 03/14/24 08:15 Pulse Ox 96 03/14/24 08:15 FiO2 Intake & Output 03/13/24 03/14/24 03/14/24 18:59 06:59 18:59 Intake Total 1040 Balance 1040 Weight 49.8 kg Intake: IV 160 0.9 160 Intake, IV Titration 250 Amount Azithromycin 500 mg In 250 Sodium Chloride 0.9% 250 ml @ 250 mls/hr IVPB DAILY@1000 [facility] Rx#: [id number] Oral 630 Other: Voiding Method External Catheter Toilet Diaper # Voids 3 1 1 # Bowel Movements 1 - Exam GENERAL EXAM: Alert, pleasant 83-year-old female patient, comfortable in no apparent distress. On 3 L nasal cannula. HEAD: Normocephalic. EYES: Normal reaction of pupils, equal size. NOSE: Clear with pink turbinates. THROAT: No erythema or exudates. NECK: No masses, no JVD. CHEST: No chest wall deformity. LUNGS: Equal air entry with bilateral end expiratory wheeze, diminished. CVS: S1 and S2 normal with no audible murmur, regular rhythm. ABDOMEN: No hepatosplenomegaly, normal bowel sounds, no guarding or rigidity. SPINE: No scoliosis or deformity SKIN: No rashes CENTRAL NERVOUS SYSTEM: No focal deficits, tone is normal in all 4 extremities. EXTREMITIES: There is no peripheral edema. No clubbing, no cyanosis. Peripheral pulses are intact. - Labs CBC & Chem 7: 03/13/24 06:54 03/13/24 06:54 Labs: Abnormal Lab Results - Last 24 Hours (Table) 03/13/24 03/13/24 Range/Units 16:37 20:15 POC Glucose (mg/dL) 133 H 149 H (70-110) mg/dL Assessment and Plan Plan: Chronic hypoxic respiratory failure and the patient remains on 2-3 L of oxygen by nasal cannula COPD, chronic and stable. Severe chronic obstructive pulmonary disease, with a baseline FEV1 30% of predicted, normally maintained on a combination of Trelegy inhaler, DuoNebs [id number], and as needed Combivent inhaler. Chest pain, nonspecific. Troponins are negative. proBNP level is not elevated. Echocardiogram shows a preserved LV function with severe pulm hypertension Severe pulm hypertension, likely group 3 Chronic bronchiectatic changes more send right midlung and the lower lobes bilaterally in addition to chronic fibronodular opacities some of the within the subpleural distribution more extensive in the right upper lobe, somewhat progressed compared to the earlier CAT scan of the chest from November 2023. Rule out possibility of atypical mycobacterial infection. Rule out malignancy. She is a chronic smoker. Paroxysmal atrial fibrillation Chronic smoker Mild to moderate mitral regurgitation Right proximal femur subcapital femoral neck fracture with valgus impaction, status post right direct anterior hip hemiarthroplasty on 11/25/2023 Chronic ongoing nicotine dependence, normally smokes around 1 pack/day History of GERD History of hyperlipidemia Plan Overall pulmonary status is stable, clinically improving. Currently on oxygen requiring 2/3 L/min nasal cannula I reviewed the CAT scan images and there is a concern for malignancy versus chronic infection including the possibility of a chronic atypical mycobacterial infection. This can be worked up at the later stage on outpatient basis and there is value to a bronchoscopy endobronchial lavage on this patient to rule out any ongoing microbial growth. Noted the current antibiotic coverage essentially empiric in nature. The pulm hypertension is chronic, likely secondary to chronic hypoxic respiratory failure No interest in undergoing a bronchoscopy at any point in time. Will monitor the pulm abnormalities by another CAT scan in 3 to 4 months time. Smoking cessation counseling was done Continue Britt Webb on outpatient basis in combination with albuterol updrafts and O2. Discontinued IV Solu-Medrol start the patient on prednisone burst taper continue metoprolol 25 mg twice a day Anticoagulation with Eliquis 2.5 mg twice a day Cardiology on the case and will continue to follow.
--- NOTE | 2024-03-14 14:15 | CDI ---
Documentation Clarification Form Date: 03/14/2024 01:19:22 PM From: Shanna Horta RN CCDS Phone: [phone] Admit Date: 03/11/2024 12:17:00 AM Patient Name: Evelin Bonds Visit Number: [id number] Discharge Date: ATTENTION: The Clinical Documentation Specialists (CDI) and [facility] Coding Staff appreciate your assistance in clarifying documentation. Please respond to the clarification below the line at the bottom and electronically sign. The CDI & [facility] Coding staff will review the response and follow-up if needed. Please note: Queries are made part of the Legal Health Record. If you have any questions, please contact the author of this message via ITS. Doctor: Matthieu Ryan The Registered Dietitian assessment on 03/12 indicates this patient has had unintended weight loss for three months. Based on this information and the findings below, is there an additional diagnosis that is clinically appropriate for this patient? History/Risk Factors: 83 year old Female presents to the ED with chest pressure radiating to neck and head worse with inspiration. Medical History: COPD on oxygen, HLD, Emphysema, smoker and HTN. HP, 03/11. Clinical Indicators: Current BMI: 17.7kg 5ft 6in wgt 52.617kg RD Consult Assessment: Appetite is poor; Decreased Intake for three months. Estimated Nutritional Needs Kcals 30-35Kcals/ Kg Energy Needs 1509- 1761 Kcal/kg Estimated Protein Needs 1.2 1.5 grams/kg Estimated protein needs 60-75 grams/day Estimated Fluid Needs: Fluid formula 1ml/Kcal Estimated Fluid [id number] mls/day Nutritional Diagnosis weight unintended weight loss related to diminished appetite causing decreased intake evidence by 5% weight loss x 3 months initiated. Treatment: Monitoring Daily intake and output; Monitoring Supplement Intake; Diet education for heart healthy and supplement Supplements: Ensure Enlive QD Is there an additional diagnosis that is clinically appropriate for this patient? [ ] Severe Protein-Calorie Malnutrition [X] Moderate Protein Calorie Malnutrition [ ] No additional diagnosis/Not clinically significant [ ] Other condition, please specify [ ] Unable to Determine Reference: Using the ASPEN Guidelines, Undernutrition (Malnutrition) is characterized by at least two of the following six findings. The severity can be determined based on the criteria listed below. Malnutrition Characteristics for Moderate and Severe Malnutrition Type of Malnutrition Acute Illness or Injury Chronic Illness Degree of Malnutrition Non-severe (moderate) Malnutrition Severe Malnutrition Non-severe (moderate) Malnutrition Severe Malnutrition Energy Intake <75% for >7 days = 50% for = 5 days <75% for = 1 month =75% for = 1 month Weight Loss 1-2% in one week, 5% in 1 month, 7.5% in 3 months 2% in one week, >5% in 1 month, >7.5% in 3 months 5% in one month, 7.5% in 3 months, 10% in 6 months, 20% in 1 year >5% in one month, >7.5% in 3 months, >10% in 6 months, >20% in 1 year Body Fat Wasting Mild Moderate Mild Severe Muscle Wasting Mild Moderate Mild Severe Presence of Edema Mild Moderate to Severe Mild 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 Consensus statement: Academy of Nutrition and Dietetics and [place] Society for Parenteral and Enteral Nutrition: characteristics recommended for the identification and documentation of adult malnutrition (undernutrition).SAMANTHA J Parenter Enteral Nutr. 2012;36(3):275-283. (Template Last Revised: December 2022) MTDD
[2024-03-14 16:39] LABS: Glucose,Whole Blood 142 mg/dL (70-110)
[2024-03-14 20:45] LABS: Glucose,Whole Blood 166 mg/dL (70-110)
[2024-03-15 05:40] LABS: Glucose,Whole Blood 117 mg/dL (70-110)
[2024-03-15 08:42] VITALS: BP 140/60; RESP 17; TEMP 97.7
[2024-03-15 10:00] VITALS: PULSE 72
--- NOTE | 2024-03-15 16:33 | P.PN ---
Subjective Progress Note Date: 03/15/24 Patient is a 83-year-old female patient is being seen for COPD and episode of chest pain that brought in this patient to the hospital. The patient is a chronic smoker patient is known to have COPD. She came into the ED complaining of chest pain which was a new onset and the pain was radiating to her neck. She is a poor historian. No significant relation to exertion or breathing. However, she was concerned) and she ended up coming into the hospital. For now, the patient's blood work shows a WBC count of 11.4 with a hemoglobin 10.8 and a platelet count of 263. Normal coagulation profile. Normal renal function. Normal electrolytes. Normal glucose. Her troponin I was negative. Her proBNP level was 219. The chest x-ray that was done in the emergency showed no acute cardiopulmonary process. Based on that, the patient was given a CT of the chest which I had a chance to review. There is no evidence of any pulmonary embolism. There is consolidation and density within the right apex and infiltration along the right middle lobe there is also some chronic bronchiectatic changes noted and there is evidence of subpleural nodularity bilaterally. No hemoptysis. No weight loss. Denies having any previous recurrent pneumonias. No history of tuberculosis. No history of any asbestos exposure. Echocardiogram that was done on this patient showed a preserved LV function with an ejection fraction of 55 to 60%. There is evidence of severe pulm hypertension and mild to moderate mitral regurgitation. The patient has been utilizing Trelegy Ellipta on outpatient basis regarding her COPD. She also has a DuoNeb nebulizer but [id number]. She also uses Combivent on 828 basis. Looking back to old CAT scan of the chest that was done on 11/30/2023, there are similar findings wit h parenchymal fibrotic changes right more than left more prominent along the right midlung area in addition to chronic nodular opacities more so the subpleural distribution. Background emphysema is also noted along with some bronchiectatic changes and some limited area of groundglass pulmonary infi ltrates. As such, those findings are essentially chronic. On 03/13/2024, the patient is stable. Nonspecific complaints. Discussed the need for a bronchoscopy at a later stage and the patient became quite upset. This made her slightly more tachycardic. Otherwise, she is still on DuoNeb nebulized treatments [id number]. She is on Symbicort. She remains on IV Solu-Medrol 40 mg every 24 hours. Her white cell count of 10.4 with hemoglobin 9.8. Electrolytes are all within normal limits. The patient is being followed up by cardiology regarding her cardiac tachyarrhythmia. No clear indication for atrial fibrillation. Ejection fraction is 55 to 60%. The patient has mild to moderate mitral regurgitation and severe pulm hypertension in addition. 03/14/2024, clinically slightly improved. No new complaints. The patient did encountered an episode of atrial fibrillation with rapid ventricular response this morning and her heart rate was around 105. Based on that, the patient was started on anticoagulation and the patient is currently on Eliquis 2.5 mg twice a day. The patient is also on metoprolol 25 mg p.o. twice daily. Had an echocardiogram done on 03/12/2024 showed preserved LV function. She has severe pulm hypertension with mild to moderate mitral regurgitation.Cough and congestion of the chest is still present. Less bronchospastic and wheezy. Remains on DuoNeb nebulized treatments [id number]. Started on prednisone burst taper starting dose is 40 mg p.o. daily. Remains on IV Rocephin. Remains on Symbicort. O2 requirements remain unchanged and the patient is currently on 3 L of oxygen nasal cannula. 03/15/2024, the patient is being seen for a follow-up. Much improved on today's evaluation. No specific complaints. Cough and congestion has subsided significantly. No other significant events overnight. No new labs from today. Pulse ox is in the order of 96% room air oxygen. No altered mentation. No hemoptysis. No pleurisy at this point in time and the patient is feeling well. Objective - Vital Signs Vital signs: Vital Signs Temp 97.7 F 03/15/24 08:30 Pulse 73 03/15/24 08:30 Resp 17 03/15/24 08:30 BP 140/60 03/15/24 08:30 Pulse Ox 96 03/15/24 08:30 FiO2 Intake & Output 03/14/24 03/15/24 03/15/24 18:59 06:59 18:59 Intake Total 240 240 Balance 240 240 Weight 51 kg Intake: IV 240 0.9 240 Oral 240 Other: Voiding Method Toilet Toilet Diaper Diaper # Voids 1 2 # Bowel Movements 1 - Exam GENERAL EXAM: Alert, pleasant 83-year-old female patient, comfortable in no apparent distress. On room air oxygen HEAD: Normocephalic. EYES: Normal reaction of pupils, equal size. NOSE: Clear with pink turbinates. THROAT: No erythema or exudates. NECK: No masses, no JVD. CHEST: No chest wall deformity. LUNGS: Equal air entry with bilateral end expiratory wheeze, diminished. CVS: S1 and S2 normal with no audible murmur, regular rhythm. ABDOMEN: No hepatosplenomegaly, normal bowel sounds, no guarding or rigidity. SPINE: No scoliosis or deformity SKIN: No rashes CENTRAL NERVOUS SYSTEM: No focal deficits, tone is normal in all 4 extremities. EXTREMITIES: There is no peripheral edema. No clubbing, no cyanosis. Peripheral pulses are intact. - Labs CBC & Chem 7: 03/13/24 06:54 03/13/24 06:54 Labs: Abnormal Lab Results - Last 24 Hours (Table) 03/14/24 03/14/24 03/14/24 Range/Units 11:22 16:38 20:43 POC Glucose (mg/dL) 128 H 142 H 166 H (70-110) mg/dL 03/15/24 Range/Units 05:38 POC Glucose (mg/dL) 117 H (70-110) mg/dL Assessment and Plan Plan: Chronic hypoxic respiratory failure improved and the patient seems to be tolerating well saturation above 90% on room air oxygen. COPD, chronic and stable. Severe chronic obstructive pulmonary disease, with a baseline FEV1 30% of predicted, normally maintained on a combination of Trelegy inhaler, DuoNebs [id number], and as needed Combivent inhaler. Chest pain, nonspecific. Troponins are negative. proBNP level is not elevated. Echocardiogram shows a preserved LV function with severe pulm hypertension Severe pulm hypertension, likely group 3 Chronic bronchiectatic changes more send right midlung and the lower lobes bilaterally in addition to chronic fibronodular opacities some of the within the subpleural distribution more extensive in the right upper lobe, somewhat progressed compared to the earlier CAT scan of the chest from November 2023. Rule out possibility of atypical mycobacterial infection. Rule out malignancy. She is a chronic smoker. Paroxysmal atrial fibrillation Chronic smoker Mild to moderate mitral regurgitation Right proximal femur subcapital femoral neck fracture with valgus impaction, status post right direct anterior hip hemiarthroplasty on 11/25/2023 Chronic ongoing nicotine dependence, normally smokes around 1 pack/day History of GERD History of hyperlipidemia Plan Overall pulmonary status is stable, clinically improving. Oxygenation is also improved. I reviewed the CAT scan images and there is a concern for malignancy versus chronic infection including the possibility of a chronic atypical mycobacterial infection. This can be worked up at the later stage on outpatient basis and there is value to a bronchoscopy endobronchial lavage on this patient to rule out any ongoing microbial growth. Noted the current antibiotic coverage essentially empiric in nature. The pulm hypertension is chronic, likely secondary to chronic hypoxic respiratory failure No interest in undergoing a bronchoscopy at any point in time. Will monitor the pulm abnormalities by another CAT scan in 3 to 4 months time. Smoking cessation counseling was done Continue Trelegy Ellipta on outpatient basis in combination with albuterol updrafts and O2. Discontinued IV Solu-Medrol start the patient on prednisone burst taper continue metoprolol 25 mg twice a day Anticoagulation with Eliquis 2.5 mg twice a day The patient can be discharged home today on a prednisone burst taper to be followed up on outpatient basis. I did like discussion with her and she is willing to see me on an outpatient basis regarding her chronic COPD and the possibility of an underlying malignancy versus chronic infection involving the right lung.
--- NOTE | 2024-03-26 16:02 | P.PN ---
Subjective Progress Note Date: 03/14/24 This is an 83-year-old female, who recently completed a Z-Jose and Medrol Dosepak in first week of February outpatient, presented with teeth pain initially radiating down to her anterior neck with further radiation down to the mid chest. Troponins were negative x 3., Evaluated by cardiology, echo ordered. D-dimer elevated, CTA reported no acute pulmonary embolism, consolidation and density within right apex with milder infiltrate in the right middle lobe and is a ago esophageal recess, underlying mass not excluded. No mediastinal or hilar adenopathy. Continues on ceftriaxone, WBC decreased to 11.4, afebrile. Denies chest pain, palpitations or increase in shortness of breath. Denies cough but reports spitting up increased phlegm. maintaining O2 sats in the low 90s on 2 L nasal cannula. 03/13/2024 Echo reported EF 55 to 60%, mild LVH, severe pulmonary hypertension, mild to moderate mitral regurgitation. Cardizem drip resumed last night for atrial fibrillation as well as beta-stephan initiated.Telemetry sinus rhythm, fluctuates with atrial fibrillation with rapid ventricular rate when patient becomes agitated, excited, anxious. Patient became upset with other specialist s, earlier today, staff reports kicking them out of the room. maintained on empiric antibiotics, nebulized bronchodilators, IV steroids and Symbicort. evaluated by pulmonary, CAT scan reviewed-reporting concern for malignancy versus chronic infection including possible chronic atypical mycobacterial infection recommending further workup outpatient as well as a bronchoscopy. Afebrile, normal WBC, hemoglobin 9.8, electrolytes and renal function within normal limits. Blood sugar stable. Continues on nebulized bronchodilators ATC, IV steroids and Symbicort. 03/14/2024 earlier this morning developed atrial fibrillation with heart rates in the low 100s, maintained on metoprolol, anticoagulated on Eliquis. Continues on ceftriaxone, Symbicort, nebulized bronchodilators [id number], steroids, wheezing improving. Continues requiring 3 L nasal cannula O2 to maintain O2 sat s in the 90s. Denies chest pain, palpitations or increase in shortness of breath. Loose congested cough. Objective - Vital Signs Vital signs: Vital Signs Temp 98.0 F 03/14/24 11:44 Pulse 80 03/14/24 16:10 Resp 18 09/25/24 13:35 BP 103/64 03/14/24 11:44 Pulse Ox 95 03/14/24 11:47 FiO2 Intake & Output 03/13/24 03/14/24 03/14/24 18:59 06:59 18:59 Intake Total 1040 Balance 1040 Weight 49.8 kg Intake: IV 160 0.9 160 Intake, IV Titration 250 Amount Azithromycin 500 mg In 250 Sodium Chloride 0.9% 250 ml @ 250 mls/hr IVPB DAILY@1000 [facility] Rx#: [id number] Oral 630 Other: Voiding Method External Catheter Toilet Toilet Diaper Diaper # Voids 3 1 1 # Bowel Movements 1 - Exam VITAL SIGNS: As above GENERAL: Pleasant, alert and oriented x 3, sitting upin bed, no acute distress, HEENT: Normal cephalic, atraumatic ,conjunctivae normal. eyes normal. MMM. NECK: Supple, no JVD. CARDIOVASCULAR: S1, S2 regular. No murmur RESPIRATION: Unlabored, equal air entry. Diminished, fine scattered expiratory wheeze ABDOMEN: Soft, nontender . No guarding. no masses palpable. +BS. EXTR: no edema, cyanosis, no clubbing, positive DP pulse NERVOUS SYSTEM: Cranial N 2-12 grossly normal. No focal deficits Skin: Warm and dry, no rash - Labs CBC & Chem 7: 03/13/24 06:54 03/13/24 06:54 Labs: Abnormal Lab Results - Last 24 Hours (Table) 03/13/24 03/14/24 03/14/24 Range/Units 20:15 11:22 16:38 POC Glucose (mg/dL) 149 H 128 H 142 H (70-110) mg/dL Assessment and Plan Assessment: -Teeth pain radiating down anterior neck to midsternal chest, abnormal EKG, troponins negative, echo reporting preserved LV function, severe pulmonary h ypertension. -Mid lobe right-sided pneumonia suggested per CTA. Per pulmonary review, concern for malignancy versus chronic infection, possible chronic atypical mycobacterial infection. Recommending further workup outpatient including potential bronchoscopy. Repeat CT in 3 months. -PE ruled out -Chronic hypoxic respiratory failure, wears O2 at home -Emphysema, severe COPD -Severe pulmonary hypertension -Ongoing nicotine dependence -Chronic diastolic CHF -Gastroesophageal reflux disease -History of pneumonia -History of shingles -Depression, anxiety -Hypokalemia -Hypomagnesemia -Paroxysmal atrial fibrillation, new onset, fluctuating in and out of atrial fibrillation Plan: Continue on current medication regimen ,monitoring and symptomatic treatment. Aggressive pulmonary toileting. Empiric antibiotics. At this time patient declining bronchoscopy inpatient. pulmonary recommending outpatient bronchoscopy for further workup regarding review of CT. Smoking sensation reinforced. Prognosis guarded given multiple complex medical issues. The impression and plan of care has been dictated as directed. : I performed a history and examination of this patient, discussed the same with the dictator. I agree with the dictator's note ,documented as a scribe. Any additional findings or plans will be noted.
--- NOTE | 2024-03-26 16:06 | P.DS ---
Providers Date of admission: 03/11/24 00:17 Expected date of discharge: 03/15/24 Attending physician: Matthieu Ryan Consults: 03/11/24 00:15 Consult Physician Urgent Consulting Provider: Xander Vega Consult Reason/Comments: NSTEMI Do you want consulting provider notified?: Already Contacted 03/11/24 09:17 Consult Physician Routine Consulting Provider: Kyler Davies Consult Reason/Comments: COPD Do you want consulting provider notified?: Yes Primary care physician: Matthieu Ryan Hospital Course: Final Diagnoses: -Teeth pain radiating down anterior neck to midsternal chest, abnormal EKG, troponins negative, echo reporting preserved LV function, severe pulmonary hypertension. -Mid lobe right-sided pneumonia suggested per CTA. Per pulmonary review, concern for malignancy versus chronic infection, possible chronic atypical mycobacterial infection. Recommending further workup outpatient including potential bronchoscopy. Repeat CT in 3 months. -PE ruled out -Chronic hypoxic respiratory failure, wears O2 at home -Emphysema, severe COPD -Severe pulmonary hypertension -Ongoing nicotine dependence -Chronic diastolic CHF -Gastroesophageal reflux disease -History of pneumonia -History of shingles -Depression, anxiety -Hypokalemia -Hypomagnesemia -Paroxysmal atrial fibrillation, new onset, fluctuating in and out of atrial fibrillation -Moderate protein calorie malnutrition Hospital course: This is an 83-year-old female, who recently completed a Z-Jose and Medrol Dosepak in first week of February outpatient, presented with teeth pain initially radiating down to her anterior neck with further radiation down to the mid chest. Troponins were negative x 3., Evaluated by cardiology, echo ordered. D-dimer elevated, CTA reported no acute pulmonary embolism, consolidation and density within right apex with milder infiltrate in the right middle lobe and is a ago esophageal recess, underlying mass not excluded. No mediastinal or hilar adenopathy. Continues on ceftriaxone, WBC decreased to 11.4, afebrile. Denies chest pain, palpitations or increase in shortness of breath. Denies cough but reports spitting up increased phlegm. maintaining O2 sats in the low 90s on 2 L nasal cannula. 03/13/2024 Echo reported EF 55 to 60%, mild LVH, severe pulmonary hypertension, mild to moderate mitral regurgitation. Cardizem drip resumed last night for a trial fibrillation as well as beta-stephan initiated.Telemetry sinus rhythm, fluctuates with atrial fibrillation with rapid ventricular rate when patient becomes agitated, excited, anxious. Patient became upset with other specialists, earlier today, staff reports kicking them out of the room. maintained on empiric antibiotics, nebulized bronchodilators, IV steroids and Symbicort. evaluated by pulmonary, CAT scan reviewed-reporting concern for malignancy versus chronic infection including possible chronic atypical mycobacterial infection recommending further workup outpatient as well as a bron choscopy. Afebrile, normal WBC, hemoglobin 9.8, electrolytes and renal function within normal limits. Blood sugar stable. Continues on nebulized bronchodilators ATC, IV steroids and Symbicort. 03/14/2024 earlier this morning developed atrial fibrillation with heart rates in the low 100s, maintained on metoprolol, anticoagulated on Eliquis. Continues on ceftriaxone, Symbicort, nebulized bronchodilators [id number], steroids, wheezing improving. Continues requiring 3 L nasal cannula O2 to maintain O2 sats in the 90s. Denies chest pain, palpitations or increase in shortness of breath. Loose congested cough. Aggressive pulmonary toileting. Empiric antibiotics. At this time patient declining bronchoscopy inpatient. pulmonary recommending outpatient bronchoscopy for further workup regarding review of CT. Smoking sensation reinforced. Prognosis guarded given multiple complex medical issues. Significant clinical improvement. Cough/congestion better, maintaining O2 sats in the high 90s on room air. No hemoptysis. Cleared by pulmonary for discharge. Patient will be discharged home today in a stable condition with guarded prognosis. Patient is willing to follow-up with Dr. Nair outpatient, for further workup regarding COPD, possible underlying malignancy versus chronic infection of her right lung. The impression and plan of care has been dictated as directed. : I performed a history and examination of this patient, discussed the same with the dictator. I agree with the dictator's note ,documented as a scribe. Any additional findings or plans will be noted. Patient Condition at Discharge: Stable Plan - Discharge Summary Discharge Rx Participant: No New Discharge Prescriptions: New Apixaban [Eliquis] 2.5 mg PO BID #60 tab Nicotine 21Mg/24Hr Patch [Habitrol] 1 patch TRANSDERM DAILY patch Metoprolol Tartrate [Lopressor] 25 mg PO BID #60 tab Continue Esomeprazole Magnesium [NexIUM] 40 mg PO DAILY Ipratropium-Albuterol Nebulize [Duoneb 0.5 mg-3 mg/3 ml Soln] 3 ml INHALATION RT-QID #1 LORazepam [Ativan] 0.5 mg PO BID PRN PRN Reason: Anxiety Sertraline [Zoloft] 50 mg PO DAILY Ipratropium/Albuterol Sulfate [Combivent Respimat Inhaler] 1 puff INHALATION RT-QID PRN PRN Reason: Shortness Of Breath Fluticasone/Umeclidin/Vilanter [Trelegy Ellipta 200-62.5-25] 1 puff INHALATION RT-DAILY Changed Atorvastatin [Lipitor] 80 mg PO DAILY #0 Discharge Medication List Esomeprazole Magnesium [NexIUM] 40 mg PO DAILY 09/18/14 [History] Ipratropium-Albuterol Nebulize [Duoneb 0.5 mg-3 mg/3 ml Soln] 3 ml INHALATION RT-QID #1 04/02/19 [Rx] Fluticasone/Umeclidin/Vilanter [Trelegy Ellipta 200-62.5-25] 1 puff INHALATION RT-DAILY 11/23/23 [History] Ipratropium/Albuterol Sulfate [Combivent Respimat Inhaler] 1 puff INHALATION RT- QID PRN 11/23/23 [History] Sertraline [Zoloft] 50 mg PO DAILY 11/23/23 [History] LORazepam [Ativan] 0.5 mg PO BID PRN 03/11/24 [History] Apixaban [Eliquis] 2.5 mg PO BID #60 tab 03/15/24 [Rx] Atorvastatin [Lipitor] 80 mg PO DAILY #0 03/15/24 [Rx] Metoprolol Tartrate [Lopressor] 25 mg PO BID #60 tab 03/15/24 [Rx] Nicotine 21Mg/24Hr Patch [Habitrol] 1 patch TRANSDERM DAILY patch 03/15/24 [Rx] Follow up Appointment(s)/Referral(s): Matthieu Ryan DO [Primary Care Provider] - 03/22/24 9:00 am Stephanie Pickens MD [STAFF PHYSICIAN] - 05/10/24 9:15 am (office put you also on cancellation list if something becomes available sooner they will call you. ) Ambulatory/Diagnostic Orders: Complete Blood Count w/diff [LAB.AMB] Time Frame: 3 Days, Location: None Selected Discharge Disposition: HOME SELF-CARE
== END 2024-03-15 11:26 | disposition home or self-care (01) | DRG 194 ==
LOC: EC 22:06 → 3SCARD 03-11 00:17
PROVIDERS: ADMIT Family Medicine; ATTEND Family Medicine
DX: J18.9 Pneumonia, unspecified organism (principal); E44.0 Moderate protein-calorie malnutrition; I50.32 Chronic diastolic (congestive) heart failure; J96.11 Chronic respiratory failure with hypoxia; J47.0 Bronchiectasis with acute lower respiratory infection; Z68.1 Body mass index [BMI] 19.9 or less, adult; Z99.81 Dependence on supplemental oxygen; F17.210 Nicotine dependence, cigarettes, uncomplicated; I34.0 Nonrheumatic mitral (valve) insufficiency; E78.5 Hyperlipidemia, unspecified; I48.0 Paroxysmal atrial fibrillation; K21.9 Gastro-esophageal reflux disease without esophagitis; E83.42 Hypomagnesemia; E87.6 Hypokalemia; J43.9 Emphysema, unspecified; F32.A Depression, unspecified; F41.9 Anxiety disorder, unspecified; Z86.19 Personal history of other infectious and parasitic diseases; Z79.01 Long term (current) use of anticoagulants; K08.89 Other specified disorders of teeth and supporting structures; Z71.6 Tobacco abuse counseling; Z90.49 Acquired absence of other specified parts of digestive tract; Z90.710 Acquired absence of both cervix and uterus
CPT/HCPCS: 36415; 71045; 71046; 71275; 80048; 80053; 80061; 83690; 83735; 83880; 84443; 84484; 85025; 85049; 85379; 85610; 85730; 93005; 93306; 94640; 94760; 96365; 96366; 96368; 96375; 99291

== ENCOUNTER 2024-03-25 15:30 | Inpatient (IN) | payer MEDICARE ==
--- NOTE | 2024-03-25 15:52 | ED ---
SOB HPI - General Stated Complaint: SOB Time Seen by Provider: 03/25/24 15:36 Source: RN notes reviewed, old records reviewed Mode of arrival: EMS Limitations: no limitations - History of Present Illness Initial Comments: This is an 83-year-old female to ER for severe shortness of breath significant and severe shortness of breath here in the ER with recent inpatient admission f or pneumonia. Patient has severe chest pain weakness lightheadedness dizziness is otherwise not feeling well MD Complaint: shortness of breath, cough -: days(s) Severity: moderate Severity scale (1-10): 6 Quality: sharp Consistency: constant Improves With: nothing Worsens With: nothing Known History Of: COPD, asthma Context: recent URI, recent illness Associated Symptoms: cough Treatments Prior to Arrival: none - Related Data Home Medications Medication Instructions Recorded Confirmed Esomeprazole Magnesium [NexIUM] 40 mg PO DAILY 09/18/14 03/25/24 Fluticasone/Umeclidin/Vilanter 1 puff INHALATION RT-DAILY 11/23/23 03/25/24 [Treletali Ellipta 200-62.5-25] Ipratropium/Albuterol Sulfate 1 puff INHALATION RT-QID PRN 11/23/23 03/25/24 [Combivent Respimat Inhaler] Sertraline [Zoloft] 50 mg PO DAILY 11/23/23 03/25/24 LORazepam [Ativan] 0.5 mg PO BID PRN 03/11/24 03/25/24 Previous Rx's Medication Instructions Recorded Ipratropium-Albuterol Nebulize 3 ml INHALATION RT-QID #1 04/02/19 [Duoneb 0.5 mg-3 mg/3 ml Soln] Apixaban [Eliquis] 2.5 mg PO BID #60 tab 03/15/24 Atorvastatin [Lipitor] 80 mg PO DAILY #0 03/15/24 Metoprolol Tartrate [Lopressor] 25 mg PO BID #60 tab 03/15/24 Nicotine 21Mg/24Hr Patch [Habitrol] 1 patch TRANSDERM DAILY patch 03/15/24 Aspirin 81 mg PO DAILY tab 03/30/24 predniSONE 10 mg PO DIRECTED #30 tab 03/30/24 Allergies Allergy/AdvReac Type Severity Reaction Status Date / Time aspirin Allergy Nausea & Verified 03/25/24 17:19 Vomiting codeine Allergy Unknown Verified 03/25/24 17:19 meperidine HCl [From Demerol] AdvReac Rapid Verified 03/25/24 17:19 Heart Rate Review of Systems ROS Statement: Those systems with pertinent positive or pertinent negative responses have been documented in the HPI. ROS Other: All systems not noted in ROS Statement are negative. Past Medical History Past Medical History: GERD/Reflux, Hyperlipidemia, Pneumonia, Respiratory Disorder Additional Past Medical History / Comment(s): Emphysema, shingles in right ear History of Any Multi-Drug Resistant Organisms: None Reported Past Surgical History: Appendectomy, Cholecystectomy, Hysterectomy Additional Past Surgical History / Comment(s): emphesema Past Anesthesia/Blood Transfusion Reactions: No Reported Reaction Past Psychological History: Depression Smoking Status: Current every day smoker Past Alcohol Use History: None Reported Past Drug Use History: None Reported - Past Family History Mother Additional Family Medical History / Comment(s): " AFTER GALLBLADDER TONY" Sister(s) Family Medical History: Cancer Additional Family Medical History / Comment(s): One sister with brain cancer, another with throat cancer. Brother(s) Family Medical History: Cancer Additional Family Medical History / Comment(s): lung cancer General Exam General appearance: alert, in no apparent distress, anxious, in distress Head exam: Present: atraumatic, normocephalic, normal inspection Eye exam: Present: normal appearance, PERRL, EOMI. Absent: scleral icterus, conjunctival injection, periorbital swelling ENT exam: Present: normal exam, mucous membranes moist Neck exam: Present: normal inspection. Absent: tenderness, meningismus, lymphadenopathy Respiratory exam: Present: respiratory distress, wheezes, accessory muscle use, decreased breath sounds, prolonged expiratory. Absent: rales, rhonchi, stridor Cardiovascular Exam: Present: regular rate, normal rhythm, normal heart sounds. Absent: systolic murmur, diastolic murmur, rubs, gallop, clicks GI/Abdominal exam: Present: soft, normal bowel sounds. Absent: distended, tenderness, guarding, rebound, rigid Extremities exam: Present: normal inspection, full ROM, normal capillary refill. Absent: tenderness, pedal edema, joint swelling, calf tenderness Back exam: Present: normal inspection Neurological exam: Present: alert, oriented X3, CN II-XII intact Psychiatric exam: Present: normal affect, normal mood Skin exam: Present: warm, dry, intact, normal color. Absent: rash Course Vital Signs 03/25/24 03/25/24 03/25/24 15:49 16:40 16:56 Temperature 98 F Pulse Rate 70 74 82 Respiratory 22 Rate Blood Pressure 150/64 O2 Sat by Pulse 97 Oximetry 03/25/24 03/25/24 03/25/24 17:34 18:01 18:13 Temperature Pulse Rate 82 77 81 Respiratory 24 Rate Blood Pressure 146/65 O2 Sat by Pulse 94 L Oximetry 03/25/24 03/25/24 18:36 19:34 Temperature Pulse Rate 89 85 Respiratory 24 19 Rate Blood Pressure 120/53 122/63 O2 Sat by Pulse 92 L 93 L Oximetry - Reevaluation(s) Reevaluation #1: 03/25/24 15:51 Medical records reviewed Reevaluation #2: 03/25/24 16:59 Patient symptoms are unchanged Reevaluation #3: 03/25/24 16:59 Patient informed of results and questions answered Reevaluation #4: Was pt. sent in by a medical professional or institution (, PA, GLOBAL CTO, urgent care, hospital, or jail...) When possible be specific @ -no Did you speak to anyone other than the patient for history (EMS, parent, family, police, friend...)? What history was obtained from this source @ -no Did you review nursing and triage notes (agree or disagree)? Why? @ -agree Are old charts reviewed (outside hosp., previous admission, EMS record, old EKG, old radiological studies, urgent care reports/EKG's, jail records)? Report findings @ -yes Differential Diagnosis (chest pain, altered mental status, abdominal pain women, abdominal pain men, vaginal bleeding, weakness, fever, dyspnea, syncope, headache, dizziness, GI bleed, back pain, seizure, CVA, palpatations, mental health, musculoskeletal)? @ -prior EKG interpreted by me (3pts min.). @ -yes X-rays interpreted by me (1pt min.). @ -yes negative for acute disease CT interpreted by me (1pt min.). @ -yes positive for pneumonia U/S interpreted by me (1pt. min.). @ -no What testing was considered but not performed or refused? (CT, X-rays, U/S, labs)? Why? @ -none What meds were considered but not given or refused? Why? @ -none Did you discuss the management of the patient with other professionals (lorena serrano i.e. , PA, GLOBAL CTO, lab, RT, psych nurse, manager social, data security administrator, teacher, special loan officer, transplant case manager)? Give summary @ -no Was smoking cessation discussed for >3mins.? @ -no Was critical care preformed (if so, how long)? @ -yes31 Were there social determinants of health that impacted care today? How? (Homelessness, low income, unemployed, alcoholism, drug addiction, transportation, low edu. Level, literacy, decrease access to med. care, longterm, rehab)? @ -none Was there de-escalation of care discussed even if they declined (Discuss DNR or withdrawal of care, Hospice)? DNR status @ -no What co-morbidities impacted this encounter? (DM, HTN, Smoking, COPD, CAD, Cancer, CVA, ARF, Chemo, Hep., AIDS, mental health diagnosis, sleep apnea, morbid obesity)? @ -none Was patient admitted / discharged? Hospital course, mention meds given and route, prescriptions, significant lab abnormalities, going to OR and other pertinent info. @ - 83 female will be admitted for pneumonia with significant sepsis severely elevated white blood cell count and shortness of breath. Discharge Undiagnosed new problem with uncertain prognosis? @ -no Drug Therapy requiring intensive monitoring for toxicity (Heparin, Nitro, Insulin, Cardizem)? @ -no Were any procedures done? @ -no Diagnosis/symptom? @ -COPD pneumonia and hypoxia Acute, or Chronic, or Acute on Chronic? @ -Acute Uncomplicated (without systemic symptoms) or Complicated (systemic symptoms)? @ -Complicated Side effects of treatment? @ -no Exacerbation, Progression, or Severe Exacerbation? @ -exacerbation Poses a threat to life or bodily function? How? (Chest pain, USA, DC, pneumonia, PE, COPD, DKA, ARF, appy, cholecystitis, CVA, Diverticulitis, Homicidal, Suicidal, threat to staff... and all critical care pts) @ -yes with respiratory distress Reevaluation #5: Differential Dyspnea: Coronary syndrome, arrhythmia, tamponade, asthma, COPD, pulmonary embolism, pneumonia, pneumothorax, pulmonary effusion, anaphylaxis, diabetic ketoacidosis, flailed chest, pulmonary contusion, diaphragmatic rupture, anemia, neuromuscular, this is not meant to be an all-inclusive list. - Consultations Consultation #1: Spoke with [facility] who agrees to admit this patient Medical Decision Making - Medical Decision Making 83 female will be admitted for pneumonia with significant sepsis severely elevated white blood cell count and shortness of breath. - Lab Data Result diagrams: 03/30/24 03:01 03/30/24 03:01 Lab Results 03/25/24 03/25/24 03/25/24 Range/Units 15:53 15:53 15:53 WBC 23.6 H (3.8-10.6) k/uL RBC 4.29 (3.80-5.40) m/uL Hgb 11.6 (11.4-16.0) gm/dL Hct 38.0 (34.0-46.0) % MCV 88.7 (80.0-100.0) fL MCH 27.0 (25.0-35.0) pg MCHC 30.4 L (31.0-37.0) g/dL RDW 13.6 (11.5-15.5) % Plt Count 438 (150-450) k/uL MPV 8.0 Neutrophils % 87 % Lymphocytes % 7 % Monocytes % 5 % Eosinophils % 1 % Basophils % 0 % Neutrophils # 20.5 H (1.3-7.7) k/uL Lymphocytes # 1.6 (1.0-4.8) k/uL Monocytes # 1.1 H (0-1.0) k/uL Eosinophils # 0.3 (0-0.7) k/uL Basophils # 0.0 (0-0.2) k/uL Hypochromasia Slight PT 10.3 (10.0-12.5) sec INR 0.9 (<1.2) APTT 25.5 (22.0-30.0) sec Sodium 137 (137-145) mmol/L Potassium 3.6 (3.5-5.1) mmol/L Chloride 100 (98-107) mmol/L Carbon Dioxide 32 H (22-30) mmol/L Anion Gap 5 mmol/L BUN 12 (7-17) mg/dL Creatinine 0.43 L (0.52-1.04) mg/dL Est GFR (CKD-EPI)AfAm >90 (>60 ml/min/1.73 sqM) Est GFR (CKD-EPI)NonAf >90 (>60 ml/min/1.73 sqM) Glucose 103 H (74-99) mg/dL Plasma Lactic Acid Fareed (0.7-2.0) mmol/L Calcium 9.3 (8.4-10.2) mg/dL Magnesium 1.7 (1.6-2.3) mg/dL Total Bilirubin 0.7 (0.2-1.3) mg/dL AST 31 (14-36) U/L ALT 29 (4-34) U/L Alkaline Phosphatase 87 (38-126) U/L Troponin I (0.000-0.034) ng/mL NT-Pro-B Natriuret Pep 2450 pg/mL Total Protein 6.9 (6.3-8.2) g/dL Albumin 4.0 (3.5-5.0) g/dL 03/25/24 03/25/24 Range/Units 15:53 15:53 WBC (3.8-10.6) k/uL RBC (3.80-5.40) m/uL Hgb (11.4-16.0) gm/dL Hct (34.0-46.0) % MCV (80.0-100.0) fL MCH (25.0-35.0) pg MCHC (31.0-37.0) g/dL RDW (11.5-15.5) % Plt Count (150-450) k/uL MPV Neutrophils % % Lymphocytes % % Monocytes % % Eosinophils % % Basophils % % Neutrophils # (1.3-7.7) k/uL Lymphocytes # (1.0-4.8) k/uL Monocytes # (0-1.0) k/uL Eosinophils # (0-0.7) k/uL Basophils # (0-0.2) k/uL Hypochromasia PT (10.0-12.5) sec INR (<1.2) APTT (22.0-30.0) sec Sodium (137-145) mmol/L Potassium (3.5-5.1) mmol/L Chloride (98-107) mmol/L Carbon Dioxide (22-30) mmol/L Anion Gap mmol/L BUN (7-17) mg/dL Creatinine (0.52-1.04) mg/dL Est GFR (CKD-EPI)AfAm (>60 ml/min/1.73 sqM) Est GFR (CKD-EPI)NonAf (>60 ml/min/1.73 sqM) Glucose (74-99) mg/dL Plasma Lactic Acid Fareed 1.3 (0.7-2.0) mmol/L Calcium (8.4-10.2) mg/dL Magnesium (1.6-2.3) mg/dL Total Bilirubin (0.2-1.3) mg/dL AST (14-36) U/L ALT (4-34) U/L Alkaline Phosphatase (38-126) U/L Troponin I 0.055 H* (0.000-0.034) ng/mL NT-Pro-B Natriuret Pep pg/mL Total Protein (6.3-8.2) g/dL Albumin (3.5-5.0) g/dL - EKG Data -: EKG Interpreted by Me (EKG is sinus 81 AR 120 QRS 87 QTc 344) - Radiology Data Radiology results: report reviewed (Chest x-ray is positive for pneumonia), image reviewed Critical Care Time Critical Care Time: Yes Total Critical Care Time: 31 Disposition Clinical Impression: Acute exacerbation of chronic obstructive pulmonary disease, COPD with acute exacerbation, Smoker, Right middle lobe pneumonia, Hypoxemia Disposition: ADMITTED IP TO THIS HOSP Condition: Stable Is patient prescribed a controlled substance at d/c from ED?: No Time of Disposition: 17:00
[2024-03-25] MEDS: methylPREDNISolone SOD SUCCI 125 MG/2 ML VIAL IV STA (16:06)
[2024-03-25] MEDS: SODIUM CHLORIDE 0.9% 1,000 ML IV STA ×2 (16:06→17:42)
[2024-03-25 16:14] LABS: Basophils % (A) 0 %; Eosinophils # (A) 0.3 k/uL (0-0.7); Eosinophils % (A) 1 %; HGB 11.6 gm/dL (11.4-16.0); Hypochromasia Slight; Lymphocytes # (A) 1.6 k/uL (1.0-4.8); Lymphocytes % (A) 7 %; MCHC 30.4 g/dL (31.0-37.0); MCV 88.7 fL (80.0-100.0); Monocytes # (A) 1.1 k/uL (0-1.0); Monocytes % (A) 5 %; Neutrophils # (A) 20.5 k/uL (1.3-7.7); Neutrophils % (A) 87 %; Platelet Count 438 k/uL (150-450); RBC 4.29 m/uL (3.80-5.40); RDW 13.6 % (11.5-15.5); WBC 23.6 k/uL (3.8-10.6)
[2024-03-25 16:18] LABS: ALT 29 U/L (4-34); African American GFR (CKD) >90 (>60 ml/min/1.73 sqM); Anion Gap 5 mmol/L; Blood Urea Nitrogen 12 mg/dL (7-17); Calcium 9.3 mg/dL (8.4-10.2); Carbon Dioxide 32 mmol/L (22-30); Chloride 100 mmol/L (98-107); Glucose 103 mg/dL (74-99); Non-African American GFR(CKD) >90 (>60 ml/min/1.73 sqM); Sodium 137 mmol/L (137-145); Total Bilirubin 0.7 mg/dL (0.2-1.3); Total Protein 6.9 g/dL (6.3-8.2)
[2024-03-25 16:19] LABS: AST 31 U/L (14-36); Alkaline Phosphatase 87 U/L (38-126); Magnesium 1.7 mg/dL (1.6-2.3); Potassium 3.6 mmol/L (3.5-5.1)
[2024-03-25 16:26] LABS: INR 0.9 (<1.2); Partial Thromboplastin Time 25.5 sec (22.0-30.0); Prothrombin Time 10.3 sec (10.0-12.5)
[2024-03-25 16:27] LABS: NT-Pro-B-Type Natriuretic Pept 2450 pg/mL
[2024-03-25] MEDS: IPRATROPIUM-ALBUTEROL 3 ML NEB INHALATION STA ×2 (16:40→18:00)
--- NOTE | 2024-03-25 16:56 | XR ---
EXAMINATION TYPE: XR chest 1V portable DATE OF EXAM: 03/25/2024 4:34 PM CLINICAL INDICATION: Female, 83 years old with history of sob; [facility] COMPARISON: 03/14/2024. TECHNIQUE: XR chest 1V portable Frontal view of the chest. FINDINGS: Lungs/Pleura: Interstitial lung prominence throughout the lungs right greater than left with scattere d airspace opacities. There is no evidence of pleural effusion, focal consolidation, or pneumothorax. Pulmonary vascularity: Unremarkable. Heart/mediastinum: Cardiomediastinal silhouette is unremarkable. Musculoskeletal: No acute osseous pathology. Other findings: None Lines/Tubes: IMPRESSION: Increasing right midlung airspace opacities superimposed on diffuse haziness. [facility], , 03/25/2024 4:53 PM
[2024-03-25] MEDS ORDERED: PNEUMONIA PROTOCOL UTILIZED 1 EACH MISC PO PRN (16:57)
[2024-03-25] MEDS: CEFEPIME 2 GM in SODIUM CHLORIDE 0.9% 100 ML IVPB STA (17:39)
[2024-03-25] MEDS: SODIUM CHLORIDE 0.9% 1,000 ML IV SCH (17:40)
--- NOTE | 2024-03-25 17:42 | CT ---
EXAMINATION TYPE: CT angio chest CT DLP: 212.5 mGycm, Automated exposure control for dose reduction was used. DATE OF EXAM: 03/25/2024 5:34 PM COMPARISON: Chest radiograph from same day. Multiple CTs of the chest with most recent on 03/11/2024. CLINICAL INDICATION: Female, 83 years old with history of PE; R/O PE. CHEST PAIN AND SOB TECHNIQUE/CONTRAST: CTA scan of the thorax is performed with IV Contrast, patient injected with 60ml mL of Isovue 370, [place] P images are created and reviewed these are created on a separate workstation.. FINDINGS: Pulmonary Artery: There is no evidence for a filling defect within the pulmonary vasculature to sugge st acute pulmonary embolism. The pulmonary artery is of normal size. Lungs/Pleura: No evidence of focal consolidation, pleural effusion or pneumothorax. Airway: Scattered bronchiectasis throughout the lungs worse in the anterior aspect of the right lung/ middle lobe. Scattered opacified airways likely representing retained secretions. Heart: Heart is within normal limits for size. Vasculature: No evidence of aortic aneurysm. Mediastinum: No gross evidence of adenopathy. Musculoskeletal: Moderate degenerative disc disease changes are present throughout the thoracolumbar spine. Soft Tissues/lymph nodes: Unremarkable. Lower neck: No significant findings. Upper Abdomen: No significant findings. IMPRESSION: 1. No evidence of pulmonary embolism. 2. The lung parenchyma is similar to 03/11/2024. There is COPD changes with right upper lung airspace opacities not significantly changed from prior. [facility], , 03/25/2024 5:39 PM
[2024-03-25] MEDS: AZITHROMYCIN 500 MG in SODIUM CHLORIDE 0.9% 250 ML IVPB STA (19:32)
[2024-03-25] MEDS: ALBUTEROL NEBULIZED 2.5 MG/3 ML INHALATION SCH (21:32)
[2024-03-25] MEDS: METOPROLOL TARTRATE 25 MG TAB PO SCH (21:50)
[2024-03-25] MEDS: APIXABAN 2.5 MG TABLET PO SCH (21:50)
[2024-03-26] MEDS: methylPREDNISolone SOD SUCCI 125 MG/2 ML VIAL IV SCH (00:39)
--- NOTE | 2024-03-26 02:14 | P.CNPUL ---
History of Present Illness Consult date: 03/26/24 Requesting physician: Jovan Ríos Reason for consult: COPD, pneumonia Chief complaint: Shortness of breath, cough with copious phlegm History of present illness: Patient is an 83-year-old female with past medical story significant for COPD, chronic ongoing tobacco dependence, fall with traumatic right hip fracture, among other things. Primary care provider is Dr. Matthieu Ryan. Of note, patient had recent hospitalization in February, for chest pain. Chest CTA done during this admission did not show any evidence of filling defects consistent with pulmonary embolism. There was a consolidation and density within the right apex and with milder infiltrate in the right middle lobe and azygoesophageal recess. These findings were persistent from a previous CAT scan done back in November, but slightly progressed. Concern was for chronic infection versus malignancy. Patient reportedly not interested in bronchoscopy at that point. She was discharged home on March 15 with directions to follow-up in the pulmonary office. Reportedly has a scheduled appointment sometime in April. Patient returns to the emergency department yesterday afternoon complaining of a significant productive cough with copious green phlegm that started yesterday at 0300. She has some mild associated shortness of breath. Denies any fevers. Denies any chest pain. Denies any hemoptysis. Patient is a current ongoing tobacco smoker, approximately 1 pack/day. Reports unintentional weight loss of 12 pounds since November. She reportedly had a traumatic fall and sustained a hip fracture and is status post right direct anterior hip hemiarthroplasty. CBC: WBC count 23.6, hemoglobin 11.6, hematocrit 38, platelets 438. CMP: Sodium 137, potassium 3.6, chloride 100, serum bicarb 32, BUN 12, creatinine 0.43, glucose 103. LFTs unremarkable. Lactic 1.3. Troponin 0.055. NT proBNP 2450. Chest CTA findings from this admission did not show any evidence of pulmonary embolism. Findings within the right upper lung were not significantly changed from prior exam. Right apical density along with right pleural based densities. Bronchiectatic changes in the middle lobe with signet ring sign. She has been empirically covered on a combination of cefepime and azithromycin. Normal saline is infusing at 100 mL/h. She is currently resting in bed on room air. SpO2 reading 93%. Vital signs are stable. Nontoxic appearance. is at bedside. Review of Systems Constitutional: Reports weight loss, Denies chills, Denies fever, Denies night sweats, Denies poor appetite, Denies weight gain Ears, nose, mouth and throat: Denies dysphagia, Denies headache, Denies hoarseness, Denies nasal congestion, Denies nasal discharge, Denies post-nasal drip, Denies sinus pressure, Denies sore throat Cardiovascular: Denies chest pain, Denies leg edema, Denies orthopnea, Denies palpitations, Denies paroxysmal nocturnal dyspnea Respiratory: Reports as per HPI Gastrointestinal: Denies abdominal pain, Denies change in bowel habits, Denies constipation, Denies diarrhea, Denies nausea, Denies vomiting Genitourinary: Denies dysuria Musculoskeletal: Denies limitation of motion Integumentary: Denies rash Neurological: Denies balance difficulties, Denies confusion, Denies headaches, Denies seizures, Denies syncope Psychiatric: Denies anxiety, Denies depression Past Medical History Past Medical History: Atrial Fibrillation, GERD/Reflux, Hyperlipidemia, Pneumonia, Respiratory Disorder Additional Past Medical History / Comment(s): Emphysema, shingles in right ear, right side of back History of Any Multi-Drug Resistant Organisms: None Reported Past Surgical History: Appendectomy, Cholecystectomy, Hysterectomy Additional Past Surgical History / Comment(s): emphesema Past Anesthesia/Blood Transfusion Reactions: No Reported Reaction Past Psychological History: Depression Additional Psychological History / Comment(s): Pt resides with her spouse. She has never been able to drive, her spouse drives. Smoking Status: Current every day smoker Past Alcohol Use History: None Reported Additional Past Alcohol Use History / Comment(s): Pt started smoking in 1959 and is a ppd smoker. Past Drug Use History: None Reported - Past Family History Mother Additional Family Medical History / Comment(s): " AFTER GALLBLADDER TONY" Sister(s) Family Medical History: Cancer Additional Family Medical History / Comment(s): One sister with brain cancer, another with throat cancer. both have passed awaty. Brother(s) Family Medical History: Cancer Additional Family Medical History / Comment(s): lung cancer Medications and Allergies Home Medications Medication Instructions Recorded Confirmed Type Esomeprazole Magnesium [NexIUM] 40 mg PO DAILY 09/18/14 03/25/24 History Ipratropium-Albuterol Nebulize 3 ml INHALATION RT-QID #1 04/02/19 03/25/24 Rx [Duoneb 0.5 mg-3 mg/3 ml Soln] Fluticasone/Umeclidin/Vilanter 1 puff INHALATION RT-DAILY 11/23/23 03/25/24 History [Trelegy Ellipta 200-62.5-25] Ipratropium/Albuterol Sulfate 1 puff INHALATION RT-QID PRN 11/23/23 03/25/24 History [Combivent Respimat Inhaler] Sertraline [Zoloft] 50 mg PO DAILY 11/23/23 03/25/24 History LORazepam [Ativan] 0.5 mg PO BID PRN 03/11/24 03/25/24 History Apixaban [Eliquis] 2.5 mg PO BID #60 tab 03/15/24 03/25/24 Rx Atorvastatin [Lipitor] 80 mg PO DAILY #0 03/15/24 03/25/24 Rx Metoprolol Tartrate [Lopressor] 25 mg PO BID #60 tab 03/15/24 03/25/24 Rx Nicotine 21Mg/24Hr Patch [Habitrol] 1 patch TRANSDERM DAILY patch 03/15/24 03/25/24 Rx Allergies Allergy/AdvReac Type Severity Reaction Status Date / Time aspirin Allergy Nausea & Verified 03/25/24 17:19 Vomiting codeine Allergy Unknown Verified 03/25/24 17:19 meperidine HCl [From Demerol] AdvReac Rapid Verified 03/25/24 17:19 Heart Rate Physical Exam Vitals: Vital Signs Temp Pulse Pulse Resp BP BP Pulse Ox 03/25/24 21:48 70 125/56 03/25/24 21:40 85 03/25/24 21:32 86 03/25/24 19:34 85 19 122/63 93 L 03/25/24 18:36 89 24 120/53 92 L 03/25/24 18:13 81 03/25/24 18:01 77 03/25/24 17:34 82 24 146/65 94 L 03/25/24 16:56 82 03/25/24 16:40 74 03/25/24 15:49 98 F 70 22 150/64 97 Intake and Output 03/25/24 03/25/24 03/26/24 14:59 22:59 06:59 Other: Weight 51.256 kg 51.256 kg GENERAL EXAM: Alert, 83-year-old white female, comfortable in no apparent distress. HEAD: Normocephalic and atraumatic EYES: Normal reaction of pupils, equal size. NOSE: Clear with pink turbinates. THROAT: No erythema or exudates. NECK: No masses, no JVD. CHEST: No chest wall deformity. LUNGS: Equal air entry with expiratory wheezes throughout and coarse rhonchi heard best at the bases bilaterally, however, greater on the right. On room air. No conversational dyspnea or accessory muscle use.. CVS: S1 and S2 normal with no audible murmur, regular rhythm. No extra heart sounds ABDOMEN: No hepatosplenomegaly, active bowel sounds, no guarding or rigidity. SPINE: No scoliosis or deformity SKIN: No rashes CENTRAL NERVOUS SYSTEM: No focal deficits, tone is normal in all 4 extremities. EXTREMITIES: There is no peripheral edema, clubbing, or cyanosis. Peripheral pulses are intact. Results - Laboratory Findings CBC and BMP: 03/25/24 15:53 03/25/24 15:53 PT/INR, D-dimer PT 10.3 sec (10.0-12.5) 03/25/24 15:53 INR 0.9 (<1.2) 03/25/24 15:53 Abnormal lab findings: Abnormal Labs 03/25/24 03/25/24 03/25/24 15:53 15:53 15:53 WBC 23.6 H MCHC 30.4 L Neutrophils # 20.5 H Monocytes # 1.1 H Carbon Dioxide 32 H Creatinine 0.43 L Glucose 103 H Troponin I 0.055 H* - Diagnostic Findings Chest x-ray: image reviewed CT scan - chest: image reviewed Assessment and Plan Assessment: Acute COPD exacerbation secondary to acute purulent tracheobronchitis. Chest CT findings similar to previous imaging. Again, did not show any evidence of pulmonary embolism. Persistent bilateral apical densities, greater on the right, along with right pleural based based densities. Bronchiectatic changes in the right middle lobes with retained secretions. Previously considered differential includes chronic lung in infection (e.g., atypical bacterial infection), malignancy. Acute dyspnea, secondary to above Acute leukocytosis Elevated troponins, repeat Chronic hypoxemic respiratory failure, normally utilizes 2.5 L nasal cannula at bedtime Severe chronic obstructive pulmonary disease, with a baseline FEV1 30% of predicted History of pulmonary hypertension Chronic ongoing tobacco dependence, currently smokes 1 pack/day History of traumatic right proximal femur subcapital femoral neck fracture with valgus impaction, status post right direct anterior hip hemiarthroplasty on 11/25/2023 History of hyperlipidemia History of paroxysmal atrial fibrillation, currently normal sinus Plan: Patient's medications, labs, imaging reviewed Patient was previously offered bronchoscopy with BAL on her previous hospital admission; however, at that time she was not interested in bronchoscopy. Directions at that time were to follow-up outpatient with Dr. Pickens. Patient reportedly has an appointment in April. She returns with copious green sputum production and her COPD is clearly active. Patient was placed back on empiric antibiotics in the emergency department. Patient may benefit from [facility] hoscopy. Case will be discussed with Dr. Davies. In the meantime, continue with supplemental oxygen at bedtime and as needed Continue empiric antibiotics Obtain sputum culture and blood cultures Check procalcitonin level Continue combination of bronchodilators, Symbicort inhaler, and IV Solu-Medrol Smoking cessation counseling performed greater than 10 minutes Patient declined nicotine replacement GI prophylaxis: Pepcid DVT prophylaxis: Deferred patient chronically anticoagulated on Eliquis We will continue to follow, additional recommendations forthcoming. I have personally seen and examined the patient, performed the documentation and the assessment and plan as written. Number of minutes spent on the visit:20 Time with Patient: Greater than 30
[2024-03-26] MEDS: CEFEPIME 2 GM in SODIUM CHLORIDE 0.9% 100 ML IVPB SCH (02:27)
[2024-03-26] MEDS: SYMBICORT 160-4.5 MCG INHALER INHALATION SCH (08:04)
[2024-03-26] MEDS: FAMOTIDINE 20 MG TAB PO SCH (08:14)
[2024-03-26] MEDS: AZITHROMYCIN 500 MG in SODIUM CHLORIDE 0.9% 250 ML IVPB SCH (08:53)
[2024-03-26] MEDS: ONDANSETRON 4 MG/2 ML VIAL IVP PRN (10:05)
--- NOTE | 2024-03-26 10:50 | XR ---
EXAMINATION TYPE: XR chest 1V portable DATE OF EXAM: 03/26/2024 Comparison: 03/25/2024 Clinical History: 83-year-old female Pneumonia Findings: Heart is moderately enlarged. Hyperinflation. Diffuse interstitial and patchy opacities persist. Slig ht interval worsening. Impression: COPD with slight worsening in bilateral interstitial and patchy infiltrates. [facility] Rem[facility] Jordan, , 03/26/2024 10:48 AM
[2024-03-26] MEDS ORDERED: NON FORMULARY DRUG (Ipratropium/Albuterol Sulfate [Combivent Respimat Inhaler] 1 INHALER E INHALATION PRN (16:26)
[2024-03-26] MEDS ORDERED: LORazepam 0.5 MG TAB PO PRN (16:28)
--- NOTE | 2024-03-26 16:35 | P.HPIM ---
History of Present Illness H&P Date: 03/26/24 Chief Complaint: shortness of breath, weak cough Mid lobe right-sided female recently admitted inpatient for right-sided mid lobe pneumonia suggested per CTA. During that visit, pulmonary expressed concern for malignancy versus chronic infection, possible chronic atypical mycobacterial infection, requesting further workup. Patient declined inpatient bronchoscopy, agreed to following up outpatient with for further workup, in a patient with chronic hypoxic respiratory failure, emphysema, severe pulmonary hypertension, ongoing nicotine dependence, chronic diastolic CHF, gastroesophageal reflux disease, paroxysmal atrial fibrillation and multiple other medical issues. Patient was discharged home 03/15, returned to the ER with progressive shortness of breath, weak productive cough with thick purulent grennisg/ brownish sputum. Per pulmonary's review ,CT findings similar to previous imaging. Maintained on nebulized bronchodilators, azithromycin, cefep obinna, steroids. Denies chest pain or palpitations Past Medical History Past Medical History: Atrial Fibrillation, GERD/Reflux, Hyperlipidemia, Pneumonia, Respiratory Disorder Additional Past Medical History / Comment(s): Emphysema, shingles in right ear, right side of back History of Any Multi-Drug Resistant Organisms: None Reported Past Surgical History: Appendectomy, Cholecystectomy, Hysterectomy Additional Past Surgical History / Comment(s): emphesema Past Anesthesia/Blood Transfusion Reactions: No Reported Reaction Past Psychological History: Depression Additional Psychological History / Comment(s): Pt resides with her spouse. She has never been able to drive, her spouse drives. Smoking Status: Current every day smoker Past Alcohol Use History: None Reported Additional Past Alcohol Use History / Comment(s): Pt started smoking in 1960 and is a ppd smoker. Past Drug Use History: None Reported - Past Family History Mother Additional Family Medical History / Comment(s): " AFTER GALLBLADDER TONY" Sister(s) Family Medical History: Cancer Additional Family Medical History / Comment(s): One sister with brain cancer, another with throat cancer. both have passed awaty. Brother(s) Family Medical History: Cancer Additional Family Medical History / Comment(s): lung cancer Medications and Allergies Home Medications Medication Instructions Recorded Confirmed Type Esomeprazole Magnesium [NexIUM] 40 mg PO DAILY 09/18/14 03/25/24 History Ipratropium-Albuterol Nebulize 3 ml INHALATION RT-QID #1 04/02/19 03/25/24 Rx [Duoneb 0.5 mg-3 mg/3 ml Soln] Fluticasone/Umeclidin/Vilanter 1 puff INHALATION RT-DAILY 11/23/23 03/25/24 History [Treletali Ellipta 200-62.5-25] Ipratropium/Albuterol Sulfate 1 puff INHALATION RT-QID PRN 11/23/23 03/25/24 History [Combivent Respimat Inhaler] Sertraline [Zoloft] 50 mg PO DAILY 11/23/23 03/25/24 History LORazepam [Ativan] 0.5 mg PO BID PRN 03/11/24 03/25/24 History Apixaban [Eliquis] 2.5 mg PO BID #60 tab 03/15/24 03/25/24 Rx Atorvastatin [Lipitor] 80 mg PO DAILY #0 03/15/24 03/25/24 Rx Metoprolol Tartrate [Lopressor] 25 mg PO BID #60 tab 03/15/24 03/25/24 Rx Nicotine 21Mg/24Hr Patch [Habitrol] 1 patch TRANSDERM DAILY patch 03/15/24 03/25/24 Rx Allergies Allergy/AdvReac Type Severity Reaction Status Date / Time aspirin Allergy Nausea & Verified 03/25/24 17:19 Vomiting codeine Allergy Unknown Verified 03/25/24 17:19 meperidine HCl [From Demerol] AdvReac Rapid Verified 03/25/24 17:19 Heart Rate Physical Exam Vitals: Vital Signs Temp Pulse Pulse Resp BP BP Pulse Ox 03/26/24 14:48 90 18 03/26/24 11:32 88 18 03/26/24 11:24 88 18 03/26/24 08:17 88 18 03/26/24 08:05 88 18 03/26/24 08:00 98.6 F 66 17 119/62 95 03/26/24 02:22 97.8 F 74 21 110/55 96 03/25/24 21:48 70 125/56 03/25/24 21:40 85 03/25/24 21:32 86 03/25/24 19:34 85 19 122/63 93 L 03/25/24 18:36 89 24 120/53 92 L 03/25/24 18:13 81 03/25/24 18:01 77 03/25/24 17:34 82 24 146/65 94 L 03/25/24 16:56 82 03/25/24 16:40 74 03/25/24 15:49 98 F 70 22 150/64 97 Intake and Output 03/26/24 03/26/24 03/26/24 06:59 14:59 22:59 Intake Total 700 Balance 700 Intake: Intake, IV Titration 700 Amount Cefepime 2 gm In Sodium 100 Chloride 0.9% 100 ml @ 200 mls/hr IVPB ONCE [facility] Rx#:[id number] Sodium Chloride 0.9% 1, 600 000 ml @ 100 mls/hr IV . Q10H [facility] Rx#:[id number] Other: Voiding Method Toilet Toilet # Voids 4 Weight 51.256 kg VITAL SIGNS: As above GENERAL: Pleasant, alert and oriented x 3, sitting up in bed, no acute distress, HEENT: Normocephalic, atraumatic ,conjunctivae normal. eyes normal. MMM. NECK: Supple, no JVD. CARDIOVASCULAR: S1, S2 regular. No murmur RESPIRATION: Unlabored, equal air entry. Raspy,scattered expiratory wheeze- right greater than left ABDOMEN: Soft, nondistended, nontender . No guarding. no masses palpable. +BS. EXTR: no edema, cyanosis, no clubbing, positive DP pulse NERVOUS SYSTEM: Cranial N 2-12 grossly normal. No focal deficits Skin: Warm and dry, no rash Results CBC & Chem 7: 03/27/24 00:50 03/27/24 00:50 Labs: Abnormal Lab Results - Last 24 Hours (Table) 03/25/24 03/25/24 03/25/24 Range/Units 15:53 15:53 15:53 WBC 23.6 H (3.8-10.6) k/uL MCHC 30.4 L (31.0-37.0) g/dL Neutrophils # 20.5 H (1.3-7.7) k/uL Monocytes # 1.1 H (0-1.0) k/uL Carbon Dioxide 32 H (22-30) mmol/L Creatinine 0.43 L (0.52-1.04) mg/dL Glucose 103 H (74-99) mg/dL Troponin I 0.055 H* (0.000-0.034) ng/mL 03/26/24 Range/Units 06:19 WBC (3.8-10.6) k/uL MCHC (31.0-37.0) g/dL Neutrophils # (1.3-7.7) k/uL Monocytes # (0-1.0) k/uL Carbon Dioxide (22-30) mmol/L Creatinine (0.52-1.04) mg/dL Glucose (74-99) mg/dL Troponin I 0.069 H* (0.000-0.034) ng/mL Microbiology - Last 24 Hours (Table) 03/25/24 19:02 Gram Stain - Preliminary Sputum Thrombosis Risk Factor Assmnt - Choose All That Apply Each Factor Represents 1 point: Abnormal pulmonary function (COPD) Each Risk Factor Represents 3 Points: Age 75 years or older Thrombosis Risk Factor Assessment Total Risk Factor Score: 4 Thrombosis Risk Factor Assessment Level: Moderate Risk Assessment and Plan Assessment: Acute COPD exacerbation secondary to acute purulent tracheobronchitis, chest CT similar to previous imaging per pulmonary's review. Recently admitted inpatient with mid lobe right-sided pneumonia suggested per CTA. Per pulmonary review, concern for malignancy versus chronic infection, possible chronic atypical mycobacterial infection. Patient declined inpatient bronchoscopy, agreeing to further workup outpatient with pulmonary, including potential bronchoscopy. -Acute dyspnea secondary to the above -Leukocytosis -Elevated troponins, 0.055, 0.069 -Chronic hypoxic respiratory failure, wears O2 at home -Emphysema, severe COPD -Severe pulmonary hypertension -Ongoing nicotine dependence -Chronic diastolic CHF -Gastroesophageal reflux disease -History of pneumonia -History of shingles -Depression, anxiety -Paroxysmal atrial fibrillation -Moderate protein calorie malnutrition, 12 pound weight loss over the last 4- months Plan: Continue on current medication regimen ,monitoring and symptomatic treatm ent. Aggressive pulmonary toileting, maintaining nebulized bronchodilators, antibiotics of cefepime, azithromycin, steroids. Pulmonary following. Declining to see cardiology again this visit. The impression and plan of care has been dictated as directed. : I performed a history and examination of this patient, discussed the same with the dictator. I agree with the dictator's note ,documented as a scribe. Any additional findings or plans will be noted.
[2024-03-26] MEDS: PANTOPRAZOLE 40 MG/10 ML VIAL IVP SCH (17:13)
[2024-03-26] MEDS: ATORVASTATIN 80 MG TAB PO SCH (17:13)
[2024-03-26] MEDS: SERTRALINE 50 MG TAB PO SCH (17:13)
[2024-03-26] MEDS: NICOTINE 21MG/24HR PATCH TRANSDERM SCH (17:14)
[2024-03-26] MEDS: IPRATROPIUM-ALBUTEROL 3 ML NEB INHALATION SCH (19:34)
[2024-03-27 01:24] LABS: RBC 3.46 m/uL (3.80-5.40); WBC 9.5 k/uL (3.8-10.6)
[2024-03-27 01:38] LABS: Basophils % (A) 0 %; Eosinophils % (A) 0 %; HCT 30.5 % (34.0-46.0); Lymphocytes # (A) 0.8 k/uL (1.0-4.8); Lymphocytes % (A) 9 %; MCHC 32.6 g/dL (31.0-37.0); MCV 88.8 fL (80.0-100.0); Mean Platelet Volume 8.4; Monocytes # (A) 0.3 k/uL (0-1.0); Monocytes % (A) 3 %; Neutrophils # (A) 8.1 k/uL (1.3-7.7); Neutrophils % (A) 88 %; Platelet Count 294 k/uL (150-450); RDW 13.9 % (11.5-15.5)
[2024-03-27 02:23] LABS: African American GFR (CKD) >90 (>60 ml/min/1.73 sqM); Anion Gap 4 mmol/L; Blood Urea Nitrogen 18 mg/dL (7-17); Calcium 8.9 mg/dL (8.4-10.2); Carbon Dioxide 27 mmol/L (22-30); Chloride 111 mmol/L (98-107); Glucose 142 mg/dL (74-99); Non-African American GFR(CKD) >90 (>60 ml/min/1.73 sqM); Potassium 3.8 mmol/L (3.5-5.1); Sodium 142 mmol/L (137-145)
[2024-03-27] MEDS: POTASSIUM CHLORIDE ER 20 MEQ TAB.ER PO STA (17:43)
[2024-03-28] MEDS: IPRATROPIUM-ALBUTEROL 3 ML NEB INHALATION PRN (02:04)
--- NOTE | 2024-03-28 14:39 | P.PN ---
Subjective Progress Note Date: 03/28/24 Patient is an 83-year-old female with past medical story significant for COPD, chronic ongoing tobacco dependence, fall with traumatic right hip fracture, among other things. Primary care provider is Dr. Matthieu Ryan. Of note, patient had recent hospitalization in February, for chest pain. Chest CTA done during this admission did not show any evidence of filling defects consistent with pulmonary embolism. There was a consolidation and density within the right apex and with milder infiltrate in the right middle lobe and azygoesophageal recess. These findings were persistent from a previous CAT scan done back in November, but slightly progressed. Concern was for chronic infection versus maligna ncy. Patient reportedly not interested in bronchoscopy at that point. She was discharged home on March 15 with directions to follow-up in the pulmonary office. Reportedly has a scheduled appointment sometime in April. Patient returns to the emergency department yesterday afternoon complaining of a significant productive cough with copious green phlegm that started yesterday at 0300. She has some mild associated shortness of breath. Denies any fevers. Denies any chest pain. Denies any hemoptysis. Patient is a current ongoing tobacco smoker, approximately 1 pack/day. Reports unintentional weight loss of 12 pounds since November. She reportedly had a traumatic fall and sustained a hip fracture and is status post right direct anterior hip hemiarthroplasty. CBC: WBC count 23.6, hemoglobin 11.6, hematocrit 38, platelets 438. CMP: Sodium 137, potassium 3.6, chloride 100, serum bicarb 32, BUN 12, creatinine 0.43, glucose 103. LFTs unremarkable. Lactic 1.3. Troponin 0.055. NT proBNP 2450. Chest CTA findings from this admission did not show any evidence of pulmonary embo lism. Findings within the right upper lung were not significantly changed from prior exam. Right apical density along with right pleural based densities. Bronchiectatic changes in the middle lobe with signet ring sign. She has been empirically covered on a combination of cefepime and azithromycin. Normal saline is infusing at 100 mL/h. She is currently resting in bed on room air. SpO2 reading 93%. Vital signs are stable. Nontoxic appearance. is at bedside. The patient is seen today March 28, 2024 in follow-up on the regular medical floor. She is currently sitting up in bed. Awake and alert in no acute distress. Maintaining O2 saturations in the 90s on 2 L/min per nasal cannula. She continues with a loose congested cough. Chest x-ray revealed COPD with bilateral interstitial and patchy infiltrates. Sputum culture revealed no growth. Blood cultures revealed no growth. White count 9.5. Hemoglobin 10.0. Platelets 294. Sodium 142. Potassium 3.8. Bicarb 27. BUN 18. Creatinine 0.5. Glucose 142. Procalcitonin was negative at 0.05. Legionella screen negative. He does remain on antibiotics in the form of cefepime. Continued on DuoNeb ventilations, Symbicort, Solu-Medrol. NicoDerm patch in place. Objective - Vital Signs Vital signs: Vital Signs Temp 97.8 F 03/28/24 07:58 Pulse 76 03/28/24 12:20 Resp 16 03/28/24 07:58 BP 167/77 03/28/24 07:58 Pulse Ox 100 03/28/24 09:14 FiO2 Intake & Output 03/27/24 03/28/24 03/28/24 18:59 06:59 18:59 Other: Voiding Method Toilet Toilet - Exam GENERAL EXAM: Alert, 83-year-old female, on 2 L nasal cannula, fairly comfortable in no apparent distress. HEAD: Normocephalic and atraumatic EYES: Normal reaction of pupils, equal size. NOSE: Clear with pink turbinates. THROAT: No erythema or exudates. NECK: No masses, no JVD. CHEST: No chest wall deformity. LUNGS: Equal air entry with expiratory wheezes throughout and coarse rhonchi heard best at the bases bilaterally, however, greater on the right. CVS: S1 and S2 normal with no audible murmur, regular rhythm. No extra heart sounds ABDOMEN: No hepatosplenomegaly, active bowel sounds, no guarding or rigidity. SPINE: No scoliosis or deformity SKIN: No rashes CENTRAL NERVOUS SYSTEM: No focal deficits, tone is normal in all 4 extremities. EXTREMITIES: There is no peripheral edema, clubbing, or cyanosis. Peripheral pulses are intact. - Labs CBC & Chem 7: 03/27/24 00:50 03/27/24 00:50 Labs: Microbiology - Last 24 Hours (Table) 03/25/24 19:02 Gram Stain - Final Sputum Sputum Culture - Final 03/25/24 17:13 Blood Culture - Preliminary Blood Assessment and Plan Assessment: Acute COPD exacerbation secondary to acute purulent tracheobronchitis. Chest CT findings similar to previous imaging. Again, did not show any evidence of pulmonary embolism. Persistent bilateral apical densities, greater on the right, along with right pleural based based densities. Bronchiectatic changes in the right middle lobes with retained secretions. Differential includes chronic lung in infection, e.g., atypical bacterial infection, or possibly malignancy. Patient is now agreeable to a bronchoscopy with BAL and brushings on 03/30/2024 Acute dyspnea, secondary to above Acute leukocytosis Elevated troponins Chronic hypoxemic respiratory failure, normally utilizes 2.5 L nasal cannula at bedtime Severe chronic obstructive pulmonary disease, with a baseline FEV1 30% of predicted History of pulmonary hypertension Chronic ongoing tobacco dependence, currently smokes 1 pack/day History of traumatic right proximal femur subcapital femoral neck fracture with valgus impaction, status post right direct anterior hip hemiarthroplasty on 11/25/2023 History of hyperlipidemia History of paroxysmal atrial fibrillation, currently normal sinus Plan: The patient was seen and evaluated Labs and medications reviewed Stable and on 2 L nasal cannula Remains on cefepime Repeat a procalcitonin in the a.m. Plan for bronchoscopy with BAL and brushings on 03/30/2024 Calixto is placed on hold I have personally seen and examined the patient, performed the documentation and the assessment and plan as written. Number of minutes spent on the visit: 10.
--- NOTE | 2024-03-28 19:00 | P.PN ---
Subjective Progress Note Date: 03/27/24 H&P Date: 03/26/24 Chief Complaint: shortness of breath, weak cough Mid lobe right-sided female recently admitted inpatient for right-sided mid lobe pneumonia suggested per CTA. During that visit, pulmonary expressed concern for malignancy versus chronic infection, possible chronic atypical mycobacterial infection, requesting further workup. Patient declined inpatient bronchoscopy, agreed to following up outpatient with for further workup, in a patient with chronic hypoxic respiratory failure, emphysema, severe pulmonary hypertension, ongoing nicotine dependence, chronic diastolic CHF, gastroesophageal reflux disease, paroxysmal atrial fibrillation and multiple other medical issues. Patient was discharged home 03/15, returned to the ER with progressive shortness of breath, weak productive cough with thick purulent grennisg/ brownish sputum. Per pulmonary's review ,CT findings similar to previous imaging. Maintained on nebulized bronchodilators, azithromycin, cefepime, steroids. Denies chest pain or palpitations 03/27/2024 maintained on nebulized bronchodilators, cefepime, IV steroids.. Afebrile, WBC has normalized. Chest x-ray reporting COPD with slight worsening in bilateral interstitial and patchy infiltrates. Currently maintaining O2 sats in the 90s on room air. Hemoglobin decreased to 10, platelets 294. Renal function stable. Blood sugars controlled. Troponins elevated 0.055, 0.069, denies chest pain, palpitations. Patient is adamant about not seeing cardiology. Objective - Vital Signs Vital signs: Vital Signs Temp 97.7 F 03/27/24 14:00 Pulse 84 03/27/24 15:42 Resp 16 03/27/24 14:00 BP 126/57 03/27/24 14:00 Pulse Ox 95 03/27/24 14:00 FiO2 Intake & Output 03/26/24 03/27/24 03/27/24 18:59 06:59 18:59 Intake Total 1020 Balance 1020 Intake: Intake, IV Titration 900 Amount Cefepime 2 gm In Sodium 100 Chloride 0.9% 100 ml @ 25 mls/hr IVPB Q8H [facility] Rx#: [id number] Sodium Chloride 0.9% 1, 800 000 ml @ 100 mls/hr IV . Q10H [facility] Rx#:[id number] Oral 120 Other: Voiding Method Toilet Toilet # Voids 2 - Exam VITAL SIGNS: As above GENERAL: Pleasant, alert and oriented x 3, sitting up at side of bed, no acute distress, anxious HEENT: Normocephalic, atraumatic ,conjunctivae normal. eyes normal. MMM. NECK: Supple, no JVD. CARDIOVASCULAR: S1, S2 regular. No murmur RESPIRATION: Unlabored, equal air entry. Raspy,scattered rhonchi, expiratory wheeze-right greater than left ABDOMEN: Soft, nondistended, nontender . No guarding. no masses palpable. +BS. EXTR: no edema, cyanosis, no clubbing, positive DP pulse NERVOUS SYSTEM: Cranial N 2-12 grossly normal. No focal deficits Skin: Warm and dry, no rash - Labs CBC & Chem 7: 03/27/24 00:50 03/27/24 00:50 Labs: Abnormal Lab Results - Last 24 Hours (Table) 03/27/24 03/27/24 Range/Units 00:50 00:50 RBC 3.46 L (3.80-5.40) m/uL Hgb 10.0 L D (11.4-16.0) gm/dL Hct 30.5 L (34.0-46.0) % Neutrophils # 8.1 H (1.3-7.7) k/uL Lymphocytes # 0.8 L (1.0-4.8) k/uL Chloride 111 H (98-107) mmol/L BUN 18 H (7-17) mg/dL Creatinine 0.50 L (0.52-1.04) mg/dL Glucose 142 H (74-99) mg/dL Microbiology - Last 24 Hours (Table) 03/25/24 19:02 Gram Stain - Preliminary Sputum Sputum Culture - Preliminary 03/25/24 17:13 Blood Culture - Preliminary Blood Assessment and Plan Assessment: Acute COPD exacerbation secondary to acute purulent tracheobronchitis, chest CT similar to previous imaging per pulmonary's review. Recently admitted inpatient with mid lobe right-sided pneumonia suggested per CTA. Per pulmonary review, concern for malignancy versus chronic infection, possible chronic atypical mycobacterial infection. Patient declined inpatient bronchoscopy, agreeing to further workup outpatient with pulmonary, including potential bronchoscopy. -Acute dyspnea secondary to the above -Leukocytosis, resolved -Elevated troponins, 0.055, 0.069 -Chronic hypoxic respiratory failure, wears O2 at home -Emphysema, severe COPD -Severe pulmonary hypertension -Ongoing nicotine dependence -Chronic diastolic CHF -Gastroesophageal reflux disease -History of pneumonia -History of shingles -Depression, anxiety -Paroxysmal atrial fibrillation -Moderate protein calorie malnutrition, 12 pound weight loss over the last 4- months Plan: Continue on current medication regimen ,monitoring and symptomatic treatment. Aggressive pulmonary toileting, maintaining nebulized bronchodilators, antibiotics of cefepime, azithromycin, steroids. Prognosis guarded as patient requires further workup regarding potential atypical mycobacterial infection versus potential mass/malignancy versus chronic lung infection.Apparently, pulmonary was kicked off the case. Patient continues declining cardiology consult as well. Patient has much anxiety. will continue to explain goals of care, to facilitate much-needed workup as per specialists. The impression and plan of care has been dictated as directed. : I performed a history and examination of this patient, discussed the same with the dictator. I agree with the dictator's note ,documented as a scribe. Any additional findings or plans will be noted.
--- NOTE | 2024-03-28 19:12 | P.PN ---
Subjective Progress Note Date: 03/28/24 H&P Date: 03/26/24 Chief Complaint: shortness of breath, weak cough Mid lobe right-sided female recently admitted inpatient for right-sided mid lobe pneumonia suggested per CTA. During that visit, pulmonary expressed concern for malignancy versus chronic infection, possible chronic atypical mycobacterial infection, requesting further workup. Patient declined inpatient bronchoscopy, agreed to following up outpatient with for further workup, in a patient with chronic hypoxic respiratory failure, emphysema, severe pulmonary hypertension, ongoing nicotine dependence, chronic diastolic CHF, gastroesophageal reflux disease, paroxysmal atrial fibrillation and multiple other medical issues. Patient was discharged home 03/15, returned to the ER with progressive shortness of breath, weak productive cough with thick purulent grennisg/ brownish sputum. Per pulmonary's review ,CT findings similar to previous imaging. Maintained on nebulized bronchodilators, azithromycin, cefepime, steroids. Denies chest pain or palpitations 03/27/2024 maintained on nebulized bronchodilators, cefepime, IV steroids.. Afebrile, WBC has normalized. Chest x-ray reporting COPD with slight worsening in bilateral interstitial and patchy infiltrates. Currently maintaining O2 sats in the 90s on room air. Hemoglobin decreased to 10, platelets 294. Renal function stable. Blood sugars controlled. Troponins elevated 0.055, 0.069, denies chest pain, palpitations. Patient is adamant about not seeing cardiology. 03/28/2024 continues on cefepime, antibiotics, IV steroids, nebulized bronchodilators .yesterday patient was maintaining O2 sats on room air in the 90s, currently requiring 3 L nasal cannula O2 to maintain O2 sats in the 90s. Continues to have a loose congested cough. Procalcitonin negative, 0.05, afebrile. Renal function stable Objective - Vital Signs Vital signs: Vital Signs Temp 97.7 F 03/28/24 14:00 Pulse 74 03/28/24 14:00 Resp 18 03/28/24 14:00 BP 154/69 03/28/24 14:00 Pulse Ox 100 03/28/24 14:00 FiO2 Intake & Output 03/27/24 03/28/24 03/28/24 18:59 06:59 18:59 Other: Voiding Method Toilet Toilet - Exam VITAL SIGNS: As above GENERAL: Pleasant, alert and oriented x 3, sitting up at side of bed, no acute distress, teary-eyed HEENT: Normocephalic, atraumatic ,conjunctivae normal. eyes normal. MMM. NECK: Supple, no JVD. CARDIOVASCULAR: S1, S2 regular. No murmur RESPIRATION: Unlabored, equal air entry. Raspy,scattered rhonchi, expiratory wheeze-right greater than left ABDOMEN: Soft, nondistended, nontender . No guarding. no masses palpable. +BS. EXTR: no edema, cyanosis, no clubbing, positive DP pulse NERVOUS SYSTEM: Cranial N 2-12 grossly normal. No focal deficits Skin: Warm and dry, no rash Microbiology 03/25/24 19:02 Sputum Gram Stain - Final 03/25/24 19:02 Sputum Sputum Culture - Final 03/25/24 17:13 Blood Blood Culture - Preliminary - Labs CBC & Chem 7: 03/27/24 00:50 03/27/24 00:50 Labs: Microbiology - Last 24 Hours (Table) 03/25/24 19:02 Gram Stain - Final Sputum Sputum Culture - Final 03/25/24 17:13 Blood Culture - Preliminary Blood Assessment and Plan Assessment: Acute COPD exacerbation secondary to acute purulent tracheobronchitis, chest CT similar to previous imaging per pulmonary's review. Recently admitted inpatient with mid lobe right-sided pneumonia suggested per CTA. Per pulmonary review, concern for malignancy versus chronic infection, possible chronic atypical mycobacterial infection. Patient declined inpatient bronchoscopy, agreeing to further workup outpatient with pulmonary, including potential bronchoscopy. -Acute dyspnea secondary to the above -Leukocytosis -Elevated troponins, 0.055, 0.069 -Chronic hypoxic respiratory failure, wears O2 at home -Emphysema, severe COPD -Severe pulmonary hypertension -Ongoing nicotine dependence -Chronic diastolic CHF -Gastroesophageal reflux disease -History of pneumonia -History of shingles -Depression, anxiety -Paroxysmal atrial fibrillation -Moderate protein calorie malnutrition, 12 pound weight loss over the last 4- months Plan: Continue on current medication regimen ,monitoring and symptomatic treatment. After much discussion and encouragement with both patient and . Patient now agrees to see pulmonary and proceed with diagnostic bronchoscopy and also agreeable to seeing cardiology. Patient expresses much fear and anxiety. Continue on Xanax.cardiology consulted, pulmonary notified .will hold Eliquis for upcoming procedure.aggressive pulmonary toileting, tess ntaining nebulized bronchodilators, antibiotics of cefepime, azithromycin, steroids. The impression and plan of care has been dictated as directed. : I performed a history and examination of this patient, discussed the same with the dictator. I agree with the dictator's note ,documented as a scribe. Any additional findings or plans will be noted.
--- NOTE | 2024-03-29 09:38 | P.CRDCN ---
History of Present Illness History of present illness: HISTORY OF PRESENT ILLNESS: This is a 83-year-old female with a past medical history significant for COPD on home oxygen, paroxysmal atrial fibrillation, hyperlipidemia, nicotine dependen ce. Patient does not follow with a jar filler. We have been asked to see the patient in consultation for elevated troponins. Patient examined at the bedside. Patient was recently hospitalized due to shortness of breath. Apparently bronchoscopy was recommended at that time but patient refused. Patient presented back to the hospital with worsening shortness of breath. She reports a productive cough with yellow-green tinged sputum. She denies any fever or chills. She denies having any chest pain or pressure. She does report mild nausea without vomiting. She continues to report shortness of breath at the time of examination. Patient's is at the bedside and states patient was unable to ambulate to the bathroom without significant dyspnea and has required a bedside commode. The patient does report using oxygen at home at night and as needed. She remains on antibiotics. Patient's Eliquis has been placed on hold and she is scheduled to undergo bronchoscopy tomorrow with pulmonary medicine. Patient's vital signs are stable. DIAGNOSTICS: - EKG reveals sinus mechanism with T wave inversions in V2, unchanged from previous EKG - Chest xray on admission reveals increasing right midlung airspace opacities superimposed on diffuse haziness - Chest CTA: Negative for pulmonary embolism. Lung parenchyma similar to 03/11/2024. COPD changes with right upper lung airspace opacities - Laboratory data: WBC 9.5. Hemoglobin 10.0. Platelet count 294. Sodium 142. Potassium 3.8. BUN 18. Creatinine 0.50. proBNP 2450. Troponin 0.055. 0.069. - Current home cardiac medications include Eliquis 2.5 mg twice a day, Lipitor 80 mg daily, metoprolol titrate 25 mg twice a day - Most recent echocardiogram obtained in February 2024 revealed ejection fraction 55 to 60%, moderate to severe pulmonary hypertension, mild to moderate mitral regurgitation, mild to moderate tricuspid regurgitation. REVIEW OF SYSTEMS: At the time of my exam: CONSTITUTIONAL: Denies fever or chills. HEENT: Denies blurred vision, vision changes, or eye pain. Denies hemoptysis CARDIOVASCULAR: Denies chest pain. Denies orthopnea. Denies PND. Denies palpitations RESPIRATORY: Reports shortness of breath. GASTROINTESTINAL: Denies abdominal pain. Reports nausea. No vomiting. HEMATOLOGIC: Denies bleeding disorders. GENITOURINARY: Denies any blood in urine. SKIN: Denies pruitis. Denies rash. PHYSICAL EXAM: VITAL SIGNS: Reviewed. GENERAL: Well-developed in no acute distress. HEENT: Head is normocephalic. Pupils are equal, round. Sclerae anicteric. Mucous membranes of the mouth are moist. Neck supple. Left carotid bruit noted. LUNGS: Respirations even and unlabored. Lungs with bilateral expiratory wheezing. Breath sounds diminished greater on left than right. HEART: Regular rate and rhythm. S1 and S2 heard. ABDOMEN: Soft. Nondistended. Nontender. EXTREMITIES: Normal range of motion. No clubbing or cyanosis. Peripheral pulses intact. No lower extremity edema NEUROLOGIC: Awake and alert. Oriented x 3. ASSESSMENT: Shortness of breath Acute COPD exacerbation Acute purulent tracheobronchitis Elevated troponins, flat, type II [place] secondary to oxygen supply/demand mismatch History of COPD on home oxygen at HS and PRN Paroxysmal atrial fibrillation, maintaining sinus mechanism Moderate to severe pulmonary hypertension Hyperlipidemia History of right hip hemiarthroplasty on 11/25/2023 Nicotine dependence PLAN: An acute coronary event has been ruled out No need to repeat echocardiogram as this was performed last month Eliis on hold for bronchoscopy. Resume postprocedure Begin aspirin 81 mg daily Repeat EKG in a.m. Smoking cessation recommended Recommend outpatient ischemic evaluation once patient's acute issues have resolved Further recommendations pending patient course Nurse practitioner note has been reviewed by physician. Signing provider agrees with the documented findings, assessment, and plan of care documented by SENIOR RECRUITER as a scribe. Past Medical History Past Medical History: Atrial Fibrillation, GERD/Reflux, Hyperlipidemia, Pneumonia, Respiratory Disorder Additional Past Medical History / Comment(s): Emphysema, shingles in right ear, right side of back History of Any Multi-Drug Resistant Organisms: None Reported Past Surgical History: Appendectomy, Cholecystectomy, Hysterectomy Additional Past Surgical History / Comment(s): emphesema Past Anesthesia/Blood Transfusion Reactions: No Reported Reaction Past Psychological History: Depression Additional Psychological History / Comment(s): Pt resides with her spouse. She has never been able to drive, her spouse drives. Smoking Status: Current every day smoker Past Alcohol Use History: None Reported Additional Past Alcohol Use History / Comment(s): Pt started smoking in 1960 and is a ppd smoker. Past Drug Use History: None Reported - Past Family History Mother Additional Family Medical History / Comment(s): " AFTER GALLBLADDER TONY" Sister(s) Family Medical History: Cancer Additional Family Medical History / Comment(s): One sister with brain cancer, another with throat cancer. both have passed awaty. Brother(s) Family Medical History: Cancer Additional Family Medical History / Comment(s): lung cancer Medications and Allergies Home Medications Medication Instructions Recorded Confirmed Type Esomeprazole Magnesium [NexIUM] 40 mg PO DAILY 09/18/14 03/25/24 History Ipratropium-Albuterol Nebulize 3 ml INHALATION RT-QID #1 04/02/19 03/25/24 Rx [Duoneb 0.5 mg-3 mg/3 ml Soln] Fluticasone/Umeclidin/Vilanter 1 puff INHALATION RT-DAILY 11/23/23 03/25/24 History [Trelegy Ellipta 200-62.5-25] Ipratropium/Albuterol Sulfate 1 puff INHALATION RT-QID PRN 11/23/23 03/25/24 History [Combivent Respimat Inhaler] Sertraline [Zoloft] 50 mg PO DAILY 11/23/23 03/25/24 History LORazepam [Ativan] 0.5 mg PO BID PRN 03/11/24 03/25/24 History Apixaban [Eliquis] 2.5 mg PO BID #60 tab 03/15/24 03/25/24 Rx Atorvastatin [Lipitor] 80 mg PO DAILY #0 03/15/24 03/25/24 Rx Metoprolol Tartrate [Lopressor] 25 mg PO BID #60 tab 03/15/24 03/25/24 Rx Nicotine 21Mg/24Hr Patch [Habitrol] 1 patch TRANSDERM DAILY patch 03/15/24 03/25/24 Rx Allergies Allergy/AdvReac Type Severity Reaction Status Date / Time aspirin Allergy Nausea & Verified 03/25/24 17:19 Vomiting codeine Allergy Unknown Verified 03/25/24 17:19 meperidine HCl [From Demerol] AdvReac Rapid Verified 03/25/24 17:19 Heart Rate Physical Exam Vitals: Vital Signs Temp Pulse Pulse Resp BP Pulse Ox 03/28/24 12:20 76 03/28/24 12:09 72 03/28/24 09:25 72 03/28/24 09:14 76 100 03/28/24 07:58 97.8 F 72 16 167/77 98 03/28/24 02:18 73 03/28/24 02:05 69 03/28/24 02:00 97.9 F 67 150/57 99 03/27/24 20:00 97.4 F L 80 159/76 99 03/27/24 18:51 82 03/27/24 15:42 84 03/27/24 15:03 84 03/27/24 14:00 97.7 F 76 16 126/57 95 Intake and Output 03/27/24 03/28/24 03/28/24 22:59 06:59 14:59 Other: Voiding Method Toilet Toilet Results 03/27/24 00:50 03/27/24 00:50 Current Medications Generic Name Dose Route Start Last Admin Trade Name Freq PRN Reason Stop Dose Admin Albuterol/Ipratropium 3 ml 03/26/24 20:00 03/28/24 12:09 Ipratropium-Albuterol 3 Ml Neb INHALATION 3 ml RT-QID MARC Administration Albuterol/Ipratropium 3 ml 03/26/24 16:27 03/28/24 02:04 Ipratropium-Albuterol 3 Ml Neb INHALATION 3 ml RT-Q2H PRN Administration Shortness Of Breath Or Wheezing Atorvastatin Calcium 80 mg 03/26/24 17:00 03/28/24 08:07 Atorvastatin 80 Mg Tab PO 80 mg DAILY MARC Administration Budesonide/Formoterol Fumarate 2 puff 03/26/24 08:00 03/28/24 09:14 Symbicort 160-4.5 Mcg Inhaler INHALATION 2 puff RT-BID MARC Administration Famotidine 20 mg 03/26/24 09:00 03/28/24 08:07 Famotidine 20 Mg Tab PO 20 mg DAILY MARC Administration Sodium Chloride 1,000 mls @ 100 mls/hr 03/25/24 17:00 03/28/24 05:22 Saline 0.9% IV Not Given .Q10H MARC Cefepime HCl 2 gm/ Sodium 100 mls @ 25 mls/hr 03/26/24 02:00 03/28/24 09:42 Chloride IVPB 25 mls/hr Q8H MARC Administration Protocol Lorazepam 0.5 mg 03/26/24 16:28 Lorazepam 0.5 Mg Tab PO BID PRN Anxiety Methylprednisolone Sodium Succinate 60 mg 03/26/24 00:00 03/28/24 12:26 Methylprednisolone Sod Succi 125 Mg/2 Ml Vial IV 60 mg Q6HR MARC Administration Metoprolol Tartrate 25 mg 03/25/24 21:30 03/28/24 08:07 Metoprolol Tartrate 25 Mg Tab PO 25 mg BID MARC Administration Miscellaneous Information 1 each 03/25/24 16:57 Pneumonia Protocol Utilized 1 Each Misc PO ONCE PRN Per Protocol Nicotine 1 patch 03/26/24 17:00 03/28/24 08:02 Nicotine 21mg/24hr Patch TRANSDERM Not Given DAILY MARC Ondansetron HCl 4 mg 03/26/24 09:47 03/26/24 10:05 Ondansetron 4 Mg/2 Ml Vial IVP 4 mg Q6HR PRN Administration Nausea And Vomiting Pantoprazole Sodium 40 mg 03/26/24 16:30 03/28/24 08:07 Pantoprazole 40 Mg/10 Ml Vial IVP 40 mg DAILY MARC Administration Sertraline HCl 50 mg 03/26/24 17:00 03/28/24 08:07 Sertraline 50 Mg Tab PO 50 mg DAILY MARC Administration Intake and Output 03/27/24 03/28/24 03/28/24 22:59 06:59 14:59 Other: Voiding Method Toilet Toilet 03/27/24 00:50 03/27/24 00:50
[2024-03-29] MEDS: ASPIRIN 81 MG PO SCH (11:28)
--- NOTE | 2024-03-29 13:12 | P.PN ---
Subjective Progress Note Date: 03/29/24 H&P Date: 03/26/24 Chief Complaint: shortness of breath, weak cough Mid lobe right-sided female recently admitted inpatient for right-sided mid lobe pneumonia suggested per CTA. During that visit, pulmonary expressed concern for malignancy versus chronic infection, possible chronic atypical mycobacterial infection, requesting further workup. Patient declined inpatient bronchoscopy, agreed to following up outpatient with for further workup, in a patient with chronic hypoxic respiratory failure, emphysema, severe pulmonary hypertension, ongoing nicotine dependence, chronic diastolic CHF, gastroesophageal reflux disease, paroxysmal atrial fibrillation and multiple other medical issues. Patient was discharged home 03/15, returned to the ER with progressive shortness of breath, weak productive cough with thick purulent grennisg/ brownish sputum. Per pulmonary's review ,CT findings similar to previous imaging. Maintained on nebulized bronchodilators, azithromycin, cefepime, steroids. Denies chest pain or palpitations 03/27/2024 maintained on nebulized bronchodilators, cefepime, IV steroids.. Afebrile, WBC has normalized. Chest x-ray reporting COPD with slight worsening in bilateral interstitial and patchy infiltrates. Currently maintaining O2 sats in the 90s on room air. Hemoglobin decreased to 10, platelets 294. Renal function stable. Blood sugars controlled. Troponins elevated 0.055, 0.069, denies chest pain, palpitations. Patient is adamant about not seeing cardiology. 03/28/2024 continues on cefepime, antibiotics, IV steroids, nebulized bronchodilators .yesterday patient was maintaining O2 sats on room air in the 90s, currently requiring 3 L nasal cannula O2 to maintain O2 sats in the 90s. Continues to have a loose congested cough. Procalcitonin negative, 0.05, afebrile. Renal function stable. 03/29/2024 evaluated by pulmonary and patient is scheduled for diagnostic bronchoscopy on Tuesday. Calixto remains on hold. Evaluated by cardiology with recommendations noted, including further workup outpatient. Objective - Vital Signs Vital signs: Vital Signs Temp 98.3 F 03/29/24 07:49 Pulse 78 03/29/24 08:01 Resp 16 03/29/24 07:49 BP 159/71 03/29/24 07:49 Pulse Ox 96 03/29/24 07:53 FiO2 Intake & Output 10/03/1303/29/24 03/29/24 18:59 06:59 18:59 Other: Voiding Method Toilet Bedside Commode # Voids 1 3 - Exam VITAL SIGNS: As above GENERAL: Pleasant, alert and oriented x 3, sitting up in bed, no acute distress HEENT: Normocephalic, atraumatic ,conjunctivae normal. eyes normal. MMM. NECK: Supple, no JVD. CARDIOVASCULAR: S1, S2 regular. No murmur RESPIRATION: Unlabored, equal air entry. Raspy,scattered rhonchi, expiratory wheeze ABDOMEN: Soft, nondistended, nontender . No guarding. no masses palpable. +BS. EXTR: no edema, cyanosis, no clubbing, positive DP pulse NERVOUS SYSTEM: Cranial N 2-12 grossly normal. No focal deficits Skin: Warm and dry, no rash - Labs CBC & Chem 7: 03/27/24 00:50 03/27/24 00:50 Labs: Microbiology - Last 24 Hours (Table) 03/25/24 17:13 Blood Culture - Preliminary Blood 03/25/24 19:02 Gram Stain - Final Sputum Sputum Culture - Final Assessment and Plan Assessment: Acute COPD exacerbation secondary to acute purulent tracheobronchitis, chest CT similar to previous imaging per pulmonary's review. Recently admitted inpatient with mid lobe right-sided pneumonia suggested per CTA. Per pulmonary review, concern for malignancy versus chronic infection, possible chronic atypical mycobacterial infection. Patient declined inpatient bronchoscopy, agreeing to further workup outpatient with pulmonary, including potential bronchoscopy. -Acute dyspnea secondary to the above -Leukocytosis -Elevated troponins, 0.055, 0.069, flat- further workup outpatient as per cardiology -Chronic hypoxic respiratory failure, wears O2 at home -Emphysema, severe COPD -Severe pulmonary hypertension -Ongoing nicotine dependence -Chronic diastolic CHF -Gastroesophageal reflux disease -History of pneumonia -History of shingles -Depression, anxiety -Paroxysmal atrial fibrillation -Moderate protein calorie malnutrition, 12 pound weight loss over the last 4-months Plan: Continue on current medication regimen ,monitoring and symptomatic treatment. Continue holding Eliquis, diagnostic bronchoscopy tomorrow. Cardiology recommending further outpatient workup/ischemic evaluation.continue aggressive pulmonary toileting, maintaining nebulized bronchodilators, antibiotics of cefepime, steroids. The impression and plan of care has been dictated as directed. : I performed a history and examination of this patient, discussed the same with the dictator. I agree with the dictator's note ,documented as a scribe. Any additional findings or plans will be noted.
--- NOTE | 2024-03-29 13:21 | P.PN ---
Subjective Progress Note Date: 03/29/24 Patient is an 83-year-old female with past medical story significant for COPD, chronic ongoing tobacco dependence, fall with traumatic right hip fracture, among other things. Primary care provider is Dr. Matthieu Ryan. Of note, patient had recent hospitalization in February, for chest pain. Chest CTA done during this admission did not show any evidence of filling defects consistent with pulmonary embolism. There was a consolidation and density within the right apex and with milder infiltrate in the right middle lobe and azygoesophageal recess. These findings were persistent from a previous CAT scan done back in November, but slightly progressed. Concern was for chronic infection versus maligna ncy. Patient reportedly not interested in bronchoscopy at that point. She was discharged home on March 15 with directions to follow-up in the pulmonary office. Reportedly has a scheduled appointment sometime in April. Patient returns to the emergency department yesterday afternoon complaining of a significant productive cough with copious green phlegm that started yesterday at 0300. She has some mild associated shortness of breath. Denies any fevers. Denies any chest pain. Denies any hemoptysis. Patient is a current ongoing tobacco smoker, approximately 1 pack/day. Reports unintentional weight loss of 12 pounds since November. She reportedly had a traumatic fall and sustained a hip fracture and is status post right direct anterior hip hemiarthroplasty. CBC: WBC count 23.6, hemoglobin 11.6, hematocrit 38, platelets 438. CMP: Sodium 137, potassium 3.6, chloride 100, serum bicarb 32, BUN 12, creatinine 0.43, glucose 103. LFTs unremarkable. Lactic 1.3. Troponin 0.055. NT proBNP 2450. Chest CTA findings from this admission did not show any evidence of pulmonary embo lism. Findings within the right upper lung were not significantly changed from prior exam. Right apical density along with right pleural based densities. Bronchiectatic changes in the middle lobe with signet ring sign. She has been empirically covered on a combination of cefepime and azithromycin. Normal saline is infusing at 100 mL/h. She is currently resting in bed on room air. SpO2 reading 93%. Vital signs are stable. Nontoxic appearance. is at bedside. The patient is seen today March 28, 2024 in follow-up on the regular medical floor. She is currently sitting up in bed. Awake and alert in no acute distress. Maintaining O2 saturations in the 90s on 2 L/min per nasal cannula. She continues with a loose congested cough. Chest x-ray revealed COPD with bilateral interstitial and patchy infiltrates. Sputum culture revealed no growth. Blood cultures revealed no growth. White count 9.5. Hemoglobin 10.0. Platelets 294. Sodium 142. Potassium 3.8. Bicarb 27. BUN 18. Creatinine 0.5. Glucose 142. Procalcitonin was negative at 0.05. Legionella screen negative. He does remain on antibiotics in the form of cefepime. Continued on DuoNeb ventilations, Symbicort, Solu-Medrol. NicoDerm patch in place. The patient is seen today March 29, 2024 in follow-up on the regular medical floor. She is currently awake and alert in no acute distress. Sitting up in bed. Denies any worsening shortness of breath, cough or congestion. No hemoptysis. She remains on cefepime. Continued on bronchodilators, steroids. NicoDerm patch in place. Procalcitonin is negative at 0.05. Plan is for bronchoscopy with BAL and possible biopsies tomorrow. Objective - Vital Signs Vital signs: Vital Signs Temp 98.3 F 03/29/24 07:49 Pulse 76 03/29/24 11:26 Resp 16 03/29/24 07:49 BP 159/71 03/29/24 07:49 Pulse Ox 96 03/29/24 07:53 FiO2 Intake & Output 03/28/24 03/29/24 03/29/24 18:59 06:59 18:59 Other: Voiding Method Toilet Bedside Commode Bedside Commode # Voids 1 3 - Exam GENERAL EXAM: Alert, pleasant 83-year-old female, on 3 L nasal cannula, comfortable in no apparent distress. HEAD: Normocephalic and atraumatic EYES: Normal reaction of pupils, equal size. NOSE: Clear with pink turbinates. THROAT: No erythema or exudates. NECK: No masses, no JVD. CHEST: No chest wall deformity. LUNGS: Equal air entry with expiratory wheezes throughout and coarse rhonchi heard best at the bases bilaterally, however, greater on the right. CVS: S1 and S2 normal with no audible murmur, regular rhythm. No extra heart sounds ABDOMEN: No hepatosplenomegaly, active bowel sounds, no guarding or rigidity. SPINE: No scoliosis or deformity SKIN: No rashes CENTRAL NERVOUS SYSTEM: No focal deficits, tone is normal in all 4 extremities. EXTREMITIES: There is no peripheral edema, clubbing, or cyanosis. Peripheral pulses are intact. - Labs CBC & Chem 7: 03/27/24 00:50 03/27/24 00:50 Labs: Microbiology - Last 24 Hours (Table) 03/25/24 17:13 Blood Culture - Preliminary Blood Assessment and Plan Assessment: Acute COPD exacerbation secondary to acute purulent tracheobronchitis. Chest CT findings similar to previous imaging. Again, did not show any evidence of pulmonary embolism. Persistent bilateral apical densities, greater on the right, along with right pleural based based densities. Bronchiectatic changes in the right middle lobes with retained secretions. Differential includes chronic lung in infection, e.g., atypical bacterial infection, or possibly malignancy. Procalcitonin was negative x 2. Patient is now agreeable to a bronchoscopy with BAL and brushings/biopsies on 03/30/2024 Acute dyspnea, secondary to above Acute leukocytosis Elevated troponins Chronic hypoxemic respiratory failure, normally utilizes 2.5 L nasal cannula at bedtime Severe chronic obstructive pulmonary disease, with a baseline FEV1 30% of predicted History of pulmonary hypertension Chronic ongoing tobacco dependence, currently smokes 1 pack/day History of traumatic right proximal femur subcapital femoral neck fracture with valgus impaction, status post right direct anterior hip hemiarthroplasty on 11/25/2023 History of hyperlipidemia History of paroxysmal atrial fibrillation, currently normal sinus Plan: The patient was seen and evaluated Labs and medications reviewed Stable and on 3 L nasal cannula Procalcitonin negative x 2 Cefepime discontinued Plan for bronchoscopy with BAL and brushings on 03/30/2024 Calixto is placed on hold I have personally seen and examined the patient, performed the documentation and the assessment and plan as written. Number of minutes spent on the visit: 10.
[2024-03-30 08:38] LABS: Basophils # (A) 0 X 10*3/uL (0.00-0.10); Basophils % (A) 0 %; Eosinophils # (A) 0.01 X 10*3/uL (0.04-0.35); Eosinophils % (A) 0.1 %; HGB 9.9 g/dL (12.0-15.0); Lymphocytes # (A) 0.58 X 10*3/uL (0.90-5.00); Lymphocytes % (A) 8.1 %; MCHC 31.9 g/dL (32.0-37.0); MCV 87.6 FL (80.0-97.0); Mean Platelet Volume 11.5 FL (9.5-12.2); Monocytes # (A) 0.25 X 10*3/uL (0.20-1.00); Monocytes % (A) 3.5 %; NRBC Per 100 WBC 0 X 10*3/uL (0.00-0.01); Neutrophils # (A) 6.28 X 10*3/uL (1.80-7.70); Neutrophils % (A) 87.5 %; Platelet Count 251 X 10*3/uL (140-440); RBC 3.54 X 10*6/uL (4.10-5.20); RDW 13.8 % (11.5-14.5); WBC 7.18 X 10*3/uL (4.50-10.00)
[2024-03-30 08:44] LABS: Blood Urea Nitrogen 19.8 mg/dL (9.0-27.0); Calcium 8.8 mg/dL (8.7-10.3); Carbon Dioxide 30.3 mmol/L (21.6-31.8); Chloride 102 mmol/L (96-109); Glucose 127 mg/dL (70-110); Potassium 3.4 mmol/L (3.5-5.5); Sodium 143 mmol/L (135-145)
[2024-03-30 09:19] VITALS: BMI 20.6
--- NOTE | 2024-03-30 09:49 | P.PN ---
Subjective HISTORY OF PRESENT ILLNESS: This is a 83-year-old female with a past medical history significant for COPD on home oxygen, paroxysmal atrial fibrillation, hyperlipidemia, nicotine dependence. Patient does not follow with a merchandise coordinator. We have been asked to see the patient in consultation for elevated troponins. Patient examined at the bedside. Patient was recently hospitalized due to shortness of breath. Apparently bronchoscopy was recommended at that time but patient refused. Patient presented back to the hospital with worsening shortness of breath. She reports a productive cough with yellow-green tinged sputum. She denies any fev er or chills. She denies having any chest pain or pressure. She does report mild nausea without vomiting. She continues to report shortness of breath at the time of examination. Patient's is at the bedside and states patient was unable to ambulate to the bathroom without significant dyspnea and has required a bedside commode. The patient does report using oxygen at home at night and as needed. She remains on antibiotics. Patient's Eliquis has been placed on hold and she is scheduled to undergo bronchoscopy tomorrow with pulmonary medicine. Patient's vital signs are stable. DIAGNOSTICS: - EKG reveals sinus mechanism with T wave inversions in V2, unchanged from previous EKG - Chest xray on admission reveals increasing right midlung airspace opacities superimposed on diffuse haziness - Chest CTA: Negative for pulmonary embolism. Lung parenchyma similar to 03/11/2024. COPD changes with right upper lung airspace opacities - Laboratory data: WBC 9.5. Hemoglobin 10.0. Platelet count 294. Sodium 142. Potassium 3.8. BUN 18. Creatinine 0.50. proBNP 2450. Troponin 0.055. 0.069. - Current home cardiac medications include Eliquis 2.5 mg twice a day, Lipitor 80 mg daily, metoprolol titrate 25 mg twice a day - Most recent echocardiogram obtained in February 2024 revealed ejection fraction 55 to 60%, moderate to severe pulmonary hypertension, mild to moderate mitral regurgitation, mild to moderate tricuspid regurgitation. 03/30/2024 Patient examined this morning at the bedside. Patient denies chest pain or pressure. She reports improvement in her shortness of breath. She also states that she is not coughing very much this morning. She continues to report mild nausea but no vomiting. She is scheduled to undergo bronchoscopy today. Her Eliquis remains on hold. EKG this morning reveals sinus mechanism with T wave inversions in V2, unchanged from previous EKG. PHYSICAL EXAM: VITAL SIGNS: Reviewed. GENERAL: Well-developed in no acute distress. HEENT: Head is normocephalic. Pupils are equal, round. Sclerae anicteric. Mucous membranes of the mouth are moist. Neck supple. Left carotid bruit noted. LUNGS: Respirations even and unlabored. Lungs with bilateral expiratory wheezing, improving HEART: Regular rate and rhythm. S1 and S2 heard. ABDOMEN: Soft. Nondistended. Nontender. EXTREMITIES: Normal range of motion. No clubbing or cyanosis. Peripheral pulses intact. No lower extremity edema NEUROLOGIC: Awake and alert. Oriented x 3. ASSESSMENT: Shortness of breath Acute COPD exacerbation Acute purulent tracheobronchitis Elevated troponins, flat, type II [place] secondary to oxygen supply/demand mismatch History of COPD on home oxygen at HS and PRN Paroxysmal atrial fibrillation, maintaining sinus mechanism Moderate to severe pulmonary hypertension Hyperlipidemia History of right hip hemiarthroplasty on 11/25/2023 Nicotine dependence PLAN: No need to repeat echocardiogram as this was performed last month Eliquis on hold for bronchoscopy. Resume postprocedure Continue aspirin 81 mg daily Smoking cessation recommended Recommend outpatient ischemic evaluation once patient's acute issues have resolved No further inpatient recommendations from a cardiac standpoint We will sign off. Please reconsult if needed. Nurse practitioner note has been reviewed by physician. Signing provider agrees with the documented findings, assessment, and plan of care documented by PACKAGE HANDLER as a scribe. Objective - Vital Signs Vital signs: Vital Signs Temp 97.5 F L 03/30/24 07:20 Pulse 80 03/30/24 07:50 Resp 16 03/30/24 07:20 BP 137/65 03/30/24 07:20 Pulse Ox 96 03/30/24 07:41 FiO2 Intake & Output 03/29/24 03/30/24 03/30/24 18:59 06:59 18:59 Weight 51.256 kg Other: Voiding Method Bedside Commode Bedside Commode # Voids 5 - Labs CBC & Chem 7: 03/30/24 03:01 03/30/24 03:01 Labs: Abnormal Lab Results - Last 24 Hours (Table) 03/30/24 03/30/24 Range/Units 03:01 03:01 RBC 3.54 L (4.10-5.20) X 10*6/uL Hgb 9.9 L (12.0-15.0) g/dL Hct 31.0 L (37.2-46.3) % MCHC 31.9 L (32.0-37.0) g/dL Immature Gran # 0.06 H (0.00-0.04) X 10*3/uL Lymphocytes # 0.58 L (0.90-5.00) X 10*3/uL Eosinophils # 0.01 L (0.04-0.35) X 10*3/uL Potassium 3.4 L (3.5-5.5) mmol/L BUN/Creatinine Ratio 33.00 H (12.00-20.00) Ratio Glucose 127 H (70-110) mg/dL
[2024-03-30] MEDS ORDERED: LIDOCAINE 1% INJ 10MG/ML (20 ML MDV) ONE (10:00)
[2024-03-30] MEDS ORDERED: SUCCINYLCHOLINE CHLORIDE 200 MG/10 ML VIAL IV ONE (10:00)
[2024-03-30] MEDS ORDERED: PROPOFOL 10 MG/ML 20 ML VIAL IV ONE (10:00)
[2024-03-30] MEDS: IV FLUID CONTINUATION 1,000 ML IV ONE (10:34)
[2024-03-30] MEDS: SODIUM CHLORIDE 0.9% 500 ML 500 ML IV ONE (10:35)
[2024-03-30 11:00] VITALS: TEMP 98.2
--- NOTE | 2024-03-30 11:26 | P.PN ---
Subjective Progress Note Date: 03/30/24 Patient is an 83-year-old female with past medical story significant for COPD, chronic ongoing tobacco dependence, fall with traumatic right hip fracture, among other things. Primary care provider is Dr. Matthieu Ryan. Of note, patient had recent hospitalization in February, for chest pain. Chest CTA done during this admission did not show any evidence of filling defects consistent with pulmonary embolism. There was a consolidation and density within the right apex and with milder infiltrate in the right middle lobe and azygoesophageal recess. These findings were persistent from a previous CAT scan done back in November, but slightly progressed. Concern was for chronic infection versus maligna ncy. Patient reportedly not interested in bronchoscopy at that point. She was discharged home on March 15 with directions to follow-up in the pulmonary office. Reportedly has a scheduled appointment sometime in April. Patient returns to the emergency department yesterday afternoon complaining of a significant productive cough with copious green phlegm that started yesterday at 0300. She has some mild associated shortness of breath. Denies any fevers. Denies any chest pain. Denies any hemoptysis. Patient is a current ongoing tobacco smoker, approximately 1 pack/day. Reports unintentional weight loss of 12 pounds since November. She reportedly had a traumatic fall and sustained a hip fracture and is status post right direct anterior hip hemiarthroplasty. CBC: WBC count 23.6, hemoglobin 11.6, hematocrit 38, platelets 438. CMP: Sodium 137, potassium 3.6, chloride 100, serum bicarb 32, BUN 12, creatinine 0.43, glucose 103. LFTs unremarkable. Lactic 1.3. Troponin 0.055. NT proBNP 2450. Chest CTA findings from this admission did not show any evidence of pulmonary embo lism. Findings within the right upper lung were not significantly changed from prior exam. Right apical density along with right pleural based densities. Bronchiectatic changes in the middle lobe with signet ring sign. She has been empirically covered on a combination of cefepime and azithromycin. Normal saline is infusing at 100 mL/h. She is currently resting in bed on room air. SpO2 reading 93%. Vital signs are stable. Nontoxic appearance. is at bedside. The patient is seen today March 28, 2024 in follow-up on the regular medical floor. She is currently sitting up in bed. Awake and alert in no acute distress. Maintaining O2 saturations in the 90s on 2 L/min per nasal cannula. She continues with a loose congested cough. Chest x-ray revealed COPD with bilateral interstitial and patchy infiltrates. Sputum culture revealed no growth. Blood cultures revealed no growth. White count 9.5. Hemoglobin 10.0. Platelets 294. Sodium 142. Potassium 3.8. Bicarb 27. BUN 18. Creatinine 0.5. Glucose 142. Procalcitonin was negative at 0.05. Legionella screen negative. He does remain on antibiotics in the form of cefepime. Continued on DuoNeb ventilations, Symbicort, Solu-Medrol. NicoDerm patch in place. The patient is seen today March 29, 2024 in follow-up on the regular medical floor. She is currently awake and alert in no acute distress. Sitting up in bed. Denies any worsening shortness of breath, cough or congestion. No hemoptysis. She remains on cefepime. Continued on bronchodilators, steroids. NicoDerm patch in place. Procalcitonin is negative at 0.05. Plan is for bronchoscopy with BAL and possible biopsies tomorrow. The patient is seen today March 30, 2024 in follow-up on the regular medical floor. She is resting comfortably in bed. Awake and alert in no acute distress. She is maintaining good O2 saturations in the 90s on 3 L/min per nasal cannula. The plan is for bronchoscopy with BAL, brushings and biopsies of the right upper lobe today. She is continued on DuoNeb inhalations, Symbicort, Solu-Medrol. NicoDerm patch in place. Blood culture revealed no growth. Sputum culture revealed no growth. White count 7.1. Hemoglobin 9.9. Platelets 251. Sodium 143. Potassium 3.4. Bicarb 30. BUN 20. Creatinine 0.6. Glucose 127. Objective - Vital Signs Vital signs: Vital Signs Temp 98.2 F 03/30/24 10:52 Pulse 65 03/30/24 11:07 Resp 34 H 03/30/24 11:07 BP 171/76 03/30/24 11:07 Pulse Ox 100 03/30/24 11:07 FiO2 40 03/30/24 11:08 Intake & Output 03/29/24 03/30/24 03/30/24 18:59 06:59 18:59 Intake Total 400 Balance 400 Weight 51.256 kg Intake: IV 400 Other: Voiding Method Bedside Commode Bedside Commode # Voids 5 - Exam GENERAL EXAM: Alert, 83-year-old female, resting in bed, on 3 L nasal cannula, comfortable in no apparent distress. HEAD: Normocephalic and atraumatic EYES: Normal reaction of pupils, equal size. NOSE: Clear with pink turbinates. THROAT: No erythema or exudates. NECK: No masses, no JVD. CHEST: No chest wall deformity. LUNGS: Equal air entry with expiratory wheezes throughout and coarse rhonchi heard best at the bases bilaterally, however, greater on the right. CVS: S1 and S2 normal with no audible murmur, regular rhythm. No extra heart sounds ABDOMEN: No hepatosplenomegaly, active bowel sounds, no guarding or rigidity. SPINE: No scoliosis or deformity SKIN: No rashes CENTRAL NERVOUS SYSTEM: No focal deficits, tone is normal in all 4 extremities. EXTREMITIES: There is no peripheral edema, clubbing, or cyanosis. Peripheral pulses are intact. - Labs CBC & Chem 7: 03/30/24 03:01 03/30/24 03:01 Labs: Abnormal Lab Results - Last 24 Hours (Table) 03/30/24 03/30/24 Range/Units 03:01 03:01 RBC 3.54 L (4.10-5.20) X 10*6/uL Hgb 9.9 L (12.0-15.0) g/dL Hct 31.0 L (37.2-46.3) % MCHC 31.9 L (32.0-37.0) g/dL Immature Gran # 0.06 H (0.00-0.04) X 10*3/uL Lymphocytes # 0.58 L (0.90-5.00) X 10*3/uL Eosinophils # 0.01 L (0.04-0.35) X 10*3/uL Potassium 3.4 L (3.5-5.5) mmol/L BUN/Creatinine Ratio 33.00 H (12.00-20.00) Ratio Glucose 127 H (70-110) mg/dL Assessment and Plan Assessment: Acute COPD exacerbation secondary to acute purulent tracheobronchitis. Chest CT findings similar to previous imaging. Again, did not show any evidence of pulmonary embolism. Persistent bilateral apical densities, greater on the right, along with right pleural based based densities. Bronchiectatic changes in the right middle lobes with retained secretions. Differential includes chronic lung in infection, e.g., atypical bacterial infection, or possibly malignancy. Procalcitonin was negative x 2. Patient is now agreeable to a bronchoscopy with BAL and brushings/biopsies today 03/30/2024 Acute dyspnea, secondary to above Acute leukocytosis Elevated troponins Chronic hypoxemic respiratory failure, normally utilizes 2.5 L nasal cannula at bedtime Severe chronic obstructive pulmonary disease, with a baseline FEV1 30% of predicted History of pulmonary hypertension Chronic ongoing tobacco dependence, currently smokes 1 pack/day History of traumatic right proximal femur subcapital femoral neck fracture with valgus impaction, status post right direct anterior hip hemiarthroplasty on 11/25/2023 History of hyperlipidemia History of paroxysmal atrial fibrillation, currently normal sinus Plan: The patient was seen and evaluated Labs and medications reviewed Stable and on 3 L nasal cannula Plan for bronchoscopy with biopsies today Resume Eliquis post procedure This patient was seen independently by the pulmonary nurse practitioner addressing pulmonary issues I have personally seen and examined the patient, performed the documentation and the assessment and plan as written. Number of minutes spent on the visit: 24.
--- NOTE | 2024-03-30 11:29 | PCN ---
PROCEDURE NOTE PROCEDURES PERFORMED: Bronchoscopy, airway examination, therapeutic lavage; BAL, right upper lobe; brushes, right upper lobe, and transbronchial and endobronchial biopsies, right upper lobe. PREOPERATIVE DIAGNOSIS: Rule out cancer versus infection. There was informed consent and universal timeout. The patient's procedure took place in [facility] room #1. ANESTHESIA PROVIDED: General endotracheal anesthesia. OPERATORS: Dr. Davies. FIRST SENIOR REPORT DEVELOPER: Sofía Ramos. DESCRIPTION OF PROCEDURE: After the patient was adequately sedated and under the effects of general anesthesia, the bronchoscope was inserted through the bronchoscope adapter, connected to the endotracheal tube. The bronchoscope was advanced through the endotracheal tube into the trachea. The trachea itself appeared normal. We did a quick evaluation of the lungs. The right upper lobe and its 3 segments, right middle lobe and its 2 segments, right lower lobe and its 5 segments, left upper lobe proper and its 2 segments, lingula and its 2 segments, and left lower lobe and its 4 segments. Everything appeared relatively normal. There was some purulence noted throughout. There was mild erythema and hyperemia of the airways. There was no dominant mass or tumor. Next, the bronchoscope was wedged up into the right upper lobe. We did brushes to the right upper lobe. Next, under fluoroscopic guidance, we did multiple endobronchial and transbronchial biopsies to the right upper lobe. There was minimal bleeding. Finally, we did a formal BAL to the right upper lobe. More than 35 mL of turbid bloody fluid was recovered. The patient tolerated the procedure well. There was no obvious pneumothorax noted on fluoroscopy. The patient will be recovered, and a formal chest x- ray was done. The findings were shared with the patient's and daughter. Again, the patient tolerated the procedure well without difficulty. MMODL / IJN: [id number] /
--- NOTE | 2024-03-30 11:38 | XR ---
EXAMINATION TYPE: XR chest 1V portable DATE OF EXAM: 03/30/2024 Comparison: 03/26/2024 Clinical History: 83-year-old female POST BRONCH Findings: Rightward patient rotation alters the normal cardiomediastinal contours. Heart mildly enlarged. Hyper inflation. Bilateral patchy opacities persist. Old healed fracture deformity left mid clavicular shaf t. No appreciable pneumothorax. Impression: Mild cardiomegaly and COPD. Superimposed bilateral scattered patchy opacities/infiltrates persist. No appreciable pneumothorax. [facility], , 03/30/2024 11:35 AM
[2024-03-30 12:12] VITALS: BP 176/81; RESP 28
--- NOTE | 2024-03-30 12:12 | P.DS ---
Providers Date of admission: 03/25/24 16:58 Expected date of discharge: 03/30/24 Attending physician: Matthieu Ryan Consults: 03/25/24 16:57 Consult Physician Routine Consulting Provider: Hector Marcos Consult Reason/Comments: pna,copd Do you want consulting provider notified?: Yes Primary care physician: Matthieu Ryan [facility] Course: Final diagnoses Acute COPD exacerbation secondary to acute purulent tracheobronchitis, chest CT similar to previous imaging per pulmonary's review. Recently admitted inpatient with mid lobe right-sided pneumonia suggested per CTA. Per pulmonary review, concern for malignancy versus chronic infection, possible chronic atypical mycobacterial infection. Diagnostic bronchoscopy with biopsies pending -Acute dyspnea secondary to the above -Leukocytosis -Elevated troponins, 0.055, 0.069, flat- further workup outpatient as per cardiology -Chronic hypoxic respiratory failure, wears O2 at home -Emphysema, severe COPD -Severe pulmonary hypertension -Ongoing nicotine dependence -Chronic diastolic CHF -Gastroesophageal reflux disease -History of pneumonia -History of shingles -Depression, anxiety -Paroxysmal atrial fibrillation -Moderate protein calorie malnutrition, 12 pound weight loss over the last 4- months Mid lobe right-sided female recently admitted inpatient for right-sided mid lobe pneumonia suggested per CTA. During that visit, pulmonary expressed concern for malignancy versus chronic infection, possible chronic atypical mycobacterial infection, requesting further workup. Patient declined inpatient bronchoscopy, agreed to following up outpatient with for further workup, in a patient with chronic hypoxic respiratory failure, emphysema, severe pulmonary hypertension, ongoing nicotine dependence, chronic diastolic CHF, gastroesophageal reflux disease, paroxysmal atrial fibrillation and multiple other medical issues. Patient was discharged home 03/15, returned to the ER with progressive shortness of breath, weak productive cough with thick purulent grennisg/ brownish sputum. Per pulmonary's review ,CT findings similar to previous imaging. Maintained on nebulized bronchodilators, azithromycin, cefepime, steroids. Denies chest pain or palpitations 03/27/2024 maintained on nebulized bronchodilators, cefepime, IV steroids.. Afebrile, WBC has normalized. Chest x-ray reporting COPD with slight worsening in bilateral interstitial and patchy infiltrates. Currently maintaining O2 sats in the 90s on room air. Hemoglobin decreased to 10, platelets 294. Renal function stable. Blood sugars controlled. Troponins elevated 0.055, 0.069, denies chest pain, palpitations. Patient is adamant about not seeing cardiology. 03/28/2024 continues on cefepime, antibiotics, IV steroids, nebulized bronchodilators .yesterday patient was maintaining O2 sats on room air in the 90s, currently requiring 3 L nasal cannula O2 to maintain O2 sats in the 90s. Continues to have a loose congested cough. Procalcitonin negative, 0.05, afebrile. Renal function stable. 03/29/2024 evaluated by pulmonary and patient is scheduled for diagnostic bronchoscopy on Tuesday. Eliquis remains on hold. Evaluated by cardiology with recommendations noted, including further workup outpatient. Continue holding Eliquis, diagnostic bronchoscopy tomorrow. Cardiology recommending further outpatient workup/ischemic evaluation.continue aggressive pulmonary toileting, maintaining nebulized bronchodilators, antibiotics of cefepime, steroids. 03/30/2024 maintaining O2 sats in the 90s on 3 L nasal cannula ,NAD. Blood and sputum cultures reported no growth. Patient will be discharged home today pending diagnostic bronchoscopy with biopsies of right upper lobe, postprocedure chest x-ray, final DC recommendations and clearance per pulmonary. The impression and plan of care has been dictated as directed. : I performed a history and examination of this patient, discussed the same with the dictator. I agree with the dictator's note ,documented as a scribe. Any additional findings or plans will be noted. Patient Condition at Discharge: Stable Plan - Discharge Summary Discharge Rx Participant: Yes New Discharge Prescriptions: New Aspirin 81 mg PO DAILY tab predniSONE 10 mg PO DIRECTED #30 tab Continue Esomeprazole Magnesium [NexIUM] 40 mg PO DAILY Ipratropium-Albuterol Nebulize [Duoneb 0.5 mg-3 mg/3 ml Soln] 3 ml INHALATION RT-QID #1 LORazepam [Ativan] 0.5 mg PO BID PRN PRN Reason: Anxiety Apixaban [Eliquis] 2.5 mg PO BID #60 tab Nicotine 21Mg/24Hr Patch [Habitrol] 1 patch TRANSDERM DAILY patch Atorvastatin [Lipitor] 80 mg PO DAILY #0 Sertraline [Zoloft] 50 mg PO DAILY Ipratropium/Albuterol Sulfate [Combivent Respimat Inhaler] 1 puff INHALATION RT-QID PRN PRN Reason: Shortness Of Breath Fluticasone/Umeclidin/Vilanter [Trelegy Ellipta 200-62.5-25] 1 puff INHALATION RT-DAILY Metoprolol Tartrate [Lopressor] 25 mg PO BID #60 tab Discharge Medication List Esomeprazole Magnesium [NexIUM] 40 mg PO DAILY 09/18/14 [History] Ipratropium-Albuterol Nebulize [Duoneb 0.5 mg-3 mg/3 ml Soln] 3 ml INHALATION RT-QID #1 04/02/19 [Rx] Fluticasone/Umeclidin/Vilanter [Trelegy Ellipta 200-62.5-25] 1 puff INHALATION RT-DAILY 11/23/23 [History] Ipratropium/Albuterol Sulfate [Combivent Respimat Inhaler] 1 puff INHALATION RT- QID PRN 11/23/23 [History] Sertraline [Zoloft] 50 mg PO DAILY 11/23/23 [History] LORazepam [Ativan] 0.5 mg PO BID PRN 03/11/24 [History] Apixaban [Eliquis] 2.5 mg PO BID #60 tab 03/15/24 [Rx] Atorvastatin [Lipitor] 80 mg PO DAILY #0 03/15/24 [Rx] Metoprolol Tartrate [Lopressor] 25 mg PO BID #60 tab 03/15/24 [Rx] Nicotine 21Mg/24Hr Patch [Habitrol] 1 patch TRANSDERM DAILY patch 03/15/24 [Rx] Aspirin 81 mg PO DAILY tab 03/30/24 [Rx] predniSONE 10 mg PO DIRECTED #30 tab 03/30/24 [Rx] Follow up Appointment(s)/Referral(s): Matthieu Ryan DO [Primary Care Provider] - 3 Days Stephanie Pickens MD [STAFF PHYSICIAN] - 1 Week
--- NOTE | 2024-03-30 15:02 | FL ---
EXAMINATION TYPE: FL bronchoscopy DATE OF EXAM: 03/30/2024 FLUOROSCOPY RT sided bronch with Basha 33.4 sec fluoro time 1 image saved .[id number] DAP [facility], , 03/30/2024 3:00 PM
[2024-03-30 15:38] VITALS: PULSE 82
[2024-03-30 19:19] LABS: Appearance,BF Blood Tinged (Clear); RBC, Body Fluid 4650 /UL (0-2000)
[2024-04-02 09:23] LABS: Nucleated Cells, Body Fluid 1020 /UL
== END 2024-03-30 15:56 | disposition home or self-care (01) | DRG 190 ==
LOC: EC 15:30 → 4SSUR 16:58 → 1SOBS 19:48 → 4SSUR 03-27 19:56
PROVIDERS: ADMIT Family Medicine; ATTEND Family Medicine
PROC: 0BDC8ZX Extraction of Right Upper Lung Lobe, Via Natural or Artificial Opening Endoscopic, Diagnostic (ICD-10-PCS; principal; 2024-03-30 07:30)
PROC: 0B9C8ZX Drainage of Right Upper Lung Lobe, Via Natural or Artificial Opening Endoscopic, Diagnostic (ICD-10-PCS; 2024-03-30 07:30)
DX: J44.0 Chronic obstructive pulmonary disease with (acute) lower respiratory infection (principal); I21.A1 Myocardial infarction type 2; E44.0 Moderate protein-calorie malnutrition; I50.32 Chronic diastolic (congestive) heart failure; J96.11 Chronic respiratory failure with hypoxia; J47.0 Bronchiectasis with acute lower respiratory infection; J44.1 Chronic obstructive pulmonary disease with (acute) exacerbation; I27.20 Pulmonary hypertension, unspecified; Z99.81 Dependence on supplemental oxygen; J43.9 Emphysema, unspecified; K21.9 Gastro-esophageal reflux disease without esophagitis; I48.0 Paroxysmal atrial fibrillation; F32.A Depression, unspecified; F41.9 Anxiety disorder, unspecified; F17.210 Nicotine dependence, cigarettes, uncomplicated; E78.5 Hyperlipidemia, unspecified; Z68.20 Body mass index [BMI] 20.0-20.9, adult; Z79.01 Long term (current) use of anticoagulants; Z79.52 Long term (current) use of systemic steroids; Z79.82 Long term (current) use of aspirin; Z79.51 Long term (current) use of inhaled steroids; Z79.899 Other long term (current) drug therapy; Z86.19 Personal history of other infectious and parasitic diseases; Z87.01 Personal history of pneumonia (recurrent); Z90.710 Acquired absence of both cervix and uterus; Z88.6 Allergy status to analgesic agent; Z88.5 Allergy status to narcotic agent; Z80.1 Family history of malignant neoplasm of trachea, bronchus and lung; Z80.8 Family history of malignant neoplasm of other organs or systems
CPT/HCPCS: 31623; 31624; 31628; 36415; 71045; 71275; 80048; 80053; 83605; 83735; 83880; 84145; 84484; 85025; 85610; 85730; 87040; 87070; 87102; 87116; 87205; 87206; 87449; 87496; 87498; 87502; 87529; 87634; 87635; 87798; 88104; 88108; 88305; 89050; 93005; 94640; 94760; 96361; 96365; 96366; 96368; 96375; 99291

== ENCOUNTER 2024-05-26 14:09 | Emergency (ER) | payer MEDICARE ==
[2024-05-26 14:15] VITALS: TEMP 97.9
[2024-05-26] MEDS: OXYMETAZOLINE 0.05% NASL SPRAY 1 SPRAY BOTTLE NASAL STA (15:08)
--- NOTE | 2024-05-26 15:08 | ED ---
ENT HPI - General Chief complaint: ENT Stated complaint: nose bleed, on thinners Time Seen by Provider: 05/26/24 15:06 Source: patient, EMS, RN notes reviewed Mode of arrival: EMS Limitations: no limitations - History of Present Illness Initial comments: 83-year-old female presenting to the ER chief complaint of nosebleed x 3 hours. Patient states she was sitting watching TV after she blew her nose and began to notice a nosebleed in the right nostril. Denies trauma or injury to the nose. She is on Eliquis. She has had 1 nosebleed before. She does wear oxygen at night. - Related Data Home Medications Medication Instructions Recorded Confirmed Esomeprazole Magnesium [NexIUM] 40 mg PO DAILY 09/18/14 03/25/24 Fluticasone/Umeclidin/Vilanter 1 puff INHALATION RT-DAILY 11/23/23 03/25/24 [Trelegy Ellipta 200-62.5-25] Ipratropium/Albuterol Sulfate 1 puff INHALATION RT-QID PRN 11/23/23 03/25/24 [Combivent Respimat Inhaler] Sertraline [Zoloft] 50 mg PO DAILY 11/23/23 03/25/24 LORazepam [Ativan] 0.5 mg PO BID PRN 03/11/24 03/25/24 Previous Rx's Medication Instructions Recorded Ipratropium-Albuterol Nebulize 3 ml INHALATION RT-QID #1 04/02/19 [Duoneb 0.5 mg-3 mg/3 ml Soln] Apixaban [Eliquis] 2.5 mg PO BID #60 tab 03/15/24 Atorvastatin [Lipitor] 80 mg PO DAILY #0 03/15/24 Metoprolol Tartrate [Lopressor] 25 mg PO BID #60 tab 03/15/24 Nicotine 21Mg/24Hr Patch [Habitrol] 1 patch TRANSDERM DAILY patch 03/15/24 Aspirin 81 mg PO DAILY tab 03/30/24 predniSONE 10 mg PO DIRECTED #30 tab 03/30/24 Allergies Allergy/AdvReac Type Severity Reaction Status Date / Time aspirin Allergy Nausea & Verified 05/26/24 14:15 Vomiting codeine Allergy Unknown Verified 05/26/24 14:15 meperidine HCl [From Demerol] AdvReac Rapid Verified 05/26/24 14:15 Heart Rate Review of Systems ROS Statement: Those systems with pertinent positive or pertinent negative responses have been documented in the HPI. ROS Other: All systems not noted in ROS Statement are negative. Past Medical History Past Medical History: COPD, GERD/Reflux, Hyperlipidemia, Pneumonia, Respiratory Disorder Additional Past Medical History / Comment(s): Emphysema, shingles in right ear History of Any Multi-Drug Resistant Organisms: None Reported Past Surgical History: Appendectomy, Cholecystectomy, Hysterectomy Additional Past Surgical History / Comment(s): emphesema Past Anesthesia/Blood Transfusion Reactions: No Reported Reaction Past Psychological History: Depression Smoking Status: Current every day smoker Past Alcohol Use History: None Reported Past Drug Use History: None Reported - Past Family History Mother Additional Family Medical History / Comment(s): " AFTER GALLBLADDER TONY" Sister(s) Family Medical History: Cancer Additional Family Medical History / Comment(s): One sister with brain cancer, another with throat cancer. Brother(s) Family Medical History: Cancer Additional Family Medical History / Comment(s): lung cancer General Exam Limitations: no limitations General appearance: alert, in no apparent distress Head exam: Present: atraumatic, normocephalic, normal inspection Eye exam: Present: normal appearance, PERRL, EOMI. Absent: scleral icterus, conjunctival injection, periorbital swelling ENT exam: Present: other (Bilateral nares patent with dried blood in right nare, no active bleeding) Neck exam: Present: normal inspection. Absent: tenderness, meningismus, lymphadenopathy Neurological exam: Present: alert, oriented X3 Psychiatric exam: Present: normal affect, normal mood Skin exam: Present: warm, dry, intact, normal color. Absent: rash Course Vital Signs 05/26/24 05/26/24 14:13 15:42 Temperature 97.9 F 97.9 F Pulse Rate 73 68 Respiratory 20 18 Rate Blood Pressure 172/81 162/68 O2 Sat by Pulse 94 L 95 Oximetry Medical Decision Making - Medical Decision Making Was pt. sent in by a medical professional or institution (, PA, RADAR SCIENTIST, urgent care, hospital, or intermediate...) When possible be specific @ -No Did you speak to anyone other than the patient for history (EMS, parent, family, police, friend...)? What history was obtained from this source @ -No Did you review nursing and triage notes (agree or disagree)? Why? @ -I reviewed and agree with nursing and triage notes Were old charts reviewed (outside hosp., previous admission, EMS record, old EKG, old radiological studies, urgent care reports/EKG's, intermediate records)? Report findings @ -No old charts were reviewed Differential Diagnosis (chest pain, altered mental status, abdominal pain women, abdominal pain men, vaginal bleeding, weakness, fever, dyspnea, syncope, headache, dizziness, GI bleed, back pain, seizure, CVA, palpatations, mental health, musculoskeletal)? @ -Posterior epistaxis, anterior epistaxis EKG interpreted by me (3pts min.). @ -None X-rays interpreted by me (1pt min.). @ -None done CT interpreted by me (1pt min.). @ -None done U/S interpreted by me (1pt. min.). @ -None done What testing was considered but not performed or refused? (CT, X-rays, U/S, labs)? Why? @ -None What meds were considered but not given or refused? Why? @ -None Did you discuss the management of the patient with other professionals (professionals i.e. , PA, RADAR SCIENTIST, lab, RT, psych nurse, psychiatric social worker supervisor, sumo wrestler, teacher, philanthropy officer, rn case management)? Give summary @ -No Was smoking cessation discussed for >3mins.? @ -No Was critical care preformed (if so, how long)? @ -No Were there social determinants of health that impacted care today? How? (Homelessness, low income, unemployed, alcoholism, drug addiction, transportation, low edu. Level, literacy, decrease access to med. care, detention, rehab)? @ -No Was there de-escalation of care discussed even if they declined (Discuss DNR or withdrawal of care, Hospice)? DNR status @ -No What co-morbidities impacted this encounter? (DM, HTN, Smoking, COPD, CAD, Cancer, CVA, ARF, Chemo, Hep., AIDS, mental health diagnosis, sleep apnea, morbid obesity)? @ -None Was patient admitted / discharged? Hospital course, mention meds given and route, prescriptions, significant lab abnormalities, going to OR and other pertinent info. @ -Discharge. This is an 83-year-old female presenting for epistaxis x 3 hours. Patient is on Eliquis. Bleeding was from right side only. Nasal clamp and Afrin spray were applied with resolution of bleeding. Appropriate return precautions and follow-up care discussed. Case was discussed with my ED attending Dr. Ríos Undiagnosed new problem with uncertain prognosis? @ -No Drug Therapy requiring intensive monitoring for toxicity (Heparin, Nitro, Insulin, Cardizem)? @ -No Were any procedures done? @ -No Diagnosis/symptom? @ -Epistaxis Acute, or Chronic, or Acute on Chronic? @ -Acute Uncomplicated (without systemic symptoms) or Complicated (systemic symptoms)? @ -Uncomplicated Side effects of treatment? @ -No Exacerbation, Progression, or Severe Exacerbation? @ -No Poses a threat to life or bodily function? How? (Chest pain, [place], [place], pneumonia, PE, COPD, DKA, ARF, appy, cholecystitis, CVA, Diverticulitis, Homicidal, Suicidal, threat to staff... and all critical care pts) @ -No Disposition Clinical Impression: Epistaxis Disposition: HOME SELF-CARE Condition: Stable Instructions (If sedation given, give patient instructions): Nosebleed (ED) Additional Instructions: Apply Afrin spray and nasal clamp as discussed. Please return to the Emergency Department if symptoms worsen or any other concerns. Is patient prescribed a controlled substance at d/c from ED?: No Referrals: Matthieu Ryan DO [Primary Care Provider] - 1-2 days Time of Disposition: 15:44
[2024-05-26 15:43] VITALS: BP 162/68; PULSE 68; RESP 18
== END 2024-05-26 16:02 | disposition home or self-care (01) ==
LOC: EC 14:09
DX: R04.0 Epistaxis (principal); F17.200 Nicotine dependence, unspecified, uncomplicated; Z88.6 Allergy status to analgesic agent; Z88.8 Allergy status to other drugs, medicaments and biological substances; Z88.5 Allergy status to narcotic agent
CPT/HCPCS: 99283

== ENCOUNTER 2024-05-26 18:27 | Emergency (ER) | payer MEDICARE ==
[2024-05-26 18:34] VITALS: TEMP 97.7
[2024-05-26 18:46] VITALS: BP 169/89; PULSE 76; RESP 18
[2024-05-26] MEDS ORDERED: BACITRACIN OINT 1 EACH PACKET TOPICAL ONE (19:12)
--- NOTE | 2024-05-26 20:05 | ED ---
ENT HPI - General Chief complaint: ENT Stated complaint: Nose bleeds Time Seen by Provider: 05/26/24 19:00 Source: patient, RN notes reviewed Mode of arrival: wheelchair Limitations: no limitations - History of Present Illness Initial comments: 83-year-old female presenting to the ER chief complaint of epistaxis. Patient was here earlier today where bleed was controlled with clamp and Afrin spray. Patient states she got home and bleeding from right nare persisted so they decided to return for evaluation. Patient is on Eliquis. Denies trauma or i njury. - Related Data Home Medications Medication Instructions Recorded Confirmed Esomeprazole Magnesium [NexIUM] 40 mg PO DAILY 09/18/14 03/25/24 Fluticasone/Umeclidin/Vilanter 1 puff INHALATION RT-DAILY 11/23/23 03/25/24 [Trelegy Ellipta 200-62.5-25] Ipratropium/Albuterol Sulfate 1 puff INHALATION RT-QID PRN 11/23/23 03/25/24 [Combivent Respimat Inhaler] Sertraline [Zoloft] 50 mg PO DAILY 11/23/23 03/25/24 LORazepam [Ativan] 0.5 mg PO BID PRN 03/11/24 03/25/24 Previous Rx's Medication Instructions Recorded Ipratropium-Albuterol Nebulize 3 ml INHALATION RT-QID #1 04/02/19 [Duoneb 0.5 mg-3 mg/3 ml Soln] Apixaban [Eliquis] 2.5 mg PO BID #60 tab 03/15/24 Atorvastatin [Lipitor] 80 mg PO DAILY #0 03/15/24 Metoprolol Tartrate [Lopressor] 25 mg PO BID #60 tab 03/15/24 Nicotine 21Mg/24Hr Patch [Habitrol] 1 patch TRANSDERM DAILY patch 03/15/24 Aspirin 81 mg PO DAILY tab 03/30/24 predniSONE 10 mg PO DIRECTED #30 tab 03/30/24 Allergies Allergy/AdvReac Type Severity Reaction Status Date / Time aspirin Allergy Nausea & Verified 05/26/24 18:28 Vomiting codeine Allergy Unknown Verified 05/26/24 18:28 meperidine HCl [From Demerol] AdvReac Rapid Verified 05/26/24 18:28 Heart Rate Review of Systems ROS Statement: Those systems with pertinent positive or pertinent negative responses have been documented in the HPI. ROS Other: All systems not noted in ROS Statement are negative. Past Medical History Past Medical History: Atrial Fibrillation, COPD, GERD/Reflux, Hyperlipidemia, Hypertension, Pneumonia, Respiratory Disorder Additional Past Medical History / Comment(s): Emphysema, shingles in right ear, epistaxis History of Any Multi-Drug Resistant Organisms: None Reported Past Surgical History: Appendectomy, Cholecystectomy, Hysterectomy Additional Past Surgical History / Comment(s): emphysema Past Anesthesia/Blood Transfusion Reactions: No Reported Reaction Past Psychological History: Depression Smoking Status: Current every day smoker Past Alcohol Use History: None Reported Past Drug Use History: None Reported - Past Family History Mother Additional Family Medical History / Comment(s): " AFTER GALLBLADDER TONY" Sister(s) Family Medical History: Cancer Additional Family Medical History / Comment(s): One sister with brain cancer, another with throat cancer. Brother(s) Family Medical History: Cancer Additional Family Medical History / Comment(s): lung cancer General Exam Limitations: no limitations General appearance: alert, in no apparent distress Head exam: Present: atraumatic, normocephalic, normal inspection ENT exam: Present: mucous membranes moist, other (Dried bleeding present in right nare, no visible area of active bleeding) Neurological exam: Present: alert, oriented X3 Psychiatric exam: Present: normal affect, normal mood Skin exam: Present: warm, dry, intact, normal color. Absent: rash Course Vital Signs 05/26/24 05/26/24 18:29 18:43 Temperature 97.7 F Pulse Rate 81 76 Respiratory 22 18 Rate Blood Pressure 162/79 169/89 O2 Sat by Pulse 94 L 94 L Oximetry Medical Decision Making - Medical Decision Making Was pt. sent in by a medical professional or institution (, PA, RAIL BENDER, urgent care, hospital, or snf...) When possible be specific @ -No Did you speak to anyone other than the patient for history (EMS, parent, family, police, friend...)? What history was obtained from this source @ -No Did you review nursing and triage notes (agree or disagree)? Why? @ -I reviewed and agree with nursing and triage notes Were old charts reviewed (outside hosp., previous admission, EMS record, old EKG, old radiological studies, urgent care reports/EKG's, snf records)? Report findings @ -No old charts were reviewed Differential Diagnosis (chest pain, altered mental status, abdominal pain women, abdominal pain men, vaginal bleeding, weakness, fever, dyspnea, syncope, headache, dizziness, GI bleed, back pain, seizure, CVA, palpatations, mental health, musculoskeletal)? @ -Posterior epistaxis, anterior epistaxis EKG interpreted by me (3pts min.). @ -None X-rays interpreted by me (1pt min.). @ -None done CT interpreted by me (1pt min.). @ -None done U/S interpreted by me (1pt. min.). @ -None done What testing was considered but not performed or refused? (CT, X-rays, U/S, labs)? Why? @ -None What meds were considered but not given or refused? Why? @ -Recommended Merocel packing at this time and patient adamantly refused Did you discuss the management of the patient with other professionals (professionals i.e. , PA, RAIL BENDER, lab, RT, psych nurse, manager social services, waterproofing supervisor, teacher, physics technical officer, case liner)? Give summary @ -No Was smoking cessation discussed for >3mins.? @ -No Was critical care preformed (if so, how long)? @ -No Were there social determinants of health that impacted care today? How? (Homelessness, low income, unemployed, alcoholism, drug addiction, transportation, low edu. Level, literacy, decrease access to med. care, half-way, rehab)? @ -No Was there de-escalation of care discussed even if they declined (Discuss DNR or withdrawal of care, Hospice)? DNR status @ -No What co-morbidities impacted this encounter? (DM, HTN, Smoking, COPD, CAD, Cancer, CVA, ARF, Chemo, Hep., AIDS, mental health diagnosis, sleep apnea, morbid obesity)? @ -None Was patient admitted / discharged? Hospital course, mention meds given and route, prescriptions, significant lab abnormalities, going to OR and other pertinent info. @ -Discharge. This is an 83-year-old female presenting with epistaxis since earlier today. Patient was seen earlier in the ER where right sided bleed was controlled with nasal clamp and Afrin spray. Recommended Merocel packing at this time for refractory epistaxis that failed nasal clamping and Afrin spray. Patient adamantly refused. We then discussed option of silver nitrate and patient agreed. Silver nitrate was then applied. Patient then reported bleeding worsened, likely due to sneezing which is can be effect of the silver nitrate. I strongly recommended the Merocel packing at this time and patient vane damantly refused and states she would like to be discharged and follow-up with her doctor tomorrow. Case was discussed with my ED attending Dr. Ríos. Undiagnosed new problem with uncertain prognosis? @ -No Drug Therapy requiring intensive monitoring for toxicity (Heparin, Nitro, Insulin, Cardizem)? @ -No Were any procedures done? @ -No Diagnosis/symptom? @ -Epistaxis Acute, or Chronic, or Acute on Chronic? @ -Acute Uncomplicated (without systemic symptoms) or Complicated (systemic symptoms)? @ -Uncomplicated Side effects of treatment? @ -No Exacerbation, Progression, or Severe Exacerbation? @ -No Poses a threat to life or bodily function? How? (Chest pain, [place], [place], pneumonia, PE, COPD, DKA, ARF, appy, cholecystitis, CVA, Diverticulitis, Homicidal, Suicidal, threat to staff... and all critical care pts) @ -No Disposition Clinical Impression: Epistaxis Disposition: HOME SELF-CARE Condition: Stable Is patient prescribed a controlled substance at d/c from ED?: No Referrals: Matthieu Ryan DO [Primary Care Provider] - 1-2 days Time of Disposition: 20:05
== END 2024-05-26 20:15 | disposition home or self-care (01) ==
LOC: EC 18:27
DX: R04.0 Epistaxis (principal); F17.200 Nicotine dependence, unspecified, uncomplicated; Z88.5 Allergy status to narcotic agent; Z88.8 Allergy status to other drugs, medicaments and biological substances
CPT/HCPCS: 99283

== ENCOUNTER 2024-05-26 23:47 | Emergency (ER) | payer MEDICARE ==
[2024-05-26 23:54] VITALS: TEMP 97.8
[2024-05-27] MEDS: LABETALOL 5 MG/ML VIAL MDV IVP STA (00:38)
[2024-05-27 00:46] VITALS: BP 156/73; PULSE 75; RESP 16
[2024-05-27 00:50] LABS: Basophils # (A) 0.1 k/uL (0-0.2); Basophils % (A) 0 %; Eosinophils # (A) 0.2 k/uL (0-0.7); Eosinophils % (A) 2 %; HCT 31.7 % (34.0-46.0); HGB 10.1 gm/dL (11.4-16.0); Hypochromasia Slight; Lymphocytes # (A) 2.4 k/uL (1.0-4.8); Lymphocytes % (A) 19 %; MCH 27.9 pg (25.0-35.0); MCV 87.2 fL (80.0-100.0); Mean Platelet Volume 7.5; Monocytes # (A) 0.6 k/uL (0-1.0); Monocytes % (A) 5 %; Neutrophils % (A) 73 %; Platelet Count 348 k/uL (150-450); RBC 3.63 m/uL (3.80-5.40); RDW 15.9 % (11.5-15.5); WBC 12.4 k/uL (3.8-10.6)
--- NOTE | 2024-05-27 01:56 | ED ---
ENT HPI - General Chief complaint: ENT Stated complaint: Nose bleed Time Seen by Provider: 05/27/24 00:02 Source: EMS Mode of arrival: EMS Limitations: no limitations - History of Present Illness Initial comments: 83-year-old female presenting with chief complaint of nosebleed. Bleeding has been ongoing for 12 hours. Patient does take Eliquis. She was seen here 2 other times earlier today for the same complaint. Patient refused nasal packing at that time. They attempted to cauterize the nostril however shortly after the patient sneezed multiple times and bleeding resumed. She is okay with nasal packing now. would like her hemoglobin checked. - Related Data Home Medications Medication Instructions Recorded Confirmed Esomeprazole Magnesium [NexIUM] 40 mg PO DAILY 09/18/14 03/25/24 Fluticasone/Umeclidin/Vilanter 1 puff INHALATION RT-DAILY 11/23/23 03/25/24 [Trelegy Ellipta 200-62.5-25] Ipratropium/Albuterol Sulfate 1 puff INHALATION RT-QID PRN 11/23/23 03/25/24 [Combivent Respimat Inhaler] Sertraline [Zoloft] 50 mg PO DAILY 11/23/23 03/25/24 LORazepam [Ativan] 0.5 mg PO BID PRN 03/11/24 03/25/24 Previous Rx's Medication Instructions Recorded Ipratropium-Albuterol Nebulize 3 ml INHALATION RT-QID #1 04/02/19 [Duoneb 0.5 mg-3 mg/3 ml Soln] Apixaban [Eliquis] 2.5 mg PO BID #60 tab 03/15/24 Atorvastatin [Lipitor] 80 mg PO DAILY #0 03/15/24 Metoprolol Tartrate [Lopressor] 25 mg PO BID #60 tab 03/15/24 Nicotine 21Mg/24Hr Patch [Habitrol] 1 patch TRANSDERM DAILY patch 03/15/24 Aspirin 81 mg PO DAILY tab 03/30/24 predniSONE 10 mg PO DIRECTED #30 tab 03/30/24 Allergies Allergy/AdvReac Type Severity Reaction Status Date / Time aspirin Allergy Nausea & Verified 05/26/24 23:54 Vomiting codeine Allergy Unknown Verified 05/26/24 23:54 meperidine HCl [From Demerol] AdvReac Rapid Verified 05/26/24 23:54 Heart Rate Review of Systems ROS Statement: Those systems with pertinent positive or pertinent negative responses have been documented in the HPI. ROS Other: All systems not noted in ROS Statement are negative. Past Medical History Past Medical History: Atrial Fibrillation, COPD, GERD/Reflux, Hyperlipidemia, Hypertension, Pneumonia, Respiratory Disorder Additional Past Medical History / Comment(s): Emphysema, shingles in right ear, epistaxis History of Any Multi-Drug Resistant Organisms: None Reported Past Surgical History: Appendectomy, Cholecystectomy, Hysterectomy Additional Past Surgical History / Comment(s): emphysema Past Anesthesia/Blood Transfusion Reactions: No Reported Reaction Past Psychological History: Depression Smoking Status: Current every day smoker Past Alcohol Use History: None Reported Past Drug Use History: None Reported - Past Family History Mother Additional Family Medical History / Comment(s): " AFTER GALLBLADDER TONY" Sister(s) Family Medical History: Cancer Additional Family Medical History / Comment(s): One sister with brain cancer, another with throat cancer. Brother(s) Family Medical History: Cancer Additional Family Medical History / Comment(s): lung cancer General Exam Limitations: no limitations General appearance: alert, in no apparent distress Head exam: Present: atraumatic, normocephalic, normal inspection Eye exam: Present: normal appearance, EOMI ENT exam: Present: other (Trickling of blood from the right nostril) Neck exam: Present: normal inspection. Absent: meningismus Respiratory exam: Absent: respiratory distress Cardiovascular Exam: Present: regular rate Neurological exam: Present: alert, oriented X3 Psychiatric exam: Present: normal affect, normal mood Skin exam: Present: warm, dry, normal color Course Vital Signs 05/26/24 05/27/24 23:48 00:45 Temperature 97.8 F Pulse Rate 84 75 Respiratory 18 16 Rate Blood Pressure 182/82 156/73 O2 Sat by Pulse 94 L 97 Oximetry Medical Decision Making - Medical Decision Making Was pt. sent in by a medical professional or institution (, PA, HISTOTECHNOLOGIST, urgent care, hospital, or [facility]...) When possible be specific @ -No Did you speak to anyone other than the patient for history (EMS, parent, family, police, friend...)? What history was obtained from this source @ - Did you review nursing and triage notes (agree or disagree)? Why? @ -I reviewed and agree with nursing and triage notes Were old charts reviewed (outside hosp., previous admission, EMS record, old EKG, old radiological studies, urgent care reports/EKG's, [facility] records)? Report findings @ -Previous 2 visits reviewed Differential Diagnosis (chest pain, altered mental status, abdominal pain women, abdominal pain men, vaginal bleeding, weakness, fever, dyspnea, syncope, headache, dizziness, GI bleed, back pain, seizure, CVA, palpatations, mental health, musculoskeletal)? @ -Not applicable EKG interpreted by me (3pts min.). @ -As above X-rays interpreted by me (1pt min.). @ -None done CT interpreted by me (1pt min.). @ -None done U/S interpreted by me (1pt. min.). @ -None done What testing was considered but not performed or refused? (CT, X-rays, U/S, labs)? Why? @ -None What meds were considered but not given or refused? Why? @ -None Did you discuss the management of the patient with other professionals (professionals i.e. , PA, HISTOTECHNOLOGIST, lab, RT, psych nurse, public health social worker, journeyman powerhouse operator, teacher, ground defence officer, case assembler)? Give summary @ -No Was smoking cessation discussed for >3mins.? @ -No Was critical care preformed (if so, how long)? @ -No Were there social determinants of health that impacted care today? How? ( Homelessness, low income, unemployed, alcoholism, drug addiction, transportation, low edu. Level, literacy, decrease access to med. care, care home, rehab)? @ -No Was there de-escalation of care discussed even if they declined (Discuss DNR or withdrawal of care, Hospice)? DNR status @ -No What co-morbidities impacted this encounter? (DM, HTN, Smoking, COPD, CAD, Cancer, CVA, ARF, Chemo, Hep., AIDS, mental health diagnosis, sleep apnea, morbid obesity)? @ -None Was patient admitted / discharged? Hospital course, mention meds given and route, prescriptions, significant lab abnormalities, going to OR and other pertinent info. @ -83-year-old female presented with chief complaint of nosebleed. This is her third visit today for this complaint, earlier she was refusing packing but now she is okay with it. Rhino Rocket was placed, difficulty placing due to the patient moving and pulling my hands away. There is a portion of the Rhino Rocket that remains outside of the nose, however patient refuses any further manipulation of the rhinorrhea. Posterior balloon is inflated. Per the 's request the patient's hemoglobin was checked, is 10.1 which is consistent with her previous values. They are instructed to follow-up with ENT, Rhino Rocket should be removed in 2 to 3 days, if they are unable to get in with ENT in that time he can come to the ER for removal of the Rhino Rocket. D ischarged. Follow-up with PCP. Report back to ER with any new or worsening symptoms. Discussed return parameters and answered all questions. Patient conveyed verbal understanding and agreed to the plan. I discussed this case in detail with my attending Dr. Minor Undiagnosed new problem with uncertain prognosis? @ -No Drug Therapy requiring intensive monitoring for toxicity (Heparin, Nitro, Insulin, Cardizem)? @ -No Were any procedures done? @ -Rhino Rocket placed Diagnosis/symptom? @ -Epistaxis Acute, or Chronic, or Acute on Chronic? @ -Acute Uncomplicated (without systemic symptoms) or Complicated (systemic symptoms)? @ -Uncomplicated Side effects of treatment? @ -No Exacerbation, Progression, or Severe Exacerbation? @ -No Poses a threat to life or bodily function? How? (Chest pain, USA, [place], pneumonia, PE, COPD, DKA, ARF, appy, cholecystitis, CVA, Diverticulitis, Homicidal, Suicidal, threat to staff... and all critical care pts) @ -Low likelihood - Lab Data Result diagrams: 05/27/24 00:45 Lab Results 05/27/24 Range/Units 00:45 WBC 12.4 H (3.8-10.6) k/uL RBC 3.63 L (3.80-5.40) m/uL Hgb 10.1 L (11.4-16.0) gm/dL Hct 31.7 L (34.0-46.0) % MCV 87.2 (80.0-100.0) fL MCH 27.9 (25.0-35.0) pg MCHC 32.0 (31.0-37.0) g/dL RDW 15.9 H (11.5-15.5) % Plt Count 348 (150-450) k/uL MPV 7.5 Neutrophils % 73 % Lymphocytes % 19 % Monocytes % 5 % Eosinophils % 2 % Basophils % 0 % Neutrophils # 9.0 H (1.3-7.7) k/uL Lymphocytes # 2.4 (1.0-4.8) k/uL Monocytes # 0.6 (0-1.0) k/uL Eosinophils # 0.2 (0-0.7) k/uL Basophils # 0.1 (0-0.2) k/uL Hypochromasia Slight Disposition Clinical Impression: Epistaxis Disposition: HOME SELF-CARE Condition: Good Instructions (If sedation given, give patient instructions): Nosebleed (ED) Additional Instructions: Follow-up with your PCP and ENT. Report back to ER with any new or worsening symptoms. Packing must be removed in 2 to 3 days. This will either be done by the ENT or you can come back to the ER if you are unable to get in with the ENT sooner. Is patient prescribed a controlled substance at d/c from ED?: No Referrals: Matthieu Ryan DO [Primary Care Provider] - 1-2 days William Kapadia MD [STAFF PHYSICIAN] - 1-2 days Time of Disposition: 01:56
[2024-05-27] MEDS: ACETAMINOPHEN TAB 325 MG TAB PO STA (02:06)
== END 2024-05-27 02:24 | disposition home or self-care (01) ==
LOC: EC 23:47
DX: R04.0 Epistaxis (principal); F17.200 Nicotine dependence, unspecified, uncomplicated; Z88.5 Allergy status to narcotic agent; Z88.6 Allergy status to analgesic agent; Z88.8 Allergy status to other drugs, medicaments and biological substances
CPT/HCPCS: 36415; 85025; 99284; 96374; 30901; J1920

== ENCOUNTER 2024-05-28 08:48 | Observation (INO) | payer MEDICARE ==
[2024-05-28] MEDS: SODIUM CHLORIDE 0.9% 500 ML 500 ML IV STA (09:21)
[2024-05-28 09:23] LABS: Basophils # (A) 0.1 k/uL (0-0.2); Basophils % (A) 0 %; Eosinophils # (A) 0.1 k/uL (0-0.7); Eosinophils % (A) 1 %; HGB 10.1 gm/dL (11.4-16.0); Lymphocytes # (A) 2.6 k/uL (1.0-4.8); Lymphocytes % (A) 19 %; MCH 27.5 pg (25.0-35.0); MCHC 31.7 g/dL (31.0-37.0); MCV 86.8 fL (80.0-100.0); Mean Platelet Volume 7.5; Monocytes # (A) 0.7 k/uL (0-1.0); Monocytes % (A) 5 %; Neutrophils # (A) 10.2 k/uL (1.3-7.7); Neutrophils % (A) 74 %; Platelet Count 361 k/uL (150-450); RBC 3.68 m/uL (3.80-5.40); RDW 15.9 % (11.5-15.5); WBC 13.8 k/uL (3.8-10.6)
[2024-05-28 09:35] LABS: ALT 16 U/L (4-34); AST 34 U/L (14-36); African American GFR (CKD) >90 (>60 ml/min/1.73 sqM); Albumin 4.1 g/dL (3.5-5.0); Alkaline Phosphatase 90 U/L (38-126); Anion Gap 7 mmol/L; Blood Urea Nitrogen 14 mg/dL (7-17); Calcium 9.3 mg/dL (8.4-10.2); Carbon Dioxide 33 mmol/L (22-30); Chloride 97 mmol/L (98-107); Glucose 91 mg/dL (74-99); Magnesium 1.8 mg/dL (1.6-2.3); Non-African American GFR(CKD) 86 (>60 ml/min/1.73 sqM); Potassium 2.8 mmol/L (3.5-5.1); Sodium 137 mmol/L (137-145); Total Bilirubin 0.7 mg/dL (0.2-1.3); Total Protein 7.1 g/dL (6.3-8.2)
[2024-05-28 09:36] LABS: INR 0.9 (<1.2); Partial Thromboplastin Time 24.8 sec (22.0-30.0); Prothrombin Time 10.4 sec (10.0-12.5)
--- NOTE | 2024-05-28 09:42 | ED ---
General Adult HPI - General Chief complaint: Weakness Stated complaint: Weakness Time Seen by Provider: 05/28/24 08:49 Source: patient, EMS, RN notes reviewed, old records reviewed Limitations: no limitations - History of Present Illness Initial comments: 83-year-old female presenting for evaluation of weakness, and pain associated with her nasal packing. Patient has had a persistent nosebleed requiring packing over the past 24 to 48 hours. She has not had any further bleeding but has had pain associated with the packing. The had attempted to get into see the ENT doctor but the office was closed today. Patient is on Eliquis but has not taken this medication in the past 2 days secondary to the nosebleed. She is having trouble eating and is feeling generally weak. - Related Data Home Medications Medication Instructions Recorded Confirmed Esomeprazole Magnesium [NexIUM] 40 mg PO DAILY 09/18/14 05/28/24 Fluticasone/Umeclidin/Vilanter 1 puff INHALATION RT-DAILY 11/23/23 05/28/24 [Treletali Ellipta 200-62.5-25] Ipratropium/Albuterol Sulfate 1 puff INHALATION RT-QID PRN 11/23/23 05/28/24 [Combivent Respimat Inhaler] Sertraline [Zoloft] 50 mg PO DAILY 11/23/23 05/28/24 LORazepam [Ativan] 0.5 mg PO BID PRN 03/11/24 05/28/24 Atorvastatin [Lipitor] 80 mg PO DAILY 05/28/24 05/28/24 Furosemide [Lasix] 20 mg PO DAILY PRN 05/28/24 05/28/24 Ondansetron Odt [Zofran Odt] 4 mg PO Q6H PRN 05/28/24 05/28/24 Previous Rx's Medication Instructions Recorded Ipratropium-Albuterol Nebulize 3 ml INHALATION RT-QID #1 04/02/19 [Duoneb 0.5 mg-3 mg/3 ml Soln] Apixaban [Eliquis] 2.5 mg PO BID #60 tab 03/15/24 Metoprolol Tartrate [Lopressor] 25 mg PO BID #60 tab 03/15/24 Aspirin 81 mg PO DAILY tab 03/30/24 Allergies Allergy/AdvReac Type Severity Reaction Status Date / Time aspirin Allergy Nausea & Verified 12/09/24 09:47 Vomiting codeine Allergy Dyspnea Verified 05/28/24 09:47 meperidine HCl [From Demerol] AdvReac Rapid Verified 05/28/24 09:47 Heart Rate Review of Systems ROS Statement: Those systems with pertinent positive or pertinent negative responses have been documented in the HPI. ROS Other: All systems not noted in ROS Statement are negative. Past Medical History Past Medical History: Atrial Fibrillation, COPD, GERD/Reflux, Hyperlipidemia, Hypertension, Pneumonia, Respiratory Disorder Additional Past Medical History / Comment(s): Emphysema, shingles in right ear, epistaxis History of Any Multi-Drug Resistant Organisms: None Reported Past Surgical History: Appendectomy, Cholecystectomy, Hysterectomy Additional Past Surgical History / Comment(s): emphysema Past Anesthesia/Blood Transfusion Reactions: No Reported Reaction Past Psychological History: Depression Smoking Status: Current every day smoker Past Alcohol Use History: None Reported Past Drug Use History: None Reported - Past Family History Mother Additional Family Medical History / Comment(s): " AFTER GALLBLADDER TONY" Sister(s) Family Medical History: Cancer Additional Family Medical History / Comment(s): One sister with brain cancer, another with throat cancer. Brother(s) Family Medical History: Cancer Additional Family Medical History / Comment(s): lung cancer General Exam Limitations: no limitations General appearance: alert, in no apparent distress Head exam: Present: atraumatic, normocephalic Eye exam: Present: normal appearance, PERRL ENT exam: Present: other (No active nosebleed, Rhino Rocket in right nare) Neck exam: Present: normal inspection Respiratory exam: Present: normal lung sounds bilaterally. Absent: respiratory distress, wheezes Cardiovascular Exam: Present: regular rate, normal rhythm GI/Abdominal exam: Present: soft. Absent: distended, tenderness Extremities exam: Present: normal inspection Neurological exam: Present: alert, oriented X3, CN II-XII intact. Absent: motor sensory deficit Psychiatric exam: Present: normal affect, normal mood Skin exam: Present: warm, dry, intact Course Vital Signs 05/28/24 05/28/24 08:52 11:57 Temperature 97.7 F Pulse Rate 82 84 Respiratory 20 18 Rate Blood Pressure 151/78 164/84 O2 Sat by Pulse 97 95 Oximetry Medical Decision Making - Medical Decision Making Was pt. sent in by a medical professional or institution (DEMETRIA Davalos, NETWORK SUPPORT ADMINISTRATOR, urgent care, hospital, or alf...) When possible be specific @ -No Did you speak to anyone other than the patient for history (EMS, parent, family, police, friend...)? What history was obtained from this source @ -No Did you review nursing and triage notes (agree or disagree)? Why? @ -I reviewed and agree with nursing and triage notes Were old charts reviewed (outside hosp., previous admission, EMS record, old EKG, old radiological studies, urgent care reports/EKG's, alf records)? Report findings @ -No old charts were reviewed Differential Weakness: Hypoglycemia, shock, sepsis, hyponatremia, anemia, infection, MO, ETOH, adverse medicine reaction, overdose, stroke, this is not meant to be an all-inclusive list. EKG interpreted by me (3pts min.). @Sinus rhythm abnormal T wave in the precordial leads no ST segment elevation rate of 82, [place] interval 112, QRS duration 76, QTc 423 X-rays interpreted by me (1pt min.). @ -None done CT interpreted by me (1pt min.). @ -None done U/S interpreted by me (1pt. min.). @ -None done What testing was considered but not performed or refused? (CT, X-rays, U/S, labs)? Why? @ -None What meds were considered but not given or refused? Why? @ -None Did you discuss the management of the patient with other professionals (professionals i.e. DEMETRIA Davalos, NETWORK SUPPORT ADMINISTRATOR, lab, RT, psych nurse, social work program coordinator, ribbon cleaner, teacher, job placement officer, insurance case manager)? Give summary @ -No Was smoking cessation discussed for >3mins.? @ -No Was critical care preformed (if so, how long)? @ -No Were there social determinants of health that impacted care today? How? (Homelessness, low income, unemployed, alcoholism, drug addiction, transportation, low edu. Level, literacy, decrease access to med. care, nursing home, rehab)? @ -No Was there de-escalation of care discussed even if they declined (Discuss DNR or withdrawal of care, Hospice)? DNR status @ -No What co-morbidities impacted this encounter? (DM, HTN, Smoking, COPD, CAD, Cancer, CVA, ARF, Chemo, Hep., AIDS, mental health diagnosis, sleep apnea, morb id obesity)? @ -[Recent nosebleed Was patient admitted / discharged? Hospital course, mention meds given and route, prescriptions, significant lab abnormalities, going to OR and other pertinent info. @83-year-old female presenting for reevaluation of generalized weakness, poor appetite, concern for dehydration and recent nosebleed requiring Rhino Rocket. There is no active bleeding on exam. The Rhino Rocket has tamponade at the nosebleed. Patient is not been eating or drinking well over this weekend. She has a hypokalemia at 2.8. This is her fourth ER visit over the past 48 hours. Patient does appear dehydrated. She is given IV fluids and potassium replacement. She started on antibiotics for the nasal packing. The Rhino Rocket will remain in place as it is currently working well. She will be admitted to her primary care provider Dr. Ryan with ENT on consult for further evaluation. Undiagnosed new problem with uncertain prognosis? @ -No Drug Therapy requiring intensive monitoring for toxicity (Heparin, Nitro, Insulin, Cardizem)? @ -No Were any procedures done? @ -No Diagnosis/symptom? @ -Dehydration, hypokalemia, weakness, nosebleed Acute, or Chronic, or Acute on Chronic? @ -[Acute Uncomplicated (without systemic symptoms) or Complicated (systemic symptoms)? @ -Default Side effects of treatment? @ -No Exacerbation, Progression, or Severe Exacerbation? @ -No Poses a threat to life or bodily function? How? (Chest pain, USA, MO, pneumonia, PE, COPD, DKA, ARF, appy, cholecystitis, CVA, Diverticulitis, Homicidal, Suicidal, threat to staff... and all critical care pts) @ -Low risk at this time - Lab Data Result diagrams: 05/28/24 09:12 05/28/24 09:12 Lab Results 05/28/24 05/28/24 05/28/24 Range/Units 09:12 09:12 09:12 WBC 13.8 H (3.8-10.6) k/uL RBC 3.68 L (3.80-5.40) m/uL Hgb 10.1 L (11.4-16.0) gm/dL Hct 32.0 L (34.0-46.0) % MCV 86.8 (80.0-100.0) fL MCH 27.5 (25.0-35.0) pg MCHC 31.7 (31.0-37.0) g/dL RDW 15.9 H (11.5-15.5) % Plt Count 361 (150-450) k/uL MPV 7.5 Neutrophils % 74 % Lymphocytes % 19 % Monocytes % 5 % Eosinophils % 1 % Basophils % 0 % Neutrophils # 10.2 H (1.3-7.7) k/uL Lymphocytes # 2.6 (1.0-4.8) k/uL Monocytes # 0.7 (0-1.0) k/uL Eosinophils # 0.1 (0-0.7) k/uL Basophils # 0.1 (0-0.2) k/uL PT 10.4 (10.0-12.5) sec INR 0.9 (<1.2) APTT 24.8 (22.0-30.0) sec Sodium 137 (137-145) mmol/L Potassium 2.8 L (3.5-5.1) mmol/L Chloride 97 L (98-107) mmol/L Carbon Dioxide 33 H (22-30) mmol/L Anion Gap 7 mmol/L BUN 14 (7-17) mg/dL Creatinine 0.59 (0.52-1.04) mg/dL Est GFR (CKD-EPI)AfAm >90 (>60 ml/min/1.73 sqM) Est GFR (CKD-EPI)NonAf 86 (>60 ml/min/1.73 sqM) Glucose 91 (74-99) mg/dL Plasma Lactic Acid Fareed (0.7-2.0) mmol/L Calcium 9.3 (8.4-10.2) mg/dL Magnesium 1.8 (1.6-2.3) mg/dL Total Bilirubin 0.7 (0.2-1.3) mg/dL AST 34 (14-36) U/L ALT 16 (4-34) U/L Alkaline Phosphatase 90 (38-126) U/L Total Protein 7.1 (6.3-8.2) g/dL Albumin 4.1 (3.5-5.0) g/dL 12/09/24 Range/Units 09:12 WBC (3.8-10.6) k/uL RBC (3.80-5.40) m/uL Hgb (11.4-16.0) gm/dL Hct (34.0-46.0) % MCV (80.0-100.0) fL MCH (25.0-35.0) pg MCHC (31.0-37.0) g/dL RDW (11.5-15.5) % Plt Count (150-450) k/uL MPV Neutrophils % % Lymphocytes % % Monocytes % % Eosinophils % % Basophils % % Neutrophils # (1.3-7.7) k/uL Lymphocytes # (1.0-4.8) k/uL Monocytes # (0-1.0) k/uL Eosinophils # (0-0.7) k/uL Basophils # (0-0.2) k/uL PT (10.0-12.5) sec INR (<1.2) APTT (22.0-30.0) sec Sodium (137-145) mmol/L Potassium (3.5-5.1) mmol/L Chloride (98-107) mmol/L Carbon Dioxide (22-30) mmol/L Anion Gap mmol/L BUN (7-17) mg/dL Creatinine (0.52-1.04) mg/dL Est GFR (CKD-EPI)AfAm (>60 ml/min/1.73 sqM) Est GFR (CKD-EPI)NonAf (>60 ml/min/1.73 sqM) Glucose (74-99) mg/dL Plasma Lactic Acid Fareed 1.1 (0.7-2.0) mmol/L Calcium (8.4-10.2) mg/dL Magnesium (1.6-2.3) mg/dL Total Bilirubin (0.2-1.3) mg/dL AST (14-36) U/L ALT (4-34) U/L Alkaline Phosphatase (38-126) U/L Total Protein (6.3-8.2) g/dL Albumin (3.5-5.0) g/dL Disposition Clinical Impression: Dehydration, Hypokalemia, Epistaxis Disposition: ADMITTED IP TO THIS HOSP Condition: Stable Is patient prescribed a controlled substance at d/c from ED?: No Referrals: Matthieu Ryan DO [Primary Care Provider] - 1-2 days Time of Disposition: 13:03
[2024-05-28] MEDS: POTASSIUM CHLORIDE ER 20 MEQ TAB.ER PO STA (10:47)
[2024-05-28] MEDS: ACETAMINOPHEN TAB 500 MG TAB PO STA (11:51)
[2024-05-28] MEDS: 0.9% NACL WITH KCL 20 MEQ/L 1,000 ML IV ONE (11:53)
[2024-05-28] MEDS: AMOXICILLIN 500 MG CAP PO SCH (11:56)
[2024-05-28] MEDS ORDERED: NALOXONE 0.4 MG/ML 1 ML VIAL IV PRN (12:59)
[2024-05-28] MEDS: ACETAMINOPHEN TAB 325 MG TAB PO PRN (15:58)
[2024-05-28] MEDS: IPRATROPIUM-ALBUTEROL 3 ML NEB INHALATION SCH (18:08)
[2024-05-28] MEDS: METOPROLOL TARTRATE 25 MG TAB PO SCH (20:52)
[2024-05-28] MEDS ORDERED: APIXABAN 2.5 MG TABLET PO SCH (21:00)
[2024-05-29] MEDS: PANTOPRAZOLE 40 MG TABLET PO SCH (06:15)
[2024-05-29 06:39] LABS: Appearance,Urine Clear (Clear); Bacteria,Urine Rare /hpf; Bilirubin,Urine Negative (Negative); Blood,Urine Large (Negative); Color,Urine Colorless; Glucose,Urine (UA) Negative (Negative); Ketones,Urine Negative (Negative); Leukocyte Esterase,Urine Negative (Negative); Mucus,Urine Rare /hpf; Nitrite,Urine Negative (Negative); Protein,Urine Negative (Negative); RBC,Urine 48 /hpf (0-5); Squamous Epithelial Cell,Urine <1 /hpf (0-4); Urobilinogen,Urine <2.0 mg/dL (<2.0); WBC,Urine 2 /hpf (0-5)
[2024-05-29 07:35] VITALS: RESP 16; TEMP 97.7
[2024-05-29] MEDS: ATORVASTATIN 80 MG TAB PO SCH (07:51)
[2024-05-29] MEDS: SERTRALINE 50 MG TAB PO SCH (07:51)
[2024-05-29] MEDS ORDERED: ONDANSETRON ODT 4 MG TAB PO PRN (08:19)
[2024-05-29] MEDS ORDERED: IPRATROPIUM-ALBUTEROL 3 ML NEB INHALATION PRN (08:19)
[2024-05-29 08:40] LABS: ALT 13 U/L (8-44); AST 26 U/L (13-35); Albumin 3.6 g/dL (3.8-4.9); Albumin/Globulin Ratio 1.33 Ratio (1.60-3.17); Alkaline Phosphatase 77 U/L (41-126); BUN/Creat Ratio 19.17 Ratio (12.00-20.00); Blood Urea Nitrogen 11.5 mg/dL (9.0-27.0); Calcium 8.9 mg/dL (8.7-10.3); Carbon Dioxide 28.3 mmol/L (21.6-31.8); Chloride 102 mmol/L (96-109); Globulin 2.7 g/dL (1.6-3.3); Glucose 104 mg/dL (70-110); Potassium 3.2 mmol/L (3.5-5.5); Sodium 142 mmol/L (135-145); Total Bilirubin 0.4 mg/dL (0.3-1.2); Total Protein 6.3 g/dL (6.2-8.2)
[2024-05-29 08:51] LABS: Basophils # (A) 0.06 X 10*3/uL (0.00-0.10); Basophils % (A) 0.6 %; Eosinophils # (A) 0.23 X 10*3/uL (0.04-0.35); Eosinophils % (A) 2.2 %; HCT 31.2 % (37.2-46.3); HGB 9.6 g/dL (12.0-15.0); Lymphocytes # (A) 2.61 X 10*3/uL (0.90-5.00); Lymphocytes % (A) 24.7 %; MCH 27.4 pg (27.0-32.0); MCHC 30.8 g/dL (32.0-37.0); MCV 89.1 FL (80.0-97.0); Monocytes # (A) 1.03 X 10*3/uL (0.20-1.00); Monocytes % (A) 9.8 %; NRBC Per 100 WBC 0 X 10*3/uL (0.00-0.01); Neutrophils # (A) 6.58 X 10*3/uL (1.80-7.70); Neutrophils % (A) 62.2 %; Platelet Count 371 X 10*3/uL (140-440); RDW 16.6 % (11.5-14.5); WBC 10.56 X 10*3/uL (4.50-10.00)
[2024-05-29] MEDS: SYMBICORT 160-4.5 MCG INHALER INHALATION SCH (09:05)
--- NOTE | 2024-05-29 09:47 | P.HPIM ---
History of Present Illness H&P Date: 05/29/24 Chief Complaint: Weakness, dehydration, recent nasal packing History and Physical and Discharge Summary: This is a 83-year-old female with past medical history significant for chronic hypoxic respiratory failure, emphysema, severe pulmonary hypertension, ongoing nicotine dependence, chronic diastolic CHF, gastroesophageal reflux disease, proximal atrial fibrillation multiple other medical issues, admitted with poor oral intake over the weekend, generalized weakness, recent nasal packing in the ER for nosebleeding in a patient on Eliquis. no further nasal bleed, discovered to have severe hypokalemia with a potassium of 2.8. Received IV fluid hydration, supplementation, potassium up to 3.2. Magnesium on admission 1.8. Renal function stable. Empiric antibiotics initiated, UA negative for nitrates, leukocytes, large blood. Afebrile, WBC has nearly normalized, 10.56 down from 13.8. Hemoglobin 9.6, platelets 371. Denies chest pain, palpitations or shortness of breath. Maintaining O2 sats in the 90s on room air. ENT consult in place. Review of Systems ROS Statement: Those systems with pertinent positive or pertinent negative responses have been documented in the HPI. ROS Other: All systems not noted in ROS Statement are negative. Past Medical History Past Medical History: Atrial Fibrillation, COPD, GERD/Reflux, Hyperlipidemia, Hypertension, Pneumonia, Respiratory Disorder Additional Past Medical History / Comment(s): Emphysema, shingles in right ear, epistaxis History of Any Multi-Drug Resistant Organisms: None Reported Past Surgical History: Appendectomy, Cholecystectomy, Hysterectomy Additional Past Surgical History / Comment(s): emphysema Past Anesthesia/Blood Transfusion Reactions: No Reported Reaction Past Psychological History: Depression Additional Psychological History / Comment(s): Pt resides with her spouse. She has never been able to drive, her spouse drives. Smoking Status: Current every day smoker Past Alcohol Use History: None Reported Additional Past Alcohol Use History / Comment(s): Pt started smoking in 1960 and is a ppd smoker. Past Drug Use History: None Reported - Past Family History Mother Additional Family Medical History / Comment(s): " AFTER GALLBLADDER TONY" Sister(s) Family Medical History: Cancer Additional Family Medical History / Comment(s): One sister with brain cancer, another with throat cancer. Brother(s) Family Medical History: Cancer Additional Family Medical History / Comment(s): lung cancer Medications and Allergies Home Medications Medication Instructions Recorded Confirmed Type Esomeprazole Magnesium [NexIUM] 40 mg PO DAILY 09/18/14 05/28/24 History Ipratropium-Albuterol Nebulize 3 ml INHALATION RT-QID #1 04/02/19 05/28/24 Rx [Duoneb 0.5 mg-3 mg/3 ml Soln] Fluticasone/Umeclidin/Vilanter 1 puff INHALATION RT-DAILY 11/23/23 05/28/24 History [Trelegy Ellipta 200-62.5-25] Ipratropium/Albuterol Sulfate 1 puff INHALATION RT-QID PRN 11/23/23 05/28/24 History [Combivent Respimat Inhaler] Sertraline [Zoloft] 50 mg PO DAILY 11/23/23 05/28/24 History LORazepam [Ativan] 0.5 mg PO BID PRN 03/11/24 05/28/24 History Metoprolol Tartrate [Lopressor] 25 mg PO BID #60 tab 03/15/24 05/28/24 Rx Aspirin 81 mg PO DAILY tab 03/30/24 05/28/24 Rx Atorvastatin [Lipitor] 80 mg PO DAILY 05/28/24 05/28/24 History Furosemide [Lasix] 20 mg PO DAILY PRN 05/28/24 05/28/24 History Ondansetron Odt [Zofran ODT] 4 mg PO Q6H PRN 05/28/24 05/28/24 History Amoxicillin 500 mg PO Q8HR #15 cap 05/29/24 Rx Allergies Allergy/AdvReac Type Severity Reaction Status Date / Time aspirin Allergy Nausea & Verified 05/28/24 09:47 Vomiting codeine Allergy Dyspnea Verified 05/28/24 09:47 meperidine HCl [From Demerol] AdvReac Rapid Verified 05/28/24 09:47 Heart Rate Physical Exam Vitals: Vital Signs Temp Pulse Pulse Resp BP BP Pulse Ox 05/29/24 07:00 97.7 F 68 16 174/82 93 L 05/29/24 02:00 98.2 F 76 17 140/83 92 L 05/28/24 20:09 98.3 F 80 18 148/77 93 L 05/28/24 18:09 80 05/28/24 16:22 79 18 155/80 96 05/28/24 15:54 98 F 80 20 155/80 94 L 05/28/24 15:00 97.9 F 78 17 165/78 82 L 05/28/24 11:57 84 18 164/84 95 05/28/24 08:52 97.7 F 82 20 151/78 97 Intake and Output 05/28/24 05/29/24 05/29/24 22:59 06:59 14:59 Intake Total 118 Balance 118 Intake: Oral 118 Other: # Voids 2 2 Weight 68.039 kg VITAL SIGNS: As above GENERAL: Pleasant, alert and oriented x 3, sitting up in bed, no acute distress HEENT: Normocephalic, atraumatic ,conjunctivae normal. eyes normal. MMM. NECK: Supple, no JVD. CARDIOVASCULAR: S1, S2 regular. No murmur RESPIRATION: Unlabored, equal air entry. Occasional fine expiratory wheeze. ABDOMEN: Soft, nondistended, nontender . No guarding. no masses palpable. +BS. EXTR: no edema, cyanosis, no clubbing, positive DP pulse. NERVOUS SYSTEM: Cranial N 2-12 grossly normal. No focal deficits Skin: Warm and dry, no rash Results CBC & Chem 7: 05/29/24 05:33 05/29/24 05:33 Labs: Abnormal Lab Results - Last 24 Hours (Table) 05/28/24 05/28/24 05/29/24 Range/Units 09:12 09:12 05:11 WBC 13.8 H (3.8-10.6) k/uL RBC 3.68 L (3.80-5.40) m/uL Hgb 10.1 L (11.4-16.0) gm/dL Hct 32.0 L (34.0-46.0) % RDW 15.9 H (11.5-15.5) % Neutrophils # 10.2 H (1.3-7.7) k/uL Potassium 2.8 L (3.5-5.1) mmol/L Chloride 97 L (98-107) mmol/L Carbon Dioxide 33 H (22-30) mmol/L Urine Blood Large H (Negative) Urine RBC 48 H (0-5) /hpf Urine Bacteria Rare H (None) /hpf Urine Mucus Rare H (None) /hpf Thrombosis Risk Factor Assmnt - Choose All That Apply Any of the Below Risk Factors Present?: Yes Each Factor Represents 1 point: Obesity (BMI >25) Other Risk Factors: Yes Each Risk Factor Represents 3 Points: Age 75 years or older Thrombosis Risk Factor Assessment Total Risk Factor Score: 4 Thrombosis Risk Factor Assessment Level: Moderate Risk Assessment and Plan Assessment: Severe hypokalemia secondary to poor oral intake Generalized weakness secondary to the above Recent epistaxis, nasal packing present Emphysema, severe COPD, stable Leukocytosis nearly resolved Severe pulmonary hypertension Ongoing nicotine dependence Chronic diastolic CHF Gastroesophageal reflux disease History of pneumonia History of shingles Depression, anxiety Paroxysmal atrial fibrillation History of traumatic right proximal femur subcapital femoral neck fracture with valgus impaction, status post right direct anterior hip hemiarthroplasty on 11/25/2023 Moderate protein calorie malnutrition Plan: Continue on current medication regimen ,monitoring and symptomatic treatment. Further potassium supplementation ordered. Magnesium recheck. PT/OT. Patient will be discharged home today in a stable condition with guarded prognosis. Hold Eliquis x 1 week. Continue antibiotic x [address] Rome ENT in 1 to 2 days to have nasal rocket removed. Discharge Medication List Esomeprazole Magnesium [NexIUM] 40 mg PO DAILY 09/18/14 [History] Ipratropium-Albuterol Nebulize [Duoneb 0.5 mg-3 mg/3 ml Soln] 3 ml INHALATION RT-QID #1 04/02/19 [Rx] Fluticasone/Umeclidin/Vilanter [Trelegy Ellipta 200-62.5-25] 1 puff INHALATION RT-DAILY 11/23/23 [History] Ipratropium/Albuterol Sulfate [Combivent Respimat Inhaler] 1 puff INHALATION RT- QID PRN 11/23/23 [History] Sertraline [Zoloft] 50 mg PO DAILY 11/23/23 [History] LORazepam [Ativan] 0.5 mg PO BID PRN 03/11/24 [History] Apixaban [Eliquis] 2.5 mg PO BID #60 tab 03/15/24 [Rx] Metoprolol Tartrate [Lopressor] 25 mg PO BID #60 tab 03/15/24 [Rx] Aspirin 81 mg PO DAILY tab 03/30/24 [Rx] Atorvastatin [Lipitor] 80 mg PO DAILY 05/28/24 [History] Furosemide [Lasix] 20 mg PO DAILY PRN 05/28/24 [History] Ondansetron Odt [Zofran ODT] 4 mg PO Q6H PRN 05/28/24 [History] The impression and plan of care has been dictated as directed. : I performed a history and examination of this patient, discussed the same with the dictator. I agree with the dictator's note ,documented as a scribe. Any additional findings or plans will be noted.
[2024-05-29] MEDS: POTASSIUM CHLORIDE ER 20 MEQ TAB.ER PO SCH (10:30)
[2024-05-29] MEDS: LORazepam 0.5 MG TAB PO PRN (11:23)
[2024-05-29] MEDS: MAGNESIUM SULFATE-D5W PMX 1 GM in DEXTROSE/WATER 1 100ML.BAG IVPB ONE (11:59)
[2024-05-29] MEDS: ACETAMINOPHEN IV (For NPO) 1,000 MG in EMPTY BAG 1 BAG IVPB STA (12:17)
[2024-05-29 14:41] VITALS: BP 126/70
[2024-05-29 15:50] VITALS: PULSE 76
== END 2024-05-29 16:11 | disposition home or self-care (01) ==
LOC: EC 08:48 → 6NMEDSUR 13:00
PROVIDERS: ADMIT Family Medicine; ATTEND Family Medicine
DX: R04.0 Epistaxis (principal); E86.0 Dehydration; E87.6 Hypokalemia; R63.39 Other feeding difficulties; R53.1 Weakness; I11.0 Hypertensive heart disease with heart failure; I50.32 Chronic diastolic (congestive) heart failure; J96.11 Chronic respiratory failure with hypoxia; I48.91 Unspecified atrial fibrillation; K21.9 Gastro-esophageal reflux disease without esophagitis; E78.5 Hyperlipidemia, unspecified; F32.A Depression, unspecified; J43.9 Emphysema, unspecified; D72.829 Elevated white blood cell count, unspecified; I27.20 Pulmonary hypertension, unspecified; F41.9 Anxiety disorder, unspecified; I48.0 Paroxysmal atrial fibrillation; E44.0 Moderate protein-calorie malnutrition; F17.200 Nicotine dependence, unspecified, uncomplicated; Z68.25 Body mass index [BMI] 25.0-25.9, adult; Z79.01 Long term (current) use of anticoagulants; Z79.51 Long term (current) use of inhaled steroids; Z79.82 Long term (current) use of aspirin; Z79.899 Other long term (current) drug therapy; Z88.5 Allergy status to narcotic agent; Z88.6 Allergy status to analgesic agent
CPT/HCPCS: 96366 ×3; 96361; 96365; 99285; 36415; 94640 ×3; 93005; 80053 ×2; 83605; 83735 ×2; 84132; 85025 ×2; 85610; 85730; 81001; G0378 ×2; J3475

== ENCOUNTER 2024-07-12 08:37 | Inpatient (IN) | payer MEDICARE ==
--- NOTE | 2024-07-12 09:03 | ED ---
General Adult HPI - General Stated complaint: abd pain Time Seen by Provider: 07/12/24 08:42 Source: patient, EMS, RN notes reviewed Mode of arrival: EMS Limitations: no limitations - History of Present Illness Initial comments: 84-year-old female presents emergency department complaint of lower abdominal pain. Patient states she has had some suprapubic pain urinary symptoms. Patient denies any flank pain or back pain. She does admit to nausea vomiting without any change in bowel habits. She has had a prior hysterectomy appendectomy cholecystectomy. Denies fevers or chills no chest pain no shortness of breath no headache or dizziness. - Related Data Home Medications Medication Instructions Recorded Confirmed Esomeprazole Magnesium [NexIUM] 40 mg PO DAILY 09/18/14 07/12/24 Fluticasone/Umeclidin/Vilanter 1 puff INHALATION RT-DAILY 11/23/23 07/12/24 [Trelegy Ellipta 200-62.5-25] Ipratropium/Albuterol Sulfate 1 puff INHALATION RT-QID PRN 11/23/23 07/12/24 [Combivent Respimat Inhaler] Sertraline [Zoloft] 50 mg PO DAILY 11/23/23 07/12/24 LORazepam [Ativan] 0.5 mg PO BID PRN 03/11/24 07/12/24 Atorvastatin [Lipitor] 80 mg PO DAILY 05/28/24 07/12/24 Previous Rx's Medication Instructions Recorded Ipratropium-Albuterol Nebulize 3 ml INHALATION RT-QID #1 04/02/19 [Duoneb 0.5 mg-3 mg/3 ml Soln] Metoprolol Tartrate [Lopressor] 25 mg PO BID #60 tab 03/15/24 Allergies Allergy/AdvReac Type Severity Reaction Status Date / Time aspirin Allergy Nausea & Verified 07/12/24 09:34 Vomiting codeine Allergy Dyspnea Verified 07/12/24 09:34 meperidine HCl [From Demerol] AdvReac Rapid Verified 07/12/24 09:34 Heart Rate Review of Systems ROS Statement: Those systems with pertinent positive or pertinent negative responses have been documented in the HPI. ROS Other: All systems not noted in ROS Statement are negative. Past Medical History Past Medical History: Atrial Fibrillation, COPD, GERD/Reflux, Hyperlipidemia, Hypertension, Pneumonia, Respiratory Disorder Additional Past Medical History / Comment(s): Emphysema, shingles in right ear, epistaxis History of Any Multi-Drug Resistant Organisms: None Reported Past Surgical History: Appendectomy, Cholecystectomy, Hysterectomy Additional Past Surgical History / Comment(s): emphysema Past Anesthesia/Blood Transfusion Reactions: No Reported Reaction Past Psychological History: Depression Smoking Status: Current every day smoker Past Alcohol Use History: None Reported Past Drug Use History: None Reported - Past Family History Mother Additional Family Medical History / Comment(s): " AFTER GALLBLADDER TONY" Sister(s) Family Medical History: Cancer Additional Family Medical History / Comment(s): One sister with brain cancer, another with throat cancer. Brother(s) Family Medical History: Cancer Additional Family Medical History / Comment(s): lung cancer General Exam Limitations: no limitations General appearance: alert, in no apparent distress Head exam: Present: atraumatic, normocephalic, normal inspection Neck exam: Present: normal inspection. Absent: tenderness, meningismus, lymphadenopathy Respiratory exam: Present: normal lung sounds bilaterally. Absent: respiratory distress, wheezes, rales, rhonchi, stridor Cardiovascular Exam: Present: regular rate, normal rhythm, normal heart sounds. Absent: systolic murmur, diastolic murmur, rubs, gallop, clicks GI/Abdominal exam: Present: soft, tenderness, normal bowel sounds. Absent: distended, guarding, rebound, rigid Course Vital Signs 07/12/24 07/12/24 07/12/24 08:44 08:47 10:47 Temperature 98.4 F 98.4 F Pulse Rate 68 73 68 Respiratory 16 20 16 Rate Blood Pressure 173/83 173/83 180/79 O2 Sat by Pulse 95 95 98 Oximetry 07/12/24 11:00 Temperature Pulse Rate 65 Respiratory 20 Rate Blood Pressure 180/77 O2 Sat by Pulse 98 Oximetry Medical Decision Making - Medical Decision Making Was pt. sent in by a medical professional or institution (, PA, FISH RECEIVER, urgent care, hospital, or prison...) When possible be specific @ -No Did you speak to anyone other than the patient for history (EMS, parent, family, police, friend...)? What history was obtained from this source @ -No Did you review nursing and triage notes (agree or disagree)? Why? @ -I reviewed and agree with nursing and triage notes Were old charts reviewed (outside hosp., previous admission, EMS record, old EKG, old radiological studies, urgent care reports/EKG's, prison records)? Report findings @ -No old charts were reviewed Differential Diagnosis (chest pain, altered mental status, abdominal pain women, abdominal pain men, vaginal bleeding, weakness, fever, dyspnea, syncope, headache, dizziness, GI bleed, back pain, seizure, CVA, palpatations, mental health, musculoskeletal)? @ -Differential Abdominal Pain Women: Appendicitis, Cholecystitis, diverticulosis, ischemic bowel, pancreatitis, hepatitis, UTI, gastroenteritis, AAA, incarcerated hernia, bowel obstruction, co nstipation, inflammatory bowel, hepatitis, peptic ulcer disease, splenic infarction, perforated viscus, vulvitis, ovarian torsion, PID, kidney stone, placenta abruption, this is not meant to be an all-inclusive list EKG interpreted by me (3pts min.). @ -None X-rays interpreted by me (1pt min.). @ -None done CT interpreted by me (1pt min.). @ -CT abdomen pelvis showing evidence of diverticulitis, colitis with partial obstruction U/S interpreted by me (1pt. min.). @ -None done What testing was considered but not performed or refused? (CT, X-rays, U/S, labs)? Why? @ -None What meds were considered but not given or refused? Why? @ -None Did you discuss the management of the patient with other professionals (professionals i.e. , PA, FISH RECEIVER, lab, RT, psych nurse, social insurance specialist, instructional specialist, teacher, state wildlife officer, case monitor)? Give summary @ -[Discussed the case with Dr. Ryan for admission he request Dr. Latham for surgery consult. Was smoking cessation discussed for >3mins.? @ -No Was critical care preformed (if so, how long)? @ -No Were there social determinants of health that impacted care today? How? (Homelessness, low income, unemployed, alcoholism, drug addiction, transportation, low edu. Level, literacy, decrease access to med. care, fdc, rehab)? @ -No Was there de-escalation of care discussed even if they declined (Discuss DNR or withdrawal of care, Hospice)? DNR status @ -No What co-morbidities impacted this encounter? (DM, HTN, Smoking, COPD, CAD, Cancer, CVA, ARF, Chemo, Hep., AIDS, mental health diagnosis, sleep apnea, morbid obesity)? @ -None Was patient admitted / discharged? Hospital course, mention meds given and route, prescriptions, significant lab abnormalities, going to OR and other pertinent info. @ -Admitted patient is found to have diverticulitis, colitis with inflammation causing partial obstruction patient started on IV antibiotics IV fluids and pain meds she prefers nonnarcotic pain meds at this time. Undiagnosed new problem with uncertain prognosis? @ -No Drug Therapy requiring intensive monitoring for toxicity (Heparin, Nitro, Insulin, Cardizem)? @ -No Were any procedures done? @ -No Diagnosis/symptom? @ -Diverticulitis, partial obstruction Acute, or Chronic, or Acute on Chronic? @ -Acute Uncomplicated (without systemic symptoms) or Complicated (systemic symptoms)? @ -Complicated Side effects of treatment? @ -No Exacerbation, Progression, or Severe Exacerbation? @ -No Poses a threat to life or bodily function? How? (Chest pain, [place], [place], pneumonia, PE, COPD, DKA, ARF, appy, cholecystitis, CVA, Diverticulitis, Homicidal, Suicidal, threat to staff... and all critical care pts) @ -Yes possible surgical risk, infection leading to sepsis endorgan failure - Lab Data Result diagrams: 07/12/24 08:45 07/12/24 08:45 Lab Results 07/12/24 07/12/24 07/12/24 Range/Units 08:45 08:45 08:45 WBC 10.8 H (3.8-10.6) k/uL RBC 3.47 L (3.80-5.40) m/uL Hgb 9.9 L (11.4-16.0) gm/dL Hct 30.2 L (34.0-46.0) % MCV 87.1 (80.0-100.0) fL MCH 28.5 (25.0-35.0) pg MCHC 32.8 (31.0-37.0) g/dL RDW 14.8 (11.5-15.5) % Plt Count 368 (150-450) k/uL MPV 8.0 Neutrophils % 67 % Lymphocytes % 23 % Monocytes % 8 % Eosinophils % 2 % Basophils % 0 % Neutrophils # 7.2 (1.3-7.7) k/uL Lymphocytes # 2.5 (1.0-4.8) k/uL Monocytes # 0.8 (0-1.0) k/uL Eosinophils # 0.2 (0-0.7) k/uL Basophils # 0.1 (0-0.2) k/uL Sodium 138 (137-145) mmol/L Potassium 3.1 L (3.5-5.1) mmol/L Chloride 99 (98-107) mmol/L Carbon Dioxide 29 (22-30) mmol/L Anion Gap 10 mmol/L BUN 13 (7-17) mg/dL Creatinine 0.59 (0.52-1.04) mg/dL Est GFR (CKD-EPI)AfAm >90 (>60 ml/min/1.73 sqM) Est GFR (CKD-EPI)NonAf 85 (>60 ml/min/1.73 sqM) Glucose 102 H (74-99) mg/dL Calcium 9.4 (8.4-10.2) mg/dL Total Bilirubin 0.5 (0.2-1.3) mg/dL AST 22 (14-36) U/L ALT 10 (4-34) U/L Alkaline Phosphatase 92 (38-126) U/L Total Protein 6.8 (6.3-8.2) g/dL Albumin 3.7 (3.5-5.0) g/dL Lipase 25 (23-300) U/L Urine Color Light Yellow Urine Appearance Clear (Clear) Urine pH 6.0 (5.0-8.0) Ur Specific [place] 1.016 (1.001-1.035) Urine Protein Trace H (Negative) Urine Glucose (UA) Negative (Negative) Urine Ketones Negative (Negative) Urine Blood Large H (Negative) Urine Nitrite Negative (Negative) Urine Bilirubin Negative (Negative) Urine Urobilinogen <2.0 (<2.0) mg/dL Ur Leukocyte Esterase Negative (Negative) Urine RBC 65 H (0-5) /hpf Urine WBC 2 (0-5) /hpf Urine Mucus Rare H (None) /hpf Disposition Clinical Impression: Diverticulitis, Partial bowel obstruction Disposition: ADMITTED IP TO THIS [facility] Condition: Fair Referrals: Matthiue Ryan DO [Primary Care Provider] - 1-2 days Time of Disposition: 11:04
[2024-07-12] MEDS: SODIUM CHLORIDE 0.9% 1,000 ML IV STA (09:17)
[2024-07-12 09:18] LABS: Basophils # (A) 0.1 k/uL (0-0.2); Basophils % (A) 0 %; Eosinophils # (A) 0.2 k/uL (0-0.7); Eosinophils % (A) 2 %; HCT 30.2 % (34.0-46.0); HGB 9.9 gm/dL (11.4-16.0); Lymphocytes # (A) 2.5 k/uL (1.0-4.8); Lymphocytes % (A) 23 %; MCH 28.5 pg (25.0-35.0); MCHC 32.8 g/dL (31.0-37.0); MCV 87.1 fL (80.0-100.0); Monocytes # (A) 0.8 k/uL (0-1.0); Monocytes % (A) 8 %; Neutrophils # (A) 7.2 k/uL (1.3-7.7); Neutrophils % (A) 67 %; Platelet Count 368 k/uL (150-450); RBC 3.47 m/uL (3.80-5.40); RDW 14.8 % (11.5-15.5); WBC 10.8 k/uL (3.8-10.6)
[2024-07-12 09:32] LABS: Appearance,Urine Clear (Clear); Bilirubin,Urine Negative (Negative); Blood,Urine Large (Negative); Color,Urine Light Yellow; Glucose,Urine (UA) Negative (Negative); Ketones,Urine Negative (Negative); Leukocyte Esterase,Urine Negative (Negative); Mucus,Urine Rare /hpf; Nitrite,Urine Negative (Negative); Protein,Urine Trace (Negative); RBC,Urine 65 /hpf (0-5); Specific Gravity,Urine 1.016 (1.001-1.035); Urobilinogen,Urine <2.0 mg/dL (<2.0); WBC,Urine 2 /hpf (0-5)
[2024-07-12 09:38] LABS: ALT 10 U/L (4-34); AST 22 U/L (14-36); African American GFR (CKD) >90 (>60 ml/min/1.73 sqM); Albumin 3.7 g/dL (3.5-5.0); Alkaline Phosphatase 92 U/L (38-126); Anion Gap 10 mmol/L; Blood Urea Nitrogen 13 mg/dL (7-17); Calcium 9.4 mg/dL (8.4-10.2); Carbon Dioxide 29 mmol/L (22-30); Chloride 99 mmol/L (98-107); Glucose 102 mg/dL (74-99); Lipase 25 U/L (23-300); Non-African American GFR(CKD) 85 (>60 ml/min/1.73 sqM); Potassium 3.1 mmol/L (3.5-5.1); Sodium 138 mmol/L (137-145); Total Bilirubin 0.5 mg/dL (0.2-1.3); Total Protein 6.8 g/dL (6.3-8.2)
--- NOTE | 2024-07-12 10:24 | CT ---
EXAMINATION TYPE: CT abdomen pelvis wo con DATE OF EXAM: 07/12/2024 10:13 AM COMPARISON: CT abdomen pelvis most recent from 03/25/2024 and 01/19/2022 CLINICAL INDICATION: Female, 84 years old with history of Hematuria, pain; Lower pelvic pain with n/v TECHNIQUE: Axial CT abdomen pelvis wo con;Sagittal and coronal reformats were created on a separate workstation. Contrast used: mL of , (none if empty) Oral contrast used: without Oral Contrast (none if empty) CT DLP: 344.4 mGycm, Automated exposure control for dose reduction was used. FINDINGS: LOWER CHEST: Bronchiectasis with bronchial filling defects in the anterior frontal lobes bilaterally. ABDOMEN LIVER: Unremarkable GALLBLADDER AND BILE DUCTS: Gallbladder surgically absent. PANCREAS: Unremarkable. SPLEEN: Unremarkable. ADRENAL GLANDS: Unremarkable. KIDNEYS AND URETERS: No evidence of hydronephrosis or renal calculus. The ureters are unremarkable. PELVIS streak artifact limits evaluation the bladder. BLADDER: No evidence for wall thickening or mass given limitations of exam. REPRODUCTIVE: Unremarkable. ABDOMEN & PELVIS STOMACH AND BOWEL: Somewhat circumferential wall thickening of the sigmoid colon and with upstream la rge stool burden throughout the colon. Scattered colonic diverticula present. Mild Fat stranding calloway ges present. PERITONEUM/RETROPERITONEUM: No evidence of pneumoperitoneum or free fluid. VASCULATURE: Mild atherosclerotic calcifications are present throughout the abdominal aorta and its b ranches. No evidence of aortic aneurysm. MUSCULOSKELETAL: No acute osseous abnormalities. Mild disc degeneration changes are present throughou t the thoracolumbar spine. Right hip arthroplasty hardware appears intact. LYMPH NODES: No gross evidence for lymphadenopathy. SOFT TISSUE/ABDOMINAL WALL: Unremarkable IMPRESSION: Sigmoid colitis/possible diverticulitis. Short-term follow-up barium enema and/or colonoscopy recomme nded to exclude underlying mass in the sigmoid colon. There is a large stool burden upstream from the sigmoid colon possibly due to partial obstruction from this area of inflammation. Bronchiectasis with Dr. wall thickening of the lingula and middle lobe. Correlate for mucous plugging . Streak artifact limits evaluation the bladder. No evidence for obstructive uropathy. [facility], , 07/12/2024 10:21 AM
[2024-07-12] MEDS: KETOROLAC 15 MG/ML 1 ML VIAL IVP STA (11:03)
[2024-07-12] MEDS ORDERED: NALOXONE 0.4 MG/ML 1 ML VIAL IV PRN (11:04)
[2024-07-12] MEDS: PIPERACILLIN-TAZOBACTAM 3.375 GM in SODIUM CHLORIDE 0.9% 100 ML IVPB SCH (11:18)
[2024-07-12] MEDS: SODIUM CHLORIDE 0.9% 1,000 ML IV SCH (11:18)
--- NOTE | 2024-07-12 14:46 | P.GSCN ---
History of Present Illness Consult date: 07/12/24 History of present illness: CHIEF COMPLAINT: Abdominal pain HISTORY OF PRESENT ILLNESS: This is a 84-year-old female who presented the hospital with pain across the lower abdomen for the last 10 days. was at the bedside who gives history that patient has been having small bowel movements every couple of days with diarrhea. She is also having flatus. She is also been having nausea vomiting and dry heaves. The pain has been intermittent. Last night the pain became very severe and patient was doubled over. Patient has not had pain like this in the past. She denies any prior history of diverticulitis or colitis. She has never had a colonoscopy before. Her abdominal CAT scan reported sigmoid colitis/possible diverticulitis. Recommend barium enema and/or colonoscopy to exclude underlying mass in the sigmoid colon. There is a large stool burden upstream from the sigmoid colon possibly due to partial obstruction. From this area of inflammation. Patient currently denies any urinary symptoms. Denies any fever chills or sweats. Patient does report that her abdominal pain is currently better since being in the ER. Past surgical history includes hysterectomy, appendectomy and cholecystectomy. PAST MEDICAL HISTORY: Atrial Fibrillation, COPD, GERD/Reflux, Hyperlipidemia, Hypertension, Pneumonia, Respiratory Disorder, Emphysema, shingles in right ear, epistaxis PAST SURGICAL HISTORY: Appendectomy, Cholecystectomy, Hysterectomy MEDICATIONS: See below ALLERGIES: See below SOCIAL HISTORY: No illicit drug use. REVIEW OF SYSTEMS: CONSTITUTIONAL: Denies fever or chills. HEENT: Denies blurred vision, vision changes, or eye pain. Denies hemoptysis CARDIOVASCULAR: Denies chest pain or pressure. RESPIRATORY: No shortness of breath. GASTROINTESTINAL: See HPI for pertinent findings HEMATOLOGIC: Denies bleeding disorders. GENITOURINARY: Denies any blood in urine or increased urinary frequency. SKIN: Denies pruitis. Denies rash. PHYSICAL EXAM: VITAL SIGNS: Reviewed GENERAL: Well-developed in no acute distress. ABDOMEN: Soft. Nondistended. Nontender. Minimal firmness noted in the suprapubic area. No rebound or guarding noted. NEUROLOGIC: Alert and oriented. Cranial nerves II through XII grossly intact. LABORATORY DATA: WBC 10.8 Hgb 9.9 platelets 368 Sodium 138 potassium 3.1 creatinine 0.59 LFTs normal IMAGING: CT scan abdomen pelvis reports sigmoid colitis/possible diverticulitis. Recommend colonoscopy to exclude underlying mass in the sigmoid colon. There is a large stool burden upstream from the sigmoid colon possibly due to a partial bowel obstruction from area of inflammation. ASSESSMENT: 1. Acute sigmoid diverticulitis/possible colitis 2. Partial small bowel obstruction likely due to area of inflammation from the diverticulitis 3. Hypokalemia PLAN: -Continue antibiotics -Keep patient n.p.o. except for medications -Continue IV fluids -Continue supportive care -Replace potassium -No plans for colonoscopy at this time. -Continue to observe Physician Ob Tech note has been reviewed by physician. Signing provider agrees with the documented findings, assessment, and plan of care. Attestation Patient with abdominal pain as chief complaint. CT of the abdomen was completed with sigmoid colitis/possible diverticulitis. Patient has never had colonoscopy. Started on IV antibiotics and will keep n.p.o. for now. Continue IV fluids. Will evaluate patient's progress prior to making endoscopy decisions. Kal Latham, Past Medical History Past Medical History: Atrial Fibrillation, COPD, GERD/Reflux, Hyperlipidemia, Hypertension, Pneumonia, Respiratory Disorder Additional Past Medical History / Comment(s): Emphysema, shingles in right ear, epistaxis History of Any Multi-Drug Resistant Organisms: None Reported Past Surgical History: Appendectomy, Cholecystectomy, Hysterectomy Additional Past Surgical History / Comment(s): emphysema Past Anesthesia/Blood Transfusion Reactions: No Reported Reaction Past Psychological History: Depression Smoking Status: Current every day smoker Past Alcohol Use History: None Reported Past Drug Use History: None Reported - Past Family History Mother Additional Family Medical History / Comment(s): " AFTER GALLBLADDER TONY" Sister(s) Family Medical History: Cancer Additional Family Medical History / Comment(s): One sister with brain cancer, another with throat cancer. Brother(s) Family Medical History: Cancer Additional Family Medical History / Comment(s): lung cancer Medications and Allergies Home Medications Medication Instructions Recorded Confirmed Type Esomeprazole Magnesium [NexIUM] 40 mg PO DAILY 09/18/14 07/12/24 History Ipratropium-Albuterol Nebulize 3 ml INHALATION RT-QID #1 04/02/19 07/12/24 Rx [Duoneb 0.5 mg-3 mg/3 ml Soln] Fluticasone/Umeclidin/Vilanter 1 puff INHALATION RT-DAILY 11/23/23 07/12/24 History [Trelegy Ellipta 200-62.5-25] Ipratropium/Albuterol Sulfate 1 puff INHALATION RT-QID PRN 11/23/23 07/12/24 History [Combivent Respimat Inhaler] Sertraline [Zoloft] 50 mg PO DAILY 11/23/23 07/12/24 History LORazepam [Ativan] 0.5 mg PO BID PRN 03/11/24 07/12/24 History Metoprolol Tartrate [Lopressor] 25 mg PO BID #60 tab 03/15/24 07/12/24 Rx Atorvastatin [Lipitor] 80 mg PO DAILY 05/28/24 07/12/24 History Allergies Allergy/AdvReac Type Severity Reaction Status Date / Time aspirin Allergy Nausea & Verified 07/12/24 09:34 Vomiting codeine Allergy Dyspnea Verified 07/12/24 09:34 meperidine HCl [From Demerol] AdvReac Rapid Verified 07/12/24 09:34 Heart Rate Surgical - Exam Osteopathic Statement: *. No significant issues noted on an osteopathic structural exam other than those noted in the History and Physical/Consult. Vital Signs Temp Pulse Resp BP Pulse Ox 98.4 F 68 16 173/83 95 07/12/24 08:44 07/12/24 08:44 07/12/24 08:44 07/12/24 08:44 07/12/24 08:44 Results - Labs 07/12/24 08:45 07/12/24 08:45 Abnormal Lab Results - Last 24 Hours (Table) 07/12/24 07/12/24 07/12/24 Range/Units 08:45 08:45 08:45 WBC 10.8 H (3.8-10.6) k/uL RBC 3.47 L (3.80-5.40) m/uL Hgb 9.9 L (11.4-16.0) gm/dL Hct 30.2 L (34.0-46.0) % Potassium 3.1 L (3.5-5.1) mmol/L Glucose 102 H (74-99) mg/dL Urine Protein Trace H (Negative) Urine Blood Large H (Negative) Urine RBC 65 H (0-5) /hpf Urine Mucus Rare H (None) /hpf Diabetes panel 07/12/24 Range/Units 08:45 Sodium 138 (137-145) mmol/L Potassium 3.1 L (3.5-5.1) mmol/L Chloride 99 (98-107) mmol/L Carbon Dioxide 29 (22-30) mmol/L BUN 13 (7-17) mg/dL Creatinine 0.59 (0.52-1.04) mg/dL Glucose 102 H (74-99) mg/dL Calcium 9.4 (8.4-10.2) mg/dL AST 22 (14-36) U/L ALT 10 (4-34) U/L Alkaline Phosphatase 92 (38-126) U/L Total Protein 6.8 (6.3-8.2) g/dL Albumin 3.7 (3.5-5.0) g/dL Calcium panel 07/12/24 Range/Units 08:45 Calcium 9.4 (8.4-10.2) mg/dL Albumin 3.7 (3.5-5.0) g/dL Pituitary panel 07/12/24 Range/Units 08:45 Sodium 138 (137-145) mmol/L Potassium 3.1 L (3.5-5.1) mmol/L Chloride 99 (98-107) mmol/L Carbon Dioxide 29 (22-30) mmol/L BUN 13 (7-17) mg/dL Creatinine 0.59 (0.52-1.04) mg/dL Glucose 102 H (74-99) mg/dL Calcium 9.4 (8.4-10.2) mg/dL Adrenal panel 07/12/24 Range/Units 08:45 Sodium 138 (137-145) mmol/L Potassium 3.1 L (3.5-5.1) mmol/L Chloride 99 (98-107) mmol/L Carbon Dioxide 29 (22-30) mmol/L BUN 13 (7-17) mg/dL Creatinine 0.59 (0.52-1.04) mg/dL Glucose 102 H (74-99) mg/dL Calcium 9.4 (8.4-10.2) mg/dL Total Bilirubin 0.5 (0.2-1.3) mg/dL AST 22 (14-36) U/L ALT 10 (4-34) U/L Alkaline Phosphatase 92 (38-126) U/L Total Protein 6.8 (6.3-8.2) g/dL Albumin 3.7 (3.5-5.0) g/dL
[2024-07-12] MEDS: POTASSIUM CHLORIDE ER 20 MEQ TAB.ER PO STA (14:56)
[2024-07-12] MEDS: ONDANSETRON 4 MG/2 ML VIAL IVP PRN (14:57)
[2024-07-12] MEDS: ACETAMINOPHEN IV (For NPO) 1,000 MG in EMPTY BAG 1 BAG IVPB PRN (17:13)
[2024-07-12] MEDS: METOPROLOL TARTRATE 25 MG TAB PO SCH (20:48)
[2024-07-13] MEDS: PANTOPRAZOLE 40 MG TABLET PO SCH (06:34)
[2024-07-13] MEDS: SERTRALINE 50 MG TAB PO SCH (08:09)
[2024-07-13] MEDS: ATORVASTATIN 80 MG TAB PO SCH (08:09)
[2024-07-13 08:30] LABS: Basophils # (A) 0.06 X 10*3/uL (0.00-0.10); Basophils % (A) 0.7 %; Eosinophils # (A) 0.39 X 10*3/uL (0.04-0.35); Eosinophils % (A) 4.3 %; HCT 30.1 % (37.2-46.3); HGB 9.2 g/dL (12.0-15.0); Lymphocytes # (A) 2.78 X 10*3/uL (0.90-5.00); Lymphocytes % (A) 30.9 %; MCH 28.1 pg (27.0-32.0); MCHC 30.6 g/dL (32.0-37.0); Monocytes # (A) 0.89 X 10*3/uL (0.20-1.00); Monocytes % (A) 9.9 %; NRBC Per 100 WBC 0 X 10*3/uL (0.00-0.01); Neutrophils # (A) 4.85 X 10*3/uL (1.80-7.70); Neutrophils % (A) 53.9 %; Platelet Count 343 X 10*3/uL (140-440); RBC 3.27 X 10*6/uL (4.10-5.20); RDW 14.5 % (11.5-14.5)
[2024-07-13 08:36] LABS: BUN/Creat Ratio 16.57 Ratio (12.00-20.00); Blood Urea Nitrogen 11.6 mg/dL (9.0-27.0); Calcium 8.7 mg/dL (8.7-10.3); Carbon Dioxide 23.5 mmol/L (21.6-31.8); Chloride 105 mmol/L (96-109); Glucose 66 mg/dL (70-110); Potassium 3.4 mmol/L (3.5-5.5); Sodium 140 mmol/L (135-145)
--- NOTE | 2024-07-13 11:30 | P.PN ---
Subjective Progress Note Date: 07/13/24 SURGICAL PROGRESS NOTE CHIEF COMPLAINT: Diverticulitis with partial small bowel obstruction HISTORY OF PRESENT ILLNESS: Patient reporting that her abdominal pain is improving. Patient did have diarrhea x 2 and a small bowel movement with hard stool this a.m. She denies any nausea or vomiting. She reports overall feeling better. She reports that she would like something to eat. Afebrile. WBC norm al at 9.0 Hgb 9.2 platelets 343 potassium is 3.4 PHYSICAL EXAM: VITAL SIGNS: Reviewed. GENERAL: Well-developed in no acute distress. ABDOMEN: Soft. Nondistended. Nontender. NEUROLOGIC: Alert and oriented. Cranial nerves II through XII grossly intact. ASSESSMENT: 1. Acute sigmoid diverticulitis/possible colitis. CT scan report recommends barium enema or colonoscopy to exclude underlying mass of the sigmoid colon 2. Partial small bowel obstruction likely due to area of inflammation from the diverticulitis 3. Hypokalemia PLAN: -Advance diet to clear liquids -Continue antibiotics -Continue to monitor -Replace potassium -Check magnesium level due to recurrent hypokalemia -Will evaluate patient's progress prior to making endoscopy decisions Physician Fire Patrol note has been reviewed by physician. Signing provider agrees with the documented findings, assessment, and plan of care. Objective - Vital Signs Vital signs: Vital Signs Temp 97.3 F L 07/13/24 07:39 Pulse 55 L 07/13/24 08:08 Resp 18 07/13/24 07:39 BP 156/67 07/13/24 07:39 Pulse Ox 97 07/13/24 08:08 FiO2 Intake & Output 07/12/24 07/13/24 07/13/24 18:59 06:59 18:59 Weight 45.359 kg Other: Voiding Method Bedside Commode # Voids 1 1 # Bowel Movements 1 - Labs CBC & Chem 7: 07/13/24 04:35 07/13/24 04:35 Labs: Abnormal Lab Results - Last 24 Hours (Table) 07/13/24 07/13/24 Range/Units 04:35 04:35 RBC 3.27 L (4.10-5.20) X 10*6/uL Hgb 9.2 L (12.0-15.0) g/dL Hct 30.1 L (37.2-46.3) % MCHC 30.6 L (32.0-37.0) g/dL Eosinophils # 0.39 H (0.04-0.35) X 10*3/uL Potassium 3.4 L (3.5-5.5) mmol/L Glucose 66 L (70-110) mg/dL
[2024-07-13] MEDS: POTASSIUM CHLORIDE ER 20 MEQ TAB.ER PO STA (12:08)
[2024-07-13 13:13] VITALS: BMI 16.1
--- NOTE | 2024-07-13 18:41 | P.HPIM ---
History of Present Illness H&P Date: 07/13/24 This is a pleasant 84-year-old white female who was admitted after 10-day history of acute abdominal pain with decreased appetite bloating gas and difficulty with bowel movements. She denies any fevers or chills she has had a history of A-fib congestive heart failure COPD. She continues to smoke. Despite being encouraged to quit. She denies any vomiting denies any hematuria hematochezia or hematemesis. Last admission patient underwent bronchoscopy for pneumonia and COPD. Patient's overall health has been deteriorating over the past few years and her appetite has been diminishing. Review of Systems GENERAL: Patient denies fever. Denies chills. EYES: Denies blurred vision. Denies vision changes. Denies eye pain. EARS, NOSE, MOUTH, & THROAT: Denies headache. Denies sore throat. Denies ear pain. RESPIRATORY: Admits to shortness of breath but denies any recent exacerbation of COPD after since her bronchoscopy. CARDIOVASCULAR: Admits to atrial fibrillation. Denies any chest pain GASTROINTESTINAL: Admits to bloating gas constipation and intermitting diarrhea admits to abdominal pain as described in chief complaint. GENITOURINARY: Denies urinary frequency. Denies burning. Denies dysuria. Denies cloudy urine. Denies blood in the urine. MUSCULOSKELETAL: Denies myalgias. Denies joint swelling. Denies decreased range of motion beyond patients baseline. INTEGUMENTARY: Denies pruitis. Denies rash. PSYCHIATRIC: Denies suicidal or homicial ideations. ENDOCRINE: Denies weight change. Denies polydipsia. Denies polyuria. HEMATOLOGIC: Denies bleeding disorders. Past Medical History Past Medical History: Atrial Fibrillation, COPD, GERD/Reflux, Hyperlipidemia, Hypertension, Pneumonia, Respiratory Disorder Additional Past Medical History / Comment(s): Emphysema, shingles in right ear, epistaxis History of Any Multi-Drug Resistant Organisms: None Reported Past Surgical History: Appendectomy, Cholecystectomy, Hysterectomy Additional Past Surgical History / Comment(s): emphysema Past Anesthesia/Blood Transfusion Reactions: No Reported Reaction Past Psychological History: Depression Smoking Status: Current every day smoker Past Alcohol Use History: None Reported Past Drug Use History: None Reported - Past Family History Mother Additional Family Medical History / Comment(s): " AFTER GALLBLADDER TONY" Sister(s) Family Medical History: Cancer Additional Family Medical History / Comment(s): One sister with brain cancer, another with throat cancer. Brother(s) Family Medical History: Cancer Additional Family Medical History / Comment(s): lung cancer Medications and Allergies Home Medications Medication Instructions Recorded Confirmed Type Esomeprazole Magnesium [NexIUM] 40 mg PO DAILY 09/18/14 07/12/24 History Ipratropium-Albuterol Nebulize 3 ml INHALATION RT-QID #1 04/02/19 07/12/24 Rx [Duoneb 0.5 mg-3 mg/3 ml Soln] Fluticasone/Umeclidin/Vilanter 1 puff INHALATION RT-DAILY 11/23/23 07/12/24 History [Trelegy Ellipta 200-62.5-25] Ipratropium/Albuterol Sulfate 1 puff INHALATION RT-QID PRN 11/23/23 07/12/24 History [Combivent Respimat Inhaler] Sertraline [Zoloft] 50 mg PO DAILY 11/23/23 07/12/24 History LORazepam [Ativan] 0.5 mg PO BID PRN 03/11/24 07/12/24 History Metoprolol Tartrate [Lopressor] 25 mg PO BID #60 tab 03/15/24 07/12/24 Rx Atorvastatin [Lipitor] 80 mg PO DAILY 05/28/24 07/12/24 History Allergies Allergy/AdvReac Type Severity Reaction Status Date / Time aspirin Allergy Nausea & Verified 07/12/24 09:34 Vomiting codeine Allergy Dyspnea Verified 07/12/24 09:34 meperidine HCl [From Demerol] AdvReac Rapid Verified 07/12/24 09:34 Heart Rate Physical Exam Vitals: Vital Signs Temp Pulse Resp BP Pulse Ox 07/13/24 14:00 97.8 F 58 L 18 133/70 95 07/13/24 08:08 55 L 97 07/13/24 07:39 97.3 F L 58 L 18 156/67 96 07/13/24 01:24 98.0 F 60 16 141/57 95 07/12/24 19:57 98.4 F 69 16 160/67 92 L Intake and Output 07/13/24 07/13/24 07/13/24 06:59 14:59 22:59 Other: Voiding Method Toilet Bedside Commode # Voids 1 3 # Bowel Movements 1 2 Weight 45.359 kg GENERAL: This is a 84-year-old in no apparent distress at the time of examination. Pleasant and cooperative. HEENT: Head is atraumatic, normocephalic. Pupils are equal, round, and reactive to light. Sclerae anicteric. Conjunctivae are clear. Mucus membranes of the mouth are moist. Neck is supple. RESPIRATORY: Diminished breath sounds bilateral but improved since last admission with good air exchange. CARDIOVASCULAR: Irregular rate and rhythm with systolic ejection murmur GASTROINTESTINAL: Diffuse abdominal pain with no rebound rigidity or guarding bowel sounds present x 4. INTEGUMENTARY: No cyanosis. No jaundice. No rashes noted. No cellulitis noted. EXTREMITIES: 2+ peripheral pulses. No evidence of peripheral edema. No calf tend erness noted. NEUROLOGIC: Cranial nerves II-XII intact. PSYCHIATRIC: Awake, alert, and oriented X 3. Appropriate affect. Intact judgement and insight. Results CBC & Chem 7: 07/13/24 04:35 07/13/24 04:35 Labs: Abnormal Lab Results - Last 24 Hours (Table) 07/13/24 07/13/24 Range/Units 04:35 04:35 RBC 3.27 L (4.10-5.20) X 10*6/uL Hgb 9.2 L (12.0-15.0) g/dL Hct 30.1 L (37.2-46.3) % MCHC 30.6 L (32.0-37.0) g/dL Eosinophils # 0.39 H (0.04-0.35) X 10*3/uL Potassium 3.4 L (3.5-5.5) mmol/L Glucose 66 L (70-110) mg/dL Microbiology - Last 24 Hours (Table) 07/12/24 11:03 Blood Culture - Preliminary Blood Thrombosis Risk Factor Assmnt - Choose All That Apply Any of the Below Risk Factors Present?: Yes Each Factor Represents 1 point: Abnormal pulmonary function (COPD) Other Risk Factors: No Other congenital or acquired thrombophilia - If yes, enter type in comment: No Thrombosis Risk Factor Assessment Total Risk Factor Score: 1 Thrombosis Risk Factor Assessment Level: Low Risk Assessment and Plan (1) COPD (chronic obstructive pulmonary disease) Current Visit: Yes Status: Acute Code(s): J44.9 - CHRONIC OBSTRUCTIVE PULMONARY DISEASE, UNSPECIFIED SNOMED Code(s): 96976102 (2) Diverticulitis Current Visit: Yes Status: Acute Code(s): K57.92 - DVTRCLI OF INTEST, PART UNSP, W/O PERF OR ABSCESS W/O BLEED SNOMED Code(s): 853010641 (3) Partial bowel obstruction Current Visit: Yes Status: Acute Code(s): K56.600 - PARTIAL INTESTINAL OBSTRUCTION, UNSPECIFIED TO CAUSE SNOMED Code(s): 18977196541434609 (4) Smoker Current Visit: No Status: Acute Code(s): F17.200 - NICOTINE DEPENDENCE, UNSPECIFIED, UNCOMPLICATED SNOMED Code(s): 49325081 Plan: Admit patient with surgical consultation in progress continue to follow patient's overall condition. N.p.o. for now until she can tolerate clear liquids and advance diet as tolerated early ambulation. [facility] hospitalist group to follow on the weekend.
--- NOTE | 2024-07-14 08:45 | P.CON ---
Consult Note - . Consult date: 07/14/24 Assessment/Plan:: 84 year old female presented to the [facility] emergency department with lower abdominal pain. Patient states she has had some suprapubic pain. Patient denies any flank pain or back pain. She does admit to nausea and vomiting. She states she is passing gas. She has had a prior hysterectomy, appendectomy, and cholecystectomy. She states she has never had a colonoscopy. She had a CT-AP which showed sigmoid colitis and a possible obstruction of the sigmoid colon. Review of Systems ROS Statement: Those systems with pertinent positive or pertinent negative responses have been documented in the HPI. ROS Other: All systems not noted in ROS Statement are negative. Past Medical History Past Medical History: Atrial Fibrillation, COPD, GERD/Reflux, Hyperlipidemia, Hypertension, Pneumonia, Respiratory Disorder Additional Past Medical History / Comment(s): Emphysema, shingles in right ear, epistaxis History of Any Multi-Drug Resistant Organisms: None Reported Past Surgical History: Appendectomy, Cholecystectomy, Hysterectomy Additional Past Surgical History / Comment(s): emphysema Past Anesthesia/Blood Transfusion Reactions: No Reported Reaction Past Psychological History: Depression Smoking Status: Current every day smoker Past Alcohol Use History: None Reported Past Drug Use History: None Reported - Past Family History Mother Additional Family Medical History / Comment(s): " AFTER GALLBLADDER TONY" Sister(s) Family Medical History: Cancer Additional Family Medical History / Comment(s): One sister with brain cancer, another with throat cancer. Brother(s) Family Medical History: Cancer Additional Family Medical History / Comment(s): lung cancer General Exam Limitations: no limitations General appearance: alert, in no apparent distress Head exam: Present: atraumatic, normocephalic, normal inspection Neck exam: Present: normal inspection. Absent: tenderness, meningismus, lymphadenopathy Respiratory exam: Present: normal lung sounds bilaterally. Absent: respiratory distress, wheezes, rales, rhonchi, stridor Cardiovascular Exam: Present: regular rate, normal rhythm, normal heart sounds. Absent: systolic murmur, diastolic murmur, rubs, gallop, clicks GI/Abdominal exam: Present: soft, tenderness, normal bowel sounds. Absent: distended, guarding, rebound, rigid 84 year old female with Sigmoid Colitis and possible Sigmoid Colon Obstruction -I had a lengthy discussion with patient and her and recommended a Gastrograffin Enema to evaluate the possible colon obstruction. Patient is refusing at this time. I also did explain to the patient she should have a colonoscopy 4-6 weeks after this hospitalization and patient is again refusing at this time. -Ok to continue Regular Diet however suggest making patient NPO should the patients abdominal pain or vomiting worsen. -Rodríguez Lanza DO [facility] [phone]
[2024-07-14 09:48] LABS: Basophils # (A) 0.06 X 10*3/uL (0.00-0.10); Basophils % (A) 0.6 %; Eosinophils # (A) 0.35 X 10*3/uL (0.04-0.35); Eosinophils % (A) 3.4 %; HCT 28.7 % (37.2-46.3); HGB 8.8 g/dL (12.0-15.0); Lymphocytes # (A) 2.75 X 10*3/uL (0.90-5.00); Lymphocytes % (A) 26.9 %; MCH 27.7 pg (27.0-32.0); MCHC 30.7 g/dL (32.0-37.0); MCV 90.3 FL (80.0-97.0); Mean Platelet Volume 10.8 FL (9.5-12.2); Monocytes # (A) 0.97 X 10*3/uL (0.20-1.00); Monocytes % (A) 9.5 %; NRBC Per 100 WBC 0 X 10*3/uL (0.00-0.01); Neutrophils # (A) 6.08 X 10*3/uL (1.80-7.70); Neutrophils % (A) 59.4 %; Platelet Count 366 X 10*3/uL (140-440); RBC 3.18 X 10*6/uL (4.10-5.20); RDW 14.4 % (11.5-14.5); WBC 10.23 X 10*3/uL (4.50-10.00)
[2024-07-14 10:22] LABS: BUN/Creat Ratio 14.29 Ratio (12.00-20.00); Calcium 8.3 mg/dL (8.7-10.3); Carbon Dioxide 21.6 mmol/L (21.6-31.8); Chloride 109 mmol/L (96-109); Glucose 77 mg/dL (70-110); Potassium 3.5 mmol/L (3.5-5.5); Sodium 141 mmol/L (135-145)
--- NOTE | 2024-07-14 13:38 | P.PN ---
Subjective Progress Note Date: 07/14/24 Interval History: This is a pleasant 84-year-old white female who was admitted after 10-day history of acute abdominal pain with decreased appetite bloating gas and difficulty with bowel movements. She denies any fevers or chills she has had a history of A-fib congestive heart failure COPD. She continues to smoke. Despite being encouraged to quit. She denies any vomiting denies any hematuria hematochezia or hematemesis. Last admission patient underwent bronchoscopy for pneumonia and COPD. Patient's overall health has been deteriorating over the past few years and her appetite has been diminishing. 07/14--was seen and examined today. Patient feeling better today. Denied any abdominal pain, nausea or vomiting. No bowel movement, passing flatus. Vital stable. WBCs 10.3, hemoglobin 8.8, platelet 366. BMP unremarkable. General surgery following, patient refused Gastrografin enema or colonoscopy. Diet advanced to regular per general surgery, monitor with serial abdominal exam, if symptoms worsen, will make n.p.o. Lou on Zosyn. Assessment and plan: Acute diverticulitis Partial SBO: Presented with abdominal pain CT abdomen pelvis showed sigmoid colitis/diverticulitis, possible obstruction of sigmoid colon Passing flatus, no nausea or vomiting, no abdominal pain or distention General surgery on board and following, advance diet and monitor, n.p.o. if symptoms worsen General Surgery recommended Gastrografin enema/colonoscopy. Patient refusing Gastrografin or colonoscopy. Continue Zosyn Closely monitor with serial abdominal exam COPD: Stable Continue home inhalers Monitor DVT prophylaxis: Subcutaneous heparin Monitor vital signs and labs Labs and medication were reviewed. Continue same treatment. Further recommendations as per clinical course of the patient PHYSICAL EXAMINATION: GENERAL: The patient is A&O x3, NAD HEENT: EOMI, Sclerae anicteric, Moist Mucous membranes Neck: Supple, Non tender, No JVD PULMONARY: Equal breath souds B/L, No wheezing, No crackles. CARDIOVASCULAR: S1, S2 present. No murmurs, rubs, or gallops. ABDOMEN: Soft, nontender, nondistended, normoactive bowel sounds. No guarding or rebound tenderness. MUSCULOSKELETAL: No edema, No cyanosis. No clubbing. Normal ROM. Intact perip heral pulses. NEUROLOGICAL: CN 2-12 grossly intact. No FND Skin: No Rash REVIEW OF SYSTEMS: CONSTITUTIONAL: No fever or chills. CARDIOVASCULAR: No chest pain, palpitations or syncope. PULMONARY: No shortness of breath, no cough, sore throat. GASTROINTESTINAL: No nausea, vomiting, diarrhea, abdominal pain. : No Dysuria, urgency, frequency. Extremities: No edema. NEUROLOGICAL: No headaches, no weakness, or numbness Dictation was produced using [employer] dictation software. please excuse any grammatical, word or spelling errors. Objective - Vital Signs Vital signs: Vital Signs Temp 98.0 F 07/14/24 07:20 Pulse 70 07/14/24 07:20 Resp 16 07/14/24 07:20 BP 189/66 07/14/24 07:20 Pulse Ox 94 L 07/14/24 07:20 FiO2 Intake & Output 07/13/24 07/14/24 07/14/24 18:59 06:59 18:59 Weight 45.359 kg Other: Voiding Method Toilet Bedside Commode # Voids 3 # Bowel Movements 2 - Labs CBC & Chem 7: 07/14/24 03:14 07/14/24 03:14 Labs: Abnormal Lab Results - Last 24 Hours (Table) 07/14/24 07/14/24 Range/Units 03:14 03:14 WBC 10.23 H (4.50-10.00) X 10*3/uL RBC 3.18 L (4.10-5.20) X 10*6/uL Hgb 8.8 L (12.0-15.0) g/dL Hct 28.7 L (37.2-46.3) % MCHC 30.7 L (32.0-37.0) g/dL Calcium 8.3 L (8.7-10.3) mg/dL Microbiology - Last 24 Hours (Table) 07/12/24 11:03 Blood Culture - Preliminary Blood
[2024-07-14] MEDS: LORazepam 0.5 MG TAB PO PRN (14:29)
[2024-07-14] MEDS: IPRATROPIUM-ALBUTEROL 3 ML NEB INHALATION SCH (17:07)
[2024-07-14] MEDS: HEPARIN SODIUM,PORCINE 5,000 UNIT/ML 1 ML VIAL SQ SCH (21:32)
[2024-07-15] MEDS: SYMBICORT 160-4.5 MCG INHALER INHALATION SCH (09:25)
[2024-07-15] MEDS: ALBUTEROL NEBULIZED 2.5 MG/3 ML INHALATION SCH (09:25)
[2024-07-15] MEDS: TIOTROPIUM 2.5 MCG INHALER INHALATION SCH (09:26)
[2024-07-15 09:31] LABS: Basophils # (A) 0.05 X 10*3/uL (0.00-0.10); Basophils % (A) 0.5 %; Eosinophils # (A) 0.34 X 10*3/uL (0.04-0.35); Eosinophils % (A) 3.5 %; HCT 27.3 % (37.2-46.3); HGB 8.2 g/dL (12.0-15.0); Lymphocytes # (A) 2.69 X 10*3/uL (0.90-5.00); Lymphocytes % (A) 27.3 %; MCH 27.7 pg (27.0-32.0); MCV 92.2 FL (80.0-97.0); Mean Platelet Volume 11.2 FL (9.5-12.2); Monocytes # (A) 0.99 X 10*3/uL (0.20-1.00); Monocytes % (A) 10.1 %; NRBC Per 100 WBC 0 X 10*3/uL (0.00-0.01); Neutrophils # (A) 5.74 X 10*3/uL (1.80-7.70); Neutrophils % (A) 58.2 %; Platelet Count 326 X 10*3/uL (140-440); RBC 2.96 X 10*6/uL (4.10-5.20); RDW 14.3 % (11.5-14.5); WBC 9.85 X 10*3/uL (4.50-10.00)
[2024-07-15 09:50] LABS: BUN/Creat Ratio 11.62 Ratio (12.00-20.00); Blood Urea Nitrogen 9.3 mg/dL (9.0-27.0); Calcium 8.1 mg/dL (8.7-10.3); Carbon Dioxide 21.8 mmol/L (21.6-31.8); Chloride 113 mmol/L (96-109); Glucose 93 mg/dL (70-110); Magnesium 1.3 mg/dL (1.5-2.4); Phosphorus 3.6 mg/dL (2.4-5.1); Potassium 3.1 mmol/L (3.5-5.5); Sodium 144 mmol/L (135-145)
--- NOTE | 2024-07-15 10:05 | P.PN ---
Progress Note - Text Progress Note Date: 07/15/24 No acute events. Denies bowel movements. Denies nausea and vomiting. General appearance: alert, in no apparent distress Head exam: Present: atraumatic, normocephalic, normal inspection Neck exam: Present: normal inspection. Absent: tenderness, meningismus, lymphadenopathy Respiratory exam: Present: normal lung sounds bilaterally. Absent: respiratory distress, wheezes, rales, rhonchi, stridor Cardiovascular Exam: Present: regular rate, normal rhythm, normal heart sounds. Absent: systolic murmur, diastolic murmur, rubs, gallop, clicks GI/Abdominal exam: Present: soft, tenderness, normal bowel sounds. Absent: distended, guarding, rebound, rigid 84 year old female with Sigmoid Colitis and possible Sigmoid Colon Obstruction -I had a lengthy discussion with patient and her and recommended a Gastrograffin Enema to evaluate the possible colon obstruction. Patient is refusing at this time. I also did explain to the patient she should have a colonoscopy 4-6 weeks after this hospitalization and patient is again refusing at this time. -Ok to continue Regular Diet however suggest making patient NPO should the patients abdominal pain or vomiting worsen. -Rodríguez Lanza DO [facility] [phone]
[2024-07-15] MEDS ORDERED: Potassium Replacement Protocol 1 EACH MISC MISCELLANE PRN (14:48)
--- NOTE | 2024-07-15 14:48 | P.PN ---
Subjective Interval History: This is a pleasant 84-year-old white female who was admitted after 10-day history of acute abdominal pain with decreased appetite bloating gas and difficulty with bowel movements. She denies any fevers or chills she has had a history of A-fib congestive heart failure COPD. She continues to smoke. Despite being encouraged to quit. She denies any vomiting denies any hematuria hematochezia or hematemesis. Last admission patient underwent bronchoscopy for pneumonia and COPD. Patient's overall health has been deteriorating over the past few years and her appetite has been diminishing. 07/14--was seen and examined today. Patient feeling better today. Denied any abdominal pain, nausea or vomiting. No bowel movement, passing flatus. Vital stable. WBCs 10.3, hemoglobin 8.8, platelet 366. BMP unremarkable. General s urgery following, patient refused Gastrografin enema or colonoscopy. Diet advanced to regular per general surgery, monitor with serial abdominal exam, if symptoms worsen, will make n.p.o. Lou on Zosyn. 07/15--patient was seen and examined today. Abdominal pain is improving, complaining of abdominal distention, passing flatus, reported 2 small bowel movements, no diarrhea. Afebrile, heart rate 58, respiratory rate 16, blood pressure 179/72. WBCs 9.8, hemoglobin 8.2, platelets 326. BMP unremarkable except low potassium 3.1, low magnesium 1.3. Currently on Zosyn. Infectious disease consulted. Patient continues to decline any intervention including Gastrografin enema or colonoscopy. Assessment and plan: Acute diverticulitis Partial SBO: Presented with abdominal pain CT abdomen pelvis showed sigmoid colitis/diverticulitis, possible obstruction of sigmoid colon Passing flatus, no nausea or vomiting, no abdominal pain or distention General surgery on board and following, advance diet and monitor, n.p.o. if symptoms worsen General Surgery recommended Gastrografin enema/colonoscopy. Patient refusing Gastrografin or colonoscopy. Continue Zosyn Closely monitor with serial abdominal exam COPD: Stable Continue home inhalers Monitor DVT prophylaxis: Subcutaneous heparin Monitor vital signs and labs Labs and medication were reviewed. Continue same treatment. Further recommendations as per clinical course of the patient PHYSICAL EXAMINATION: GENERAL: The patient is A&O x3, NAD HEENT: EOMI, Sclerae anicteric, Moist Mucous membranes Neck: Supple, Non tender, No JVD PULMONARY: Equal breath souds B/L, No wheezing, No crackles. CARDIOVASCULAR: S1, S2 present. No murmurs, rubs, or gallops. ABDOMEN: Soft, nontender, nondistended, normoactive bowel sounds. No guarding or rebound tenderness. MUSCULOSKELETAL: No edema, No cyanosis. No clubbing. Normal ROM. Intact peripheral pulses. NEUROLOGICAL: CN 2-12 grossly intact. No FND Skin: No Rash REVIEW OF SYSTEMS: CONSTITUTIONAL: No fever or chills. CARDIOVASCULAR: No chest pain, palpitations or syncope. PULMONARY: No shortness of breath, no cough, sore throat. GASTROINTESTINAL: No nausea, vomiting, diarrhea, abdominal pain. : No Dysuria, urgency, frequency. Extremities: No edema. NEUROLOGICAL: No headaches, no weakness, or numbness Dictation was produced using [employer] dictation software. please excuse any grammatical, word or spelling errors. Objective - Vital Signs Vital signs: Vital Signs Temp 97.6 F 07/15/24 13:32 Pulse 67 07/15/24 13:32 Resp 16 07/15/24 13:32 BP 179/72 07/15/24 13:32 Pulse Ox 94 L 07/15/24 13:32 FiO2 Intake & Output 07/14/24 07/15/24 07/15/24 18:59 06:59 18:59 Intake Total 2720 Balance 2720 Intake: Intake, IV Titration 1760 Amount ACETAMINOPHEN IV (For NPO 100 ) 1,000 mg In Empty Bag 1 bag @ 400 mls/hr IVPB Q6HR PRN Rx#:[id number] Piperacillin-Tazobactam 3 100 .375 gm In Sodium Chloride 0.9% 100 ml @ 25 mls/hr IVPB Q8H [facility] Rx#: [id number] Sodium Chloride 0.9% 1, 1560 000 ml @ 130 mls/hr IV . Q7H42M [facility] Rx#:[id number] Oral 960 Other: Voiding Method Bedside Commode # Voids 4 2 # Bowel Movements 1 1 - Labs CBC & Chem 7: 07/15/24 03:18 07/15/24 03:18 Labs: Abnormal Lab Results - Last 24 Hours (Table) 01/26/25 01/26/25 Range/Units 03:18 03:18 RBC 2.96 L (4.10-5.20) X 10*6/uL Hgb 8.2 L (12.0-15.0) g/dL Hct 27.3 L (37.2-46.3) % MCHC 30.0 L (32.0-37.0) g/dL Potassium 3.1 L (3.5-5.5) mmol/L Chloride 113 H (96-109) mmol/L BUN/Creatinine Ratio 11.62 L (12.00-20.00) Ratio Calcium 8.1 L (8.7-10.3) mg/dL Magnesium 1.3 L (1.5-2.4) mg/dL Microbiology - Last 24 Hours (Table) 07/12/24 11:03 Blood Culture - Preliminary Blood
[2024-07-15] MEDS: POTASSIUM CHLORIDE ER 20 MEQ TAB.ER PO SCH (16:34)
[2024-07-15] MEDS: MAGNESIUM OXIDE 400 MG TAB PO SCH (21:09)
[2024-07-16 07:50] VITALS: BP 168/66; RESP 18; TEMP 99
--- NOTE | 2024-07-16 08:57 | P.CONS ---
History of Present Illness - Reason for Consult Consult date: 07/15/24 Acute diverticulitis Requesting physician: Michael Lechuga - Chief Complaint Abdominal pain x few days - History of Present Illness Patient is a 84-year-old female with a past medical history significant for hypertension hyperlipidemia atrial fibrillation COPD reflux presenting to the hospital 3 days ago for evaluation of lower abdominal pain patient pain has been mostly in the left lower abdominal suprapubic area patient described the pain to be squeezing colicky moderate intensity without any significant radiation patient did have associated nausea but no vomiting no diarrhea or constipation on presentation to the hospital patient was afebrile and no fever have been recorded subsequently patient was nontachycardic hypotensive or hypoxic and no need for supplemental oxygen patient did have white count of 10.83 creatinine 0.7 electrolyte has been normal liver enzymes are normal urine dip shows large blood but no pyuria blood culture have been obtained which are currently pending patient did have a abdominal pelvis CT sigmoid colitis possible diverticulitis with a large stool burden upstream from the sigmoid colon patient has been treated with Zosyn infectious disease was consulted regarding regarding colitis Review of Systems Positive point and negatives has been mentioned in the HPI, complete review of systems was performed and all other systems are negative Past Medical History Past Medical History: Atrial Fibrillation, COPD, GERD/Reflux, Hyperlipidemia, Hypertension, Pneumonia, Respiratory Disorder Additional Past Medical History / Comment(s): Emphysema, shingles in right ear, epistaxis History of Any Multi-Drug Resistant Organisms: None Reported Past Surgical History: Appendectomy, Cholecystectomy, Hysterectomy Additional Past Surgical History / Comment(s): emphysema Past Anesthesia/Blood Transfusion Reactions: No Reported Reaction Past Psychological History: Depression Smoking Status: Current every day smoker Past Alcohol Use History: None Reported Past Drug Use History: None Reported - Past Family History Mother Additional Family Medical History / Comment(s): " AFTER GALLBLADDER TONY" Sister(s) Family Medical History: Cancer Additional Family Medical History / Comment(s): One sister with brain cancer, another with throat cancer. Brother(s) Family Medical History: Cancer Additional Family Medical History / Comment(s): lung cancer Medications and Allergies Home Medications Medication Instructions Recorded Confirmed Type Esomeprazole Magnesium [NexIUM] 40 mg PO DAILY 09/18/14 07/12/24 History Ipratropium-Albuterol Nebulize 3 ml INHALATION RT-QID #1 04/02/19 07/12/24 Rx [Duoneb 0.5 mg-3 mg/3 ml Soln] Fluticasone/Umeclidin/Vilanter 1 puff INHALATION RT-DAILY 11/23/23 07/12/24 History [Aftabletali Ellipta 200-62.5-25] Ipratropium/Albuterol Sulfate 1 puff INHALATION RT-QID PRN 11/23/23 07/12/24 History [Combivent Respimat Inhaler] Sertraline [Zoloft] 50 mg PO DAILY 11/23/23 07/12/24 History LORazepam [Ativan] 0.5 mg PO BID PRN 03/11/24 07/12/24 History Metoprolol Tartrate [Lopressor] 25 mg PO BID #60 tab 03/15/24 07/12/24 Rx Atorvastatin [Lipitor] 80 mg PO DAILY 05/28/24 07/12/24 History Amoxic-Pot Clav 875-125Mg 1 tab PO BID 8 Days #16 tab 07/16/24 Rx [Augmentin 875-125] Allergies Allergy/AdvReac Type Severity Reaction Status Date / Time aspirin Allergy Nausea & Verified 07/12/24 09:34 Vomiting codeine Allergy Dyspnea Verified 07/12/24 09:34 meperidine HCl [From Demerol] AdvReac Rapid Verified 07/12/24 09:34 Heart Rate Physical Exam Vitals: Vital Signs Temp Pulse Pulse Resp BP Pulse Ox 07/15/24 09:41 60 07/15/24 09:26 58 L 07/15/24 07:08 97.6 F 57 L 16 169/74 94 L 07/15/24 02:00 98.3 F 60 18 127/68 96 07/14/24 21:31 98.0 F 65 18 173/74 94 L 07/14/24 13:50 97.8 F 65 16 159/72 96 Intake and Output 07/14/24 07/15/24 07/15/24 22:59 06:59 14:59 Intake Total 2720 Balance 2720 Intake: Intake, IV Titration 1760 Amount ACETAMINOPHEN IV (For NPO 100 ) 1,000 mg In Empty Bag 1 bag @ 400 mls/hr IVPB Q6HR PRN Rx#:[id number] Piperacillin-Tazobactam 3 100 .375 gm In Sodium Chloride 0.9% 100 ml @ 25 mls/hr IVPB Q8H [facility] Rx#: [id number] Sodium Chloride 0.9% 1, 1560 000 ml @ 130 mls/hr IV . Q7H42M [facility] Rx#:[id number] Oral 960 Other: Voiding Method Bedside Commode # Voids 4 2 # Bowel Movements 1 1 GENERAL DESCRIPTION: Elderly female lying in bed, no distress. No tachypnea or accessory muscle of respiration use. HEENT: Shows Pallor , no scleral icterus. Oral mucous membrane is dry. NECK: Trachea central, no thyromegaly. LUNGS: Unlabored breathing. Clear to auscultation anteriorly. No wheeze or crackle. HEART: S1, S2, regular rate and rhythm. No loud murmur ABDOMEN: Soft, mild lower abdominal tenderness EXTREMITIES: No edema of feet. SKIN: No rash, no masses palpable. NEUROLOGICAL: The patient is awake, alert, oriented x3, mood and affect normal. Results CBC & Chem 7: 07/15/24 03:18 07/15/24 03:18 Labs: Abnormal Lab Results - Last 24 Hours (Table) 07/15/24 07/15/24 Range/Units 03:18 03:18 RBC 2.96 L (4.10-5.20) X 10*6/uL Hgb 8.2 L (12.0-15.0) g/dL Hct 27.3 L (37.2-46.3) % MCHC 30.0 L (32.0-37.0) g/dL Potassium 3.1 L (3.5-5.5) mmol/L Chloride 113 H (96-109) mmol/L BUN/Creatinine Ratio 11.62 L (12.00-20.00) Ratio Calcium 8.1 L (8.7-10.3) mg/dL Magnesium 1.3 L (1.5-2.4) mg/dL Microbiology - Last 24 Hours (Table) 07/12/24 11:03 Blood Culture - Preliminary Blood Assessment and Plan (1) Acute diverticulitis Current Visit: Yes Status: Acute Code(s): K57.92 - DVTRCLI OF INTEST, PART UNSP, W/O PERF OR ABSCESS W/O BLEED SNOMED Code(s): 853581331 Plan: 1patient was in the hospital with a lower abdominal pain in this patient with abnormal CT suggestive of a large stool burden with sigmoid diverticulitis seem to be the likely etiology as the patient did have some response to the current Zosyn therapy which will be continued 2May benefit from a colonoscopy once her acute episode of diverticulitis is resolved to decrease risk of any complication associated with colonoscopy during acute diverticulitis Multiple questions asked and answered We will follow on clinical condition and cultures to further adjust medication if needed Thank you for this consultation we will follow the patient along with you Dictation was produced using [employer] dictation software. please excuse any grammatical, word or spelling errors. Time with Patient: Greater than 30
[2024-07-16] MEDS ORDERED: IPRATROPIUM-ALBUTEROL 3 ML NEB INHALATION PRN (09:00)
[2024-07-16 09:05] LABS: ALT 10 U/L (8-44); AST 23 U/L (13-35); Albumin 3.2 g/dL (3.8-4.9); Albumin/Globulin Ratio 1.39 Ratio (1.60-3.17); Alkaline Phosphatase 84 U/L (41-126); BUN/Creat Ratio 8.43 Ratio (12.00-20.00); Blood Urea Nitrogen 5.9 mg/dL (9.0-27.0); Calcium 8.3 mg/dL (8.7-10.3); Carbon Dioxide 23.6 mmol/L (21.6-31.8); Chloride 115 mmol/L (96-109); Globulin 2.3 g/dL (1.6-3.3); Glucose 94 mg/dL (70-110); Magnesium 1.4 mg/dL (1.5-2.4); Potassium 3.4 mmol/L (3.5-5.5); Sodium 150 mmol/L (135-145); Total Bilirubin <0.2 mg/dL (0.3-1.2); Total Protein 5.5 g/dL (6.2-8.2)
[2024-07-16 10:06] LABS: Basophils # (A) 0.06 X 10*3/uL (0.00-0.10); Basophils % (A) 0.5 %; Eosinophils # (A) 0.24 X 10*3/uL (0.04-0.35); Eosinophils % (A) 1.8 %; HCT 26.9 % (37.2-46.3); HGB 8.1 g/dL (12.0-15.0); Lymphocytes # (A) 3.04 X 10*3/uL (0.90-5.00); Lymphocytes % (A) 23.2 %; MCH 27.7 pg (27.0-32.0); MCHC 30.1 g/dL (32.0-37.0); MCV 92.1 FL (80.0-97.0); Mean Platelet Volume 10.9 FL (9.5-12.2); Monocytes # (A) 1.39 X 10*3/uL (0.20-1.00); Monocytes % (A) 10.6 %; NRBC Per 100 WBC 0 X 10*3/uL (0.00-0.01); Neutrophils # (A) 8.31 X 10*3/uL (1.80-7.70); Neutrophils % (A) 63.4 %; Platelet Count 316 X 10*3/uL (140-440); RBC 2.92 X 10*6/uL (4.10-5.20); RDW 14.6 % (11.5-14.5); WBC 13.11 X 10*3/uL (4.50-10.00)
[2024-07-16 10:53] LABS: Appearance,Urine Clear (Clear); Bacteria,Urine Rare /hpf; Bilirubin,Urine Negative (Negative); Blood,Urine Small (Negative); Color,Urine Colorless; Glucose,Urine (UA) Negative (Negative); Ketones,Urine Negative (Negative); Leukocyte Esterase,Urine Negative (Negative); Nitrite,Urine Negative (Negative); PH, Urine 6.5 (5.0-8.0); Protein,Urine Negative (Negative); RBC,Urine 7 /hpf (0-5); Specific Gravity,Urine 1.008 (1.001-1.035); Urobilinogen,Urine <2.0 mg/dL (<2.0); WBC,Urine 1 /hpf (0-5)
[2024-07-16 12:14] VITALS: PULSE 66
--- NOTE | 2024-07-16 13:41 | CDI ---
Documentation Clarification Form Date: 07/16/2024 01:24:54 PM From: Mindi Kraft RN, CCDS Phone: [phone] Admit Date: 07/12/2024 11:01:00 AM Patient Name: Evelin Bonds Visit Number: [id number] Discharge Date: ATTENTION: The Clinical Documentation Specialists (CDI) and [facility] Coding Staff appreciate your assistance in clarifying documentation. Please respond to the clarification below the line at the bottom and electronically sign. The CDI & [facility] Coding staff will review the response and follow-up if needed. Please note: Queries are made part of the Legal Health Record. If you have any questions, please contact the author of this message via ITS. Doctor. Matthieu Ryan The Registered Dietitian assessment on 07/13/24 indicates this patient meets criteria for malnutrition chronic, severe. Based on this information and the findings below, is there an additional diagnosis that is clinically appropriate for this patient? History/Risk Factors: Atrial Fibrillation, COPD, GERD/Reflux, Hyperlipidemia, Hypertension, Clinical Indicators: 84-year-old female with poor appetite greater than 6 months. NKFA or cultural/economic constraints ID by pt. Current BMI: 16.1 Height: 5 ft[address] Consult Assessment: Malnutrition Chronic, Severe Inadequate energy intake. 23% wt. loss in 8 months, Treatment: Commercial beverage Ensure clear TID Monitor supplement intake/tolerance Is there an additional diagnosis that is clinically appropriate for this patient? [ ] Mild Protein-Calorie Malnutrition [ ] Moderate Protein-Calorie Malnutrition [ ] Severe Protein-Calorie Malnutrition [ ] No additional diagnosis/Not clinically significant [ ] Other condition, please specify [ ] Unable to Determine (Template Last Revised: December 2022) Severe chronic protein calorie malnutrition, protein calorie supplements 3 times a day between meals. Dictated By: Leigh Ann Cardozo Signed By: <Electronically signed by Leigh Ann Cardozo> 07/16/24 1533 MTDD
[2024-07-16] MEDS: MAGNESIUM SULFATE-D5W PMX 1 GM in DEXTROSE/WATER 1 100ML.BAG IVPB SCH (13:52)
[2024-07-16] MEDS: POTASSIUM CHLORIDE ER 20 MEQ TAB.ER PO SCH (13:52)
--- NOTE | 2024-07-16 15:33 | P.DS ---
Providers Date of admission: 07/12/24 11:01 Attending physician: Matthieu Ryan Consults: 07/12/24 11:04 Consult Physician Urgent Consulting Provider: Kal Latham Consult Reason/Comments: Diverticulitis, partial obstruction Do you want consulting provider notified?: Yes 07/15/24 10:59 Consult Physician Routine Consulting Provider: Kamille Walton Consult Reason/Comments: Acute diverticulitis Do you want consulting provider notified?: Yes Primary care physician: Matthieu Ryan Hospital Course: Final Diagnoses: Acute diverticulitis, and possible sigmoid colon obstruction secondary to inflammation related to diverticulitis. General surgery reported ,patient and , at this time declining Gastrografin enema to evaluate for possible colon obstruction. Recommending patient have a colonoscopy 4 to 6 weeks after hospitalization and patient also declined that as well. Hypokalemia Hypomagnesemia COPD, stable Severe chronic protein calorie malnutrition, protein calorie supplements 3 times a day between meals. Hospital course:This is a pleasant 84-year-old white female who was admitted after 10-day history of acute abdominal pain with decreased appetite bloating gas and difficulty with bowel movements. She denies any fevers or chills she has had a history of A-fib congestive heart failure COPD. She continues to smoke. Despite being encouraged to quit. She denies any vomiting denies any hematuria hematochezia or hematemesis. Last admission patient underwent bronchoscopy for pneumonia and COPD. Patient's overall health has been deteriorating over the past few years and her appetite has been diminishing. Evaluated by general surgery.General surgery reported ,patient and , at this time declining Gastrografin enema to evaluate for possible colon obstruction. Recommending patient have a colonoscopy 4 to 6 weeks after hospitalization and patient also declined that as well. Patient's intake improving, positive bowel movements. No emesis. Denies abdominal pain. Reports feels much better, insistent on discharge home today. Potassium 3.4 and magnesium 1.4 requires supplementation prior to discharge. Cleared by general surgery for discharge. Antibiotics at discharge adjusted to Ceftin and Flagyl as per infectious disease recommendations. Patient will be discharged home today, in a stable condition, after completing magnesium, potassium supplementation and after UA with reflex to culture/micro collected. The impression and plan of care has been dictated as directed. : I performed a history and examination of this patient, discussed the same with the dictator. I agree with the dictator's note ,documented as a scribe. Any additional findings or plans will be noted. Patient Condition at Discharge: Stable Plan - Discharge Summary Discharge Rx Participant: No New Discharge Prescriptions: New Lactobacillus Acidophilus [Acidophilus] 1 each PO DAILY #30 cap cefuroxime axetiL [Ceftin] 500 mg PO BID 8 Days #16 tab metroNIDAZOLE [Flagyl] 500 mg PO TID 8 Days #24 tab Magnesium Oxide [Mag-Ox] 400 mg PO BID tab Famotidine [Pepcid] 20 mg PO BID #28 tablet Continue Esomeprazole Magnesium [NexIUM] 40 mg PO DAILY Ipratropium-Albuterol Nebulize [Duoneb 0.5 mg-3 mg/3 ml Soln] 3 ml INHALATION RT-QID #1 LORazepam [Ativan] 0.5 mg PO BID PRN PRN Reason: Anxiety Atorvastatin [Lipitor] 80 mg PO DAILY Sertraline [Zoloft] 50 mg PO DAILY Ipratropium/Albuterol Sulfate [Combivent Respimat Inhaler] 1 puff INHALATION RT-QID PRN PRN Reason: Shortness Of Breath Fluticasone/Umeclidin/Vilanter [Trelegy Ellipta 200-62.5-25] 1 puff INHALATION RT-DAILY Metoprolol Tartrate [Lopressor] 25 mg PO BID #60 tab Discharge Medication List Esomeprazole Magnesium [NexIUM] 40 mg PO DAILY 09/18/14 [History] Ipratropium-Albuterol Nebulize [Duoneb 0.5 mg-3 mg/3 ml Soln] 3 ml INHALATION RT-QID #1 04/02/19 [Rx] Fluticasone/Umeclidin/Vilanter [Trelegy Ellipta 200-62.5-25] 1 puff INHALATION RT-DAILY 11/23/23 [History] Ipratropium/Albuterol Sulfate [Combivent Respimat Inhaler] 1 puff INHALATION RT- QID PRN 11/23/23 [History] Sertraline [Zoloft] 50 mg PO DAILY 11/23/23 [History] LORazepam [Ativan] 0.5 mg PO BID PRN 03/11/24 [History] Metoprolol Tartrate [Lopressor] 25 mg PO BID #60 tab 03/15/24 [Rx] Atorvastatin [Lipitor] 80 mg PO DAILY 05/28/24 [History] Famotidine [Pepcid] 20 mg PO BID #28 tablet 07/16/24 [Rx] Lactobacillus Acidophilus [Acidophilus] 1 each PO DAILY #30 cap 07/16/24 [Rx] Magnesium Oxide [Mag-Ox] 400 mg PO BID tab 07/16/24 [Rx] cefuroxime axetiL [Ceftin] 500 mg PO BID 8 Days #16 tab 07/16/24 [Rx] metroNIDAZOLE [Flagyl] 500 mg PO TID 8 Days #24 tab 07/16/24 [Rx] Follow up Appointment(s)/Referral(s): Matthieu Ryan DO [Primary Care Provider] - 1 Week (office not answering Please call to schedule appointment ) [facility] [NON-STAFF] - 1 Week Ambulatory/Diagnostic Orders: Complete Blood Count w/diff [LAB.AMB] Time Frame: 3 Days, Location: None Selected Patient Instructions/Handouts: Diverticulitis (DC), Diverticulitis Diet (DC) Activity/Diet/Wound Care/Special Instructions: Completing 8 more days of Augmentin to finish up treatment for diverticulitis as per general surgery. PCP to follow-up on final results of repeat UA culture Discharge Disposition: HOME WITH HOME HEALTH SERVICES
--- NOTE | 2024-07-16 16:14 | P.PN ---
Subjective Progress Note Date: 07/16/24 SURGICAL PROGRESS NOTE CHIEF COMPLAINT: Diverticulitis with partial small bowel obstruction HISTORY OF PRESENT ILLNESS: Patient reports her abdominal pain is proved. She is tolerating regular diet. She is having small bowel movements. Denies any nausea or vomiting. Afebrile. WBC 13.11 PHYSICAL EXAM: VITAL SIGNS: Reviewed. GENERAL: Well-developed in no acute distress. ABDOMEN: Soft. Nondistended. Nontender. NEUROLOGIC: Alert and oriented. Cranial nerves II through XII grossly intact. ASSESSMENT: 1. Acute sigmoid diverticulitis/possible colitis. CT scan report recommends barium enema or colonoscopy to exclude underlying mass of the sigmoid colon 2. Partial small bowel obstruction likely due to area of inflammation from the diverticulitis 3. Hypokalemia and hypomagnesemia patient receiving supplement PLAN: -Patient can be discharged from surgical standpoint -Recommend antibiotics at discharge per ID service -Recommend colonoscopy outpatient within the next 4 to 6 weeks. Patient has been declining colonoscopy. Physician [employer] Operator note has been reviewed by physician. Signing provider agrees with the documented findings, assessment, and plan of care. Attestation Patient seen and examined at bedside. Patient with finding of diverticulitis and colitis that appears to be resolving. Recommendation was made for barium enema to exclude underlying mass of sigmoid colon and patient refused. Patient refusing endoscopy. Continue current management based on patient's request. Kal Latham DO Objective - Vital Signs Vital signs: Vital Signs Temp 99.0 F 07/16/24 07:01 Pulse 66 07/16/24 12:13 Resp 18 07/16/24 07:01 BP 168/66 07/16/24 07:01 Pulse Ox 95 07/16/24 07:01 FiO2 Intake & Output 07/15/24 07/16/24 07/16/24 18:59 06:59 18:59 Intake Total 1979 1160 Balance 1979 1160 Intake: Intake, IV Titration 1500 800 Amount ACETAMINOPHEN IV (For NPO 100 100 ) 1,000 mg In Empty Bag 1 bag @ 400 mls/hr IVPB Q6HR PRN Rx#:[id number] Piperacillin-Tazobactam 3 100 100 .375 gm In Sodium Chloride 0.9% 100 ml @ 25 mls/hr IVPB Q8H [facility] Rx#: [id number] Sodium Chloride 0.9% 1, 1300 600 000 ml @ 130 mls/hr IV . Q7H42M [facility] Rx#:[id number] Oral 480 360 Other: # Voids 3 4 # Bowel Movements 1 2 - Labs CBC & Chem 7: 07/16/24 03:08 07/16/24 03:08 Labs: Abnormal Lab Results - Last 24 Hours (Table) 07/16/24 07/16/24 07/16/24 Range/Units 03:08 03:08 10:12 WBC 13.11 H (4.50-10.00) X 10*3/uL RBC 2.92 L (4.10-5.20) X 10*6/uL Hgb 8.1 L (12.0-15.0) g/dL Hct 26.9 L (37.2-46.3) % MCHC 30.1 L (32.0-37.0) g/dL RDW 14.6 H (11.5-14.5) % Immature Gran # 0.07 H (0.00-0.04) X 10*3/uL Neutrophils # 8.31 H (1.80-7.70) X 10*3/uL Monocytes # 1.39 H (0.20-1.00) X 10*3/uL Sodium 150 H (135-145) mmol/L Potassium 3.4 L (3.5-5.5) mmol/L Chloride 115 H (96-109) mmol/L BUN 5.9 L (9.0-27.0) mg/dL BUN/Creatinine Ratio 8.43 L (12.00-20.00) Ratio Calcium 8.3 L (8.7-10.3) mg/dL Magnesium 1.4 L (1.5-2.4) mg/dL Total Bilirubin <0.2 L (0.3-1.2) mg/dL Total Protein 5.5 L (6.2-8.2) g/dL Albumin 3.2 L (3.8-4.9) g/dL Albumin/Globulin Ratio 1.39 L (1.60-3.17) Ratio Urine Blood Small H (Negative) Urine RBC 7 H (0-5) /hpf Urine Bacteria Rare H (None) /hpf Microbiology - Last 24 Hours (Table) 07/12/24 11:03 Blood Culture - Preliminary Blood
--- NOTE | 2024-07-17 15:35 | P.PN ---
Subjective Progress Note Date: 07/16/24 Principal diagnosis: Reason for follow-up is leukocytosis/sigmoid diverticulitis Patient is a 84-year-old female with a past medical history significant for hypertension hyperlipidemia atrial fibrillation COPD reflux presenting to the hospital 4 days ago for evaluation of lower abdominal pain, patient was diagnosed with sigmoid colitis/diverticulitis prompting this c onsultation. On today's evaluation that is 07/16/2024, patient has been afebrile, patient is breathing comfortably and is currently on room air, patient denies having any significant cough no chest pain, patient denies nausea vomiting or diarrhea and lower abdominal pain has improved. Patient white count is 13.11, creatinine 0.7 UA has been negative blood culture negative Objective - Vital Signs Vital signs: Vital Signs Temp 99.0 F 07/16/24 07:01 Pulse 66 07/16/24 12:13 Resp 18 07/16/24 07:01 BP 168/66 07/16/24 07:01 Pulse Ox 95 07/16/24 07:01 FiO2 Intake & Output 07/15/24 07/16/24 07/16/24 18:59 06:59 18:59 Intake Total 1979 1160 Balance 1979 1160 Intake: Intake, IV Titration 1500 800 Amount ACETAMINOPHEN IV (For NPO 100 100 ) 1,000 mg In Empty Bag 1 bag @ 400 mls/hr IVPB Q6HR PRN Rx#:[id number] Piperacillin-Tazobactam 3 100 100 .375 gm In Sodium Chloride 0.9% 100 ml @ 25 mls/hr IVPB Q8H [facility] Rx#: [id number] Sodium Chloride 0.9% 1, 1300 600 000 ml @ 130 mls/hr IV . Q7H42M [facility] Rx#:[id number] Oral 480 360 Other: # Voids 3 4 # Bowel Movements 1 2 - Exam GENERAL DESCRIPTION: An elderly female lying in bed in no distress RESPIRATORY SYSTEM: Unlabored breathing , decreased breath sounds at bases HEART: S1 S2 regular rate and rhythm , ABDOMEN: Soft , no tenderness EXTREMITIES: No edema feet - Labs CBC & Chem 7: 07/16/24 03:08 07/16/24 03:08 Labs: Abnormal Lab Results - Last 24 Hours (Table) 07/16/24 07/16/24 07/16/24 Range/Units 03:08 03:08 10:12 WBC 13.11 H (4.50-10.00) X 10*3/uL RBC 2.92 L (4.10-5.20) X 10*6/uL Hgb 8.1 L (12.0-15.0) g/dL Hct 26.9 L (37.2-46.3) % MCHC 30.1 L (32.0-37.0) g/dL RDW 14.6 H (11.5-14.5) % Immature Gran # 0.07 H (0.00-0.04) X 10*3/uL Neutrophils # 8.31 H (1.80-7.70) X 10*3/uL Monocytes # 1.39 H (0.20-1.00) X 10*3/uL Sodium 150 H (135-145) mmol/L Potassium 3.4 L (3.5-5.5) mmol/L Chloride 115 H (96-109) mmol/L BUN 5.9 L (9.0-27.0) mg/dL BUN/Creatinine Ratio 8.43 L (12.00-20.00) Ratio Calcium 8.3 L (8.7-10.3) mg/dL Magnesium 1.4 L (1.5-2.4) mg/dL Total Bilirubin <0.2 L (0.3-1.2) mg/dL Total Protein 5.5 L (6.2-8.2) g/dL Albumin 3.2 L (3.8-4.9) g/dL Albumin/Globulin Ratio 1.39 L (1.60-3.17) Ratio Urine Blood Small H (Negative) Urine RBC 7 H (0-5) /hpf Urine Bacteria Rare H (None) /hpf Microbiology - Last 24 Hours (Table) 07/12/24 11:03 Blood Culture - Preliminary Blood Assessment and Plan (1) Acute diverticulitis Status: Acute Code(s): K57.92 - DVTRCLI OF INTEST, PART UNSP, W/O PERF OR ABSCESS W/O BLEED SNOMED Code(s): 288291054 Plan: 1patient was in the hospital with a lower abdominal pain in this patient with abnormal CT suggestive of a large stool burden with sigmoid diverticulitis seem to be the likely etiology as the patient did have some response to the current Zosyn therapy which will be continued 2patient has shown clinical improvement and wants to go home we will recommend a course of oral Ceftin and Flagyl on discharge this was discussed with [employer] for admitting team may need colonoscopy or repeat CAT scan in in the outpatient setting Dictation was produced using [employer] dictation software. please excuse any grammatical, word or spelling errors. Time with Patient: Less than 30
== END 2024-07-16 14:23 | disposition home health service (06) | DRG 391 ==
LOC: EC 08:37 → 4SSUR 11:01
PROVIDERS: ADMIT Family Medicine; ATTEND Family Medicine
DX: K57.32 Diverticulitis of large intestine without perforation or abscess without bleeding (principal); E43 Unspecified severe protein-calorie malnutrition; K56.600 Partial intestinal obstruction, unspecified as to cause; I11.0 Hypertensive heart disease with heart failure; I50.9 Heart failure, unspecified; F32.A Depression, unspecified; J43.9 Emphysema, unspecified; Z68.1 Body mass index [BMI] 19.9 or less, adult; I48.91 Unspecified atrial fibrillation; E78.5 Hyperlipidemia, unspecified; E83.42 Hypomagnesemia; E87.6 Hypokalemia; F17.200 Nicotine dependence, unspecified, uncomplicated; Z79.899 Other long term (current) drug therapy
CPT/HCPCS: 36415; 74176; 80048; 80053; 81001; 83690; 83735; 84100; 85025; 87040; 94640; 96361; 96374; 99285